=== PATIENT | female | born 1940 | race Caucasian/White ===

== ENCOUNTER → 2016-12-04 | Outpatient (CLI) | payer MEDICARE, BC ==
--- NOTE | 2016-12-05 14:01 | MM ---
Reason for exam: screening (asymptomatic). Last mammogram was performed 1 year ago. History: Patient is postmenopausal and history of other cancer. Family history of breast cancer in sister at age 66. 2 excisional biopsies of the right breast. Took hormonal contraceptives for 8 years beginning at age 21. Physical Findings: A clinical breast exam by your physician is recommended on an annual basis and results should be correlated with mammographic findings. MG 3D Screening Mammo W/Cad Bilateral CC and MLO view(s) were taken. Prior study comparison: December 02, 2015, bilateral MG 3d screening mammo w/cad. November 16, 2014, bilateral MG screening mammo w CAD. There is chronic nodularity bilaterally. No significant changes when compared with prior studies. ASSESSMENT: Benign, BI-RAD 2 RECOMMENDATION: Routine screening mammogram of both breasts in 1 year.
== END | disposition home or self-care (01) ==
LOC: RADMAMWWP 08:42
PROVIDERS: ATTEND Family Medicine
DX: Z12.31 Encounter for screening mammogram for malignant neoplasm of breast (principal)
CPT/HCPCS: 77063; G0202

== ENCOUNTER → 2017-02-13 | Outpatient (CLI) | payer MEDICARE, BC ==
--- NOTE | 2017-02-13 21:31 | CONS ---
DATE OF CONSULTATION: Sherly is 76, coming in for concern of obstructive sleep apnea. This was a concern that was raised by her primary care physician and her tour bus driver. She follows up with Dr. Wilfrid Pike regarding chronic atrial fibrillation. Clinically the patient reports to admit to snore and despite averaging around 7 to 8 hours of sleep, she wakes up tired, fatigued and somewhat sleepy. She goes around 11:00 p.m., wakes up at 7:00 a.m. in the morning and she feels non-refreshed. No nocturia. No grinding of the teeth. No sleepwalking. No anxiety or panic attacks. No nocturnal heartburn. No arousals or gasping for air. No restlessness in the lower extremities. No sleepwalking or sleeptalking. She is obese and she has no recent weight gain or weight loss. She drinks 3 caffeinated beverages a daily basis. PAST MEDICAL HISTORY: Obesity, diabetes mellitus, chronic atrial fibrillation, paroxysmal atrial fibrillation, Hypertension. Hyperlipidemia. Osteoarthritis. Past surgical history includes cholecystectomy, hysterectomy, knee replacement, surgery for a broken femur and cardiac catheterization with ablation. Outpatient medication list includes: 1. Januvia 100 milligrams p.o. daily. 2. Pravachol 20 mg p.o. daily. 3. Benazepril 5 mg p.o. daily. 4. ( ) 50,000 units every week. 5. [place] 7.5 as needed. 6. Cardizem CD 180 mg p.o. daily. 7. Xarelto 20 mg p.o. daily. 8. Rythmol 150 mg t.i.d. SOCIAL HISTORY: The patient is a smoker. She smokes 2 cigarettes a day. No history of alcohol. No history of IV drugs. FAMILY HISTORY: Brother with obstructive sleep apnea. REVIEW OF SYSTEMS: Twelve-point review of systems was done. Positive findings all mentioned above in the history of present illness. The patient is a nose breather. No history of any motor vehicle accident because of feeling drowsy or sleepy. She has no sleep paralysis. No hallucinations or cataplexy. Her current vitals: BP is 148/81, pulse 82, respirations 16, temperature 98.0, temperature is 97% on room air. Weight is 200. Height is 5 feet 2 inches. Neck size 15 inches. BMI is 35.9. GENERAL APPEARANCE: Calm, comfortable, obese. HEENT: Short neck. Crowding of posterior pharynx. There is no goiter, neck masses. LUNGS: Clear to auscultation. HEART: Heart sounds are regular rate and rhythm. Normal S1, S2. No S3, no S4 no murmurs. ABDOMEN: Soft and nontender. EXTREMITIES: No edema. There is no cyanosis or clubbing at this point. IMPRESSION: 1. Obstructive sleep apnea suspected on clinical grounds. We will proceed with further investigation. 2. Paroxysmal atrial fibrillation. 3. Obesity with a body mass index of 35.9. 4. Diabetes. 5. Hypertension. 6. Hyperlipidemia. 7. Osteoarthritis. PLAN: 1. Weight loss. 2. Implement good sleep hygiene measures. 3. Proceed with a screening polysomnogram, looking for any significant sleep breathing disorder and make further recommendations based on her results and findings.
== END ==
LOC: SLEEP 13:41
PROVIDERS: ATTEND Internal Medicine Critical Care Medicine
DX: G47.33 Obstructive sleep apnea (adult) (pediatric) (principal); E66.9 Obesity, unspecified; E11.9 Type 2 diabetes mellitus without complications; I10 Essential (primary) hypertension; E78.5 Hyperlipidemia, unspecified; M19.90 Unspecified osteoarthritis, unspecified site; F17.210 Nicotine dependence, cigarettes, uncomplicated; I48.0 Paroxysmal atrial fibrillation; Z79.01 Long term (current) use of anticoagulants; Z79.899 Other long term (current) drug therapy
CPT/HCPCS: 99204; 99211

== ENCOUNTER 2018-04-30 09:13 | Emergency (ER) | payer MEDICARE, BC ==
[2018-04-30 09:25] VITALS: RESP 18
[2018-04-30] MEDS ORDERED: KETOROLAC 30 MG/ML 1 ML VIAL IM STA (09:48)
[2018-04-30] MEDS ORDERED: MORPHINE SULFATE 4 MG/ML SYRINGE IM STA (09:48)
[2018-04-30] MEDS ORDERED: ORPHENADRINE 30 MG/ML 2 ML VIAL IM STA (09:48)
--- NOTE | 2018-04-30 09:52 | ED ---
Recheck HPI - General Chief Complaint: Recheck/Abnormal Lab/Rx Stated Complaint: Fell on tailbone Time Seen by Provider: 04/30/18 09:37 Source: patient, RN notes reviewed, old records reviewed Mode of arrival: wheelchair Limitations: no limitations - History of Present Illness Initial Comments: 77-year-old female present emergency department today with chief complaint of fall on her tailbone on Sunday afternoon. Patient reports that she was seen at that time and [facility]. They started her on steroids, pain medication and muscle relaxer. She reports that she cannot take the muscle relaxer from the pharmacy until today. Patient states she's had increased pain today. She does deny any saddle anesthesia. Patient states the pain occasionally will radiate to her right leg. Pain is worse with changing position from sitting to standing. Patient reports that she had no fall since the initial injury on Sunday. - Related Data Home Medications Medication Instructions Recorded Confirmed Benazepril [Lotensin] 5 mg PO DAILY 06/16/14 04/30/18 sitaGLIPtin [Januvia] 100 mg PO DAILY 06/16/14 04/30/18 Empagliflozin [Jardiance] 10 mg PO DAILY 02/06/17 04/30/18 HYDROcodone/APAP 7.5-325MG [Max 1 tab PO Q6HR PRN 02/06/17 04/30/18 7.5-325] Rivaroxaban [Xarelto] 20 mg PO HS 02/06/17 04/30/18 Aspirin [Adult Low Dose Aspirin EC] 81 mg PO DAILY 07/05/17 04/30/18 Ergocalciferol [Vitamin D2] 50,000 unit PO SERVIN 07/05/17 04/30/18 Flecainide [Tambocor] 50 mg PO QAM 07/05/17 04/30/18 Ranolazine [Ranexa] 500 mg PO BID 07/05/17 04/30/18 Metoprolol Tartrate 12.5 mg PO BID 04/30/18 04/30/18 Pravastatin Sodium [Pravachol] 40 mg PO HS 04/30/18 04/30/18 Previous Rx's Medication Instructions Recorded Cyclobenzaprine [Flexeril] 10 mg PO TID #12 tab 04/30/18 Allergies Allergy/AdvReac Type Severity Reaction Status Date / Time No Known Allergies Allergy Verified 04/30/18 10:14 Review of Systems ROS Statement: Those systems with pertinent positive or pertinent negative responses have been documented in the HPI. ROS Other: All systems not noted in ROS Statement are negative. Past Medical History Past Medical History: Atrial Flutter, Diabetes Mellitus, Hyperlipidemia, Hypertension, Osteoarthritis (OA) History of Any Multi-Drug Resistant Organisms: None Reported Past Surgical History: Breast Surgery, Cardiac Ablation, Cholecystectomy, Hysterectomy, Joint Replacement, Orthopedic Surgery, Pacemaker Past Anesthesia/Blood Transfusion Reactions: No Reported Reaction Past Psychological History: No Psychological Hx Reported Smoking Status: Current some day smoker Past Alcohol Use History: None Reported Past Drug Use History: None Reported - Past Family History Brother(s) Family Medical History: Cancer Sister(s) Family Medical History: Cancer General Exam - General Exam Comments Initial Comments: This is a 77-year-old female. Alert and oriented. No significant distress. Limitations: no limitations General appearance: alert, in no apparent distress Head exam: Present: atraumatic, normocephalic, normal inspection Eye exam: Present: normal appearance, PERRL, EOMI. Absent: scleral icterus, conjunctival injection, periorbital swelling ENT exam: Present: normal exam, mucous membranes moist Neck exam: Present: normal inspection. Absent: tenderness, meningismus, lymphadenopathy Respiratory exam: Present: normal lung sounds bilaterally. Absent: respiratory distress, wheezes, rales, rhonchi, stridor Cardiovascular Exam: Present: regular rate, normal rhythm, normal heart sounds. Absent: systolic murmur, diastolic murmur, rubs, gallop, clicks GI/Abdominal exam: Present: soft, normal bowel sounds. Absent: distended, tenderness, guarding, rebound, rigid Extremities exam: Present: normal inspection, full ROM, normal capillary refill. Absent: tenderness, pedal edema, joint swelling, calf tenderness Right Upper Leg exam: Present: normal inspection, full ROM Knee exam: Present: normal inspection, full ROM Foot/Toe exam: Present: normal inspection, full ROM Neurovascular tendon exam: Present: no vascular compromise Back exam: Present: normal inspection Expanded Back exam: Sciatic Notch Tenderness: Right (Patient has sciatic notch tenderness. Contusion over the right sciatic rash measuring 3 cm x 2 cm.), Positive Straight Leg Raise: Right Neurological exam: Present: alert, oriented X3, CN II-XII intact Psychiatric exam: Present: normal affect, normal mood Skin exam: Present: warm, dry, intact, normal color. Absent: rash Course Vital Signs 04/30/18 09:21 Temperature 97.8 F Pulse Rate 57 L Respiratory 18 Rate Blood Pressure 162/86 O2 Sat by Pulse 97 Oximetry Medical Decision Making - Medical Decision Making Tentative chilled female with tailbone pain and right sciatic pain after a fall on Sunday. She had a CT at [facility]. This was up and her system review the images. Unable to identify fracture at that time. We have the radiologist review the images again today and they do not see any right hip fracture. Lumbar spine shows evidence of L4-L5 degenerative disc disease. No evidence of any compression fractures. Patient's pain was relieved after Toradol and Norflex IV and morphine. Patient at this time is a 30 and treatment including pain medication Flexeril and steroids. Discussed continues and having close follow-up with PCP. Given referral for orthopedic symptoms continue to persist for Patient agrees treatment plan will comply. Return parameters were discussed. - Radiology Data Radiology results: report reviewed Advanced hypertrophy facet arthropathy. Trace 1 anterolisthesis L4-L5. No vertebral compression collapse. Bone mineralization joint spaces and alignment are stable and left. Was seen at the acetabulum on the right. Vascular calcifications noted. Degenerative disc and visualized spine. Cannot totally exclude a fracture considering CT. Disposition Clinical Impression: Right sciatic nerve pain, Fall, Contusion of lower back Disposition: HOME SELF-CARE Condition: Good Instructions: Sciatica (ED), Lumbar Radiculopathy (ED) Additional Instructions: Take as as prescribed pain medication. You could do it every 4 hours if necessary. Take the anti-inflammatory medication and muscle relaxer as prescribed. Return to the emergency department if any alarming signs or symptoms as per occur. Prescriptions: Cyclobenzaprine [Flexeril] 10 mg PO TID #12 tab Is patient prescribed a controlled substance at d/c from ED?: No Referrals: Darrel Rizo DO [Primary Care Provider] - 1-2 days Time of Disposition: 12:20
--- NOTE | 2018-04-30 11:42 | XR ---
EXAMINATION TYPE: XR lumbar spine 2 or 3V DATE OF EXAM: 04/30/2018 COMPARISON: NONE HISTORY: 77-year-old female pain since fall 4 days ago TECHNIQUE: 3 views FINDINGS: Osteopenia. Advanced hypertrophic facet arthropathy throughout. Baastrup's disease. Vertebral body he ights are preserved. Trace grade 1 anterolisthesis at L4-L5 degenerative basis. Dense atelectatic aury cifications throughout the abdominal aorta. Mild endplate spondylosis throughout. IMPRESSION: Advanced hypertrophic facet arthropathy. Trace grade 1 anterolisthesis at L4-L5. No vertebral refugio scout collapse.
--- NOTE | 2018-04-30 11:45 | XR ---
AP pelvis HISTORY: Trauma 4 days prior, pain Single frontal view of the pelvis correlated to left hip dated 12/02/2015 Bone mineralization, joint spaces and alignment are stable on the left. Lucency seen at acetabulum on the right. There are vascular calcifications noted. Degenerative disc change in the visualized spine . IMPRESSION: cannot exclude fracture, consider CT.
[2018-04-30] MEDS ORDERED: CYCLOBENZAPRINE 10MG STARTER 3 TAB BTL PO STA (12:22)
[2018-04-30 13:00] VITALS: BP 166/86; PULSE 61; TEMP 98.2
== END 2018-04-30 12:57 | disposition home or self-care (01) ==
LOC: EC 09:13
DX: S30.0XXA Contusion of lower back and pelvis, initial encounter (principal); M54.31 Sciatica, right side; I48.92 Unspecified atrial flutter; E11.9 Type 2 diabetes mellitus without complications; E78.5 Hyperlipidemia, unspecified; M19.90 Unspecified osteoarthritis, unspecified site; I10 Essential (primary) hypertension; F17.200 Nicotine dependence, unspecified, uncomplicated; Z79.01 Long term (current) use of anticoagulants; Z79.84 Long term (current) use of oral hypoglycemic drugs; Z79.82 Long term (current) use of aspirin; Z79.899 Other long term (current) drug therapy; Z95.0 Presence of cardiac pacemaker; W19.XXXA Unspecified fall, initial encounter
CPT/HCPCS: 72100; 72170; 99284; 96372 ×3; J2270; J2360; J1885

== ENCOUNTER 2018-05-01 16:33 | Inpatient (IN) | payer MEDICARE, BC ==
--- NOTE | 2018-05-01 17:32 | ED ---
General Adult HPI - General Chief complaint: Back Pain/Injury Stated complaint: BACK PAIN Time Seen by Provider: 05/01/18 16:52 Source: patient, family, RN notes reviewed Mode of arrival: EMS Limitations: physical limitation - History of Present Illness Initial comments: Patient is a pleasant 77-year-old female presenting to the emergency Department with low back pain. Patient does have a history of chronic sciatic problems. Patient has received injections previously with improvement of symptoms. Patient did have a fall 5 days ago while exercising. Patient landed on her tailbone. Patient has had computed tomography scan done at [facility] as well as x-rays done here. Patient states despite pain medication including Flexeril and [place] and steroids her symptoms are not improving. Patient is having difficulty getting to the bathroom and therefore has had some episodes of bladder incontinence. Patient is highly able to walk at all. Patient attributes her inability to walk to pain. Patient has difficulty moving her legs also to be related to pain. No fecal incontinence. - Related Data Home Medications Medication Instructions Recorded Confirmed Benazepril [Lotensin] 5 mg PO DAILY 06/16/14 05/01/18 sitaGLIPtin [Januvia] 100 mg PO DAILY 06/16/14 05/01/18 Empagliflozin [Jardiance] 10 mg PO DAILY 02/06/17 05/01/18 HYDROcodone/APAP 7.5-325MG [[place] 1 tab PO Q6HR PRN 02/06/17 05/01/18 7.5-325] Rivaroxaban [Xarelto] 20 mg PO HS 02/06/17 05/01/18 Aspirin [Adult Low Dose Aspirin EC] 81 mg PO DAILY 07/05/17 05/01/18 Ergocalciferol [Vitamin D2] 50,000 unit PO SERVIN 07/05/17 05/01/18 Flecainide [Tambocor] 50 mg PO QAM 07/05/17 05/01/18 Ranolazine [Ranexa] 500 mg PO BID 07/05/17 05/01/18 Metoprolol Tartrate 12.5 mg PO BID 04/30/18 05/01/18 Pravastatin Sodium [Pravachol] 40 mg PO HS 04/30/18 05/01/18 predniSONE 20 mg PO TID 05/01/18 05/01/18 Previous Rx's Medication Instructions Recorded Cyclobenzaprine [Flexeril] 10 mg PO TID #12 tab 04/30/18 Allergies Allergy/AdvReac Type Severity Reaction Status Date / Time No Known Allergies Allergy Verified 05/01/18 16:55 Review of Systems ROS Statement: Those systems with pertinent positive or pertinent negative responses have been documented in the HPI. ROS Other: All systems not noted in ROS Statement are negative. Constitutional: Denies: fever Eyes: Denies: eye pain ENT: Denies: ear pain Respiratory: Denies: cough Cardiovascular: Denies: chest pain Endocrine: Denies: fatigue Gastrointestinal: Denies: abdominal pain Genitourinary: Denies: dysuria Musculoskeletal: Reports: back pain Skin: Denies: rash Neurological: Denies: weakness Past Medical History Past Medical History: Atrial Flutter, Diabetes Mellitus, Hyperlipidemia, Hypertension, Osteoarthritis (OA) History of Any Multi-Drug Resistant Organisms: None Reported Past Surgical History: Breast Surgery, Cardiac Ablation, Cholecystectomy, Hysterectomy, Joint Replacement, Orthopedic Surgery, Pacemaker Past Anesthesia/Blood Transfusion Reactions: No Reported Reaction Past Psychological History: No Psychological Hx Reported Smoking Status: Current some day smoker Past Alcohol Use History: None Reported Past Drug Use History: None Reported - Past Family History Brother(s) Family Medical History: Cancer Sister(s) Family Medical History: Cancer General Exam Limitations: physical limitation General appearance: alert, in no apparent distress Head exam: Present: atraumatic Eye exam: Present: normal appearance, PERRL ENT exam: Present: normal oropharynx Neck exam: Present: normal inspection Respiratory exam: Present: normal lung sounds bilaterally Cardiovascular Exam: Present: regular rate, normal rhythm Expanded Peripheral pulses: 2+: Dorsalis Pedis (R), Dorsalis Pedis (L) GI/Abdominal exam: Present: soft. Absent: distended, tenderness Rectal exam: Present: normal inspection, normal rectal tone, other (No saddle anesthesia) Extremities exam: Present: normal inspection Back exam: Present: normal inspection. Absent: tenderness Neurological exam: Present: alert, other (Patient has difficulty lifting both legs off the bed that she attributes to pain. Good strength with dorsi and plantar flexion of the feet. Sensation intact.) Psychiatric exam: Present: normal affect, normal mood Skin exam: Present: normal color. Absent: rash Course Vital Signs 05/01/18 16:44 Temperature 97.9 F Pulse Rate 56 L Respiratory 18 Rate Blood Pressure 179/77 O2 Sat by Pulse 96 Oximetry Medical Decision Making - Medical Decision Making Case was discussed in detail with Dr. asif, who will admit for Dr. Rizo. He does request consult with Dr. Del Cid. Disposition Clinical Impression: Fall, Right sciatic nerve pain Disposition: ADMITTED IP TO THIS HOSP Is patient prescribed a controlled substance at d/c from ED?: No Referrals: Darrel Rizo DO [Primary Care Provider] - 1-2 days Decision Time: 19:34
[2018-05-01] MEDS ORDERED: NALOXONE 0.4 MG/ML 1 ML VIAL IV PRN (19:34)
[2018-05-01 20:15] LABS: Appearance,Urine Clear (Clear); Basophils % (A) 0 %; Bilirubin,Urine Negative (Negative); Blood,Urine Negative (Negative); Color,Urine Light Yellow; Eosinophils # (A) 0.2 k/uL (0-0.7); Eosinophils % (A) 1 %; Glucose,Urine (UA) 4+ (Negative); HCT 42.5 % (34.0-46.0); HGB 14.1 gm/dL (11.4-16.0); Ketones,Urine Negative (Negative); Leukocyte Esterase,Urine Negative (Negative); Lymphocytes # (A) 1.1 k/uL (1.0-4.8); Lymphocytes % (A) 5 %; MCH 30.1 pg (25.0-35.0); MCHC 33.2 g/dL (31.0-37.0); MCV 90.6 fL (80.0-100.0); Mean Platelet Volume 6.9; Monocytes # (A) 0.5 k/uL (0-1.0); Monocytes % (A) 3 %; Neutrophils # (A) 18.5 k/uL (1.3-7.7); Neutrophils % (A) 91 %; Nitrite,Urine Negative (Negative); Platelet Count 205 k/uL (150-450); Protein,Urine Negative (Negative); RBC 4.69 m/uL (3.80-5.40); RDW 14.1 % (11.5-15.5); Specific Gravity,Urine 1.014 (1.001-1.035); Urobilinogen,Urine <2.0 mg/dL (<2.0); WBC 20.4 k/uL (3.8-10.6)
[2018-05-01] MEDS: methylPREDNISolone SOD SUCCI 125 MG/2 ML VIAL IV SCH ×2 (20:27→23:18)
[2018-05-01] MEDS: HYDROmorphone 1 MG/ML 1 ML SYRINGE IVP PRN (20:28)
[2018-05-01 20:39] LABS: ALT 32 U/L (9-52); AST 22 U/L (14-36); Albumin 3.6 g/dL (3.5-5.0); Alkaline Phosphatase 64 U/L (38-126); Anion Gap 6 mmol/L; Blood Urea Nitrogen 31 mg/dL (7-17); Carbon Dioxide 27 mmol/L (22-30); Chloride 105 mmol/L (98-107); Glucose 144 mg/dL (74-99); Potassium 4.7 mmol/L (3.5-5.1); Sodium 138 mmol/L (137-145); Total Bilirubin 0.4 mg/dL (0.2-1.3); Total Protein 6.2 g/dL (6.3-8.2)
[2018-05-01] MEDS: SODIUM CHLORIDE 0.9% 1,000 ML IV SCH (21:12)
[2018-05-01 21:28] VITALS: BMI 32.9
[2018-05-02] MEDS: HYDROmorphone 1 MG/ML 1 ML SYRINGE IVP PRN ×5 (02:49→17:30)
[2018-05-02] MEDS: methylPREDNISolone SOD SUCCI 125 MG/2 ML VIAL IV SCH ×4 (05:46→23:01)
--- NOTE | 2018-05-02 09:21 | P.CNOR ---
History of Present Illness - [facility] Consult date: 05/02/18 Consult reason: low back pain History of present illness: Patient is a pleasant 77 rolled female who was admitted to the emergency room last night with incapacitating low back pain. She says that she has a history of chronic low back pain with some sciatica issues. She said she had a fall about 5 days ago when she was exercising and fell onto her backside. She says she was still able get up and around but did present to place [facility]. She had some medications and imaging but was sent home. She continued to have pain and difficulty getting around and presented to the emergency room on Sunday. She was again tried conservative treatment and was able to be sent home. She had continued pain and presented again yesterday and was admitted. She says she is unable to walk due to her pain under low back and has difficulty moving her legs due to the pain at her lower back into her posterior thighs bilaterally. She denies any bowel bladder changes denies any fevers or chills. She denies any chest pain or shortness breath. Review of Systems Denies any chest pain shortness breath or fevers chills. Denies any weakness in her lower extremity. Has difficulty moving her legs due to the pain in her back. Past Medical History Past Medical History: Atrial Flutter, Diabetes Mellitus, Hyperlipidemia, Hypertension, Osteoarthritis (OA) History of Any Multi-Drug Resistant Organisms: None Reported Past Surgical History: Breast Surgery, Cardiac Ablation, Cholecystectomy, Hysterectomy, Joint Replacement, Orthopedic Surgery, Pacemaker Additional Past Surgical History / Comment(s): plate in right leg Past Anesthesia/Blood Transfusion Reactions: No Reported Reaction Type of Cardiac Device: Unknown Device Placement Date:: 04/09 Past Psychological History: No Psychological Hx Reported Smoking Status: Current some day smoker Past Alcohol Use History: None Reported Past Drug Use History: None Reported - Past Family History Brother(s) Family Medical History: Cancer Sister(s) Family Medical History: Cancer Medications and Allergies Home Medications Medication Instructions Recorded Confirmed Type Benazepril [Lotensin] 5 mg PO DAILY 06/16/14 05/01/18 History sitaGLIPtin [Januvia] 100 mg PO DAILY 06/16/14 05/01/18 History Empagliflozin [Jardiance] 10 mg PO DAILY 02/06/17 05/01/18 History HYDROcodone/APAP 7.5-325MG [[place] 1 tab PO Q6HR PRN 02/06/17 05/01/18 History 7.5-325] Rivaroxaban [Xarelto] 20 mg PO HS 02/06/17 05/01/18 History Aspirin [Adult Low Dose Aspirin EC] 81 mg PO DAILY 07/05/17 05/01/18 History Ergocalciferol [Vitamin D2] 50,000 unit PO SERVIN 07/05/17 05/01/18 History Flecainide [Tambocor] 50 mg PO QAM 07/05/17 05/01/18 History Ranolazine [Ranexa] 500 mg PO BID 07/05/17 05/01/18 History Cyclobenzaprine [Flexeril] 10 mg PO TID #12 tab 04/30/18 05/01/18 Rx Metoprolol Tartrate 12.5 mg PO BID 04/30/18 05/01/18 History Pravastatin Sodium [Pravachol] 40 mg PO HS 04/30/18 05/01/18 History predniSONE 20 mg PO TID 05/01/18 05/01/18 History Allergies Allergy/AdvReac Type Severity Reaction Status Date / Time No Known Allergies Allergy Verified 05/01/18 16:55 Physical Examination Osteopathic Statement: *. No significant issues noted on an osteopathic structural exam other than those noted in the History and Physical/Consult. - L Spine: dermatomal strength & reflexes bilateral Strength: hip flexion: 5/5 (At her back her skin is clear. There is no open wounds lacerations or abrasions. There is no skin changes. She is nontender to palpation over the midline of her back she has some paravertebral spasm. She has no pain with internal and external rotation of her hips. She has sustained dorsal flexion plantarflexion and EHL. She is able to lift her legs up off the bed but has pain with doing so on the right side. Her pelvis is stable. Abdomen soft nontender chest has good excursion deep inspiration and expiration her neck is nontender to palpation range of motion her arms have good strength and range of motion throughout) Results - Labs Labs: Abnormal Lab Results - Last 24 Hours (Table) 05/01/18 05/01/18 05/01/18 Range/Units 20:00 20:00 20:00 WBC 20.4 H (3.8-10.6) k/uL Neutrophils # 18.5 H (1.3-7.7) k/uL BUN 31 H (7-17) mg/dL Glucose 144 H (74-99) mg/dL Total Protein 6.2 L (6.3-8.2) g/dL Urine Glucose (UA) 4+ H (Negative) H & H 05/01/18 Range/Units 20:00 Hgb 14.1 (11.4-16.0) gm/dL Hct 42.5 (34.0-46.0) % Result Diagrams: 05/01/18 20:00 05/01/18 20:00 - Diagnostic results Lumbar AP/lateral x-ray: image reviewed (Lumbar x-rays are reviewed. She has significant disc changes at L5-S1 and may have some calcification and possible autofusion at that level. There is a very slight 2 mm listhesis at L4 5. There is no acute fracture that is apparent. There is no other instability. I do not see any bony masses or distraction.) Assessment and Plan Assessment: Acute on chronic low back pain Bilateral lower extremity radiculopathy Status post fall approximately 1 week ago Subtle listhesis L4 5 Degenerative disc disease L5-S1 Plan: Acute on chronic low back pain Bilateral lower extremity radiculopathy Status post fall approximately 1 week ago Subtle listhesis L4 5 Degenerative disc disease L5-S1 The patient has acute on chronic low back pain and is having great difficulty with any sort of ambulation. There are some degenerative changes at her lower lumbar spine L4 5 and L5-S1. She is not having acute neurologic change or weakness at this point. She has been started on IV steroids I think is appropriate. We will see if physical therapy is able to help her with her mobilization. She has a history of pacemaker and we will not be able to obtain an MRI we'll we will go ahead with an new computed tomography scan of her lumbar spine if this is not available from [facility]. I would like to see if interventional pain management can see her for the possibility of interventional treatment and possible epidural steroid injections. We will plan to treat her conservatively at this point. She will continue her other medical management. She may need to hold her Xarelto if they plan for interventional pain management treatments.
--- NOTE | 2018-05-02 10:21 | CT ---
EXAMINATION TYPE: CT lumbar spine wo con DATE OF EXAM: 05/02/2018 9:57 AM COMPARISON: 04/30/2018 HISTORY: Low back pain CT DLP: 985 mGycm Automated exposure control for dose reduction was used. TECHNIQUE: Unenhanced CT of the lumbar spine was performed. Bone and soft tissue window settings are submitted as well as coronal and sagittal reconstructions. FINDINGS: Again there is very mild grade 1 anterolisthesis of L4 on L5. Remainder of the lumbar verte bral bodies maintain normal vertebral body heights and alignment. There is multilevel moderate degene rative change of the lumbar spine most exaggerated at L5-S1 with intervertebral disc space narrowing, endplate sclerosis and advanced hypertrophic facet arthropathy throughout the lumbar spine. As noted on the prior radiographs there is approximation of the spinous processes due to degenerative change. Spinal canal is limited on CT. There is severe atherosclerosis of the inferior abdominal aorta and it s branches. L1-L2: Normal disc space height. No disc herniation protrusion or central stenosis. No facet joint arthropathy. No evidence for foraminal encroachment. L2-L3: There is a broad-based disc bulge with facet arthropathy resulting in mild bilateral neural fo raminal narrowing. No significant spinal canal stenosis. L3-L4: There is a broad-based disc bulge and advanced facet arthropathy with ligamentum flavum buckli ng resulting in moderate to severe spinal canal stenosis and moderate bilateral neural foraminal narr owing. L4-L5: There is a broad-based disc bulge and advanced facet arthropathy with ligamentum flavum buckli ng also resulting in moderate to severe spinal canal stenosis and moderate bilateral neural foraminal narrowing. L5-S1: There is a right eccentric broad-based disc bulge resulting in mild right-sided neural foramin al narrowing. No significant spinal canal stenosis or left-sided neural foraminal narrowing. IMPRESSION: 1. No evidence of acute fracture of the lumbar spine. Very minimal malalignment of L4 on L5 is likely on a degenerative basis due to advanced facet arthropathy. 2. Advanced multilevel facet arthropathy and moderate degenerative disc disease resulting in moderate to severe spinal canal stenosis at L3-L4 and L4-L5 with multilevel neural foraminal narrowing as satya cribed above.
[2018-05-02] MEDS ORDERED: predniSONE 20 MG TAB PO SCH (11:15)
[2018-05-02] MEDS: RANOLAZINE 500 MG TAB.ER.12H PO SCH ×2 (12:45→20:55)
[2018-05-02] MEDS: METOPROLOL TARTRATE 12.5 MG TAB PO SCH ×2 (12:45→20:56)
[2018-05-02] MEDS: FLECAINIDE 50 MG TAB PO SCH (12:45)
[2018-05-02] MEDS: LISINOPRIL 5 MG TAB PO SCH (12:45)
[2018-05-02] MEDS: CYCLOBENZAPRINE 10 MG TAB PO SCH ×3 (12:45→20:55)
[2018-05-02] MEDS: ASPIRIN 81 MG PO SCH (12:46)
[2018-05-02] MEDS: NON-FORMULARY DRUG (Empagliflozin [Jardiance] 10 MG) PO SCH (12:46)
[2018-05-02] MEDS: LINAGLIPTIN 5 MG TABLET PO SCH (12:46)
[2018-05-02] MEDS: HYDROcodone/APAP 7.5-325MG 1 EACH TAB PO PRN (14:33)
--- NOTE | 2018-05-02 15:13 | P.PAINCN ---
History of Present Illness - Reason for Consult Consult date: 05/02/18 Low back pain - Chief Complaint Low back pain - History of Present Illness 78-year-old female with a history of degenerative disc disease of the lumbar spine. Patient reports that she fell on her back 1 week ago and has had excruciating pain since then. She reports that the emergency department because of her back pain. Pain is a 10 out of 10 in severity and describes it as throbbing aching she reports bilateral radicular pain into the posterior thigh. Patient is currently on Xarelto and was last taken last night. In order to perform any type of interventional procedure patient needs have been off the Xarelto for 3 days. I spoke to admitting team and discuss the patient should follow up as an outpatient. I also discussed discharge medication continue steroids and NSAIDs along with bedrest as the ideal therapy into the patient can be seen in our clinic and appropriately boarded for a intralaminar epidural steroid injection. Patient denies any bowel or bladder incontinence Patient has not had lumbar spine surgery in the past. ROS: A 14 point review of systems was completed and negative except as mentioned in HPI Physical Examinations : 1-Constitutiona : Cooperative , not in acute distress . 2-HEENT : nech ; supple , no Lymphadenopathy , normal thyroid size . eyes : no ptosis , no icterus, no photophobia . ENT : normal of hearing , normal oropharynx , no Thrush . 3- Respiratory : Chest clear to auscultations Bilaterally , no wheezing , no Rhonchi . 4- Cardiovascular : regular rate and rhythem , S1 , S2 , no S3 , no S4. 5- Gastrointestinal : abdomen soft no tenderness , bowel sounds positive all four quadrents , no organomegally . 6- Genitourinary : Defferred . 7- neurologic : Cranial nerve II to XII intact , no focal neurological deffecit . 8-psychatric : alert , oriented X 3 , appropriate affect , intact judgment and insight . 9-Lymphatic : no Lymphadenopathy . 10- musculoskeltal : , Lumber spine = normal moter stegnth lower extremities ,thigh and legs .5/5 deep tendon reflexes : normal Knee Jerk, normal ankle Jerk . Negative lumber facet Loading Test straight leg raising test positive at 30 degree bilateral Fabere test positive RT and positive LT . Sever tenderness over the lumbar spine bilateral mostly on the left Assessment/plan: assessment: 1. Lumbar radiculitis 2. Lumbar spinal stenosis 3. Lumbar degenerative disc disease Plan 1. Patient could benefit from a lumbar epidural steroid injection however patient is on Xarelto and would not be able to be boarded until Sunday morning. Seeing as how this is not ideal. The patient as an inpatient I recommend that she follow up as an outpatient. With regards to medication planning patient could still benefit from prednisone as well as NSAIDs. Patient could also benefit from bedrest. 2. Patient can be scheduled to be seen in our clinic next available date phone number is dory [phone] Thank you for the consultation and for allowing us to participate in this patient's care. Past Medical History Past Medical History: Atrial Flutter, Diabetes Mellitus, Hyperlipidemia, Hypertension, Osteoarthritis (OA) History of Any Multi-Drug Resistant Organisms: None Reported Past Surgical History: Breast Surgery, Cardiac Ablation, Cholecystectomy, Hysterectomy, Joint Replacement, Orthopedic Surgery, Pacemaker Additional Past Surgical History / Comment(s): plate in right leg Past Anesthesia/Blood Transfusion Reactions: No Reported Reaction Type of Cardiac Device: Unknown Device Placement Date:: 04/09 Past Psychological History: No Psychological Hx Reported Smoking Status: Current some day smoker Past Alcohol Use History: None Reported Past Drug Use History: None Reported - Past Family History Brother(s) Family Medical History: Cancer Sister(s) Family Medical History: Cancer Medications and Allergies Home Medications Medication Instructions Recorded Confirmed Type Benazepril [Lotensin] 5 mg PO DAILY 06/16/14 05/01/18 History sitaGLIPtin [Januvia] 100 mg PO DAILY 06/16/14 05/01/18 History Empagliflozin [Jardiance] 10 mg PO DAILY 02/06/17 05/01/18 History HYDROcodone/APAP 7.5-325MG [[place] 1 tab PO Q6HR PRN 02/06/17 05/01/18 History 7.5-325] Rivaroxaban [Xarelto] 20 mg PO HS 02/06/17 05/01/18 History Aspirin [Adult Low Dose Aspirin EC] 81 mg PO DAILY 07/05/17 05/01/18 History Ergocalciferol [Vitamin D2] 50,000 unit PO SERVIN 07/05/17 05/01/18 History Flecainide [Tambocor] 50 mg PO QAM 07/05/17 05/01/18 History Ranolazine [Ranexa] 500 mg PO BID 07/05/17 05/01/18 History Cyclobenzaprine [Flexeril] 10 mg PO TID #12 tab 04/30/18 05/01/18 Rx Metoprolol Tartrate 12.5 mg PO BID 04/30/18 05/01/18 History Pravastatin Sodium [Pravachol] 40 mg PO HS 04/30/18 05/01/18 History predniSONE 20 mg PO TID 05/01/18 05/01/18 History Allergies Allergy/AdvReac Type Severity Reaction Status Date / Time No Known Allergies Allergy Verified 05/01/18 16:55 Physical Exam Vitals: Vital Signs Temp Pulse Pulse Resp BP BP Pulse Ox 05/02/18 07:05 98.8 F 67 22 143/81 99 05/02/18 00:54 97.9 F 56 L 16 133/85 96 05/01/18 20:09 97.6 F 56 L 18 159/72 95 05/01/18 20:04 97.5 F L 57 L 16 160/80 97 05/01/18 16:44 97.9 F 56 L 18 179/77 96 Intake and Output 05/01/18 05/02/18 05/02/18 22:59 06:59 14:59 Other: # Voids 1 1 Weight 81.647 kg Results CBC & Chem 7: 05/01/18 20:00 05/01/18 20:00 Labs: Abnormal Lab Results - Last 24 Hours (Table) 05/01/18 05/01/18 05/01/18 Range/Units 20:00 20:00 20:00 WBC 20.4 H (3.8-10.6) k/uL Neutrophils # 18.5 H (1.3-7.7) k/uL BUN 31 H (7-17) mg/dL Glucose 144 H (74-99) mg/dL Total Protein 6.2 L (6.3-8.2) g/dL Urine Glucose (UA) 4+ H (Negative) PQRS Measure Charge Sheet PQRS Narrative: Smoking Status Current some day smoker Do You Want the Pneumonia Vaccine Up to Date Vaccine AT THIS TIME? Blood Pressure [Right Arm] 143/81 Blood Pressure 159/72 Pain Intensity [Back] 5 Pain Intensity 5 Pain Scale Used Numeric (1 - 10) Scale Used Numeric (1 - 10) Home Medications: Ambulatory Orders Benazepril [Lotensin] 5 mg PO DAILY 06/16/14 sitaGLIPtin [Januvia] 100 mg PO DAILY 06/16/14 Empagliflozin [Jardiance] 10 mg PO DAILY 02/06/17 HYDROcodone/APAP 7.5-325MG [[place] 7.5-325] 1 tab PO Q6HR PRN 02/06/17 Rivaroxaban [Xarelto] 20 mg PO HS 02/06/17 Aspirin [Adult Low Dose Aspirin EC] 81 mg PO DAILY 07/05/17 Ergocalciferol [Vitamin D2] 50,000 unit PO SERVIN 07/05/17 Flecainide [Tambocor] 50 mg PO QAM 07/05/17 Ranolazine [Ranexa] 500 mg PO BID 07/05/17 Cyclobenzaprine [Flexeril] 10 mg PO TID #12 tab 04/30/18 Metoprolol Tartrate 12.5 mg PO BID 04/30/18 Pravastatin Sodium [Pravachol] 40 mg PO HS 04/30/18 predniSONE 20 mg PO TID 05/01/18
[2018-05-02 17:09] LABS: Glucose,Whole Blood 182 mg/dL (75-99)
[2018-05-02 20:42] LABS: Glucose,Whole Blood 222 mg/dL (75-99)
[2018-05-02] MEDS: INSULIN ASPART 100 UNIT/ML 1 ML 10 ML VIAL SQ SCH (20:55)
[2018-05-02] MEDS: SODIUM CHLORIDE 0.9% 1,000 ML IV SCH (20:59)
[2018-05-02] MEDS ORDERED: PRAVASTATIN SODIUM 40 MG TAB PO SCH (21:00)
[2018-05-02] MEDS ORDERED: RIVAROXABAN 20 MG TAB PO SCH (21:00)
--- NOTE | 2018-05-02 21:11 | HP ---
HISTORY AND PHYSICAL DATE OF ADMISSION: 05/01/2018 DATE OF SERVICE: 05/02/2018 PRESENTING COMPLAINT: Lower back pain. HISTORY OF PRESENTING COMPLAINT: This is a pleasant 78-year-old patient of Dr. Rizo. Patient's chronic stable medical conditions include atrial fibrillation, on Xarelto, diabetes, hyperlipidemia, hypertension, permanent pacemaker. Patient has chronic low back pain, for which she has received injections. Patient fell about 5 days ago and managed to get up and then went down to [facility], where she was given some pain medication and discharged home. Subsequently the patient came on Sunday to the ER here, and again she was discharged with more pain medications. She was having more and more trouble with walking and then decided to come in for the same. Because of pacemaker, patient cannot have an MRI. Repeat lumbar CT scan was done that did show some migrated disc at the lower lumbar levels. Dr. Del Cid of [facility]opedic [facility] was consulted. Pain was in the lower back with some radiation down the buttock area. Patient states she has had a bowel movement. No trouble making urine. No fever. No chills. REVIEW OF SYSTEMS: CONSTITUTIONAL: None. HEENT: None. RESPIRATORY: None. CARDIOVASCULAR: None. GASTROINTESTINAL: None. GENITOURINARY: None. MUSCULOSKELETAL: As above. DERMATOLOGICAL: None. HEMATOLOGICAL: None. LYMPHATICS: None. PSYCHIATRY: None. NEUROLOGICAL: As above. PAST MEDICAL HISTORY: 1. Atrial flutter/fibrillation. 2. Diabetes. 3. Hypertension. 4. Hyperlipidemia. 5. Osteoarthritis. PAST SURGICAL HISTORY: 1. Breast surgery. 2. Cardiac ablation. 3. Cholecystectomy. 4. Hysterectomy. 5. Pacemaker. SOCIAL HISTORY: Patient is a smoker. No alcohol. Lives by herself. FAMILY HISTORY: Cancer, type unknown. HOME MEDICATIONS: 1. Xarelto 20 mg at bedtime. 2. Pravachol 40 mg at bedtime. 3. [place] 7.5 one tablet q.6 p.r.n. 4. Vitamin D2 50,000 units on Sundays. 5. Prednisone 20 mg t.i.d. 6. Januvia 100 mg a day. 7. Ranexa 500 mg b.i.d. 8. Metoprolol 12.5 p.o. b.i.d. 9. Flecainide 50 mg p.o. daily. 10.Jardiance 10 mg p.o. daily. 11.Flexeril 10 mg p.o. t.i.d. 12.Lotensin 5 mg p.o. daily. 13.Aspirin 81 mg p.o. daily. ALLERGIES: NONE. PHYSICAL EXAMINATION: Temperature 97.9, pulse 56, respiration 18, blood pressure 160/80, pulse ox 97% on room air. GENERAL APPEARANCE: Well built; BMI 32.9. Lying in bed, awake. EYES: Pupils equal. Conjunctivae normal. HEENT: External appearance of nose and ears normal. Oral cavity normal. NECK: JVD not raised. Mass not palpable. RESPIRATORY: Effort normal. Lungs are clear. CARDIOVASCULAR: First and second sounds normal. No edema. ABDOMEN: Soft, non-tender. Liver and spleen not palpable. LYMPHATIC: No lymph node palpable in neck or axillae. PSYCHIATRY: Alert and oriented x3. Mood and affect normal. NEUROLOGICAL: Pupils equal. Cranial nerves grossly intact. Patient is just about able to lift her legs off the bed. Reflexes are equivocal. Sensation grossly preserved. INVESTIGATIONS: White count 20.4, hemoglobin 14.1, potassium 4.7, BUN 31, creatinine 0.7. Lumbar spine CT: There is disc bulge between L2/ L3, L3/L4, L4/L5 with L4/L5 also showing moderate to severe spinal canal stenosis and moderate bilateral neural foraminal narrowing. ASSESSMENT: 1. Acute on chronic low back pain in a patient who has had chronic low back pain with steroid injections in the past, now presenting with increasing pain in the lower back secondary to a fall. No fracture was picked up, but patient has significant disc herniation with neural foraminal encroachment and spinal stenosis, finding it difficult to walk. 2. Obesity; body mass index 32.9. 3. Persistent atrial flutter, chronically on Xarelto. 4. Diabetes mellitus, type 2, on oral hypoglycemic. 5. Hyperlipidemia. 6. Essential hypertension. 7. Primary osteoarthritis. PLAN: Dr. Del Cid was consulted. He did consult the pain management team, and because of Xarelto, patient cannot get an injection right now. PT/OT has also been consulted. We will see how things go from here. Patient will be given a nicotine patch. MMODL / IJN: [id number] /
[2018-05-02] MEDS: NICOTINE 21MG/24HR PATCH TRANSDERM SCH (21:50)
[2018-05-03] MEDS: HYDROcodone/APAP 7.5-325MG 1 EACH TAB PO PRN ×2 (01:02→10:32)
[2018-05-03 01:21] VITALS: RESP 16
[2018-05-03] MEDS: methylPREDNISolone SOD SUCCI 125 MG/2 ML VIAL IV SCH ×3 (05:09→18:19)
[2018-05-03 07:12] LABS: Glucose,Whole Blood 181 mg/dL (75-99)
[2018-05-03] MEDS: HYDROmorphone 1 MG/ML 1 ML SYRINGE IVP PRN ×2 (07:32→14:16)
[2018-05-03] MEDS: INSULIN ASPART 100 UNIT/ML 1 ML 10 ML VIAL SQ SCH ×3 (09:00→18:24)
[2018-05-03] MEDS: NICOTINE 21MG/24HR PATCH TRANSDERM SCH (09:08)
[2018-05-03] MEDS: RANOLAZINE 500 MG TAB.ER.12H PO SCH (09:19)
[2018-05-03] MEDS: FLECAINIDE 50 MG TAB PO SCH (09:19)
[2018-05-03] MEDS: ASPIRIN 81 MG PO SCH (09:20)
[2018-05-03] MEDS: LISINOPRIL 5 MG TAB PO SCH (09:20)
[2018-05-03] MEDS: METOPROLOL TARTRATE 12.5 MG TAB PO SCH (09:20)
[2018-05-03] MEDS: CYCLOBENZAPRINE 10 MG TAB PO SCH ×2 (09:20→18:12)
[2018-05-03] MEDS: LINAGLIPTIN 5 MG TABLET PO SCH (09:20)
[2018-05-03] MEDS: NON-FORMULARY DRUG (Empagliflozin [Jardiance] 10 MG) PO SCH (09:23)
[2018-05-03 11:06] LABS: Glucose,Whole Blood 196 mg/dL (75-99)
--- NOTE | 2018-05-03 13:39 | PN ---
PROGRESS NOTE DATE OF SERVICE: 05/03/2018 PRESENTING COMPLAINT: Lower back pain. INTERVAL HISTORY: This is a patient with chronic low back pain for which she has received steroid injection, now presents with worsening of the pain. The patient needs to assistance to be moved to the commode, not able to walk. Still getting IV pain medications. The patient did inform me through her family doctor that she is able to have an MRI with this current pacemaker she has. Tolerating a diet. REVIEW OF SYSTEMS: Done for constitutional, cardiovascular, GI, pulmonary, musculoskeletal; relevant findings as above. MEDICATIONS: Current medications are reviewed that include [place] 7.5, Dilaudid, IV Solu-Medrol. PHYSICAL EXAMINATION: On examination, temperature 97.6 pulse 56, respirations 6, blood pressure 152/70, pulse ox 96% room air. GENERAL APPEARANCE: Sitting up on a chair, awake. EYES: Pupils equal. Conjunctivae normal. HENT: External appearance of nose and ears normal. Oral cavity normal. NECK: JVD not raised. Mass not palpable. RESPIRATORY: Effort normal. Lungs are clear. CARDIOVASCULAR: First and second sounds normal. No edema. ABDOMEN: Soft, nontender. Liver and spleen not palpable. PSYCHIATRY: Alert and oriented x3. Mood and affect normal. NEUROLOGICAL: The patient just about able to lift up her legs a bit. INVESTIGATIONS: Accu-Cheks are noted. ASSESSMENT: 1. Acute on chronic low back pain in a patient with increasing lower back pain. The patient has found to have significant disc herniation in multiple levels with neural foraminal encroachment and spinal stenosis and finding it difficult to walk, needing assistance. 2. Obesity; body mass index 32.9. 3. Persistent atrial flutter, chronically on Xarelto. 4. Diabetes mellitus type 2 on oral hypoglycemic. 5. Hyperlipidemia. 6. Essential hypertension. 7. Primary osteoarthritis. PLAN: Spoke to her nurse. She will get hold of Dr. Del Cid to see if MRI needs to be done. The patient may need inpatient rehab if this continues, but at the same time it is with multilevel disc herniation I am not sure if any surgical intervention will be of any benefit. Will let Dr. Del Cid make that final determination. I did discuss this with the patient. MMODL / IJN: [id number] /
[2018-05-03 14:17] VITALS: BP 134/79; PULSE 70; TEMP 98.9
--- NOTE | 2018-05-03 15:57 | DS ---
DISCHARGE SUMMARY DATE OF ADMISSION: 05/01/2018 DATE OF DISCHARGE: 05/03/2018 FINAL DIAGNOSES: 1. Acute on chronic low back pain with multi-level significant disc herniation,neural foraminal encroachment and spinal stenosis causing significant gait dysfunction. Patient needing full assistance, with pain uncontrolled, and this is also the reason for transfer for higher level of care. 2. Obesity; body mass index 32.9. 3. Persistent atrial flutter, chronically on Xarelto. 4. Diabetes mellitus, type 2, on oral hypoglycemic. 5. Hyperlipidemia. 6. Essential hypertension. 7. Primary osteoarthritis. CONSULTATIONS: 1. Dr. Castro from Pain Management. 2. Dr. Del Cid from [facility]. HOSPITAL COURSE: This is a 78-year-old patient of Dr. Rizo who has had chronic low back pain, for which she has received injections. The patient fell about 5 days ago, managed to get up, and then had increasing lower back pain, finding it more and more difficult to walk. The patient has a pacemaker. She can have an MRI, but the hospital MRI informed us that they cannot do an MRI here because of the pacemaker. The patient was seen by [facility], Dr. Del Cid's team. At this point they did not want to do any further intervention. The patient is still having a significant amount of pain, and for a higher level of care and intervention the patient is being transferred to [facility]. CT scan of the lumbosacral spine showed a herniated disc at L2/L3, L3/L4, L4/L5, and there is also severe spinal stenosis and bilateral neural foraminal narrowing at different levels. Today I spoke to the patient at length. I also then spoke to the accepting physician at [facility], [facility], Dr. Silva, who accepted the patient. On examination, temperature 98.9, pulse 70, respiration 16, blood pressure 134/79, pulse ox 97% on room air. Lungs are clear. Limited range of motion of the lower extremity; able to just about lift up. Reflexes are equivocal. DISCHARGE MEDICATIONS: 1. Lotensin 5 mg a day. 2. Januvia 100 mg a day. 3. Jardiance 10 mg p.o. daily. 4. [place] 7.5 one tablet q.6 p.r.n. 5. Xarelto 20 mg at bedtime. 6. Aspirin 81 mg a day. 7. Vitamin D2 50,000 units p.o. on Sunday. 8. Tambocor 50 mg p.o. daily. 9. Ranexa 500 mg b.i.d. 10.Flexeril 10 mg p.o. t.i.d. 11.Metoprolol 12.5 p.o. b.i.d. 12.Pravachol 40 mg at bedtime. 13.IV Solu-Medrol. 14.Nicotine patch. DISPOSITION: [facility]. [address] [facility] Accepting physician Dr. Silva, Internal Medicine Service. Discussion and discharge planning more than 35 minutes. MMODL / IJN: [id number] /
[2018-05-03 16:49] LABS: Glucose,Whole Blood 218 mg/dL (75-99)
--- NOTE | 2018-05-08 08:23 | CDI ---
Last Revision, August 2017 Documentation Clarification Form Date: 05/08/18 From: Marily Brenton Yun Penaloza, Field Service Manager Hours-8:30 am & 5 pm M-F Admit Date: 05/03/2018 2:24:00 PM Patient Name: Sherly Zayas Visit Number: [id number] Discharge Date: 05/03/18 ATTENTION: The Clinical Documentation Specialists (CDI) and [facility] Coding Staff appreciate your assistance in clarifying documentation. Please respond to the clarification below the line at the bottom and electronically sign. The CDI & [facility] Coding staff will review the response and follow-up if needed. Please note: Queries are made part of the Legal Health Record. If you have any questions, please contact the author of this message via ITS. Jefferson Rios MD Atrial fibrillation is documented in the H&P. History/Risk Factors: HTN, pacemaker, DM, hyperlipidemia EKG/telemetry: none Treatment: Xarelto In your professional opinion, can you please clarify the type of atrial fibrillation, if known? Chronic/Permanent Paroxysmal Persistent Other, please specify Unable to determine Please continue to document in your progress notes and discharge summary in order to capture severity of illness and risk of mortality. Include clinical findings that support your diagnosis. persistent atrial flutter/fibrillation -POA MTDD
--- NOTE | 2018-05-08 08:26 | CDI ---
Last Revision, August 2017 Documentation Clarification Form Date: 05/08/18 From: Marily Brenton Yun Penaloza, Early [employer] Director Hours-8:30 am & 5 pm M-F Admit Date: 05/03/2018 2:24:00 PM Patient Name: Sherly Zayas Visit Number: [id number] Discharge Date: 05/03/18 ATTENTION: The Clinical Documentation Specialists (CDI) and [facility] Coding Staff appreciate your assistance in clarifying documentation. Please respond to the clarification below the line at the bottom and electronically sign. The CDI & [facility] Coding staff will review the response and follow-up if needed. Please note: Queries are made part of the Legal Health Record. If you have any questions, please contact the author of this message via ITS. Jefferson Rios MD Atrial Flutter is documented in the ED note, consult, H&P, PN & DS. History/Risk factors: HTN, pacemaker, DM, hyperlipidemia EKG/telemetry: none Treatment: Xarelto In your professional opinion, in order to capture the severity of condition; can you please clarify the type of atrial flutter if known? Typical/Type I Atypical/Type II Other, please specify Unable to determine Please continue to document in your progress notes and discharge summary in order to capture severity of illness and risk of mortality. Include clinical findings that support your diagnosis. unable to determine MTDD
== END 2018-05-03 18:32 | disposition short-term general hospital (02) | DRG 552 ==
LOC: EC 16:33 → 3SUR 19:34 → OBSVTOIN 05-03 14:24
PROVIDERS: ADMIT Hospitalist; ATTEND Hospitalist
DX: M51.17 Intervertebral disc disorders with radiculopathy, lumbosacral region (principal); I48.1 Persistent atrial fibrillation; I48.92 Unspecified atrial flutter; M51.16 Intervertebral disc disorders with radiculopathy, lumbar region; E11.9 Type 2 diabetes mellitus without complications; M48.061 Spinal stenosis, lumbar region without neurogenic claudication; G89.29 Other chronic pain; E78.5 Hyperlipidemia, unspecified; M19.91 Primary osteoarthritis, unspecified site; I10 Essential (primary) hypertension; R26.2 Difficulty in walking, not elsewhere classified; R32 Unspecified urinary incontinence; F17.200 Nicotine dependence, unspecified, uncomplicated; E66.9 Obesity, unspecified; Z68.32 Body mass index [BMI] 32.0-32.9, adult; Z79.82 Long term (current) use of aspirin; Z79.84 Long term (current) use of oral hypoglycemic drugs; Z79.01 Long term (current) use of anticoagulants; Z79.899 Other long term (current) drug therapy; Z90.710 Acquired absence of both cervix and uterus; Z90.49 Acquired absence of other specified parts of digestive tract; Z95.0 Presence of cardiac pacemaker; W19.XXXA Unspecified fall, initial encounter
CPT/HCPCS: 72131; 80053; 81003; 85025; 96374; 96375; 99285

== ENCOUNTER → 2019-07-31 | Outpatient (CLI) | payer MEDICARE, BC ==
--- NOTE | 2019-07-31 11:06 | FL ---
EXAMINATION TYPE: FL small bowel follow through DATE OF EXAM: 07/31/2019 CLINICAL HISTORY: Anemia. Negative upper endoscopy and colonoscopy. TECHNIQUE: A single contrast small bowel follow through is performed utilizing barium. COMPARISON: CT lumbar spine May 12, 2018 FINDINGS: Cam Milling Machine Operator image of the abdomen shows new surgical change right L3-L5 level including artificia l disc material. Cholecystectomy clips are redemonstrated. Left-sided pelvic phleboliths noted. Overa ll nonobstructive bowel gas pattern. Partial visualization of cardiac pacemaker wires. The small bowel study shows normal transit to the colon in less than 90 minutes. There is a normal m ucosal fold pattern throughout the small bowel. There is no evidence of any stricture or filling def ect noted. No suspicious intraluminal mass. The terminal ileum is spotted and appears within normal l imits. IMPRESSION: No suspicious mass to account for patient's symptoms of anemia.
== END | disposition home or self-care (01) ==
LOC: RADFLMAIN 07:51
PROVIDERS: ATTEND Internal Medicine Gastroenterology
DX: D64.9 Anemia, unspecified (principal)
CPT/HCPCS: 74250

== ENCOUNTER → 2019-07-31 | Outpatient (CLI) | payer MEDICARE, BC ==
[2019-07-31 11:47] LABS: Anisocytosis Slight; Basophils # (A) 0.1 k/uL (0-0.2); Basophils % (A) 1 %; Eosinophils # (A) 0.2 k/uL (0-0.7); Eosinophils % (A) 2 %; HCT 29.7 % (34.0-46.0); HGB 8.7 gm/dL (11.4-16.0); Hypochromasia Marked; Lymphocytes % (A) 12 %; MCH 22.3 pg (25.0-35.0); MCHC 29.2 g/dL (31.0-37.0); MCV 76.4 fL (80.0-100.0); Mean Platelet Volume 6.2; Microcytosis Slight; Monocytes # (A) 0.4 k/uL (0-1.0); Monocytes % (A) 5 %; Neutrophils # (A) 6.6 k/uL (1.3-7.7); Neutrophils % (A) 79 %; Platelet Count 269 k/uL (150-450); Poikilocytosis Slight; RBC 3.89 m/uL (3.80-5.40); RDW 16.8 % (11.5-15.5); WBC 8.4 k/uL (3.8-10.6)
== END | disposition home or self-care (01) ==
LOC: LABWHC1 10:46
PROVIDERS: ATTEND Family Medicine
DX: D64.9 Anemia, unspecified (principal)
CPT/HCPCS: 36415; 82607; 85025

== ENCOUNTER → 2019-08-13 | Day surgery (SDC) | payer MEDICARE, BC ==
[2019-08-12 09:22] VITALS: BMI 32.9
[~2019-08-13] MED LIST: SIMETHICONE 40 MG/0.6 ML DROPS 2,000 MG/30 ML BOTTLE PO ONE
== END ==
LOC: ORWHC2ENDO 07:54
PROVIDERS: ATTEND Internal Medicine Gastroenterology
DX: D50.9 Iron deficiency anemia, unspecified (principal)
CPT/HCPCS: 91110

== ENCOUNTER 2019-09-09 08:46 | Emergency (ER) | payer MEDICARE, BC ==
[2019-09-09 08:54] VITALS: TEMP 97.7
[2019-09-09] MEDS ORDERED: MORPHINE SULFATE 4 MG/ML SYRINGE IM STA (08:58)
--- NOTE | 2019-09-09 09:01 | ED ---
Chest Pain HPI - General Chief Complaint: Chest Pain Stated Complaint: fall Time Seen by Provider: 09/09/19 08:47 Source: patient, EMS, RN notes reviewed Mode of arrival: EMS Limitations: physical limitation - History of Present Illness Initial Comments: this is a 79-year-old female presents emergency Department chief complaint of left-sided rib pain. Patient states that she fell on Sunday. Patient states that she's had worsening rib pain she states it hurts to twist and bend and states that her stated deep breath. Patient states that she lost her balance fell directly onto her left side of her ribs. She states she insulin had pain. She is not taking the pains morning. Denies any abdominal pain including nausea vomiting diarrhea constipation no anterior chest pain no shortness breath she states it hurts to take a deep breath. She does admit that she had surgery in her lumbar spine has no pain she states that she wears a brace. Patient has no lower extremity pain or weakness to upper extremity symptoms. - Related Data Home Medications Medication Instructions Recorded Confirmed sitaGLIPtin [Januvia] 100 mg PO DAILY 06/16/14 09/09/19 Empagliflozin [Jardiance] 10 mg PO DAILY 02/06/17 09/09/19 Rivaroxaban [Xarelto] 20 mg PO BID 02/06/17 09/09/19 Ergocalciferol [Vitamin D2 50,000 unit PO MO 07/05/17 09/09/19 (DRISDOL)] Metoprolol Tartrate 12.5 mg PO BID 04/30/18 09/09/19 Pravastatin Sodium [Pravachol] 40 mg PO HS 04/30/18 09/09/19 Flecainide Acetate 100 mg PO BID 08/12/19 09/09/19 Fluticasone Nasal [place] [Flonase 1 spray EA NOSTRIL DAILY 08/12/19 09/09/19 Nasal [place]] Furosemide [Lasix] 40 mg PO DAILY 08/12/19 09/09/19 Gabapentin [Neurontin] 400 mg PO TID 08/12/19 09/09/19 Methocarbamol [Robaxin] 500 mg PO TID 08/12/19 09/09/19 Potassium Chloride [Klor-Con 8] 8 meq PO DAILY 08/12/19 09/09/19 Ranolazine [Ranexa] 1,000 mg PO BID 08/12/19 09/09/19 Tamsulosin [Flomax] 0.4 mg PO DAILY 08/12/19 09/09/19 Tiotropium [place] [Spiriva 1 spray INHALATION BID 08/12/19 09/09/19 Respimat] oxyCODONE-APAP 10-325MG [Percocet 1 tab PO Q8HR PRN 08/12/19 08/12/19 10-325 mg] Allergies Allergy/AdvReac Type Severity Reaction Status Date / Time nickel Allergy Rash/Hives Verified 09/09/19 08:56 Review of Systems ROS Statement: Those systems with pertinent positive or pertinent negative responses have been documented in the HPI. ROS Other: All systems not noted in ROS Statement are negative. Past Medical History Past Medical History: Atrial Fibrillation, Atrial Flutter, Diabetes Mellitus, Hyperlipidemia, Hypertension, Osteoarthritis (OA) Additional Past Medical History / Comment(s): recent SOB and legs feeling weak, anemia, urinary incontinence History of Any Multi-Drug Resistant Organisms: None Reported Past Surgical History: Back Surgery, Breast Surgery, Cardiac Ablation, Cholecystectomy, Hysterectomy, Joint Replacement, Orthopedic Surgery, Pacemaker Additional Past Surgical History / Comment(s): plate in right leg for fx femur, rt knee replacement, meghan cataracts Past Anesthesia/Blood Transfusion Reactions: No Reported Reaction Type of Cardiac Device: Permanent Pacemaker Device Placement Date:: 04/09 Smoking Status: Former smoker - Past Family History Brother(s) Family Medical History: Cancer, Deep Vein Thrombosis (DVT), Myocardial Inf arction ([place]) Sister(s) Family Medical History: Cancer General Exam General appearance: alert, in no apparent distress Head exam: Present: atraumatic, normocephalic, normal inspection Eye exam: Present: normal appearance, PERRL, EOMI. Absent: scleral icterus, conjunctival injection, periorbital swelling ENT exam: Present: normal exam, normal oropharynx, mucous membranes moist Neck exam: Present: normal inspection, full ROM. Absent: tenderness, meningismus, lymphadenopathy Respiratory exam: Present: normal lung sounds bilaterally, chest wall tenderness (left lateral to posterior lower rib tenderness). Absent: respiratory distress, wheezes, rales, rhonchi, stridor Cardiovascular Exam: Present: regular rate, normal rhythm, normal heart sounds. Absent: systolic murmur, diastolic murmur, rubs, gallop, clicks GI/Abdominal exam: Present: soft, normal bowel sounds. Absent: distended, tenderness, guarding, rebound, rigid Extremities exam: Present: normal inspection, full ROM, normal capillary refill. Absent: tenderness, pedal edema, joint swelling Back exam: Present: normal inspection, full ROM. Absent: tenderness, paraspinal tenderness, vertebral tenderness Skin exam: Present: warm, dry, intact, normal color. Absent: rash Course Vital Signs 09/09/19 09/09/19 08:48 09:00 Temperature 97.7 F Pulse Rate 60 Respiratory 17 17 Rate Blood Pressure 154/59 O2 Sat by Pulse 98 Oximetry Chest Pain MDM - MDM x-ray shows minimally displaced rib fracture on the left 10th rib patient has no pneumothorax. Patient pain is improved, will be discharged with incentive spirometry, pain medication and close follow-up. Disposition Clinical Impression: Fall, Left rib fracture Disposition: HOME SELF-CARE Condition: Stable Instructions (If sedation given, give patient instructions): Rib Fracture (ED) Additional Instructions: Please return to the Emergency Department if symptoms worsen or any other concerns. Is patient prescribed a controlled substance at d/c from ED?: No Referrals: Darrel Rizo DO [Primary Care Provider] - 1-2 days Time of Disposition: 09:49
--- NOTE | 2019-09-09 09:40 | XR ---
EXAMINATION TYPE: XR ribs LT w pa chest xray DATE OF EXAM: 09/09/2019 CLINICAL HISTORY: Chest and left-sided rib pain after fall injury. TECHNIQUE: Single frontal view of the chest is obtained. A frontal and oblique images of the left-rajinder ed ribs. COMPARISON: Chest x-ray June 23, 2014. FINDINGS: There is chronic parenchymal change without suspicious new focal air space opacity, pleura l effusion, or pneumothorax seen. The cardiac silhouette size is enlarged with no dual lead pacemake r and redemonstration of atherosclerotic aorta. The osseous structures remain demineralized. There is vertebroplasty redemonstrated roughly T7 level. Cholecystectomy clips are redemonstrated. Dedicated images of left-sided ribs show subtle step-off suspicious for acute minimally displaced fra cture anterolateral left 10th rib. Correlate clinically with point tenderness at this level. No addit ional acute displaced rib fractures are seen. There is partial visualization of surgical change in th e right lower lumbar spine. IMPRESSION: 1. Chronic changes and cardiomegaly without suspicious acute pulmonary process. 2. Possible acute minimally displaced fracture anterolateral left 10th rib. Correlate clinically with point tenderness at this level.
[2019-09-09] MEDS ORDERED: ACET/COD 300 MG/30 MG STARTER PACK 6 TAB BTL PO STA (09:48)
[2019-09-09 10:02] VITALS: BP 140/60; PULSE 55; RESP 16
== END 2019-09-09 10:22 | disposition home or self-care (01) ==
LOC: EC 08:46
DX: S22.32XA Fracture of one rib, left side, initial encounter for closed fracture (principal); I48.91 Unspecified atrial fibrillation; E11.9 Type 2 diabetes mellitus without complications; E78.5 Hyperlipidemia, unspecified; I10 Essential (primary) hypertension; M19.90 Unspecified osteoarthritis, unspecified site; Z87.891 Personal history of nicotine dependence; Z91.048 Other nonmedicinal substance allergy status; Z79.01 Long term (current) use of anticoagulants; Z79.51 Long term (current) use of inhaled steroids; Z79.84 Long term (current) use of oral hypoglycemic drugs; Z79.899 Other long term (current) drug therapy; Z87.448 Personal history of other diseases of urinary system; Z96.651 Presence of right artificial knee joint; Z95.0 Presence of cardiac pacemaker; Z98.890 Other specified postprocedural states; W01.0XXA Fall on same level from slipping, tripping and stumbling without subsequent striking against object, initial encounter
CPT/HCPCS: 71101; 99284; 96372; J2270

== ENCOUNTER → 2019-12-01 | Outpatient (CLI) | payer MEDICARE, BC ==
--- NOTE | 2019-12-01 09:24 | BD ---
EXAMINATION TYPE: Axial Bone Density DATE OF EXAM: 12/01/2019 COMPARISON: 12/02/2015 CLINICAL HISTORY: M 82.0 Height: 61.5 IN Weight: 178 LBS FRAX RISK QUESTIONS: Secondary Osteoporosis: 3. Menopause before 45: PARTIAL HYST AGE 41 RISK FACTORS HISTORY OF: Surgery to Spine: YES L-SPINE 02/2019 Family History of Osteoporosis: YES MOTHER Active: LIMITED Diet low in dairy products/other sources of calcium: YES Postmenopausal woman: PARTIAL HYST AGE 41 MEDICATIONS: Osteoporosis Medications: NOT NOW Which medication: Fosamax PROLIA How Lon YEARS Additional Medications: VIT D, BLOOD PRESSURE MEDS, DIABETES MEDS, HEART MEDS, CHOLESTEROL MEDS, EXAM MEASUREMENTS: Bone mineral densitometry was performed using the [employer] System. L-SPINE SURGERY 02/2019 Bone mineral density about the R hip (g/cm2): 0.627 Bone mineral density about the L hip (g/cm2): 0.664 T Score values are as follows: -----R Neck: -3.0 -----L Neck: -2.7 -----R Total: -3.5 -----L Total: -2.9 Bone mineral density has: Decreased -7.2% since study of: 12/02/2015 Bone mineral density about the L Wrist (g/cm2): 0.495 T Score values are as follows: -----Dist. R+U: -3.3 -----Prox. R+U: -2.3 -----Radius total: -3.0 Bone mineral density BASELINE IMPRESSION: Osteoporosis (T Score less than -2.5). There is increased fracture risk and therapy is usually indicated based on age. Re-Screen 1-2 years. NOTE: T-SCORE=SD OF THE YOUNG ADULT MEAN.
--- NOTE | 2019-12-01 09:58 | MM ---
Reason for exam: screening (asymptomatic). Last mammogram was performed 3 years ago. History: Patient is postmenopausal and history of other cancer. Family history of breast cancer in sister at age 66. 2 excisional biopsies of the right breast. Took hormonal contraceptives for 8 years beginning at age 21. Physical Findings: A clinical breast exam by your physician is recommended on an annual basis and results should be correlated with mammographic findings. MG 3D Screening Mammo W/Cad Bilateral CC and MLO view(s) were taken. Prior study comparison: December 04, 2016, bilateral MG 3d screening mammo w/cad. December 02, 2015, bilateral MG 3d screening mammo w/cad. There are scattered fibroglandular densities. Benign appearing bilateral calcifications. Additionally there is a 7mm group of right upper outer quadrant calcifications at middle depth for which magnification views are recommended. ASSESSMENT: Incomplete: need additional imaging evaluation, BI-RAD 0 RECOMMENDATION: Special view mammogram of the right breast. [facility] will attempt to contact patient to return for supplemental views.
== END | disposition home or self-care (01) ==
LOC: RADBDWWP 07:48
PROVIDERS: ATTEND Family Medicine
DX: Z12.31 Encounter for screening mammogram for malignant neoplasm of breast (principal); M81.0 Age-related osteoporosis without current pathological fracture
CPT/HCPCS: 77063; 77067; 77080

== ENCOUNTER → 2019-12-08 | Outpatient (CLI) | payer BC, MEDICARE | END | disposition home or self-care (01) | DX: R92.8 Other abnormal and inconclusive findings on diagnostic imaging of breast (principal) | CPT/HCPCS: 77065; G0279; 77061 ==

== ENCOUNTER → 2020-01-12 | Outpatient (CLI) | payer MEDICARE ==
--- NOTE | 2020-01-12 10:35 | XR ---
EXAMINATION TYPE: XR ankle complete LT DATE OF EXAM: 01/12/2020 COMPARISON: NONE HISTORY: Pain TECHNIQUE: 3 views of the left ankle are submitted for evaluation. FINDINGS: Osseous fragmentation involving the medial and lateral malleolar may reflect avulsion fract ure of uncertain age. Ankle mortise is intact. Mild soft tissue swelling noted. IMPRESSION: 1. Osseous fragmentation involving the medial and lateral malleolar may reflect avulsion fracture of uncertain age
--- NOTE | 2020-01-12 10:36 | XR ---
EXAMINATION TYPE: XR knee complete LT DATE OF EXAM: 01/12/2020 CLINICAL HISTORY: pain TECHNIQUE: Three views of the left knee are obtained. COMPARISON: None. FINDINGS: There is no acute fracture/dislocation. The tri-compartment joint spaces appear moderatel y narrowed. Suprapatellar joint effusion noted. The overlying soft tissue appears unremarkable. IMPRESSION: There is no acute fracture or dislocation ICD 10 NO FRACTURE, INITIAL EVALUATION
== END | disposition home or self-care (01) ==
LOC: RADXRMAIN 10:02
PROVIDERS: ATTEND Nurse Practitioner Family
DX: S99.912A Unspecified injury of left ankle, initial encounter (principal); S89.92XA Unspecified injury of left lower leg, initial encounter

== ENCOUNTER → 2020-01-23 | Outpatient (CLI) | payer MEDICARE ==
--- NOTE | 2020-01-23 11:24 | XR ---
EXAMINATION TYPE: XR lumbar spine 2 or 3V DATE OF EXAM: 01/23/2020 CLINICAL HISTORY: Recent fall and back pain TECHNIQUE: Frontal and lateral images of the lumbar spine are obtained. COMPARISON: 04/30/2018 FINDINGS: There are 5 lumbar type vertebral bodies identified. Surgical partial fusion of the right hemivertebrae of L3-L5 is seen with intervertebral disc spacers. Advanced degenerative disc disease o f the lumbar spine is noted with diffuse osseous demineralization. Pedicular screws of L3 and L4 appe ar to be inserted in the intervertebral disc spaces. L4 compression deformity is surgically fixated. Extensive atherosclerosis of the abdominal aorta. The lumbar spine shows satisfactory alignment witho ut evidence of acute fracture or dislocation. Vertebral body heights and disk space heights are withi n normal limits. The overlying soft tissue appears unremarkable. IMPRESSION: Compression deformity of L4 is age indeterminant although new from the prior of 05/10/2018 . There is surgical fixation at this level (L3-L5 with pedicular screws noted to be an intervertebral disc spaces of L2-L3 and L3-L4.
== END | disposition home or self-care (01) ==
LOC: RADXRMAIN 10:39
PROVIDERS: ATTEND Family Medicine
DX: M43.8X6 Other specified deforming dorsopathies, lumbar region (principal); M51.36 Other intervertebral disc degeneration, lumbar region; Z98.890 Other specified postprocedural states
CPT/HCPCS: 72100

== ENCOUNTER → 2020-01-27 | Day surgery (SDC) | payer MEDICARE ==
[2020-01-27 11:08] VITALS: BP 132/82; PULSE 80; RESP 16; TEMP 97.4
== END ==
LOC: RADMAMWWP 10:05
PROVIDERS: ATTEND Student in an Organized Health Care Education/Training Program
DX: R92.8 Other abnormal and inconclusive findings on diagnostic imaging of breast (principal); Z53.8 Procedure and treatment not carried out for other reasons; Z11.59 Encounter for screening for other viral diseases
CPT/HCPCS: 87635

== ENCOUNTER → 2020-01-27 | Outpatient (CLI) | payer MEDICARE ==
[~2020-01-27] MED LIST changes: +DENOSUMAB 60 MG/ML 1 ML SYRINGE SQ ONE; -SIMETHICONE 40 MG/0.6 ML DROPS 2,000 MG/30 ML BOTTLE PO ONE
[2020-01-27 13:04] VITALS: BP 145/84; PULSE 67; RESP 16; TEMP 97.7
== END | disposition home or self-care (01) ==
LOC: PROCWHC3 13:01
PROVIDERS: ATTEND Family Medicine
DX: M81.0 Age-related osteoporosis without current pathological fracture (principal)
CPT/HCPCS: 96372; J0897

== ENCOUNTER 2020-03-29 11:26 | Observation (INO) | payer MEDICARE ==
--- NOTE | 2020-03-29 11:55 | ED ---
General Adult HPI - General Stated complaint: Diff Breathing Time Seen by Provider: 03/29/20 11:28 Source: RN notes reviewed - History of Present Illness Initial comments: 79-year-old female with a past medical history of A. fib on Xarelto, DM, HLD, HTN, OA, COPD, pacemaker presents to the emergency department for a chief compla int of weakness. Patient states about 3 days ago she started to feel very weak. States last week she was able to ambulate without difficulty however starting 3 days ago she has had difficulty walking. States she almost fell twice today because she felt so weak. Patient states she also has shortness of breath. States she has had similar symptoms before but is not sure what is causing them. Patient denies history of heart failure but takes diuretics which she did not take today. Patient denies any swelling in the legs or pain in the legs. Patient does admit she had some chest pressure last night. States she took a nitro it helped significantly and so she went to sleep. When she woke up today the pain had resolved. Patient has no other complaints at this time including shortness of breath, chest pain, abdominal pain, nausea or vomiting, headache, or visual changes. - Related Data Home Medications Medication Instructions Recorded Confirmed sitaGLIPtin [Januvia] 100 mg PO DAILY 06/16/14 01/27/20 Empagliflozin [Jardiance] 10 mg PO DAILY 02/06/17 01/27/20 Rivaroxaban [Xarelto] 20 mg PO DAILY 02/06/17 01/27/20 Ergocalciferol [Vitamin D2 50,000 unit PO MO 07/05/17 01/27/20 (DRISDOL)] Metoprolol Tartrate 12.5 mg PO BID 04/30/18 01/27/20 Pravastatin Sodium [Pravachol] 40 mg PO HS 04/30/18 01/27/20 Flecainide Acetate 100 mg PO BID 08/12/19 01/27/20 Fluticasone Nasal [place] [Flonase 1 spray EA NOSTRIL DAILY 08/12/19 01/27/20 Nasal [place]] Furosemide [Lasix] 40 mg PO DAILY 08/12/19 01/27/20 Potassium Chloride [Klor-Con 8] 8 meq PO DAILY 08/12/19 01/27/20 Ranolazine [Ranexa] 1,000 mg PO BID 08/12/19 01/27/20 Tamsulosin [Flomax] 0.4 mg PO DAILY 08/12/19 01/27/20 Tiotropium [place] [Spiriva 1 spray INHALATION BID 08/12/19 01/27/20 Respimat] Hydrocodone/Acetaminophen [[place] 1 tab PO Q4-6H PRN 01/20/20 01/27/20 7.5-325] Magnesium 200 mg PO BID 01/20/20 01/27/20 Allergies Allergy/AdvReac Type Severity Reaction Status Date / Time nickel Allergy Rash/Hives Verified 01/27/20 10:56 Review of Systems ROS Statement: Those systems with pertinent positive or pertinent negative responses have been documented in the HPI. ROS Other: All systems not noted in ROS Statement are negative. Past Medical History Past Medical History: Atrial Fibrillation, Atrial Flutter, Diabetes Mellitus, Hyperlipidemia, Hypertension, Osteoarthritis (OA) Additional Past Medical History / Comment(s): recent SOB and legs feeling weak, anemia, urinary incontinence History of Any Multi-Drug Resistant Organisms: None Reported Past Surgical History: Back Surgery, Breast Surgery, Cardiac Ablation, Cholecys tectomy, Hysterectomy, Joint Replacement, Orthopedic Surgery, Pacemaker Additional Past Surgical History / Comment(s): plate in right leg for fx femur, rt knee replacement, meghan cataracts Past Anesthesia/Blood Transfusion Reactions: No Reported Reaction Type of Cardiac Device: Permanent Pacemaker Device Placement Date:: 04/09 Smoking Status: Former smoker - Past Family History Brother(s) Family Medical History: Cancer, Deep Vein Thrombosis (DVT), Myocardial Infarction ([place]) Sister(s) Family Medical History: Cancer General Exam General appearance: alert, in no apparent distress Head exam: Present: atraumatic, normocephalic, normal inspection Eye exam: Present: normal appearance, PERRL, EOMI. Absent: scleral icterus, conjunctival injection, periorbital swelling ENT exam: Present: normal exam, mucous membranes moist Neck exam: Present: normal inspection, full ROM. Absent: tenderness, meningismus, lymphadenopathy Respiratory exam: Present: normal lung sounds bilaterally. Absent: respiratory distress, wheezes, rales, rhonchi, stridor Cardiovascular Exam: Present: regular rate, normal rhythm, normal heart sounds. Absent: systolic murmur, diastolic murmur, rubs, gallop, clicks GI/Abdominal exam: Present: soft, normal bowel sounds. 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 Nurse stating the patient to the bathroom and states patient was very weak and needed a two-person assist. CBC is did show leukocytosis with a left shift. CMP unremarkable. Troponin negative. D-dimer negative. Urinalysis does show evidence of infection. This is likely the cause of her weakness and she was started on Rocephin. However given chest pain improving with nitro as well as baseline shortness of breath her weakness may be multifactorial. Therefore patient will be admitted and cardiology will be consulted. Pt currently anticoagulated on Xarelto. - Lab Data Result diagrams: 03/29/20 11:54 03/29/20 11:54 Lab Results 03/29/20 03/29/20 03/29/20 Range/Units 11:54 11:54 11:54 WBC 16.0 H (3.8-10.6) k/uL RBC 4.52 (3.80-5.40) m/uL Hgb 11.0 L (11.4-16.0) gm/dL Hct 36.2 (34.0-46.0) % MCV 80.2 (80.0-100.0) fL MCH 24.4 L (25.0-35.0) pg MCHC 30.4 L (31.0-37.0) g/dL RDW 17.8 H (11.5-15.5) % Plt Count 260 (150-450) k/uL Neutrophils % 85 % Lymphocytes % 9 % Monocytes % 4 % Eosinophils % 1 % Basophils % 0 % Neutrophils # 13.6 H (1.3-7.7) k/uL Lymphocytes # 1.4 (1.0-4.8) k/uL Monocytes # 0.7 (0-1.0) k/uL Eosinophils # 0.1 (0-0.7) k/uL Basophils # 0.0 (0-0.2) k/uL Hypochromasia Marked Anisocytosis Slight Microcytosis Slight PT 11.3 (9.0-12.0) sec INR 1.1 (<1.2) APTT 27.6 (22.0-30.0) sec D-Dimer (<0.60) mg/L FEU Sodium (137-145) mmol/L Potassium (3.5-5.1) mmol/L Chloride (98-107) mmol/L Carbon Dioxide (22-30) mmol/L Anion Gap mmol/L BUN (7-17) mg/dL Creatinine (0.52-1.04) mg/dL Est GFR (CKD-EPI)AfAm (>60 ml/min/1.73 sqM) Est GFR (CKD-EPI)NonAf (>60 ml/min/1.73 sqM) Glucose (74-99) mg/dL Calcium (8.4-10.2) mg/dL Magnesium (1.6-2.3) mg/dL Total Bilirubin (0.2-1.3) mg/dL AST (14-36) U/L ALT (4-34) U/L Alkaline Phosphatase (38-126) U/L Troponin I (0.000-0.034) ng/mL NT-Pro-B Natriuret Pep pg/mL Total Protein (6.3-8.2) g/dL Albumin (3.5-5.0) g/dL Urine Color Yellow Urine Appearance Turbid H (Clear) Urine pH 7.5 (5.0-8.0) Ur Specific [place] 1.022 (1.001-1.035) Urine Protein Trace H (Negative) Urine Glucose (UA) 4+ H (Negative) Urine Ketones Negative (Negative) Urine Blood Trace H (Negative) Urine Nitrite Positive H (Negative) Urine Bilirubin Negative (Negative) Urine Urobilinogen <2.0 (<2.0) mg/dL Ur Leukocyte Esterase Large H (Negative) Urine RBC 1 (0-5) /hpf Urine WBC 14 H (0-5) /hpf 03/29/20 03/29/20 03/29/20 Range/Units 11:54 11:54 11:54 WBC (3.8-10.6) k/uL RBC (3.80-5.40) m/uL Hgb (11.4-16.0) gm/dL Hct (34.0-46.0) % MCV (80.0-100.0) fL MCH (25.0-35.0) pg MCHC (31.0-37.0) g/dL RDW (11.5-15.5) % Plt Count (150-450) k/uL Neutrophils % % Lymphocytes % % Monocytes % % Eosinophils % % Basophils % % Neutrophils # (1.3-7.7) k/uL Lymphocytes # (1.0-4.8) k/uL Monocytes # (0-1.0) k/uL Eosinophils # (0-0.7) k/uL Basophils # (0-0.2) k/uL Hypochromasia Anisocytosis Microcytosis PT (9.0-12.0) sec INR (<1.2) APTT (22.0-30.0) sec D-Dimer (<0.60) mg/L FEU Sodium 134 L (137-145) mmol/L Potassium 4.8 (3.5-5.1) mmol/L Chloride 103 (98-107) mmol/L Carbon Dioxide 22 (22-30) mmol/L Anion Gap 9 mmol/L BUN 17 (7-17) mg/dL Creatinine 0.76 (0.52-1.04) mg/dL Est GFR (CKD-EPI)AfAm 87 (>60 ml/min/1.73 sqM) Est GFR (CKD-EPI)NonAf 76 (>60 ml/min/1.73 sqM) Glucose 123 H (74-99) mg/dL Calcium 8.6 (8.4-10.2) mg/dL Magnesium 2.3 (1.6-2.3) mg/dL Total Bilirubin 0.4 (0.2-1.3) mg/dL AST 19 (14-36) U/L ALT 13 (4-34) U/L Alkaline Phosphatase 105 (38-126) U/L Troponin I <0.012 (0.000-0.034) ng/mL NT-Pro-B Natriuret Pep 771 pg/mL Total Protein 7.1 (6.3-8.2) g/dL Albumin 4.2 (3.5-5.0) g/dL Urine Color Urine Appearance (Clear) Urine pH (5.0-8.0) Ur Specific [place] (1.001-1.035) Urine Protein (Negative) Urine Glucose (UA) (Negative) Urine Ketones (Negative) Urine Blood (Negative) Urine Nitrite (Negative) Urine Bilirubin (Negative) Urine Urobilinogen (<2.0) mg/dL Ur Leukocyte Esterase (Negative) Urine RBC (0-5) /hpf Urine WBC (0-5) /hpf 03/29/20 Range/Units 11:54 WBC (3.8-10.6) k/uL RBC (3.80-5.40) m/uL Hgb (11.4-16.0) gm/dL Hct (34.0-46.0) % MCV (80.0-100.0) fL MCH (25.0-35.0) pg MCHC (31.0-37.0) g/dL RDW (11.5-15.5) % Plt Count (150-450) k/uL Neutrophils % % Lymphocytes % % Monocytes % % Eosinophils % % Basophils % % Neutrophils # (1.3-7.7) k/uL Lymphocytes # (1.0-4.8) k/uL Monocytes # (0-1.0) k/uL Eosinophils # (0-0.7) k/uL Basophils # (0-0.2) k/uL Hypochromasia Anisocytosis Microcytosis PT (9.0-12.0) sec INR (<1.2) APTT (22.0-30.0) sec D-Dimer 0.56 (<0.60) mg/L FEU Sodium (137-145) mmol/L Potassium (3.5-5.1) mmol/L Chloride (98-107) mmol/L Carbon Dioxide (22-30) mmol/L Anion Gap mmol/L BUN (7-17) mg/dL Creatinine (0.52-1.04) mg/dL Est GFR (CKD-EPI)AfAm (>60 ml/min/1.73 sqM) Est GFR (CKD-EPI)NonAf (>60 ml/min/1.73 sqM) Glucose (74-99) mg/dL Calcium (8.4-10.2) mg/dL Magnesium (1.6-2.3) mg/dL Total Bilirubin (0.2-1.3) mg/dL AST (14-36) U/L ALT (4-34) U/L Alkaline Phosphatase (38-126) U/L Troponin I (0.000-0.034) ng/mL NT-Pro-B Natriuret Pep pg/mL Total Protein (6.3-8.2) g/dL Albumin (3.5-5.0) g/dL Urine Color Urine Appearance (Clear) Urine pH (5.0-8.0) Ur Specific [place] (1.001-1.035) Urine Protein (Negative) Urine Glucose (UA) (Negative) Urine Ketones (Negative) Urine Blood (Negative) Urine Nitrite (Negative) Urine Bilirubin (Negative) Urine Urobilinogen (<2.0) mg/dL Ur Leukocyte Esterase (Negative) Urine RBC (0-5) /hpf Urine WBC (0-5) /hpf Disposition Clinical Impression: Urinary tract infection, Weakness, Chest pain Disposition: ADMITTED IP TO THIS [facility] Referrals: Darrel Rizo DO [Primary Care Provider] - 1-2 days Time of Disposition: 13:18
--- NOTE | 2020-03-29 12:11 | XR ---
EXAMINATION TYPE: XR chest 2V DATE OF EXAM: 03/29/2020 COMPARISON: 09/09/2019 TECHNIQUE: PA and lateral views submitted. HISTORY: Weakness difficulty breathing FINDINGS: The lungs are clear and there is no pneumothorax, pleural effusion, or focal pneumonia. Cardiac dev ice seen with atherosclerotic change aorta. Sclerosis of the compression deformity may relate to prev ious vertebroplasty stable from 2019 within the thoracic spine. Arthropathy of the shoulders and diff use osteopenia. Bilateral pleural-based thickening. IMPRESSION: 1. No acute process.
[2020-03-29 12:13] LABS: Anisocytosis Slight; Basophils % (A) 0 %; Eosinophils # (A) 0.1 k/uL (0-0.7); Eosinophils % (A) 1 %; HCT 36.2 % (34.0-46.0); Hypochromasia Marked; Lymphocytes # (A) 1.4 k/uL (1.0-4.8); Lymphocytes % (A) 9 %; MCH 24.4 pg (25.0-35.0); MCHC 30.4 g/dL (31.0-37.0); MCV 80.2 fL (80.0-100.0); Mean Platelet Volume 6.9; Microcytosis Slight; Monocytes # (A) 0.7 k/uL (0-1.0); Monocytes % (A) 4 %; Neutrophils # (A) 13.6 k/uL (1.3-7.7); Neutrophils % (A) 85 %; Platelet Count 260 k/uL (150-450); RBC 4.52 m/uL (3.80-5.40); RDW 17.8 % (11.5-15.5)
[2020-03-29 12:16] LABS: Appearance,Urine Turbid (Clear); Bilirubin,Urine Negative (Negative); Blood,Urine Trace (Negative); Color,Urine Yellow; Glucose,Urine (UA) 4+ (Negative); Ketones,Urine Negative (Negative); Leukocyte Esterase,Urine Large (Negative); Nitrite,Urine Positive (Negative); PH, Urine 7.5 (5.0-8.0); Protein,Urine Trace (Negative); RBC,Urine 1 /hpf (0-5); Specific Gravity,Urine 1.022 (1.001-1.035); Urobilinogen,Urine <2.0 mg/dL (<2.0); WBC,Urine 14 /hpf (0-5)
[2020-03-29 12:19] LABS: INR 1.1 (<1.2); Partial Thromboplastin Time 27.6 sec (22.0-30.0); Prothrombin Time 11.3 sec (9.0-12.0)
[2020-03-29 12:28] LABS: Albumin 4.2 g/dL (3.5-5.0); Calcium 8.6 mg/dL (8.4-10.2); Magnesium 2.3 mg/dL (1.6-2.3); Potassium 4.8 mmol/L (3.5-5.1); Total Bilirubin 0.4 mg/dL (0.2-1.3); Total Protein 7.1 g/dL (6.3-8.2)
[2020-03-29] MEDS ORDERED: ASPIRIN 81 MG PO STA (13:18)
[2020-03-29] MEDS ORDERED: NITROGLYCERIN SL TABS 0.4 MG TAB SUBLINGUAL PRN ×2 (13:18→14:16)
[2020-03-29] MEDS ORDERED: cefTRIAXone IN SWFI 1,000 MG/10 ML SYRINGE IVP STA (13:20)
[2020-03-29] MEDS ORDERED: oxyCODONE-APAP 7.5-325MG 1 EACH TAB PO PRN (14:16)
[2020-03-29] MEDS ORDERED: ALBUTEROL NEBULIZED 2.5 MG/3 ML INHALATION PRN (14:16)
[2020-03-29] MEDS ORDERED: METOPROLOL TARTRATE 50 MG TAB PO SCH (21:00)
[2020-03-29] MEDS ORDERED: PRAVASTATIN SODIUM 40 MG TAB PO SCH (21:00)
[2020-03-29] MEDS: RANOLAZINE 500 MG TAB.ER.12H PO SCH (22:21)
[2020-03-29] MEDS: FLECAINIDE 50 MG TAB PO SCH (22:22)
[2020-03-29] MEDS ORDERED: METOPROLOL TARTRATE 25 MG TAB PO SCH (22:30)
[2020-03-29] MEDS: METOPROLOL TARTRATE 25 MG TAB PO SCH (22:42)
[2020-03-30 07:16] LABS: Cholesterol 195 mg/dL (<200); HDL Cholesterol 76 mg/dL (40-60); LDL Cholesterol,Calculated 100 mg/dL (0-99); Triglycerides 95 mg/dL (<150)
[2020-03-30] MEDS: IPRATROPIUM 0.5 MG/2.5 ML NEBU INHALATION SCH ×2 (07:37→11:00)
[2020-03-30] MEDS ORDERED: FORMOTEROL FUMARATE 20 MCG/2 ML NEBU INHALATION SCH (08:00)
[2020-03-30] MEDS ORDERED: TAMSULOSIN 0.4 MG CAP.ER.24H PO SCH (09:00)
[2020-03-30] MEDS ORDERED: NON FORMULARY DRUG (Empagliflozin [Jardiance] 10 MG) PO SCH (09:00)
[2020-03-30] MEDS ORDERED: ASPIRIN 325 MG TAB PO SCH (09:00)
[2020-03-30] MEDS ORDERED: FUROSEMIDE 40 MG TAB PO SCH (09:00)
[2020-03-30] MEDS ORDERED: cefTRIAXone IN SWFI 1,000 MG/10 ML SYRINGE IVP SCH (09:00)
[2020-03-30] MEDS ORDERED: RIVAROXABAN 20 MG TAB PO SCH (09:00)
[2020-03-30] MEDS ORDERED: POTASSIUM CHLORIDE 8 MEQ PO SCH (09:00)
--- NOTE | 2020-03-30 09:53 | P.CRDCN ---
History of Present Illness History of present illness: HISTORY OF PRESENTING ILLNESS This is a pleasant 79-year-old female past medical history significant for chronic persistent atrial fibrillation on long-term anticoagulation, perman ent pacemaker implantation, COPD, diabetes mellitus, hypertension and dyslipidemia. She quit smoking tobacco in 2017. She follows in the office with a solid waste truck driver out of [facility]. We have been asked to see in consultation for chest pain, shortness of breath and pacemaker. She states for the previous one week she has been experiencing increased weakness. She also feels short of breath most when she bends over. She was taking care of her cats one week ago bending over cleaning a letter box when she suddenly became very weak in the legs and fell. She was so weak she was unable to stand. She had to call her son for assistance. She has been diagnosed with urinary tract infection. She states she has had an ablation and cardioversions in the past that were initially successful. She underwent cardiac catheterization last year that she states was normal. DIAGNOSTICS EKG is paced. Telemetry tracings reviewed. Chest xray negative for an acute cardiopulmonary process. Laboratory reviewed, WBC 16, hemoglobin 11, platelets 260, d-dimer 0.56, sodium 134, potassium 4.8, creatinine 0.76, magnesium 2.3, cardiac enzymes negative 3, NT proBNP 771, LDL 100, HDL 76. Current cardiac medications include flecainide 100 mg twice a day, Lasix 40 mg daily, Lopressor 50 mg twice a day, pravastatin 40 mg at bedtime, Ranexa 1000 mg twice a day and Xarelto 20 mg daily. REVIEW OF SYSTEMS At the time of my exam: CONSTITUTIONAL: Denies fever or chills. CARDIOVASCULAR: Denies chest pain, shortness of breath, orthopnea, PND or palpitations. RESPIRATORY: Denies cough. GASTROINTESTINAL: Denies abdominal pain, diarrhea, constipation, nausea or vomiting. MUSCULOSKELETAL: Denies myalgias. NEUROLOGIC: Denies numbness, tingling or weakness. ENDOCRINE: Denies fatigue, weight change, polydipsia or polyurina. GENITOURINARY: Denies burning, hematuria or urgency with micturation. HEMATOLOGIC: Denies history of anemia or bleeding. PHYSICAL EXAMINATION Blood pressure 125/79 heart rate 64 afebrile and maintaining oxygen saturation on room air. CONSTITUTIONAL: No apparent distress. HEENT: Head is normocephalic. Pupils are equal, round. Sclerae anicteric. Mucous membranes of the mouth are moist. No JVD. No carotid bruit. CHEST EXAMINATION: Lungs are clear to auscultation. No chest wall tenderness is noted on palpation or with deep breathing. HEART EXAMINATION: Irregular rate and rhythm. S1, S2 heard. No murmurs, gallops or rub. ABDOMEN: Soft, nontender. Positive bowel sounds. EXTREMITIES: 2+ peripheral pulses, no lower extremity edema and no calf tenderness. NEUROLOGIC EXAMINATION: Patient is awake, alert and oriented x3. ASSESSMENT Shortness of breath and weakness, an acute coronary event has been ruled out. 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 Clinically she is euvolemic and not in acute heart failure. Weakness could be related to UTI. No evidence to suggest cardiac etiology thus far. Obtain 2D echocardiogram and doppler study to assess cardiac structure and function. Obtain report of catheterization from last year at [facility]. Hold aspirin and continue xarelto as previously ordered. Thank you kindly for this consultation. Nurse Practitioner note has been reviewed, I agree with a documented findings and plan of care. Patient was seen and examined. Past Medical History Past Medical History: Atrial Fibrillation, Atrial Flutter, Blood Disorder, Chest Pain / Angina, COPD, Diabetes Mellitus, Hyperlipidemia, Hypertension, Musculoskeletal Disorder, Osteoarthritis (OA), Pneumonia Additional Past Medical History / Comment(s): recent SOB and legs feeling weak, anemia, urinary incontinence, chronic back pain, broncitis History of Any Multi-Drug Resistant Organisms: None Reported Past Surgical History: Back Surgery, Breast Surgery, Cardiac Ablation, Cholecystectomy, Hysterectomy, Joint Replacement, Orthopedic Surgery, Pacemaker Additional Past Surgical History / Comment(s): plate in right leg for fx femur, rt knee replacement, meghan cataracts, fusion c3,4,5 Past Anesthesia/Blood Transfusion Reactions: No Reported Reaction Type of Cardiac Device: Permanent Pacemaker Device Placement Date:: 04/09 Past Psychological History: No Psychological Hx Reported Smoking Status: Former smoker Past Alcohol Use History: None Reported Additional Past Alcohol Use History / Comment(s): quit smoking 2016 Past Drug Use History: None Reported - Past Family History Brother(s) Family Medical History: Cancer, Deep Vein Thrombosis (DVT), Myocardial Infarction ([place]) Additional Family Medical History / Comment(s): colon and prostate ca Sister(s) Family Medical History: Cancer Additional Family Medical History / Comment(s): breast and ovarian Medications and Allergies Home Medications Medication Instructions Recorded Confirmed Type Empagliflozin [Jardiance] 10 mg PO DAILY 02/06/17 03/29/20 History Rivaroxaban [Xarelto] 20 mg PO DAILY 02/06/17 03/29/20 History Ergocalciferol [Vitamin D2 50,000 unit PO Q14D 07/05/17 03/29/20 History (DRISDOL)] Pravastatin Sodium [Pravachol] 40 mg PO HS 04/30/18 03/29/20 History Flecainide Acetate 100 mg PO BID 08/12/19 03/29/20 History Furosemide [Lasix] 40 mg PO DAILY 08/12/19 03/29/20 History Potassium Chloride [Klor-Con 8] 8 meq PO DAILY 08/12/19 03/29/20 History Ranolazine [Ranexa] 1,000 mg PO BID 08/12/19 03/29/20 History Tamsulosin [Flomax] 0.4 mg PO DAILY 08/12/19 03/29/20 History Albuterol Nebulized [Ventolin 2.5 mg INHALATION RT-Q6H PRN 03/29/20 03/29/20 History Nebulized] Cyanocobalamin [Vitamin B-12 1,000 mcg SQ QMONTH 03/29/20 03/29/20 History Injection] Metoprolol Tartrate [Lopressor] 50 mg PO BID 03/29/20 03/29/20 History Nitroglycerin Sl Tabs [Nitrostat] 0.4 mg SUBLINGUAL Q5M PRN 03/29/20 03/29/20 History Tiotropium Br/Olodaterol HCl 2 puff INHALATION RT-DAILY 03/29/20 03/29/20 History [Stiolto Respimat Inhal [place]] oxyCODONE-APAP 7.5-325MG [Percocet 1 tab PO Q8H PRN 03/29/20 03/29/20 History 7.5-325 mg] Allergies Allergy/AdvReac Type Severity Reaction Status Date / Time nickel Allergy Rash/Hives Verified 03/29/20 13:18 Physical Exam Vitals: Vital Signs Temp Pulse Pulse Pulse Resp BP BP 03/30/20 07:40 60 18 03/30/20 07:29 97.4 F L 70 16 03/30/20 04:05 97.5 F L 88 12 118/66 03/30/20 00:04 97.7 F 56 L 16 152/80 03/29/20 20:11 16 03/29/20 14:57 97.6 F 67 18 03/29/20 13:48 55 L 22 140/68 03/29/20 11:56 90 03/29/20 11:54 98.2 F 91 26 H 139/79 BP Pulse Ox 03/30/20 07:40 96 03/30/20 07:29 125/79 97 03/30/20 04:05 97 03/30/20 00:04 149/81 98 03/29/20 20:11 03/29/20 14:57 164/70 99 03/29/20 13:48 100 03/29/20 11:56 03/29/20 11:54 97 Intake and Output 03/29/20 03/30/20 03/30/20 22:59 06:59 14:59 Intake Total 590 Balance 590 Intake: Oral 590 Other: Voiding Method Toilet # Voids 2 3 Weight 79.379 kg Results 03/29/20 11:54 03/29/20 11:54 Cardiac Enzymes 03/29/20 03/29/20 03/29/20 Range/Units 11:54 11:54 14:44 AST 19 (14-36) U/L Troponin I <0.012 <0.012 (0.000-0.034) ng/mL 03/29/20 Range/Units 18:24 AST (14-36) U/L Troponin I <0.012 (0.000-0.034) ng/mL Coagulation 03/29/20 Range/Units 11:54 PT 11.3 (9.0-12.0) sec APTT 27.6 (22.0-30.0) sec Lipids 03/30/20 Range/Units 06:46 Triglycerides 95 (<150) mg/dL Cholesterol 195 (<200) mg/dL HDL Cholesterol 76 H (40-60) mg/dL CBC 03/29/20 Range/Units 11:54 WBC 16.0 H (3.8-10.6) k/uL RBC 4.52 (3.80-5.40) m/uL Hgb 11.0 L (11.4-16.0) gm/dL Hct 36.2 (34.0-46.0) % Plt Count 260 (150-450) k/uL Comprehensive Metabolic Panel 03/29/20 Range/Units 11:54 Sodium 134 L (137-145) mmol/L Potassium 4.8 (3.5-5.1) mmol/L Chloride 103 (98-107) mmol/L Carbon Dioxide 22 (22-30) mmol/L BUN 17 (7-17) mg/dL Creatinine 0.76 (0.52-1.04) mg/dL Glucose 123 H (74-99) mg/dL Calcium 8.6 (8.4-10.2) mg/dL AST 19 (14-36) U/L ALT 13 (4-34) U/L Alkaline Phosphatase 105 (38-126) U/L Total Protein 7.1 (6.3-8.2) g/dL Albumin 4.2 (3.5-5.0) g/dL Current Medications Generic Name Dose Route Start Last Admin Trade Name Freq PRN Reason Stop Dose Admin Albuterol Sulfate 2.5 mg 03/29/20 14:16 Ventolin Nebulized INHALATION RT-Q6H PRN Shortness Of Breath Cyanocobalamin 1,000 mcg 04/12/20 09:00 Vitamin B-12 SQ QMONTH [facility] Ergocalciferol 50,000 unit 04/12/20 09:00 Vitamin D2 PO Q14D [facility] Flecainide Acetate 100 mg 03/29/20 21:00 03/29/20 22:22 Tambocor PO 100 mg BID [facility] Administration Formoterol Fumarate 20 mcg 03/30/20 08:00 03/30/20 07:37 Perforomist INHALATION 20 mcg RT-BID [facility] Administration Furosemide 40 mg 03/30/20 09:00 Lasix PO DAILY [facility] Ceftriaxone Sodium 1 gm/ 50 mls @ 100 mls/hr 03/30/20 16:00 Sodium Chloride IVPB Q24H [facility] Ipratropium [place] 0.5 mg 03/30/20 08:00 03/30/20 07:37 Atrovent Nebulized INHALATION 0.5 mg RT-QID [facility] Administration Metoprolol Tartrate 50 mg 03/29/20 22:45 03/29/20 22:42 Lopressor PO 50 mg BID YIN Administration Nitroglycerin 0.4 mg 03/29/20 14:16 Nitrostat SUBLINGUAL Q5M PRN Chest Pain Non-Formulary Medication 10 mg 03/30/20 09:00 Empagliflozin [Jardiance] PO DAILY [facility] Non-Formulary Medication 8 meq 03/30/20 09:00 Potassium Chloride [Klor-Con 8] PO DAILY [facility] Oxycodone/Acetaminophen 1 each 03/29/20 14:16 03/29/20 16:09 Percocet 7.5-325 PO 1 each Q8H PRN Administration Pain Pravastatin Sodium 40 mg 03/29/20 21:00 03/29/20 22:21 Pravachol PO 40 mg HS YIN Administration Ranolazine 1,000 mg 03/29/20 21:00 03/29/20 22:21 Ranexa PO 1,000 mg BID YIN Administration Rivaroxaban 20 mg 03/30/20 09:00 Xarelto PO DAILY [facility] Tamsulosin HCl 0.4 mg 03/30/20 09:00 Flomax PO DAILY [facility] Intake and Output 03/29/20 03/30/20 03/30/20 22:59 06:59 14:59 Intake Total 590 Balance 590 Intake: Oral 590 Other: Voiding Method Toilet # Voids 2 3 Weight 79.379 kg 03/29/20 11:54 03/29/20 11:54
--- NOTE | 2020-03-30 11:28 | ECHOF ---
Referral Reason:sob, weakness MEASUREMENTS -------- HEIGHT: 157.5 cm WEIGHT: 79.4 kg BP: RVIDd: 3.0 cm (< 3.3) IVSd: 1.3 cm (0.6 - 1.1) LVIDd: 4.2 cm (3.9 - 5.3) LVPWd: 1.4 cm (0.6 - 1.1) IVSs: 1.6 cm LVIDs: 3.0 cm LVPWs: 1.7 cm LA Diam: 5.1 cm (2.7 - 3.8) LAESV Index (A-L): 39.34 ml/m Ao Diam: 2.0 cm (2.0 - 3.7) AV Cusp: 1.1 cm (1.5 - 2.6) LA Diam: 4.7 cm (2.7 - 3.8) MV EXCURSION: 16.399 mm (> 18.000) MV EF SLOPE: 35 mm/s (70 - 150) EPSS: 0.6 cm MV E Kenneth: 1.12 m/s MV DecT: 201 ms MV A Kenneth: 0.93 m/s MV E/A Ratio: 1.21 RAP: 5.00 mmHg RVSP: 40.42 mmHg FINDINGS -------- Sinus rhythm. Pacerwire seen in RV and RA. This was a technically adequate study. The left ventricular size is normal. There is moderate concentric left ventricular hypertrophy. O verall left ventricular systolic function is normal with, an EF between 55 - 60 %. The right ventricle is normal in size. LA is severely dilated >40 ml/m2 The right atrial size is normal. There is mild aortic valve sclerosis. There is no evidence of aortic regurgitation. The mitral valve leaflets are mildly thickened. Moderate mitral regurgitation is present. Mild tricuspid regurgitation present. There is mild pulmonary hypertension. The right ventricular systolic pressure, as measured by Doppler, is 40.42mmHg. Trace/mild (physiologic) pulmonic regurgitation. The aortic root size is normal. There is no pericardial effusion. CONCLUSIONS -------- 1. Pacerwire seen in RV and RA. 2. There is moderate concentric left ventricular hypertrophy. 3. Overall left ventricular systolic function is normal with, an EF between 55 - 60 %. 4. LA is severely dilated >40 ml/m2 5. There is mild aortic valve sclerosis. 6. The mitral valve leaflets are mildly thickened. 7. Moderate mitral regurgitation is present. 8. Mild tricuspid regurgitation present. 9. There is mild pulmonary hypertension. 10. Trace/mild (physiologic) pulmonic regurgitation. CUSTOMER SERVICE SPECIALIST: Anna Cali RDCS
[2020-03-30 11:42] VITALS: BP 144/67; PULSE 55; RESP 16; TEMP 97.5
[2020-03-30] MEDS: RANOLAZINE 500 MG TAB.ER.12H PO SCH (11:50)
[2020-03-30] MEDS: FLECAINIDE 50 MG TAB PO SCH (11:51)
[2020-03-30] MEDS: METOPROLOL TARTRATE 25 MG TAB PO SCH (11:54)
--- NOTE | 2020-03-30 13:51 | P.HPIM ---
History of Present Illness H&P Date: 03/30/20 Chief Complaint: Short of breath, weak History of presenting complaint: This is a very pleasant [address] Yanely Rizo. Chronic stable medical conditions include atrial flutter fibrillation, COPD, diabetes, hypertension, hyperlipidemia, osteoarthritis, urinary incontinence, chronic low back pain. Patient had been using a walker. Slowly to get off the same. For last to 3 days patient is noticing that she's becoming easily tired more weak in the legs or shortness of breath. Having urinary frequency. Denies any fever and chills. Some change in appetite. No orthopnea. No cough. No fever. Admitted for the same. Patient did have a cardiac catheterization at [facility] last year. Results unknown. Review of systems: GEN.: Tired] EYES: None HEENT: None NECK: None RESPIRATORY: None CARDIOVASCULAR: None GASTROINTESTINAL: None GENITOURINARY: None MUSCULOSKELETAL: [Joint pains LYMPHATICS: None HEMATOLOGICAL: None PSYCHIATRY: None NEUROLOGICAL: None Past medical history to include: Atrial flutter fibrillation, COPD, diabetes, hypertension, hyperlipidemia, osteoarthritis, urinary incontinence, chronic low back pain Social history: Patient lives alone. Does have a walker. Pissed off smoking 2017. No alcohol. Physical examination: VITAL SIGNS: 98.2, 91, 26, 139/79, 97% on 2 L GENERAL: BMI 32, sitting on bed, comfortable. EYES: Pupils equal. Conjunctiva normal. HEENT: External appearance of nose and ears normal, oral cavity grossly normal. NECK: JVD not raised; masses not palpable. HEART: First and second heart sounds are normal; no edema. LUNGS: Respiratory rate normal; clear to auscultation. ABDOMEN: Soft, nontender, liver spleen not palpable, no masses palpable. PSYCH: Alert and oriented x3; mood and affect normal. MUSCULAR skeletal: Evidence of OA especially in the hands and knees NEUROLOGICAL: Cranial nerves grossly intact; no facial asymmetry, power and sensation grossly intact. Patient is able to raise both legs off the bed. LYMPHATICS: No lymph nodes palpable in the axilla and neck INVESTIGATIONS, reviewed in the clinical context: White count 16 hemoglobin 11. Evista 60 potassium 4.8 creatinine 0.76 LDL 100 d-dimer-0.56 UA positive for nitrite leukoesterase WBC COVID 19 PCR-not detected EKG tracing personally reviewed by [id number] pacemaker Chest x-ray film personally reviewed by me-pacemaker, some osteopenia possibly some chronic changes Assessment: -Acute UTI from cystitis causing asthenia and weakness -COPD in an ex-smoker -Persistent atrial flutter fibrillation -Diabetes mellitus type 2 -Hyperlipidemia -Essential hypertension -Primary osteoarthritis -Chronic urinary stress incontinence -Chronic gait dysfunction uses a walker -Permanent pacemaker Plan: Patient started and IV ceftriaxone. Home medications resumed. Patient d-dimer was only 0.56. Patient does not have any lower extremity swelling. Suspicion for PE is very low. Cardiology was consulted for opinion. The order 2-D echocardiogram. Patient should have a cardiac catheterization at [facility] last year. Past Medical History Past Medical History: Atrial Fibrillation, Atrial Flutter, Blood Disorder, Chest Pain / Angina, COPD, Diabetes Mellitus, Hyperlipidemia, Hypertension, Musculoskeletal Disorder, Osteoarthritis (OA), Pneumonia Additional Past Medical History / Comment(s): recent SOB and legs feeling weak, anemia, urinary incontinence, chronic back pain, broncitis History of Any Multi-Drug Resistant Organisms: None Reported Past Surgical History: Back Surgery, Breast Surgery, Cardiac Ablation, Cholecystectomy, Hysterectomy, Joint Replacement, Orthopedic Surgery, Pacemaker Additional Past Surgical History / Comment(s): plate in right leg for fx femur, rt knee replacement, meghan cataracts, fusion c3,4,5 Past Anesthesia/Blood Transfusion Reactions: No Reported Reaction Type of Cardiac Device: Permanent Pacemaker Device Placement Date:: 04/09 Past Psychological History: No Psychological Hx Reported Smoking Status: Former smoker Past Alcohol Use History: None Reported Additional Past Alcohol Use History / Comment(s): quit smoking 2016 Past Drug Use History: None Reported - Past Family History Brother(s) Family Medical History: Cancer, Deep Vein Thrombosis (DVT), Myocardial Infarction ([place]) Additional Family Medical History / Comment(s): colon and prostate ca Sister(s) Family Medical History: Cancer Additional Family Medical History / Comment(s): breast and ovarian Medications and Allergies Home Medications Medication Instructions Recorded Confirmed Type Empagliflozin [Jardiance] 10 mg PO DAILY 02/06/17 03/29/20 History Rivaroxaban [Xarelto] 20 mg PO DAILY 02/06/17 03/29/20 History Ergocalciferol [Vitamin D2 50,000 unit PO Q14D 07/05/17 03/29/20 History (DRISDOL)] Pravastatin Sodium [Pravachol] 40 mg PO HS 04/30/18 03/29/20 History Flecainide Acetate 100 mg PO BID 08/12/19 03/29/20 History Furosemide [Lasix] 40 mg PO DAILY 08/12/19 03/29/20 History Potassium Chloride [Klor-Con 8] 8 meq PO DAILY 08/12/19 03/29/20 History Ranolazine [Ranexa] 1,000 mg PO BID 08/12/19 03/29/20 History Tamsulosin [Flomax] 0.4 mg PO DAILY 08/12/19 03/29/20 History Albuterol Nebulized [Ventolin 2.5 mg INHALATION RT-Q6H PRN 03/29/20 03/29/20 H istory Nebulized] Cyanocobalamin [Vitamin B-12 1,000 mcg SQ QMONTH 03/29/20 03/29/20 History Injection] Metoprolol Tartrate [Lopressor] 50 mg PO BID 03/29/20 03/29/20 History Nitroglycerin Sl Tabs [Nitrostat] 0.4 mg SUBLINGUAL Q5M PRN 03/29/20 03/29/20 History Tiotropium Br/Olodaterol HCl 2 puff INHALATION RT-DAILY 03/29/20 03/29/20 History [Stiolto Respimat Inhal [place]] oxyCODONE-APAP 7.5-325MG [Percocet 1 tab PO Q8H PRN 03/29/20 03/29/20 History 7.5-325 mg] Cephalexin [Keflex] 250 mg PO Q8HR #9 capsule 03/30/20 Rx Allergies Allergy/AdvReac Type Severity Reaction Status Date / Time nickel Allergy Rash/Hives Verified 03/29/20 13:18 Physical Exam Vitals: Vital Signs Temp Pulse Pulse Pulse Resp BP BP 03/30/20 07:55 64 03/30/20 07:40 60 18 03/30/20 07:29 97.4 F L 70 16 03/30/20 04:05 97.5 F L 88 12 118/66 03/30/20 00:04 97.7 F 56 L 16 152/80 03/29/20 20:11 16 03/29/20 14:57 97.6 F 67 18 03/29/20 13:48 55 L 22 140/68 03/29/20 11:56 90 03/29/20 11:54 98.2 F 91 26 H 139/79 BP Pulse Ox 03/30/20 07:55 03/30/20 07:40 96 03/30/20 07:29 125/79 97 03/30/20 04:05 97 03/30/20 00:04 149/81 98 03/29/20 20:11 03/29/20 14:57 164/70 99 03/29/20 13:48 100 03/29/20 11:56 03/29/20 11:54 97 Intake and Output 03/29/20 03/30/20 03/30/20 22:59 06:59 14:59 Intake Total 590 Balance 590 Intake: Oral 590 Other: Voiding Method Toilet Toilet # Voids 2 3 Weight 79.379 kg Results CBC & Chem 7: 03/29/20 11:54 03/29/20 11:54 Labs: Abnormal Lab Results - Last 24 Hours (Table) 03/29/20 03/29/20 03/29/20 Range/Units 11:54 11:54 11:54 WBC 16.0 H (3.8-10.6) k/uL Hgb 11.0 L (11.4-16.0) gm/dL MCH 24.4 L (25.0-35.0) pg MCHC 30.4 L (31.0-37.0) g/dL RDW 17.8 H (11.5-15.5) % Neutrophils # 13.6 H (1.3-7.7) k/uL Sodium 134 L (137-145) mmol/L Glucose 123 H (74-99) mg/dL LDL Cholesterol, Calc (0-99) mg/dL HDL Cholesterol (40-60) mg/dL Urine Appearance Turbid H (Clear) Urine Protein Trace H (Negative) Urine Glucose (UA) 4+ H (Negative) Urine Blood Trace H (Negative) Urine Nitrite Positive H (Negative) Ur Leukocyte Esterase Large H (Negative) Urine WBC 14 H (0-5) /hpf 03/30/20 Range/Units 06:46 WBC (3.8-10.6) k/uL Hgb (11.4-16.0) gm/dL MCH (25.0-35.0) pg MCHC (31.0-37.0) g/dL RDW (11.5-15.5) % Neutrophils # (1.3-7.7) k/uL Sodium (137-145) mmol/L Glucose (74-99) mg/dL LDL Cholesterol, Calc 100 H (0-99) mg/dL HDL Cholesterol 76 H (40-60) mg/dL Urine Appearance (Clear) Urine Protein (Negative) Urine Glucose (UA) (Negative) Urine Blood (Negative) Urine Nitrite (Negative) Ur Leukocyte Esterase (Negative) Urine WBC (0-5) /hpf Microbiology - Last 24 Hours (Table) 03/29/20 11:54 Urine Culture - Preliminary Urine,Voided Thrombosis Risk Factor Assmnt - Choose All That Apply Any of the Below Risk Factors Present?: Yes Each Factor Represents 1 point: Abnormal pulmonary function (COPD), Obesity (BMI >25) Other Risk Factors: Yes Each Risk Factor Represents 3 Points: Age 75 years or older Other congenital or acquired thrombophilia - If yes, enter type in comment: No Thrombosis Risk Factor Assessment Total Risk Factor Score: 5 Thrombosis Risk Factor Assessment Level: High Risk
--- NOTE | 2020-03-30 22:50 | P.DS ---
Providers Date of admission: 03/29/20 13:40 Expected date of discharge: 03/30/20 Attending physician: Jeffreson Lees Consults: 03/29/20 13:18 Consult Physician Routine Consulting Provider: [facility] Consult Reason/Comments: CP, SOB pacemaker Do you want consulting provider notified?: Yes Primary care physician: Darrel Rizo [facility] Course: Chief Complaint: Short of breath, weak History of presenting complaint: This is a very pleasant [address] Yanely Rizo. Chronic stable medical conditions include atrial flutter fibrillation, COPD, diabetes, hypertension, hyperlipidemia, osteoarthritis, urinary incontinence, chronic low back pain. Patient had been using a walker. Slowly to get off the same. For last to 3 days patient is noticing that she's becoming easily tired more weak in the legs or shortness of breath. Having urinary frequency. Denies any fever and chills. Some change in appetite. No orthopnea. No cough. No fever. Admitted for the same. Patient did have a cardiac catheterization at [facility] last year. Results unknown. Admitted with acute UTI and cystitis. Given a dose of IV ceftriaxone. Feeling much better. D-dimer was 0.56. Suspicion for PE very low. Seen by cardiology. Patient feeling much better. Consultation: Dr. Weber from cardiology Physical examination: VITAL SIGNS: 97.5,, 55, 16, 144/67, 99% room air GENERAL: BMI 32, sitting on bed, comfortable. EYES: Pupils equal. Conjunctiva normal. HEENT: External appearance of nose and ears normal, oral cavity grossly normal. NECK: JVD not raised; masses not palpable. HEART: First and second heart sounds are normal; no edema. LUNGS: Respiratory rate normal; clear to auscultation. ABDOMEN: Soft, nontender, liver spleen not palpable, no masses palpable. PSYCH: Alert and oriented x3; mood and affect normal. MUSCULAR skeletal: Evidence of OA especially in the hands and knees NEUROLOGICAL: Cranial nerves grossly intact; no facial asymmetry, power and sensation grossly intact. Patient is able to raise both legs off the bed. INVESTIGATIONS, reviewed in the clinical context: White count 16 hemoglobin 11. [place] 60 potassium 4.8 creatinine 0.76 LDL 100 d-dimer-0.56 UA positive for nitrite leukoesterase WBC COVID 19 PCR-not detected EKG tracing personally reviewed by [id number] pacemaker Chest x-ray film personally reviewed by me-pacemaker, some osteopenia possibly some chronic changes 2-D echocardiogram-EF 55-60%., Moderate mitral regurgitation Assessment: -Acute UTI from cystitis causing asthenia and weakness -COPD in an ex-smoker -Persistent atrial flutter fibrillation -Diabetes mellitus type 2 -Hyperlipidemia -Essential hypertension -Primary osteoarthritis -Chronic urinary stress incontinence -Chronic gait dysfunction uses a walker -Permanent pacemaker -Moderate mitral regurgitation Disposition: Home Patient Condition at Discharge: Stable Plan - Discharge Summary Discharge Rx Participant: Yes New Discharge Prescriptions: New Cephalexin [Keflex] 250 mg PO Q8HR #9 capsule Continue Rivaroxaban [Xarelto] 20 mg PO DAILY Empagliflozin [Jardiance] 10 mg PO DAILY Ergocalciferol [Vitamin D2 (DRISDOL)] 50,000 unit PO Q14D Pravastatin Sodium [Pravachol] 40 mg PO HS Flecainide Acetate 100 mg PO BID Furosemide [Lasix] 40 mg PO DAILY Potassium Chloride [Klor-Con 8] 8 meq PO DAILY Ranolazine [Ranexa] 1,000 mg PO BID Tamsulosin [Flomax] 0.4 mg PO DAILY oxyCODONE-APAP 7.5-325MG [Percocet 7.5-325 mg] 1 tab PO Q8H PRN PRN Reason: Pain Nitroglycerin Sl Tabs [Nitrostat] 0.4 mg SUBLINGUAL Q5M PRN PRN Reason: Chest Pain Metoprolol Tartrate [Lopressor] 50 mg PO BID Cyanocobalamin [Vitamin B-12 Injection] 1,000 mcg SQ QMONTH Tiotropium Br/Olodaterol HCl [Stiolto Respimat Inhal [place]] 2 puff INHALATION RT-DAILY Albuterol Nebulized [Ventolin Nebulized] 2.5 mg INHALATION RT-Q6H PRN PRN Reason: Shortness Of Breath Discharge Medication List Empagliflozin [Jardiance] 10 mg PO DAILY 02/06/17 [History] Rivaroxaban [Xarelto] 20 mg PO DAILY 02/06/17 [History] Ergocalciferol [Vitamin D2 (DRISDOL)] 50,000 unit PO Q14D 07/05/17 [History] Pravastatin Sodium [Pravachol] 40 mg PO HS 04/30/18 [History] Flecainide Acetate 100 mg PO BID 08/12/19 [History] Furosemide [Lasix] 40 mg PO DAILY 08/12/19 [History] Potassium Chloride [Klor-Con 8] 8 meq PO DAILY 08/12/19 [History] Ranolazine [Ranexa] 1,000 mg PO BID 08/12/19 [History] Tamsulosin [Flomax] 0.4 mg PO DAILY 08/12/19 [History] Albuterol Nebulized [Ventolin Nebulized] 2.5 mg INHALATION RT-Q6H PRN 03/29/20 [History] Cyanocobalamin [Vitamin B-12 Injection] 1,000 mcg SQ QMONTH 03/29/20 [History] Metoprolol Tartrate [Lopressor] 50 mg PO BID 03/29/20 [History] Nitroglycerin Sl Tabs [Nitrostat] 0.4 mg SUBLINGUAL Q5M PRN 03/29/20 [History] Tiotropium Br/Olodaterol HCl [Stiolto Respimat Inhal [place]] 2 puff INHALATION RT-DAILY 03/29/20 [History] oxyCODONE-APAP 7.5-325MG [Percocet 7.5-325 mg] 1 tab PO Q8H PRN 03/29/20 [History] Cephalexin [Keflex] 250 mg PO Q8HR #9 capsule 03/30/20 [Rx] Follow up Appointment(s)/Referral(s): Jerzy Weber MD [STAFF PHYSICIAN] - 2 Weeks (Dr Weber office will call to make an appointment. Please follow up in two weeks.) Darrel Rizo DO [Primary Care Provider] - 1-2 days Patient Instructions/Handouts: Urinary Tract Infection in Women (DC) Discharge Disposition: HOME SELF-CARE
[2020-04-12] MEDS ORDERED: CYANOCOBALAMIN 1,000 MCG/ML 1 ML VIAL SQ SCH (09:00)
[2020-04-12] MEDS ORDERED: ERGOCALCIFEROL 50,000 UNIT CAP PO SCH (09:00)
== END 2020-03-30 14:25 | disposition home or self-care (01) ==
LOC: EC 11:26 → 1SOBS 13:40
PROVIDERS: ADMIT Hospitalist; ATTEND Hospitalist
DX: N30.00 Acute cystitis without hematuria (principal); J44.9 Chronic obstructive pulmonary disease, unspecified; I48.92 Unspecified atrial flutter; I48.19 Other persistent atrial fibrillation; E11.9 Type 2 diabetes mellitus without complications; E78.5 Hyperlipidemia, unspecified; I10 Essential (primary) hypertension; M19.90 Unspecified osteoarthritis, unspecified site; N39.3 Stress incontinence (female) (male); R26.89 Other abnormalities of gait and mobility; I34.0 Nonrheumatic mitral (valve) insufficiency; G89.29 Other chronic pain; M54.5 Low back pain; I25.10 Atherosclerotic heart disease of native coronary artery without angina pectoris; Z95.0 Presence of cardiac pacemaker; E66.9 Obesity, unspecified; Z68.32 Body mass index [BMI] 32.0-32.9, adult; Z03.818 Encounter for observation for suspected exposure to other biological agents ruled out; Z79.01 Long term (current) use of anticoagulants; Z79.84 Long term (current) use of oral hypoglycemic drugs; Z79.899 Other long term (current) drug therapy; Z79.891 Long term (current) use of opiate analgesic; Z91.09 Other allergy status, other than to drugs and biological substances; Z86.2 Personal history of diseases of the blood and blood-forming organs and certain disorders involving the immune mechanism; Z98.890 Other specified postprocedural states; Z90.49 Acquired absence of other specified parts of digestive tract; Z90.710 Acquired absence of both cervix and uterus; Z96.651 Presence of right artificial knee joint; Z87.81 Personal history of (healed) traumatic fracture; Z98.41 Cataract extraction status, right eye; Z98.42 Cataract extraction status, left eye; Z87.891 Personal history of nicotine dependence; Z87.09 Personal history of other diseases of the respiratory system; Z98.1 Arthrodesis status; Z91.81 History of falling; Z82.49 Family history of ischemic heart disease and other diseases of the circulatory system; Z80.0 Family history of malignant neoplasm of digestive organs; Z80.42 Family history of malignant neoplasm of prostate; Z80.3 Family history of malignant neoplasm of breast; Z80.41 Family history of malignant neoplasm of ovary
CPT/HCPCS: 93005 ×2; 96374; 99285; 36415; 94640; 94760; 93306; 85379; 83880; 80061; 80053; 83735; 84484; 85025; 85610; 85730; 81001; 87086; 87077; 87186; 71046; G0378 ×2; U0003; J0696

== ENCOUNTER 2020-04-05 09:41 | Observation (INO) | payer MEDICARE ==
[2020-04-05] MEDS ORDERED: HYDROmorphone 1 MG/ML 1 ML SYRINGE IM STA (09:52)
--- NOTE | 2020-04-05 09:54 | ED ---
General Adult HPI - General Chief complaint: Fall Stated complaint: Fall Time Seen by Provider: 04/05/20 09:44 Source: patient, EMS, RN notes reviewed Mode of arrival: EMS Limitations: no limitations - History of Present Illness Initial comments: Patient is a pleasant 79-year-old female presenting to the emergency department following a fall. Incident occurred this morning. Patient has chronic back pain that has been unchanged for well over a year now. Patient did have surgery a year ago. Patient was cleaning up [employer] sauce today when she slipped and fell on her bottom. Patient has some increase of her chronic discomfort. Patient did not land on her back. Patient does not strike her head or lose consciousness. No weakness. No incontinence or retention of bowel or bladder. Patient states she had a difficult time getting up after the fall. Patient states she always has increased discomfort when she bends over like she was doing today. - Related Data Home Medications Medication Instructions Recorded Confirmed Empagliflozin [Jardiance] 10 mg PO DAILY 02/06/17 04/05/20 Rivaroxaban [Xarelto] 20 mg PO DAILY 02/06/17 04/05/20 Ergocalciferol [Vitamin D2 50,000 unit PO Q14D 07/05/17 04/05/20 (DRISDOL)] Pravastatin Sodium [Pravachol] 40 mg PO HS 04/30/18 04/05/20 Flecainide Acetate 100 mg PO BID 08/12/19 04/05/20 Furosemide [Lasix] 40 mg PO DAILY 08/12/19 04/05/20 Potassium Chloride [Klor-Con 8] 8 meq PO DAILY 08/12/19 04/05/20 Ranolazine [Ranexa] 1,000 mg PO BID 08/12/19 04/05/20 Tamsulosin [Flomax] 0.4 mg PO DAILY 08/12/19 04/05/20 Albuterol Nebulized [Ventolin 2.5 mg INHALATION RT-Q6H PRN 03/29/20 04/05/20 Nebulized] Cyanocobalamin [Vitamin B-12 1,000 mcg SQ QMONTH 03/29/20 04/05/20 Injection] Metoprolol Tartrate [Lopressor] 50 mg PO BID 03/29/20 04/05/20 Nitroglycerin Sl Tabs [Nitrostat] 0.4 mg SUBLINGUAL Q5M PRN 03/29/20 04/05/20 Tiotropium Br/Olodaterol HCl 2 puff INHALATION RT-DAILY 03/29/20 04/05/20 [Stiolto Respimat Inhal [place]] oxyCODONE-APAP 7.5-325MG [Percocet 1 tab PO Q8H PRN 03/29/20 04/05/20 7.5-325 mg] Allergies Allergy/AdvReac Type Severity Reaction Status Date / Time nickel Allergy Rash/Hives Verified 04/05/20 10:29 Review of Systems ROS Statement: Those systems with pertinent positive or pertinent negative responses have been documented in the HPI. ROS Other: All systems not noted in ROS Statement are negative. Constitutional: Denies: fever Eyes: Denies: eye pain ENT: Denies: ear pain Respiratory: Denies: cough Cardiovascular: Denies: chest pain Endocrine: Denies: fatigue Gastrointestinal: Denies: abdominal pain Genitourinary: Denies: dysuria Musculoskeletal: Reports: as per HPI, back pain Skin: Denies: rash Neurological: Denies: weakness Past Medical History Past Medical History: Atrial Fibrillation, Atrial Flutter, Blood Disorder, Chest Pain / Angina, COPD, Diabetes Mellitus, Hyperlipidemia, Hypertension, Musculoskeletal Disorder, Osteoarthritis (OA), Pneumonia Additional Past Medical History / Comment(s): recent SOB and legs feeling weak, anemia, urinary incontinence, chronic back pain, broncitis History of Any Multi-Drug Resistant Organisms: None Reported Past Surgical History: Back Surgery, Breast Surgery, Cardiac Ablation, Cholecystectomy, Hysterectomy, Joint Replacement, Orthopedic Surgery, Pacemaker Additional Past Surgical History / Comment(s): plate in right leg for fx femur, rt knee replacement, meghan cataracts, fusion c3,4,5 Past Anesthesia/Blood Transfusion Reactions: No Reported Reaction Type of Cardiac Device: Permanent Pacemaker Device Placement Date:: 04/09 Past Psychological History: No Psychological Hx Reported Smoking Status: Former smoker Past Alcohol Use History: None Reported Past Drug Use History: None Reported - Past Family History Brother(s) Family Medical History: Cancer, Deep Vein Thrombosis (DVT), Myocardial Infarction ([place]) Additional Family Medical History / Comment(s): colon and prostate ca Sister(s) Family Medical History: Cancer Additional Family Medical History / Comment(s): breast and ovarian General Exam Limitations: no limitations General appearance: alert, in no apparent distress Head exam: Present: normocephalic Eye exam: Present: normal appearance, PERRL, EOMI Neck exam: Present: normal inspection. Absent: tenderness Respiratory exam: Present: normal lung sounds bilaterally Cardiovascular Exam: Present: regular rate, normal rhythm Expanded Peripheral pulses: 2+: Dorsalis Pedis (R), Dorsalis Pedis (L) GI/Abdominal exam: Present: soft. Absent: tenderness Extremities exam: Present: normal inspection, full ROM. Absent: tenderness Back exam: Present: normal inspection. Absent: tenderness Neurological exam: Present: alert, oriented X3, CN II-XII intact. Absent: motor sensory deficit Expanded Neurological exam: Present: protecting the airway Speech: Present: fluid speech Cranial nerves: EOM's Intact: Normal Sensory exam: Lower Extremity Light Touch: Normal Motor strength exam: RUE: 5, LUE: 5, RLE: 5, LLE: 5 Eye Response: (4) open spontaneously Motor Response: (6) obeys commands Verbal Response: (5) oriented Psychiatric exam: Present: normal affect, normal mood Skin exam: Present: normal color Course Vital Signs 04/05/20 04/05/20 09:42 10:46 Temperature 97.8 F Pulse Rate 64 58 L Respiratory 16 16 Rate Blood Pressure 144/89 139/55 O2 Sat by Pulse 98 96 Oximetry - Reevaluation(s) Reevaluation #1: 04/05/20 09:53 Patient states she is here mostly for pain control and is receptive to receiving pain medication and possible discharge following that. Medical Decision Making - Medical Decision Making Patient reevaluated and still having discomfort especially with getting up. Patient does not feel comfortable going home and feels she may need placement. Case was discussed with Dr. Infante, who will admit for refractory Nabeel, who admits for Dr. Rizo. Disposition Clinical Impression: Intractable back pain Disposition: ADMITTED IP TO THIS [facility] Is patient prescribed a controlled substance at d/c from ED?: No Referrals: Darrel Rizo DO [Primary Care Provider] - 1-2 days Decision Time: 11:55
[2020-04-05] MEDS ORDERED: KETOROLAC 60 MG/2 ML VIAL IM STA (10:35)
[2020-04-05] MEDS ORDERED: NALOXONE 0.4 MG/ML 1 ML VIAL IV PRN (11:56)
[2020-04-05] MEDS: SODIUM CHLORIDE 0.9% 1,000 ML IV SCH (12:13)
--- NOTE | 2020-04-05 13:43 | XR ---
EXAMINATION TYPE: XR lumbar spine 2 or 3V DATE OF EXAM: 04/05/2020 CLINICAL HISTORY: pain TECHNIQUE: Three views of the lumbar spine are submitted. COMPARISON: None. FINDINGS: Postoperative changes of fusion with pedicular screw placement. Intervertebral spacer is noted L4-5 a nd L5-S1. Fusion L5-S1. Alignment is anatomic. No acute compression fracture seen. IMPRESSION: No acute fracture or dislocation is seen in the lumbar spine. ICD 10 NO FRACTURE, INITIAL EVALUATION
--- NOTE | 2020-04-05 13:43 | XR ---
EXAMINATION TYPE: XR pelvis AP view DATE OF EXAM: 04/05/2020 CLINICAL HISTORY: pain TECHNIQUE: Single view the pelvis is submitted. FINDINGS: No evidence for fracture, dislocation or bony lesion. Joint spaces are well-preserved. S I joints appear symmetric. IMPRESSION: 1. No acute fracture or dislocation seen. ICD 10 NO FRACTURE, INITIAL EVALUATION
[2020-04-05] MEDS ORDERED: ALBUTEROL NEBULIZED 2.5 MG/3 ML INHALATION PRN (15:25)
[2020-04-05] MEDS: HYDROmorphone 1 MG/ML 1 ML SYRINGE IVP PRN ×2 (15:40→23:20)
[2020-04-05] MEDS ORDERED: CYANOCOBALAMIN 1,000 MCG/ML 1 ML VIAL SQ SCH ×2 (16:00→19:00)
[2020-04-05 16:24] LABS: ALT 17 U/L (4-34); AST 24 U/L (14-36); African American GFR (CKD) >90 (>60 ml/min/1.73 sqM); Albumin 3.8 g/dL (3.5-5.0); Alkaline Phosphatase 83 U/L (38-126); Anion Gap 4 mmol/L; Blood Urea Nitrogen 19 mg/dL (7-17); Calcium 8.1 mg/dL (8.4-10.2); Carbon Dioxide 27 mmol/L (22-30); Chloride 104 mmol/L (98-107); Glucose 106 mg/dL (74-99); Non-African American GFR(CKD) 85 (>60 ml/min/1.73 sqM); Potassium 4.2 mmol/L (3.5-5.1); Sodium 135 mmol/L (137-145); Total Bilirubin 0.6 mg/dL (0.2-1.3); Total Protein 6.3 g/dL (6.3-8.2)
[2020-04-05] MEDS: IPRATROPIUM 0.5 MG/2.5 ML NEBU INHALATION SCH ×2 (18:28→20:01)
[2020-04-05] MEDS: oxyCODONE-APAP 7.5-325MG 1 EACH TAB PO PRN (18:58)
[2020-04-05] MEDS: FORMOTEROL FUMARATE 20 MCG/2 ML NEBU INHALATION SCH (20:01)
[2020-04-05] MEDS: RANOLAZINE 500 MG TAB.ER.12H PO SCH (22:10)
[2020-04-05] MEDS: METOPROLOL TARTRATE 50 MG TAB PO SCH (22:10)
[2020-04-05] MEDS: FLECAINIDE 50 MG TAB PO SCH (22:11)
[2020-04-05] MEDS: PRAVASTATIN SODIUM 40 MG TAB PO SCH (22:11)
--- NOTE | 2020-04-05 23:36 | P.HPIM ---
History of Present Illness H&P Date: 04/05/20 Chief Complaint: Fall Patient is a 73-year-old female with a known history of persistent atrial fibrillation on anticoagulation, COPD, hypertension, hyperlipidemia, o steoarthritis and chronic back pain history of lumbar fusion surgery came to ER after he sustained a fall this morning. Patient states that she was trying to clean spaghetti sauce spilled on the floor. Patient states that she bent over and suddenly her legs gave way and sustained a fall. Patient landed on her buttock. Denied any head injury. Since then patient is unable to get up and EMS was called. Denied any loss of consciousness. Denied any leg weakness or paresthesias. Denied any bowel or bladder incontinence. Patient has been having chronic back pain and is fusion surgery done about a year back. Patient had MRI about a month back which did not show any acute changes. Denied any recent illnesses. No fever no chills. Patient states that whenever she bends over her legs give away and is following with her orthopedic surgery as an outpatient. Patient denied any chest pain or shortness of. No dizziness or lightheadedness. X-ray of the lumbar spine showed no acute fracture or dislocation. Intervertebral spacer is noted L4-L5 and L5-S1 fusion L5-S1 alignment is anatomic. No acute compression is seen. X-ray of the pelvis showed no acute fracture or dislocation. Laboratory data showed sodium 135, potassium 4.2, BUN 19 and creatinine 0.66 calcium 8.1 liver enzymes are not elevated. Review of Systems Constitutional: Patient denies any fever or chills . No generalized weakness or weight loss. Abdomen: Patient denied nausea vomiting and diarrhea and abdominal pain. Cardiovascular: Patient does have chest pain and short of breath no palpitations. Respiratory: patient denied any cough or production. + shortness of breath Neurologic: Patient denied any numbness or tingling headache. Musculoskeletal: Patient denies any complaints of joint swelling or deformity. Patient does have back pain. Skin: Negative Psychiatric: Negative Endocrine: No heat or cold intolerance. No recent weight gain. Genitourinary: No dysuria or hematuria. All other 14 point ROS negative except the above Past Medical History Past Medical History: Atrial Fibrillation, Atrial Flutter, Blood Disorder, Chest Pain / Angina, COPD, Diabetes Mellitus, Hyperlipidemia, Hypertension, Musculoskeletal Disorder, Osteoarthritis (OA), Pneumonia Additional Past Medical History / Comment(s): Pt recently admitted to [facility] on 03/29/20 with UTI with asthesia/weakness. Other hx: Home oxygen prn, bronchitis, NIDDM type II, neurpathy L foot, chronic low back pain which pt states has been better since surgery but states she now has difficutly bending- loses balance, past thoracic vertebral fracture with surgery, past L sided sciatica/difficulty lifting L leg- improved by physical therapy, anemia with B12 injections, UTIs, cystitis, occasional R foot edema-uses lasix for this reason. History of Any Multi-Drug Resistant Organisms: None Reported Past Surgical History: Back Surgery, Breast Surgery, Cardiac Ablation, Cholecystectomy, Hysterectomy, Joint Replacement, Orthopedic Surgery, Pacemaker, Tubal Ligation Additional Past Surgical History / Comment(s): Cervical fusion, kyphoplasty/vertebral biopsy T6, R leg fracture with plate, total R knee, L3/L4/L5 surgery in 2019, cystocele, BMA, bilateral cataract removals, R breast biopsy, Past Anesthesia/Blood Transfusion Reactions: No Reported Reaction Additional Past Anesthesia/Blood Transfusion Reaction / Comment(s): Anesthesia "makes my hair fall out". Type of Cardiac Device: Permanent Pacemaker Device Placement Date:: 04/09 Smoking Status: Former smoker - Past Family History Brother(s) Family Medical History: Cancer, Deep Vein Thrombosis (DVT), Myocardial Infarction ([place]) Additional Family Medical History / Comment(s): colon and prostate ca Sister(s) Family Medical History: Cancer Additional Family Medical History / Comment(s): breast and ovarian Mother Family Medical History: COPD Father History Unknown: Yes Additional Family Medical History / Comment(s): Father in a MVA Medications and Allergies Home Medications Medication Instructions Recorded Confirmed Type Empagliflozin [Jardiance] 10 mg PO DAILY 02/06/17 04/05/20 History Rivaroxaban [Xarelto] 20 mg PO DAILY 02/06/17 04/05/20 History Ergocalciferol [Vitamin D2 50,000 unit PO Q14D 07/05/17 04/05/20 History (DRISDOL)] Pravastatin Sodium [Pravachol] 40 mg PO HS 04/30/18 04/05/20 History Flecainide Acetate 100 mg PO BID 08/12/19 04/05/20 History Furosemide [Lasix] 40 mg PO DAILY 08/12/19 04/05/20 History Potassium Chloride [Klor-Con 8] 8 meq PO DAILY 08/12/19 04/05/20 History Ranolazine [Ranexa] 1,000 mg PO BID 08/12/19 04/05/20 History Tamsulosin [Flomax] 0.4 mg PO DAILY 08/12/19 04/05/20 History Albuterol Nebulized [Ventolin 2.5 mg INHALATION RT-Q6H PRN 03/29/20 04/05/20 History Nebulized] Cyanocobalamin [Vitamin B-12 1,000 mcg SQ QMONTH 03/29/20 04/05/20 History Injection] Metoprolol Tartrate [Lopressor] 50 mg PO BID 03/29/20 04/05/20 History Nitroglycerin Sl Tabs [Nitrostat] 0.4 mg SUBLINGUAL Q5M PRN 03/29/20 04/05/20 History Tiotropium Br/Olodaterol HCl 2 puff INHALATION RT-DAILY 03/29/20 04/05/20 History [Stiolto Respimat Inhal [place]] oxyCODONE-APAP 7.5-325MG [Percocet 1 tab PO Q8H PRN 03/29/20 04/05/20 History 7.5-325 mg] Allergies Allergy/AdvReac Type Severity Reaction Status Date / Time nickel Allergy Rash/Hives Verified 04/05/20 10:29 Physical Exam Vitals: Vital Signs Temp Pulse Pulse Resp BP BP Pulse Ox 04/05/20 14:57 98.3 F 62 16 164/81 96 04/05/20 14:02 97.8 F 63 16 153/63 99 04/05/20 10:46 58 L 16 139/55 96 04/05/20 09:42 97.8 F 64 16 144/89 98 Intake and Output 04/05/20 04/05/20 04/05/20 06:59 14:59 22:59 Other: Weight 79.379 kg PHYSICAL EXAMINATION: Patient is lying in the bed comfortably, no acute distress, awake alert and oriented.. HEENT: Normocephalic. Neck is supple. Pupils reactive. Nostrils clear. Oral cavity is moist. Ears reveal no drainage. Neck reveals no JVD, carotid bruits, or thyromegaly. CHEST EXAMINATION: Trachea is central. Symmetrical expansion.Bilateral wheezing and scattered rhonchi and basilar crackles. . CARDIAC: Normal S1, S2 with no gallops. No murmurs ABDOMEN: Soft. Bowel sounds normal. No organomegaly. No abdominal bruits. Extremities: reveal no edema. No clubbing or cyanosis Neurologically awake, alert, oriented x3 with well-coordinated movements. Tenderness of the lumbar spine. No bruising. No focal deficits noted Skin: No rash or skin lesions. Psychiatric: Coperative. Nonsuicidal Musculoskeletal: No joint swelling or deformity. Normal range of motion. Results CBC & Chem 7: 04/05/20 15:41 Thrombosis Risk Factor Assmnt - DVT/VTE Prophylaxis DVT/VTE Prophylaxis: Pharmacologic Prophylaxis ordered - Choose All That Apply Any of the Below Risk Factors Present?: Yes Each Factor Represents 1 point: Abnormal pulmonary function (COPD), Obesity (BMI >25), Serious lung disease incl. pneumonia (< 1month) Other Risk Factors: Yes Each Risk Factor Represents 3 Points: Age 75 years or older Other congenital or acquired thrombophilia - If yes, enter type in comment: No Thrombosis Risk Factor Assessment Total Risk Factor Score: 6 Thrombosis Risk Factor Assessment Level: High Risk Assessment and Plan Assessment: Acute on chronic back pain status post fall. No fractures noted on the x-rays. History of chronic back pain status post L5-S1 fusion surgery 1 year back Recent admission with E. coli urinary tract infection. Completed antibiotic course Diabetes type 2 [id number] Bilateral lower extremity peripheral neuropathy diabetic Persistent atrial fibrillation on anticoagulation History of permanent pacemaker placement and moderate mitral regurgitation Hyperlipidemia Hypertension Osteoarthritis Chronic urinary stress incontinence Chronic gait dysfunction uses a walker Previous history of smoking DVT prophylaxis patient is already full anticoagulation. Plan: Patient will be continued on pain management with Dilaudid and [place] 5 as needed. Encourage ambulation and incentive spirometry. We will follow-up closely and further recommendations based on clinical course. Continue with home medications. Time with Patient: Greater than 30
[2020-04-06] MEDS: HYDROmorphone 1 MG/ML 1 ML SYRINGE IVP PRN ×4 (02:36→20:16)
[2020-04-06] MEDS: IPRATROPIUM 0.5 MG/2.5 ML NEBU INHALATION SCH ×4 (07:46→20:21)
[2020-04-06] MEDS: FORMOTEROL FUMARATE 20 MCG/2 ML NEBU INHALATION SCH ×2 (07:46→20:21)
[2020-04-06] MEDS: FLECAINIDE 50 MG TAB PO SCH ×2 (09:55→21:27)
[2020-04-06] MEDS: METOPROLOL TARTRATE 50 MG TAB PO SCH ×2 (09:55→21:27)
[2020-04-06] MEDS: FUROSEMIDE 40 MG TAB PO SCH (09:55)
[2020-04-06] MEDS: POTASSIUM CHLORIDE ER 10 MEQ TAB.ER.PRT PO SCH (09:55)
[2020-04-06] MEDS: TAMSULOSIN 0.4 MG CAP.ER.24H PO SCH (09:56)
[2020-04-06] MEDS: RANOLAZINE 500 MG TAB.ER.12H PO SCH ×2 (09:56→21:28)
[2020-04-06] MEDS: RIVAROXABAN 20 MG TAB PO SCH (09:56)
[2020-04-06] MEDS: oxyCODONE-APAP 7.5-325MG 1 EACH TAB PO PRN (09:57)
[2020-04-06] MEDS: CYCLOBENZAPRINE 10 MG TAB PO PRN ×2 (11:15→21:28)
[2020-04-06] MEDS: SODIUM CHLORIDE 0.9% 1,000 ML IV SCH (12:28)
[2020-04-06] MEDS: PRAVASTATIN SODIUM 40 MG TAB PO SCH (21:27)
[2020-04-07] MEDS: oxyCODONE-APAP 7.5-325MG 1 EACH TAB PO PRN ×2 (06:18→15:09)
[2020-04-07] MEDS: FORMOTEROL FUMARATE 20 MCG/2 ML NEBU INHALATION SCH ×2 (08:21→19:25)
[2020-04-07] MEDS: IPRATROPIUM 0.5 MG/2.5 ML NEBU INHALATION SCH ×4 (08:21→19:27)
[2020-04-07] MEDS: TAMSULOSIN 0.4 MG CAP.ER.24H PO SCH (08:50)
[2020-04-07] MEDS: POTASSIUM CHLORIDE ER 10 MEQ TAB.ER.PRT PO SCH (08:50)
[2020-04-07] MEDS: METOPROLOL TARTRATE 50 MG TAB PO SCH ×2 (08:50→20:14)
[2020-04-07] MEDS: FUROSEMIDE 40 MG TAB PO SCH (08:50)
[2020-04-07] MEDS: RIVAROXABAN 20 MG TAB PO SCH (08:51)
[2020-04-07] MEDS: FLECAINIDE 50 MG TAB PO SCH ×2 (08:51→20:15)
[2020-04-07] MEDS: RANOLAZINE 500 MG TAB.ER.12H PO SCH ×2 (08:52→20:15)
[2020-04-07] MEDS: SODIUM CHLORIDE 0.9% 1,000 ML IV SCH (11:52)
[2020-04-07 19:16] LABS: Appearance,Urine Cloudy (Clear); Bilirubin,Urine Negative (Negative); Blood,Urine Negative (Negative); Budding Yeast,Urine Moderate /hpf; Color,Urine Yellow; Glucose,Urine (UA) 3+ (Negative); Ketones,Urine Negative (Negative); Leukocyte Esterase,Urine Large (Negative); Mucus,Urine Rare /hpf; Nitrite,Urine Negative (Negative); Protein,Urine Trace (Negative); RBC,Urine 5 /hpf (0-5); Specific Gravity,Urine 1.014 (1.001-1.035); Squamous Epithelial Cell,Urine <1 /hpf (0-4); Urobilinogen,Urine <2.0 mg/dL (<2.0); WBC,Urine >182 /hpf (0-5)
[2020-04-07] MEDS: CYCLOBENZAPRINE 10 MG TAB PO PRN (20:14)
[2020-04-07] MEDS: PRAVASTATIN SODIUM 40 MG TAB PO SCH (20:14)
[2020-04-08] MEDS: oxyCODONE-APAP 7.5-325MG 1 EACH TAB PO PRN ×3 (00:06→16:13)
[2020-04-08] MEDS: FORMOTEROL FUMARATE 20 MCG/2 ML NEBU INHALATION SCH ×2 (07:45→18:40)
[2020-04-08] MEDS: IPRATROPIUM 0.5 MG/2.5 ML NEBU INHALATION SCH ×4 (07:45→18:40)
[2020-04-08] MEDS: POTASSIUM CHLORIDE ER 10 MEQ TAB.ER.PRT PO SCH (07:49)
[2020-04-08] MEDS: FUROSEMIDE 40 MG TAB PO SCH (07:50)
[2020-04-08] MEDS: TAMSULOSIN 0.4 MG CAP.ER.24H PO SCH (07:50)
[2020-04-08] MEDS: METOPROLOL TARTRATE 50 MG TAB PO SCH ×2 (07:50→20:00)
[2020-04-08] MEDS: RANOLAZINE 500 MG TAB.ER.12H PO SCH ×2 (07:50→19:59)
[2020-04-08] MEDS: CYCLOBENZAPRINE 10 MG TAB PO PRN ×2 (07:51→20:00)
[2020-04-08] MEDS: RIVAROXABAN 20 MG TAB PO SCH (07:51)
[2020-04-08] MEDS: FLECAINIDE 50 MG TAB PO SCH ×2 (07:51→19:59)
--- NOTE | 2020-04-08 11:25 | P.PN ---
Subjective Progress Note Date: 04/06/20 Principal diagnosis: Acute on chronic back pain status post fall. Patient is a 73-year-old female with a known history of persistent atrial fibril lation on anticoagulation, COPD, hypertension, hyperlipidemia, osteoarthritis and chronic back pain history of lumbar fusion surgery came to ER after he sustained a fall this morning. Patient states that she was trying to clean spaghetti sauce spilled on the floor. Patient states that she bent over and suddenly her legs gave way and sustained a fall. Patient landed on her buttock. Denied any head injury. Since then patient is unable to get up and EMS was called. Denied any loss of consciousness. Denied any leg weakness or paresthesias. Denied any bowel or bladder incontinence. Patient has been having chronic back pain and is fusion surgery done about a year back. Patient had MRI about a month back which did not show any acute changes. Denied any recent illnesses. No fever no chills. Patient states that whenever she bends over her legs give away and is following with her orthopedic surgery as an outpatient. Patient denied any chest pain or shortness of. No dizziness or lightheadedness. X-ray of the lumbar spine showed no acute fracture or dislocation. Intervertebral spacer is noted L4-L5 and L5-S1 fusion L5-S1 alignment is anatomic. No acute compression is seen. X-ray of the pelvis showed no acute fracture or dislocation. Laboratory data showed sodium 135, potassium 4.2, BUN 19 and creatinine 0.66 calcium 8.1 liver enzymes are not elevated. 04/06/20 patient is currently lying in the bed. Patient says that her lower back pain is better with medications. able to family to the bathroom.patient is still having pain otherwise and PTOT will be consulted for possible rehab. Able to tolerate oral diet. Patient has been afebrile. Denied any complaints of nausea vomiting abdominal pain or diarrhea. No chest pain or shortness of breath. anticipate discharged to rehab in next 24 hours. Current medications reviewed. Objective - Vital Signs Vital signs: Vital Signs Temp 98.4 F 04/06/20 16:28 Pulse 57 L 04/06/20 16:28 Resp 16 04/06/20 16:28 BP 180/79 04/06/20 16:28 Pulse Ox 95 04/06/20 07:00 Intake & Output 04/06/20 04/06/20 04/07/20 06:59 18:59 06:59 Other: # Voids 2 3 - Exam PHYSICAL EXAMINATION: Patient is lying in the bed comfortably, no acute distress, awake alert and oriented.. HEENT: Normocephalic. Neck is supple. Pupils reactive. Nostrils clear. Oral cavity is moist. Ears reveal no drainage. Neck reveals no JVD, carotid bruits, or thyromegaly. CHEST EXAMINATION: Trachea is central. Symmetrical expansion.Bilateral wheezing and scattered rhonchi and basilar crackles. . CARDIAC: Normal S1, S2 with no gallops. No murmurs ABDOMEN: Soft. Bowel sounds normal. No organomegaly. No abdominal bruits. Extremities: reveal no edema. No clubbing or cyanosis Neurologically awake, alert, oriented x3 with well-coordinated movements. Tenderness of the lumbar spine. No bruising. No focal deficits noted Skin: No rash or skin lesions. Psychiatric: Coperative. Nonsuicidal Musculoskeletal: No joint swelling or deformity. Normal range of motion. - Labs CBC & Chem 7: 04/05/20 15:41 Assessment and Plan Assessment: Acute on chronic back pain status post fall. No fractures noted on the x-rays. History of chronic back pain status post L5-S1 fusion surgery 1 year back Recent admission with E. coli urinary tract infection. Completed antibiotic course Diabetes type 2 [id number] Bilateral lower extremity peripheral neuropathy diabetic Persistent atrial fibrillation on anticoagulation History of permanent pacemaker placement and moderate mitral regurgitation Hyperlipidemia Hypertension Osteoarthritis Chronic urinary stress incontinence Chronic gait dysfunction uses a walker Previous history of smoking DVT prophylaxis patient is already full anticoagulation. Plan: Patient will be continued on pain management with Dilaudid and [place] 5 as needed. Encourage ambulation and incentive spirometry. We will follow-up closely and further recommendations based on clinical course. Continue with home medications. Time with Patient: Greater than 30
--- NOTE | 2020-04-08 11:27 | P.PN ---
Subjective Progress Note Date: 04/07/20 Principal diagnosis: Acute on chronic back pain status post fall. Patient is a 73-year-old female with a known history of persistent atrial fibril lation on anticoagulation, COPD, hypertension, hyperlipidemia, osteoarthritis and chronic back pain history of lumbar fusion surgery came to ER after he sustained a fall this morning. Patient states that she was trying to clean spaghetti sauce spilled on the floor. Patient states that she bent over and suddenly her legs gave way and sustained a fall. Patient landed on her buttock. Denied any head injury. Since then patient is unable to get up and EMS was called. Denied any loss of consciousness. Denied any leg weakness or paresthesias. Denied any bowel or bladder incontinence. Patient has been having chronic back pain and is fusion surgery done about a year back. Patient had MRI about a month back which did not show any acute changes. Denied any recent illnesses. No fever no chills. Patient states that whenever she bends over her legs give away and is following with her orthopedic surgery as an outpatient. Patient denied any chest pain or shortness of. No dizziness or lightheadedness. X-ray of the lumbar spine showed no acute fracture or dislocation. Intervertebral spacer is noted L4-L5 and L5-S1 fusion L5-S1 alignment is anatomic. No acute compression is seen. X-ray of the pelvis showed no acute fracture or dislocation. Laboratory data showed sodium 135, potassium 4.2, BUN 19 and creatinine 0.66 calcium 8.1 liver enzymes are not elevated. 04/06/20 patient is currently lying in the bed. Patient says that her lower back pain is better with medications. able to family to the bathroom.patient is still having pain otherwise and PTOT will be consulted for possible rehab. Able to tolerate oral diet. Patient has been afebrile. Denied any complaints of nausea vomiting abdominal pain or diarrhea. No chest pain or shortness of breath. anticipate discharged to rehab in next 24 hours. 04/07/20 patient says that her pain is worse today with back spasms.continued on Flexeril and [place] 5. Patient did not require IV Dilaudid since yesterday. Patient has been afebrile. Denied any abdominal pain. No nausea vomiting or diarrhea. PT OT is following. Current medications reviewed. Objective - Vital Signs Vital signs: Vital Signs Temp 97.9 F 04/07/20 15:00 Pulse 54 L 04/07/20 15:34 Resp 16 04/07/20 15:00 BP 173/65 04/07/20 15:00 Pulse Ox 97 04/07/20 05:32 Intake & Output 04/06/20 04/07/20 04/07/20 18:59 06:59 18:59 Output Total 75 Balance -75 Weight 81 kg Output: Urine 75 Other: # Voids 3 1 1 - Exam PHYSICAL EXAMINATION: Patient is lying in the bed comfortably, no acute distress, awake alert and oriented.. HEENT: Normocephalic. Neck is supple. Pupils reactive. Nostrils clear. Oral cavity is moist. Ears reveal no drainage. Neck reveals no JVD, carotid bruits, or thyromegaly. CHEST EXAMINATION: Trachea is central. Symmetrical expansion.Bilateral wheezing and scattered rhonchi and basilar crackles. . CARDIAC: Normal S1, S2 with no gallops. No murmurs ABDOMEN: Soft. Bowel sounds normal. No organomegaly. No abdominal bruits. Extremities: reveal no edema. No clubbing or cyanosis Neurologically awake, alert, oriented x3 with well-coordinated movements. Tenderness of the lumbar spine. No bruising. No focal deficits noted Skin: No rash or skin lesions. Psychiatric: Coperative. Nonsuicidal Musculoskeletal: No joint swelling or deformity. Normal range of motion. - Labs CBC & Chem 7: 04/05/20 15:41 Assessment and Plan Assessment: Acute on chronic back pain status post fall. No fractures noted on the x-rays. History of chronic back pain status post L5-S1 fusion surgery 1 year back Recent admission with E. coli urinary tract infection. Completed antibiotic course Diabetes type 2 [id number] Bilateral lower extremity peripheral neuropathy diabetic Persistent atrial fibrillation on anticoagulation History of permanent pacemaker placement and moderate mitral regurgitation Hyperlipidemia Hypertension Osteoarthritis Chronic urinary stress incontinence Chronic gait dysfunction uses a walker Previous history of smoking DVT prophylaxis patient is already full anticoagulation. Plan: Patient will be continued on pain management with Dilaudid and [place] 5 as needed. Encourage ambulation and incentive spirometry. possible discharge to rehab in the next 24 hours. will follow-up closely and further recommendations based on clinical course. Continue with home medications. Time with Patient: Greater than 30
[2020-04-08 12:42] LABS: Anisocytosis Slight; Basophils % (A) 0 %; Eosinophils # (A) 0.2 k/uL (0-0.7); Eosinophils % (A) 2 %; HCT 30.5 % (34.0-46.0); Hypochromasia Marked; Lymphocytes # (A) 0.9 k/uL (1.0-4.8); Lymphocytes % (A) 9 %; MCH 25.1 pg (25.0-35.0); MCHC 30.8 g/dL (31.0-37.0); MCV 81.7 fL (80.0-100.0); Mean Platelet Volume 7.1; Microcytosis Slight; Monocytes # (A) 0.5 k/uL (0-1.0); Monocytes % (A) 6 %; Neutrophils # (A) 7.5 k/uL (1.3-7.7); Neutrophils % (A) 82 %; Platelet Count 152 k/uL (150-450); RBC 3.73 m/uL (3.80-5.40); RDW 18.4 % (11.5-15.5); WBC 9.2 k/uL (3.8-10.6)
[2020-04-08 12:47] LABS: African American GFR (CKD) >90 (>60 ml/min/1.73 sqM); Anion Gap 8 mmol/L; Blood Urea Nitrogen 20 mg/dL (7-17); Calcium 8.4 mg/dL (8.4-10.2); Carbon Dioxide 24 mmol/L (22-30); Chloride 102 mmol/L (98-107); Glucose 126 mg/dL (74-99); Non-African American GFR(CKD) 86 (>60 ml/min/1.73 sqM); Potassium 3.9 mmol/L (3.5-5.1); Sodium 134 mmol/L (137-145)
[2020-04-08 12:49] LABS: HGB 9.4 gm/dL (11.4-16.0)
[2020-04-08] MEDS: SODIUM CHLORIDE 0.9% 1,000 ML IV SCH (13:49)
[2020-04-08] MEDS: DOCUSATE 100 MG CAP PO SCH ×2 (13:52→20:00)
[2020-04-08] MEDS: PRAVASTATIN SODIUM 40 MG TAB PO SCH (20:00)
[2020-04-09] MEDS: IPRATROPIUM 0.5 MG/2.5 ML NEBU INHALATION SCH ×2 (07:30→11:56)
[2020-04-09] MEDS: FORMOTEROL FUMARATE 20 MCG/2 ML NEBU INHALATION SCH (07:30)
[2020-04-09] MEDS: TAMSULOSIN 0.4 MG CAP.ER.24H PO SCH (08:33)
[2020-04-09] MEDS: RANOLAZINE 500 MG TAB.ER.12H PO SCH (08:34)
[2020-04-09] MEDS: DOCUSATE 100 MG CAP PO SCH (08:34)
[2020-04-09] MEDS: FUROSEMIDE 40 MG TAB PO SCH (08:34)
[2020-04-09] MEDS: CYCLOBENZAPRINE 10 MG TAB PO PRN (08:34)
[2020-04-09] MEDS: METOPROLOL TARTRATE 50 MG TAB PO SCH (08:34)
[2020-04-09] MEDS: FLECAINIDE 50 MG TAB PO SCH (08:39)
[2020-04-09] MEDS: RIVAROXABAN 20 MG TAB PO SCH (08:39)
--- NOTE | 2020-04-09 10:09 | P.PN ---
Subjective Progress Note Date: 04/08/20 Principal diagnosis: Acute on chronic back pain status post fall. Patient is a 73-year-old female with a known history of persistent atrial fibril lation on anticoagulation, COPD, hypertension, hyperlipidemia, osteoarthritis and chronic back pain history of lumbar fusion surgery came to ER after he sustained a fall this morning. Patient states that she was trying to clean spaghetti sauce spilled on the floor. Patient states that she bent over and suddenly her legs gave way and sustained a fall. Patient landed on her buttock. Denied any head injury. Since then patient is unable to get up and EMS was called. Denied any loss of consciousness. Denied any leg weakness or paresthesias. Denied any bowel or bladder incontinence. Patient has been having chronic back pain and is fusion surgery done about a year back. Patient had MRI about a month back which did not show any acute changes. Denied any recent illnesses. No fever no chills. Patient states that whenever she bends over her legs give away and is following with her orthopedic surgery as an outpatient. Patient denied any chest pain or shortness of. No dizziness or lightheadedness. X-ray of the lumbar spine showed no acute fracture or dislocation. Intervertebral spacer is noted L4-L5 and L5-S1 fusion L5-S1 alignment is anatomic. No acute compression is seen. X-ray of the pelvis showed no acute fracture or dislocation. Laboratory data showed sodium 135, potassium 4.2, BUN 19 and creatinine 0.66 calcium 8.1 liver enzymes are not elevated. 04/06/20 patient is currently lying in the bed. Patient says that her lower back pain is better with medications. able to family to the bathroom.patient is still having pain otherwise and PTOT will be consulted for possible rehab. Able to tolerate oral diet. Patient has been afebrile. Denied any complaints of nausea vomiting abdominal pain or diarrhea. No chest pain or shortness of breath. anticipate discharged to rehab in next 24 hours. 04/07/20 patient says that her pain is worse today with back spasms.continued on Flexeril and [place] 5. Patient did not require IV Dilaudid since yesterday. Patient has been afebrile. Denied any abdominal pain. No nausea vomiting or diarrhea. PT OT is following. 04/08/2020 Patient does complain of cough today without much sputum production. Otherwise back spasm is still present but patient was able to walk to the bathroom without support. Currently sitting in a chair. Patient is being continued on [place] and Flexeril for pain management. Denied any complaints of nausea vomiting. Tolerating oral diet. Patient did not have any bowel movement for the last few days. Patient was started on incentive spirometry and stool softeners. Anticipate discharged to rehab in the next 24-40 hours. Current medications reviewed. Objective - Vital Signs Vital signs: Vital Signs Temp 97.6 F 04/08/20 07:40 Pulse 52 L 04/08/20 11:29 Resp 16 04/08/20 07:40 BP 149/66 04/08/20 07:40 Pulse Ox 96 04/08/20 07:40 Intake & Output 04/07/20 04/08/20 04/08/20 18:59 06:59 18:59 Intake Total 480 Output Total 75 Balance -75 480 Intake: Oral 480 Output: Urine 75 Other: Voiding Method Bedside Commode # Voids 1 1 - Exam PHYSICAL EXAMINATION: Patient is lying in the bed comfortably, no acute distress, awake alert and oriented.. HEENT: Normocephalic. Neck is supple. Pupils reactive. Nostrils clear. Oral cavity is moist. Ears reveal no drainage. Neck reveals no JVD, carotid bruits, or thyromegaly. CHEST EXAMINATION: Trachea is central. Symmetrical expansion.Bilateral wheezing and scattered rhonchi and basilar crackles. . CARDIAC: Normal S1, S2 with no gallops. No murmurs ABDOMEN: Soft. Bowel sounds normal. No organomegaly. No abdominal bruits. Extremities: reveal no edema. No clubbing or cyanosis Neurologically awake, alert, oriented x3 with well-coordinated movements. Tenderness of the lumbar spine. No bruising. No focal deficits noted Skin: No rash or skin lesions. Psychiatric: Coperative. Nonsuicidal Musculoskeletal: No joint swelling or deformity. Normal range of motion. - Labs CBC & Chem 7: 04/08/20 11:49 04/08/20 11:49 Labs: Abnormal Lab Results - Last 24 Hours (Table) 04/07/20 04/08/20 04/08/20 Range/Units 18:53 11:49 11:49 RBC 3.73 L (3.80-5.40) m/uL Hgb 9.4 L D (11.4-16.0) gm/dL Hct 30.5 L (34.0-46.0) % MCHC 30.8 L (31.0-37.0) g/dL RDW 18.4 H (11.5-15.5) % Lymphocytes # 0.9 L (1.0-4.8) k/uL Sodium 134 L (137-145) mmol/L BUN 20 H (7-17) mg/dL Glucose 126 H (74-99) mg/dL Urine Appearance Cloudy H (Clear) Urine Protein Trace H (Negative) Urine Glucose (UA) 3+ H (Negative) Ur Leukocyte Esterase Large H (Negative) Urine WBC >182 H (0-5) /hpf Urine WBC Clumps Many H (None) /hpf Urine Mucus Rare H (None) /hpf Urine Yeast (Budding) Moderate H (None) /hpf Microbiology - Last 24 Hours (Table) 04/07/20 18:53 Urine Culture - Preliminary Urine,Voided Assessment and Plan Assessment: Acute on chronic back pain status post fall. No fractures noted on the x-rays. History of chronic back pain status post L5-S1 fusion surgery 1 year back Recent admission with E. coli urinary tract infection. Completed antibiotic course Diabetes type 2 [id number] Bilateral lower extremity peripheral neuropathy diabetic Persistent atrial fibrillation on anticoagulation History of permanent pacemaker placement and moderate mitral regurgitation Hyperlipidemia Hypertension Osteoarthritis Chronic urinary stress incontinence Chronic gait dysfunction uses a walker Previous history of smoking DVT prophylaxis patient is already full anticoagulation. Plan: Patient will be continued on pain management with Dilaudid and [place] 5 as needed. Encourage ambulation and incentive spirometry. possible discharge to rehab in the next 24 hours. will follow-up closely and further recommendations based on clinical course. Continue with home medications. Time with Patient: Greater than 30
[2020-04-09] MEDS ORDERED: bisacodyL 10 MG SUPP RECTAL STA (11:51)
--- NOTE | 2020-04-09 11:59 | P.DS ---
Providers Date of admission: 04/05/20 11:56 Expected date of discharge: 04/09/20 Attending physician: Swati Infante Primary care physician: Darrel Rizo Hospital Course: Discharge diagnosis Acute on chronic back pain status post fall. No fractures noted on the x-rays. History of chronic back pain status post L5-S1 fusion surgery 1 year back Recent admission with E. coli urinary tract infection. Completed antibiotic course Diabetes type 2 [id number] Bilateral lower extremity peripheral neuropathy diabetic Persistent atrial fibrillation on anticoagulation History of permanent pacemaker placement and moderate mitral regurgitation Hyperlipidemia Hypertension Osteoarthritis Chronic urinary stress incontinence Chronic gait dysfunction uses a walker Previous history of smoking DVT prophylaxis patient is already full anticoagulation. Hospital course Patient is a 73-year-old female with a known history of persistent atrial fibrillation on anticoagulation, COPD, hypertension, hyperlipidemia, osteoarthr itis and chronic back pain history of lumbar fusion surgery came to ER after he sustained a fall this morning. Patient states that she was trying to clean spaghetti sauce spilled on the floor. Patient states that she bent over and suddenly her legs gave way and sustained a fall. Patient landed on her buttock. Denied any head injury. Since then patient is unable to get up and EMS was called. Denied any loss of consciousness. Denied any leg weakness or paresthesias. Denied any bowel or bladder incontinence. Patient has been having chronic back pain and is fusion surgery done about a year back. Patient had MRI about a month back which did not show any acute changes. Denied any recent illnesses. No fever no chills. Patient states that whenever she bends over her legs give away and is following with her orthopedic surgery as an outpatient. Patient denied any chest pain or shortness of. No dizziness or lightheadedness. X-ray of the lumbar spine showed no acute fracture or dislocation. Intervertebral spacer is noted L4-L5 and L5-S1 fusion L5-S1 alignment is anatomic. No acute compression is seen. X-ray of the pelvis showed no acute fracture or dislocation. Laboratory data showed sodium 135, potassium 4.2, BUN 19 and creatinine 0.66 calcium 8.1 liver enzymes are not elevated. 04/06/20 patient is currently lying in the bed. Patient says that her lower back pain is better with medications. able to family to the bathroom.patient is still having pain otherwise and PTOT will be consulted for possible rehab. Able to tolerate oral diet. Patient has been afebrile. Denied any complaints of nausea vomiting abdominal pain or diarrhea. No chest pain or shortness of breath. anticipate discharged to rehab in next 24 hours. 04/07/20 patient says that her pain is worse today with back spasms.continued on Flexeril and [place] 5. Patient did not require IV Dilaudid since yesterday. Patient has been afebrile. Denied any abdominal pain. No nausea vomiting or diarrhea. PT OT is following. 04/08/2020 Patient does complain of cough today without much sputum production. Otherwise back spasm is still present but patient was able to walk to the bathroom without support. Currently sitting in a chair. Patient is being continued on [place] and Flexeril for pain management. Denied any complaints of nausea vomiting. Tolerating oral diet. Patient did not have any bowel movement for the last few days. Patient was started on incentive spirometry and stool softeners. Anticipate discharged to rehab in the next 24-40 hours. 04/09/2020 Patient says that her back signs are better. Denied any complaints of weakness in the legs. No paresthesias. Will be continued on [place] and Flexeril and PTOT. Patient was encouraged with incentive spirometry. Denied any complaints of cough or sputum production. No nausea vomiting or abdominal pain. Patient was constipated and was given Dulcolax suppository and also MiraLAX and Colace. Patient is able to pass flatus and bowel sounds are heard. Patient is being continued on current home medications and will be discharged to rehab. follow with her orthopedic surgery in the clinic in next few days which she already has an appointment. No fever no chills. Urine culture showed gram-negative bacilli 10-49,000. Patient being continued on antibiotic course with Ceftin for 3 more days. PHYSICAL EXAMINATION: Patient is lying in the bed comfortably, no acute distress, awake alert and oriented.. HEENT: Normocephalic. Neck is supple. Pupils reactive. Nostrils clear. Oral cavity is moist. Ears reveal no drainage. Neck reveals no JVD, carotid bruits, or thyromegaly. CHEST EXAMINATION: Trachea is central. Symmetrical expansion.Bilateral wheezing and scattered rhonchi and basilar crackles. . CARDIAC: Normal S1, S2 with no gallops. No murmurs ABDOMEN: Soft. Bowel sounds normal. No organomegaly. No abdominal bruits. Extremities: reveal no edema. No clubbing or cyanosis Neurologically awake, alert, oriented x3 with well-coordinated movements. Tenderness of the lumbar spine. No bruising. No focal deficits noted Skin: No rash or skin lesions. Psychiatric: Coperative. Nonsuicidal Musculoskeletal: No joint swelling or deformity. Normal range of motion. Vital Signs 04/09/20 04/09/20 04/09/20 07:30 07:38 07:39 Temperature Pulse Rate 56 L 56 L 56 L Pulse Rate [ Pulse Oximetery ] Respiratory Rate Blood Pressure [Left Arm Supine] O2 Sat by Pulse 93 L Oximetry 04/09/20 04/09/20 07:47 09:00 Temperature 97.9 F Pulse Rate 54 L Pulse Rate [ 62 Pulse Oximetery ] Respiratory 14 Rate Blood Pressure 157/70 [Left Arm Supine] O2 Sat by Pulse 92 L Oximetry Total time taken greater than 35 minutes including 18 minutes for counseling and coordination of care. Plan - Discharge Summary Discharge Rx Participant: No New Discharge Prescriptions: New Docusate [Colace] 100 mg PO BID cap Cefuroxime Axetil [Ceftin] 500 mg PO BID 3 Days #6 tab Cyclobenzaprine [Flexeril] 10 mg PO BID PRN #21 tab PRN Reason: Muscle Spasm Continue Rivaroxaban [Xarelto] 20 mg PO DAILY Empagliflozin [Jardiance] 10 mg PO DAILY Ergocalciferol [Vitamin D2 (DRISDOL)] 50,000 unit PO Q14D Pravastatin Sodium [Pravachol] 40 mg PO HS Flecainide Acetate 100 mg PO BID Furosemide [Lasix] 40 mg PO DAILY Potassium Chloride [Klor-Con 8] 8 meq PO DAILY Ranolazine [Ranexa] 1,000 mg PO BID Tamsulosin [Flomax] 0.4 mg PO DAILY Nitroglycerin Sl Tabs [Nitrostat] 0.4 mg SUBLINGUAL Q5M PRN PRN Reason: Chest Pain Metoprolol Tartrate [Lopressor] 50 mg PO BID Cyanocobalamin [Vitamin B-12 Injection] 1,000 mcg SQ QMONTH Tiotropium Br/Olodaterol HCl [Stiolto Respimat Inhal [place]] 2 puff INHALATION RT-DAILY Albuterol Nebulized [Ventolin Nebulized] 2.5 mg INHALATION RT-Q6H PRN PRN Reason: Shortness Of Breath oxyCODONE-APAP 7.5-325MG [Percocet 7.5-325 mg] 1 tab PO Q8H PRN #12 tab PRN Reason: Pain Discharge Medication List Empagliflozin [Jardiance] 10 mg PO DAILY 02/06/17 [History] Rivaroxaban [Xarelto] 20 mg PO DAILY 02/06/17 [History] Ergocalciferol [Vitamin D2 (DRISDOL)] 50,000 unit PO Q14D 07/05/17 [History] Pravastatin Sodium [Pravachol] 40 mg PO HS 04/30/18 [History] Flecainide Acetate 100 mg PO BID 08/12/19 [History] Furosemide [Lasix] 40 mg PO DAILY 08/12/19 [History] Potassium Chloride [Klor-Con 8] 8 meq PO DAILY 08/12/19 [History] Ranolazine [Ranexa] 1,000 mg PO BID 08/12/19 [History] Tamsulosin [Flomax] 0.4 mg PO DAILY 08/12/19 [History] Albuterol Nebulized [Ventolin Nebulized] 2.5 mg INHALATION RT-Q6H PRN 03/29/20 [History] Cyanocobalamin [Vitamin B-12 Injection] 1,000 mcg SQ QMONTH 03/29/20 [History] Metoprolol Tartrate [Lopressor] 50 mg PO BID 03/29/20 [History] Nitroglycerin Sl Tabs [Nitrostat] 0.4 mg SUBLINGUAL Q5M PRN 03/29/20 [History] Tiotropium Br/Olodaterol HCl [Stiolto Respimat Inhal [place]] 2 puff INHALATION RT-DAILY 03/29/20 [History] Cefuroxime Axetil [Ceftin] 500 mg PO BID 3 Days #6 tab 04/09/20 [Rx] Cyclobenzaprine [Flexeril] 10 mg PO BID PRN #21 tab 04/09/20 [Rx] Docusate [Colace] 100 mg PO BID cap 04/09/20 [Rx] oxyCODONE-APAP 7.5-325MG [Percocet 7.5-325 mg] 1 tab PO Q8H PRN #12 tab 07/17/20 [Rx] Follow up Appointment(s)/Referral(s): Darrel Rizo DO [Primary Care Provider] - 1-2 days Discharge Disposition: TRANSFER TO SNF/ECF
[2020-04-09] MEDS: SODIUM CHLORIDE 0.9% 1,000 ML IV SCH (13:14)
[2020-04-09] MEDS: oxyCODONE-APAP 7.5-325MG 1 EACH TAB PO PRN (15:57)
[2020-04-09 16:24] VITALS: BP 158/69; PULSE 53; RESP 11; TEMP 96
[2020-04-13] MEDS ORDERED: ERGOCALCIFEROL 50,000 UNIT CAP PO SCH (06:00)
== END 2020-04-09 16:30 ==
LOC: EC 09:41 → 1SOBS 11:56
PROVIDERS: ADMIT Internal Medicine; ATTEND Internal Medicine
DX: M54.9 Dorsalgia, unspecified (principal); E11.42 Type 2 diabetes mellitus with diabetic polyneuropathy; E78.5 Hyperlipidemia, unspecified; G89.29 Other chronic pain; I10 Essential (primary) hypertension; I34.0 Nonrheumatic mitral (valve) insufficiency; I48.19 Other persistent atrial fibrillation; J44.9 Chronic obstructive pulmonary disease, unspecified; K59.00 Constipation, unspecified; Z03.818 Encounter for observation for suspected exposure to other biological agents ruled out; M19.90 Unspecified osteoarthritis, unspecified site; N39.0 Urinary tract infection, site not specified; N39.3 Stress incontinence (female) (male); W01.0XXA Fall on same level from slipping, tripping and stumbling without subsequent striking against object, initial encounter; Z79.84 Long term (current) use of oral hypoglycemic drugs; Z79.01 Long term (current) use of anticoagulants; Z79.899 Other long term (current) drug therapy; Z82.49 Family history of ischemic heart disease and other diseases of the circulatory system; Z82.5 Family history of asthma and other chronic lower respiratory diseases; Z87.891 Personal history of nicotine dependence; Z90.710 Acquired absence of both cervix and uterus; Z95.0 Presence of cardiac pacemaker; Z96.651 Presence of right artificial knee joint; Z98.1 Arthrodesis status; Z91.048 Other nonmedicinal substance allergy status; Z87.01 Personal history of pneumonia (recurrent)
CPT/HCPCS: 96365; 96366; 96372 ×2; 96375; 96376 ×2; 99285; 94640 ×10; 94760 ×2; 97530; 97162; 97535; 97167; 80053; 80048; 85025; 81001; 87086; 87077; 87186; 87635; 72100; 72170; G0378 ×5; U0003; J3420; J0696 ×2; J1885; J1170 ×2

== ENCOUNTER 2020-04-26 20:08 | Inpatient (IN) | payer MEDICARE ==
[2020-04-26] MEDS ORDERED: SODIUM CHLORIDE 0.9% 500 ML 500 ML IV STA (20:35)
--- NOTE | 2020-04-26 20:52 | ED ---
General Adult HPI - General Source: patient, EMS, RN notes reviewed Mode of arrival: EMS Limitations: no limitations <Agustin Lebron P - Last Filed: 04/26/20 22:18> <Michelle Calvin P - Last Filed: 04/27/20 06:47> - General Chief complaint: Fall Stated complaint: Fall Time Seen by Provider: 04/26/20 20:22 - History of Present Illness Initial comments: 79-year-old female with a complicated past medical history currently on Xarelto for A fib presents to the emergency department for a chief complaint of left hip pain. Patient sustained a fall prior to arrival. Patient states she was using her walker to walk to the bathroom when her legs gave out from under her and she fell on the left hip. She was unable to get up on her own and had to call 911. Patient reports that her legs often give out from under her. Patient reports that this is been ongoing for over a year after a back surgery. Patient was rec ently discharged from our hospital for UTI and weakness and sent tomorrow at for rehabilitation. She was recently discharged home. Patient denies hitting her head. Denies any other injuries. States it is very painful to move her left hip.Patient has no other complaints at this time including shortness of breath, chest pain, abdominal pain, nausea or vomiting, headache, or visual changes. (Agustin Lebron) - Related Data Home Medications Medication Instructions Recorded Confirmed Empagliflozin [Jardiance] 10 mg PO DAILY 02/06/17 04/26/20 Rivaroxaban [Xarelto] 20 mg PO DAILY 02/06/17 04/26/20 Ergocalciferol [Vitamin D2 50,000 unit PO Q14D 07/05/17 04/26/20 (DRISDOL)] Pravastatin Sodium [Pravachol] 40 mg PO HS 04/30/18 04/26/20 Flecainide Acetate 100 mg PO BID 08/12/19 04/26/20 Furosemide [Lasix] 40 mg PO DAILY 08/12/19 04/26/20 Potassium Chloride [Klor-Con 8] 8 meq PO DAILY 08/12/19 04/26/20 Ranolazine [Ranexa] 1,000 mg PO BID 08/12/19 04/26/20 Tamsulosin [Flomax] 0.4 mg PO DAILY 08/12/19 04/26/20 Albuterol Nebulized [Ventolin 2.5 mg INHALATION RT-QID PRN 03/29/20 04/26/20 Nebulized] Cyanocobalamin [Vitamin B-12 1,000 mcg SQ Q30D 03/29/20 04/26/20 Injection] Metoprolol Tartrate [Lopressor] 50 mg PO BID 03/29/20 04/26/20 Nitroglycerin Sl Tabs [Nitrostat] 0.4 mg SL Q5M PRN 03/29/20 04/26/20 Tiotropium Br/Olodaterol HCl 2 puff INHALATION RT-DAILY 03/29/20 04/26/20 [Stiolto Respimat Inhal [place]] Docusate [Colace] 100 mg PO BID PRN 04/26/20 04/26/20 Previous Rx's Medication Instructions Recorded Cyclobenzaprine [Flexeril] 10 mg PO BID PRN #21 tab 04/09/20 oxyCODONE-APAP 7.5-325MG [Percocet 1 tab PO Q8H PRN #12 tab 04/09/20 7.5-325 mg] Allergies Allergy/AdvReac Type Severity Reaction Status Date / Time nickel Allergy Rash/Hives Verified 04/26/20 22:56 Review of Systems ROS Other: All systems not noted in ROS Statement are negative. <Agustin Lebron P - Last Filed: 04/26/20 22:18> ROS Other: All systems not noted in ROS Statement are negative. <Michelle Calvin P - Last Filed: 04/27/20 06:47> ROS Statement: Those systems with pertinent positive or pertinent negative responses have been documented in the HPI. Past Medical History Past Medical History: Atrial Fibrillation, Atrial Flutter, Blood Disorder, Chest Pain / Angina, COPD, Diabetes Mellitus, Hyperlipidemia, Hypertension, Musculoskeletal Disorder, Osteoarthritis (OA), Pneumonia Additional Past Medical History / Comment(s): Pt recently admitted to [facility] on 03/29/20 with UTI with asthesia/weakness. Other hx: Home oxygen prn, bronchitis, NIDDM type II, neurpathy L foot, chronic low back pain which pt states has been better since surgery but states she now has difficutly bending- loses balance, past thoracic vertebral fracture with surgery, past L sided sciatica/difficulty lifting L leg- improved by physical therapy, anemia with B12 injections, UTIs, cystitis, occasional R foot edema-uses lasix for this reason. History of Any Multi-Drug Resistant Organisms: None Reported Past Surgical History: Back Surgery, Breast Surgery, Cardiac Ablation, Cholecystectomy, Hysterectomy, Joint Replacement, Orthopedic Surgery, Pacemaker, Tubal Ligation Additional Past Surgical History / Comment(s): Cervical fusion, kyphoplasty/vertebral biopsy T6, R leg fracture with plate, total R knee, L3/L4/L5 surgery in 2019, cystocele, BMA, bilateral cataract removals, R breast biopsy, Past Anesthesia/Blood Transfusion Reactions: No Reported Reaction Additional Past Anesthesia/Blood Transfusion Reaction / Comment(s): Anesthesia "makes my hair fall out". Type of Cardiac Device: Permanent Pacemaker Device Placement Date:: 04/09 Past Psychological History: No Psychological Hx Reported Past Alcohol Use History: None Reported Past Drug Use History: None Reported - Past Family History Brother(s) Family Medical History: Cancer, Deep Vein Thrombosis (DVT), Myocardial Infarction ([place]) Additional Family Medical History / Comment(s): colon and prostate ca Sister(s) Family Medical History: Cancer Additional Family Medical History / Comment(s): breast and ovarian Mother Family Medical History: COPD Father History Unknown: Yes Additional Family Medical History / Comment(s): Father in a MVA <Agustin Lebron P - Last Filed: 04/26/20 22:18> General Exam Limitations: no limitations General appearance: alert, in no apparent distress Head exam: Present: atraumatic Eye exam: Present: normal appearance, PERRL, EOMI. Absent: scleral icterus, c onjunctival injection, periorbital swelling ENT exam: Present: normal exam, mucous membranes moist Neck exam: Present: normal inspection, full ROM. Absent: tenderness, meningismus, lymphadenopathy Respiratory exam: Present: normal lung sounds bilaterally. Absent: respiratory distress, wheezes, rales, rhonchi, stridor Cardiovascular Exam: Present: regular rate, normal rhythm, normal heart sounds. Absent: systolic murmur, diastolic murmur, rubs, gallop, clicks GI/Abdominal exam: Present: soft, normal bowel sounds. Absent: distended, tenderness, guarding, rebound, rigid Extremities exam: Present: tenderness (tenderness noted to the proximal aspect of the left lateral hip.), normal capillary refill (capillary refill less than 2 seconds, DP pulses 2+ in the left lower extremity.), other (sensation intact left lower extremity.). Absent: full ROM (patient unable to move the left hip secondary to pain.), pedal edema, joint swelling, calf tenderness <Agustin Lebron - Last Filed: 04/26/20 22:18> Course Vital Signs 04/26/20 04/26/20 04/26/20 20:12 21:44 22:42 Temperature 98.0 F 98.0 F Pulse Rate 85 71 74 Respiratory 18 18 18 Rate Blood Pressure 142/68 150/73 156/76 O2 Sat by Pulse 94 L 98 98 Oximetry Medical Decision Making - Lab Data Result diagrams: 04/26/20 20:35 04/26/20 20:35 <Agustin Lebron P - Last Filed: 04/26/20 22:18> - Lab Data Result diagrams: 04/26/20 20:35 04/26/20 20:35 <Michelle Calvin - Last Filed: 04/27/20 06:47> - Medical Decision Making Vitals are stable. Patient does have an externally rotated and shortened left leg. DP pulses 2+, neurovascular status intact. CBC does show leukocytosis of 14.4 with a left shift. Hemoglobin of 9.4 is stable. CMP is unremarkable. Urinalysis does show evidence of infection, patient has a history of recent UTIs, was started on IV antibiotics. She has been asymptomatic. CT brain and C-spine are negative. X-ray of the left hip does show acute comminuted angulate d intertrochanteric fracture of the left femur. Chest x-ray does not show any acute changes. Patient does not have an orthopedic physician. Dr. Mills is on-call and will be consulted. Pain is controlled at this time. She will be kept nothing by mouth after midnight. (Agustin Lebron) Patient care was discussed with Dr. Lees accepts admission (Michelle Calvin) - Lab Data Lab Results 04/26/20 04/26/20 04/26/20 Range/Units 20:35 20:35 21:10 WBC 14.4 H (3.8-10.6) k/uL RBC 3.90 (3.80-5.40) m/uL Hgb 9.4 L (11.4-16.0) gm/dL Hct 31.2 L (34.0-46.0) % MCV 80.0 (80.0-100.0) fL MCH 24.0 L (25.0-35.0) pg MCHC 30.0 L (31.0-37.0) g/dL RDW 18.2 H (11.5-15.5) % Plt Count 313 (150-450) k/uL Neutrophils % 88 % Lymphocytes % 5 % Monocytes % 5 % Eosinophils % 1 % Basophils % 0 % Neutrophils # 12.8 H (1.3-7.7) k/uL Lymphocytes # 0.7 L (1.0-4.8) k/uL Monocytes # 0.7 (0-1.0) k/uL Eosinophils # 0.1 (0-0.7) k/uL Basophils # 0.0 (0-0.2) k/uL Hypochromasia Marked Anisocytosis Slight Microcytosis Slight Sodium 136 L (137-145) mmol/L Potassium 4.2 (3.5-5.1) mmol/L Chloride 102 (98-107) mmol/L Carbon Dioxide 25 (22-30) mmol/L Anion Gap 9 mmol/L BUN 14 (7-17) mg/dL Creatinine 0.63 (0.52-1.04) mg/dL Est GFR (CKD-EPI)AfAm >90 (>60 ml/min/1.73 sqM) Est GFR (CKD-EPI)NonAf 86 (>60 ml/min/1.73 sqM) Glucose 187 H (74-99) mg/dL Calcium 8.5 (8.4-10.2) mg/dL Total Bilirubin 0.4 (0.2-1.3) mg/dL AST 19 (14-36) U/L ALT 11 (4-34) U/L Alkaline Phosphatase 135 H (38-126) U/L Total Protein 6.0 L (6.3-8.2) g/dL Albumin 3.3 L (3.5-5.0) g/dL Urine Color Dark Yellow Urine Appearance Turbid H (Clear) Urine pH 5.5 (5.0-8.0) Ur Specific [place] 1.028 (1.001-1.035) Urine Protein 2+ H (Negative) Urine Glucose (UA) 3+ H (Negative) Urine Ketones Negative (Negative) Urine Blood Negative (Negative) Urine Nitrite Negative (Negative) Urine Bilirubin Negative (Negative) Urine Urobilinogen 2.0 (<2.0) mg/dL Ur Leukocyte Esterase Large H (Negative) Urine RBC 25 H (0-5) /hpf Urine WBC >182 H (0-5) /hpf Urine WBC Clumps Many H (None) /hpf Ur Squamous Epith Cells 1 (0-4) /hpf Urine Bacteria Occasional H (None) /hpf Hyaline Casts 11 H (0-2) /lpf Urine Mucus Many H (None) /hpf Urine Yeast (Budding) Occasional H (None) /hpf Disposition Is patient prescribed a controlled substance at d/c from ED?: No Time of Disposition: 22:19 <Agustin Lebron P - Last Filed: 04/26/20 22:18> <Michelle Calvin P - Last Filed: 04/27/20 06:47> Clinical Impression: Leukocytosis, Fall, Urinary tract infection, Hip fracture Disposition: ADMITTED IP TO THIS HOSP
[2020-04-26 20:58] LABS: Anisocytosis Slight; Basophils % (A) 0 %; Eosinophils # (A) 0.1 k/uL (0-0.7); Eosinophils % (A) 1 %; HCT 31.2 % (34.0-46.0); HGB 9.4 gm/dL (11.4-16.0); Hypochromasia Marked; Lymphocytes # (A) 0.7 k/uL (1.0-4.8); Lymphocytes % (A) 5 %; Mean Platelet Volume 7.2; Microcytosis Slight; Monocytes # (A) 0.7 k/uL (0-1.0); Monocytes % (A) 5 %; Neutrophils # (A) 12.8 k/uL (1.3-7.7); Neutrophils % (A) 88 %; Platelet Count 313 k/uL (150-450); RDW 18.2 % (11.5-15.5); WBC 14.4 k/uL (3.8-10.6)
[2020-04-26 21:08] LABS: ALT 11 U/L (4-34); AST 19 U/L (14-36); African American GFR (CKD) >90 (>60 ml/min/1.73 sqM); Albumin 3.3 g/dL (3.5-5.0); Alkaline Phosphatase 135 U/L (38-126); Anion Gap 9 mmol/L; Blood Urea Nitrogen 14 mg/dL (7-17); Calcium 8.5 mg/dL (8.4-10.2); Carbon Dioxide 25 mmol/L (22-30); Chloride 102 mmol/L (98-107); Glucose 187 mg/dL (74-99); Non-African American GFR(CKD) 86 (>60 ml/min/1.73 sqM); Potassium 4.2 mmol/L (3.5-5.1); Sodium 136 mmol/L (137-145); Total Bilirubin 0.4 mg/dL (0.2-1.3)
--- NOTE | 2020-04-26 21:25 | CT ---
EXAMINATION TYPE: CT brain gautam cassidy DATE OF EXAM: 04/26/2020 COMPARISON: None HISTORY: Fall. Headache. Neck pain CT DLP: 1514.1 mGycm Automated exposure control for dose reduction was used. There is diffuse cerebral cortical atrophy. There is some hypodensity in the periventricular white ma tter around the frontal horns of the lateral ventricles. There is no midline shift. There is no sign of intracranial hemorrhage. Calvarium is intact. There is normal aeration of the mastoid sinuses. Sku ll base is intact. Cervical vertebra have normal alignment. There is no significant disc space narrowing. There is mild spurring of the endplates. There is moderate hypertrophic anterior spurring at C5-6 on the left side. There is multilevel hypertrophic cervical facet arthropathy. There is no evidence of cervical spine fracture. IMPRESSION: Degenerative spurring in the cervical spine as above. No fracture seen. Cerebral atrophy and chronic small vessel ischemia. No acute intracranial abnormality. Sphenoid and l eft maxillary sinusitis noted.
[2020-04-26] MEDS ORDERED: HYDROmorphone 0.5 MG/0.5 ML SYRINGE IVP STA (21:30)
[2020-04-26 21:34] LABS: Appearance,Urine Turbid (Clear); Bacteria,Urine Occasional /hpf; Bilirubin,Urine Negative (Negative); Blood,Urine Negative (Negative); Budding Yeast,Urine Occasional /hpf; Color,Urine Dark Yellow; Glucose,Urine (UA) 3+ (Negative); Hyaline Casts,Urine 11 /lpf (0-2); Ketones,Urine Negative (Negative); Leukocyte Esterase,Urine Large (Negative); Mucus,Urine Many /hpf; Nitrite,Urine Negative (Negative); PH, Urine 5.5 (5.0-8.0); Protein,Urine 2+ (Negative); RBC,Urine 25 /hpf (0-5); Specific Gravity,Urine 1.028 (1.001-1.035); Squamous Epithelial Cell,Urine 1 /hpf (0-4); WBC,Urine >182 /hpf (0-5)
--- NOTE | 2020-04-26 21:42 | XR ---
EXAMINATION TYPE: XR Hip LT and AP Pelvis DATE OF EXAM: 04/26/2020 COMPARISON: 04/05/2020 HISTORY: Fall. Pain. TECHNIQUE: 3 views FINDINGS: There is an acute comminuted intertrochanteric fracture of the left femur with angulation. There is no dislocation. The pelvic ring appears intact. Sacroiliac joints appear intact. IMPRESSION: Acute comminuted angulated intertrochanteric fracture of the left femur.
--- NOTE | 2020-04-26 21:44 | XR ---
EXAMINATION TYPE: XR chest 1V portable DATE OF EXAM: 04/26/2020 COMPARISON: 03/29/2020 HISTORY: Fall. Pain. TECHNIQUE: Single view FINDINGS: There is no heart failure nor confluent pneumonic infiltrate. Thoracic aorta is atheromatou s. There is no evidence of pleural effusion. There is left axillary pacemaker. Bony thorax is intact. IMPRESSION: No active cardiopulmonary disease. Normal heart. Atheromatous aorta. No change.
[2020-04-26] MEDS ORDERED: cefTRIAXone IN SWFI 1,000 MG/10 ML SYRINGE IVP STA (21:52)
[2020-04-26] MEDS ORDERED: NALOXONE 0.4 MG/ML 1 ML VIAL IV PRN (22:11)
[2020-04-26] MEDS: SODIUM CHLORIDE 0.9% 1,000 ML IV SCH (23:35)
[2020-04-26] MEDS: ONDANSETRON 4 MG/2 ML VIAL IVP SCH (23:43)
[2020-04-27] MEDS: HYDROmorphone 0.5 MG/0.5 ML SYRINGE IVP PRN ×5 (00:40→19:53)
[2020-04-27] MEDS: ONDANSETRON 4 MG/2 ML VIAL IVP SCH ×3 (05:03→22:10)
[2020-04-27 07:11] LABS: Glucose,Whole Blood 143 mg/dL (75-99)
[2020-04-27] MEDS ORDERED: IPRATROPIUM 0.5 MG/2.5 ML NEBU INHALATION SCH (08:00)
[2020-04-27] MEDS ORDERED: CYCLOBENZAPRINE 10 MG TAB PO PRN (10:27)
[2020-04-27] MEDS ORDERED: NITROGLYCERIN SL TABS 0.4 MG TAB SUBLINGUAL PRN (10:27)
[2020-04-27] MEDS ORDERED: ALBUTEROL NEBULIZED 2.5 MG/3 ML INHALATION PRN (10:27)
[2020-04-27] MEDS: TAMSULOSIN 0.4 MG CAP.ER.24H PO SCH (10:47)
--- NOTE | 2020-04-27 10:47 | P.CNOR ---
History of Present Illness - [facility] Consult date: 04/27/20 History of present illness: This patient is a 79-year-old female past medical history of atrial fibrillation currently on Xarelto, COPD, hypertension, type II diabetes, hyperlipidemia that presented to [facility] emergency department via EMS yesterday with complaints of left hip pain following a fall in the home. Patient states she was recently discharged from the hospital, and was discharged to [facility]. She just recently returned home on Sunday. Patient states she was walking into her bathroom in her home with her walker, and she tripped over the lip of the shower. She states she lost her balance and fell directly onto the left hip. She states she states immediate pain in left hip and is able to get off the floor on her own. Therefore, she called EMS. X-rays of the left hip in the emergency department revealed a left intertrochanteric hip fracture. The patient was admitted under the care of Dr. Lees with a consult placed to Dr. Mills for new acute left hip fracture. Patient was also found to have a UTI in the emergency department, therefore she was placed on IV Rocephin. At the time of my exam, the patient is complaining of isolated left hip pain. She states she did not hit her head. She denies back pain. She does have a history of the lumbar fusion by a surgeon in [facility]. She states she also has a history of right TKA and ORIF of the right femur, she is not complaining of right lower extremity pain at this time. She states she uses a walker at baseline. Patient states her last dose of Xarelto was Sunday evening around 6 PM. Patient denies chest pain, shortness breath, nausea, vomiting, fevers, chills, numbness or tingling of the bilateral lower extremities. Vital signs stable. Past Medical History Past Medical History: Atrial Fibrillation, Atrial Flutter, Blood Disorder, Chest Pain / Angina, COPD, Diabetes Mellitus, Hyperlipidemia, Hypertension, Musculoskeletal Disorder, Osteoarthritis (OA), Pneumonia Additional Past Medical History / Comment(s): Home oxygen prn, bronchitis, NIDDM type II, neurpathy L foot, chronic low back pain which pt states has been better since surgery but states she now has difficutly bending-loses balance, past thoracic vertebral fracture with surgery, past L sided sciatica/difficulty lifting L leg- improved by physical therapy, anemia with B12 injections, UTIs, cystitis, occasional R foot edema-uses lasix for this reason. History of Any Multi-Drug Resistant Organisms: None Reported Past Surgical History: Back Surgery, Breast Surgery, Cardiac Ablation, Cholecystectomy, Hysterectomy, Joint Replacement, Orthopedic Surgery, Pacemaker, Tubal Ligation Additional Past Surgical History / Comment(s): Cervical fusion, kyphoplasty/vertebral biopsy T6, R leg fracture with plate, total R knee, L3/L 4/L5 surgery in 2019, cystocele, BMA, bilateral cataract removals, R breast biopsy, Past Anesthesia/Blood Transfusion Reactions: No Reported Reaction Additional Past Anesthesia/Blood Transfusion Reaction / Comm: Anesthesia "makes my hair fall out". Type of Cardiac Device: Permanent Pacemaker Device Placement Date:: 04/09 Past Psychological History: No Psychological Hx Reported Additional Psychological History / Comment(s): Pt resides alone. She uses a walker. She can drive. She has a glucometer. Smoking Status: Never smoker Additional Past Alcohol Use History / Comment(s): Pt started smoking in 1964 and quit smoking 2016 Past Drug Use History: None Reported - Past Family History Brother(s) Family Medical History: Cancer, Deep Vein Thrombosis (DVT), Myocardial Infarction ([place]) Additional Family Medical History / Comment(s): colon and prostate ca Sister(s) Family Medical History: Cancer Additional Family Medical History / Comment(s): breast and ovarian Mother Family Medical History: COPD Father History Unknown: Yes Additional Family Medical History / Comment(s): Father in a MVA Medications and Allergies Home Medications Medication Instructions Recorded Confirmed Type Empagliflozin [Jardiance] 10 mg PO DAILY 02/06/17 04/26/20 History Rivaroxaban [Xarelto] 20 mg PO DAILY 02/06/17 04/26/20 History Ergocalciferol [Vitamin D2 50,000 unit PO Q14D 07/05/17 04/26/20 History (DRISDOL)] Pravastatin Sodium [Pravachol] 40 mg PO HS 04/30/18 04/26/20 History Flecainide Acetate 100 mg PO BID 08/12/19 04/26/20 History Furosemide [Lasix] 40 mg PO DAILY 08/12/19 04/26/20 History Potassium Chloride [Klor-Con 8] 8 meq PO DAILY 08/12/19 04/26/20 History Ranolazine [Ranexa] 1,000 mg PO BID 08/12/19 04/26/20 History Tamsulosin [Flomax] 0.4 mg PO DAILY 08/12/19 04/26/20 History Albuterol Nebulized [Ventolin 2.5 mg INHALATION RT-QID PRN 03/29/20 04/26/20 History Nebulized] Cyanocobalamin [Vitamin B-12 1,000 mcg SQ Q30D 03/29/20 04/26/20 History Injection] Metoprolol Tartrate [Lopressor] 50 mg PO BID 03/29/20 04/26/20 History Nitroglycerin Sl Tabs [Nitrostat] 0.4 mg SL Q5M PRN 03/29/20 04/26/20 History Tiotropium Br/Olodaterol HCl 2 puff INHALATION RT-DAILY 03/29/20 04/26/20 History [Stiolto Respimat Inhal [place]] Cyclobenzaprine [Flexeril] 10 mg PO BID PRN #21 tab 04/09/20 04/26/20 Rx oxyCODONE-APAP 7.5-325MG [Percocet 1 tab PO Q8H PRN #12 tab 04/09/20 04/26/20 Rx 7.5-325 mg] Docusate [Colace] 100 mg PO BID PRN 04/26/20 04/26/20 History Allergies Allergy/AdvReac Type Severity Reaction Status Date / Time nickel Allergy Rash/Hives Verified 04/26/20 22:56 Physical Examination On examination, the patient is comfortably resting in bed in no apparent distress. She is alert and oriented 3. Her head appears normocephalic and atraumatic. Her breathing appears nonlabored. On inspection of her bilateral upper extremities there are no obvious deformities or signs of trauma. On inspection of her right lower extremity, there is a healed incision of the anterior knee consistent with a prior TKA. No pain on palpation of the right hip, thigh, knee, lower leg. On inspection of the left lower extremity, the extremity is shortened and externally rotated. On inspection of the left hip, there is no ecchymosis, erythema, skin discoloration. No open wounds or lacerations. There is diffuse pain on palpation of the left hip and thigh. ROM of the left hip is not tested at this time. No pain on palpation of the left knee, lower leg, ankle, foot. Patient has good strength and range of motion of the left ankle. Motor and sensory function intact of the left lower extremity. Dorsalis pedis pulse +2. Left lower extremity is warm and well-perfused with brisk capillary refill distally. Calves are soft and nontender to palpation bilaterally. Results Left hip x-ray 04/26/2020: Left intertrochanteric hip fracture CT scan brain/C-spine 04/26/20: Per radiology report- No acute fracture of the cervical spine. No acute intracranial abnormality. - Labs Labs: Abnormal Lab Results - Last 24 Hours (Table) 04/26/20 04/26/20 04/26/20 Range/Units 20:35 20:35 21:10 WBC 14.4 H (3.8-10.6) k/uL Hgb 9.4 L (11.4-16.0) gm/dL Hct 31.2 L (34.0-46.0) % MCH 24.0 L (25.0-35.0) pg MCHC 30.0 L (31.0-37.0) g/dL RDW 18.2 H (11.5-15.5) % Neutrophils # 12.8 H (1.3-7.7) k/uL Lymphocytes # 0.7 L (1.0-4.8) k/uL Sodium 136 L (137-145) mmol/L Glucose 187 H (74-99) mg/dL POC Glucose (mg/dL) (75-99) mg/dL Alkaline Phosphatase 135 H (38-126) U/L Total Protein 6.0 L (6.3-8.2) g/dL Albumin 3.3 L (3.5-5.0) g/dL Urine Appearance Turbid H (Clear) Urine Protein 2+ H (Negative) Urine Glucose (UA) 3+ H (Negative) Ur Leukocyte Esterase Large H (Negative) Urine RBC 25 H (0-5) /hpf Urine WBC >182 H (0-5) /hpf Urine WBC Clumps Many H (None) /hpf Urine Bacteria Occasional H (None) /hpf Hyaline Casts 11 H (0-2) /lpf Urine Mucus Many H (None) /hpf Urine Yeast (Budding) Occasional H (None) /hpf 04/27/20 Range/Units 07:06 WBC (3.8-10.6) k/uL Hgb (11.4-16.0) gm/dL Hct (34.0-46.0) % MCH (25.0-35.0) pg MCHC (31.0-37.0) g/dL RDW (11.5-15.5) % Neutrophils # (1.3-7.7) k/uL Lymphocytes # (1.0-4.8) k/uL Sodium (137-145) mmol/L Glucose (74-99) mg/dL POC Glucose (mg/dL) 143 H (75-99) mg/dL Alkaline Phosphatase (38-126) U/L Total Protein (6.3-8.2) g/dL Albumin (3.5-5.0) g/dL Urine Appearance (Clear) Urine Protein (Negative) Urine Glucose (UA) (Negative) Ur Leukocyte Esterase (Negative) Urine RBC (0-5) /hpf Urine WBC (0-5) /hpf Urine WBC Clumps (None) /hpf Urine Bacteria (None) /hpf Hyaline Casts (0-2) /lpf Urine Mucus (None) /hpf Urine Yeast (Budding) (None) /hpf Microbiology - Last 24 Hours (Table) 04/26/20 21:10 Urine Culture - Preliminary Urine,Voided H & H 04/26/20 Range/Units 20:35 Hgb 9.4 L (11.4-16.0) gm/dL Hct 31.2 L (34.0-46.0) % Result Diagrams: 04/26/20 20:35 04/26/20 20:35 Assessment and Plan Assessment: Left intertrochanteric hip fracture UTI Plan: - Clinical and imaging findings were discussed with the patient. The patient was discussed with Dr. Sharma. She will require surgical fixation of the left intertrochanteric hip fracture. We will plan for closed reduction and insertion of left IM nail this afternoon, pending medical clearance and consent. Patient gave her verbal consent for the procedure bedside this morning. - Bedrest. Strict non-weight bearing on the left lower extremity. - Pain control as needed. - NPO diet. Patient discussed with Dr. Sharma.
[2020-04-27] MEDS: FLECAINIDE 50 MG TAB PO SCH ×2 (10:52→20:39)
[2020-04-27] MEDS: RANOLAZINE 500 MG TAB.ER.12H PO SCH ×2 (10:52→20:39)
[2020-04-27] MEDS: METOPROLOL TARTRATE 50 MG TAB PO SCH ×2 (11:02→20:39)
[2020-04-27 11:21] LABS: Glucose,Whole Blood 134 mg/dL (75-99)
[2020-04-27] MEDS ORDERED: IPRATROPIUM 0.5 MG/2.5 ML NEBU INHALATION ONE (14:59)
[2020-04-27] MEDS: SODIUM CHLORIDE 0.9% 1,000 ML IV SCH (15:33)
[2020-04-27] MEDS ORDERED: IV FLUID CONTINUATION 400 ML IV ONE (16:25)
[2020-04-27 16:38] LABS: Glucose,Whole Blood 121 mg/dL (75-99)
[2020-04-27] MEDS ORDERED: fentaNYL (PF) 50 MCG/ML 2 ML AMP IV ONE (16:57)
[2020-04-27] MEDS ORDERED: LACTATED RINGERS 1,000 ML IV ONE (17:50)
[2020-04-27] MEDS ORDERED: SODIUM CHLORIDE 0.9% 50 ML with ceFAZolin 2,000 MG IV ONE ×2 (17:53)
--- NOTE | 2020-04-27 19:19 | P.OP ---
Date of Procedure: 04/27/20 Preoperative Diagnosis: Four-part intertrochanteric fracture left hip Postoperative Diagnosis: Four-part intertrochanteric fracture left hip Procedure(s) Performed: Close reduction and intramedullary rodding of the left hip Implants: [employer] Intertan nail 125, 11.5 mm x 18 cm. [employer] Intertan integrated-interlocking lag screw, 105 mm lag screw, 100 mm compression screw. [employer] L-P screw, 5.0 mm x 32.5 mm. Anesthesia: NELLIEA Surgeon: Sammy Sharma Home Attendant #1: Amandeep Palm Estimated Blood Loss (ml): 150 Pathology: none sent Condition: stable Disposition: PACU Indications for Procedure: This is a 79-year-old female that slipped and fell at home. She sustained a four-part intertrochanteric fracture of her left hip. After discussing the surgical nonsurgical treatment options with her and her son at length I've recommended a close reduction and intramedullary rodding of her left hip. They're agreeable to this informed consent was obtained. Operative Findings: The operative findings are consistent with a four-part intertrochanteric fracture of the left hip. Description of Procedure: The patient was seen in the preoperative area, consent was reviewed, and the operative site was marked with a skin marker. The surgical procedure was discussed at length with both the patient and the family at the bedside. All questions were answered to the best of my ability. The patient was brought to the operating room and placed on the fracture table. Anesthesia was administered by the anesthesia department. 2 g of Ancef were administered intravenously. The patient was placed supine on the fracture table with the fractured extremity in traction boot. The other extremity was placed in a well leg jaimes and the bony prominences were well padded. A universal timeout was then performed which confirmed the patient's name, surgical site, ALLERGIES, and consent. Fracture reduction was performed with a traction and abduction maneuver which was confirmed with fluoroscopy, both AP and lateral views.. After reduction was performed, the extremity was then prepped with ChloraPrep solution and draped in the usual sterile fashion. Utilizing fluoroscopy to identify the tip of the greater trochanter, a 3 cm longitudinal incision was made just proximal to the greater trochanter. Incisi on was carried through the fascia to the tip of the greater trochanter. Utilizing a curved awl, the entry point was created at the tip of the greater trochanter and centralized in the AP and lateral planes. These locations were confirmed by fluoroscopy. A guidewire was then inserted down the medullary canal. Sequentially reaming of the femur was performed to 13 mm distally and 17 mm proximally with the channel reamer. After reaming, appropriate size nail was inserted over the guidewire. The nail was inserted to the appropriate depth and the guidewire was removed. Placement of the panchito was confirmed with both AP and lateral fluoroscopic views. The lag screw drill sleeve was placed in the jig and a small skin incision was made on the lateral aspect of the leg and the lag screw drill sleeve was locked into the guide. The 3.2 mm guide pin sleeve was inserted through the lag screw drill sleeve down to bone. A 3.2 mm distally threaded guidewire was inserted through the guide pin sleeve. The guidewire was inserted in the desired position in the femoral head, both anterior and posterior. The lag screw length cage was inserted over the guidepin to the back of the lag screw drill sleeve. Lag screw length was then measured from the cage. Next, the 7.0 mm compression screw starter drill was inserted in the lag screw drill sleeve beneath the guidepin. The compression screw starter drill was advanced under power until it abutted the back and of the lag screw drill sleeve. The 7.0 mm compression screw drill was inserted through the lag screw drill sleeve into the hole created by the compression screw starter drill. This was advanced under fluoroscopy to a depth 5 mm less and the measurement taken for the guidepin. The compression screw drill was removed and the antirotation bar was inserted into the same hole. The 3.2 mm guide pin sleeve was then removed from the drill guide. The lag screw drill was then inserted to a depth that was measured by the lag screw gauge. This was done under fluoroscopy. The lag screw was inserted over the guidewire to the appropriate depth using fluoroscopy. Traction was then released. The antirotation bar was then removed and the compression screw was advanced through the lag screw drill sleeve beneath the lag screw. This was advanced to the appropriate compression was achieved. The proximal drill guide was then removed and the distal drill guide was then inserted in the jig. Skin incision was made down to bone and the distal drill guide was then placed. Distal hole was then drilled with a 4.0 mm drill and measured to the appropriate depth. Distal screw was then placed. The entire assembly was then removed and final fluoroscopic x-rays were obtained. The wounds were then irrigated copiously with saline solution. Fascia was closed with 0-Vicryl. Subcutaneous tissues were closed with 2-0 Vicryl and the skin was closed with lucia. Sterile dressings were applied. The patient was transported to the recovery room in stable condition. The farm assistant VIDA Macias was required due the complexity of surgery the need for skilled surgical clinical reviewer for positioning draping retraction and fracture reduction.
[2020-04-27] MEDS ORDERED: HYDROcodone/APAP 5-325MG 1 EACH TAB PO PRN (19:42)
[2020-04-27] MEDS ORDERED: LACTATED RINGERS 1,000 ML IV SCH (19:45)
[2020-04-27] MEDS ORDERED: HYDROmorphone 1 MG/ML 1 ML SYRINGE IVP ONE (19:59)
--- NOTE | 2020-04-27 20:04 | P.HPIM ---
History of Present Illness H&P Date: 04/27/20 Chief Complaint: Fall History of presenting complaint: This is a very pleasant [address] Yanely Rizo. Chronic stable medical conditions include atrial flutter fibrillation, COPD, diabetes, hypertension, hyperlipidemia, osteoarthritis, urinary incontinence, chronic low back pain. Uses a walker. Slowly to get off the same. cardiac catheterization at [facility] 2019 that showed nonobstructive disease.. Patient was in the bathroom in her legs gave way and she fell down. There is no dizziness or lightheadedness. No palpitation. At the baseline no chest pain or shortness of breath. Resulted in the left femur intertrochanteric fracture. Going on for surgery this afternoon. Review of systems: GEN.: Tired] EYES: None HEENT: None NECK: None RESPIRATORY: None CARDIOVASCULAR: None GASTROINTESTINAL: None GENITOURINARY: None MUSCULOSKELETAL: [Joint pains, plus complaining of left hip LYMPHATICS: None HEMATOLOGICAL: None PSYCHIATRY: None NEUROLOGICAL: None Past medical history to include: Atrial flutter fibrillation, COPD, diabetes, hypertension, hyperlipidemia, osteoarthritis, urinary incontinence, chronic low back pain, nonobstructive krishna nary artery disease Social history: Patient lives alone. Does have a walker. Smoked for 52 years. Stopped in 2017 Physical examination: VITAL SIGNS: 98, 85, 18, 142/68, 94% on room air GENERAL: BMI 32, laying in bed, awake EYES: Pupils equal. Conjunctiva normal. HEENT: External appearance of nose and ears normal, oral cavity grossly normal. NECK: JVD not raised; masses not palpable. HEART: First and second heart sounds are normal; no edema. LUNGS: Respiratory rate increased, decreased breath sounds. ABDOMEN: Soft, nontender, liver spleen not palpable, no masses palpable. PSYCH: Alert and oriented x3; mood and affect normal. MUSCULAR skeletal: Evidence of OA especially in the hands and knees , limited range of motion left hip NEUROLOGICAL: Cranial nerves grossly intact; no facial asymmetry, power and sensation grossly intact. Patient is able to raise both legs off the bed. LYMPHATICS: No lymph nodes palpable in the axilla and neck INVESTIGATIONS, reviewed in the clinical context: White count 14.4 hemoglobin 9.4 potassium 4.2 creatinine 0.63 UA positive for leukoesterase, obesity, squamous epithelial cells 1 EKG tracing showing paced rhythm Chest x-ray film personally reviewed by me-cardiomegaly, a bit underpenetrated Hip x-ray showing left femur ID fracture Assessment: -Left femur intertrochanteric fracture secondary to fall -Acute UTI from cystitis -COPD in an ex-smoker -Persistent atrial flutter fibrillation -Diabetes mellitus type 2 -Hyperlipidemia -Essential hypertension -Primary osteoarthritis -Chronic urinary stress incontinence -Chronic gait dysfunction uses a walker -Permanent pacemaker Plan: Patient is medically stable to proceed with surgery. Has a moderate cardiovascular risk. We'll stable. Home medications to be resumed. We'll start the patient IV ceftriaxone. Patient being followed by Dr. Sharma from orthopedics. Care was discussed with the patient patient questions answered Past Medical History Past Medical History: Atrial Fibrillation, Atrial Flutter, Blood Disorder, Chest Pain / Angina, COPD, Diabetes Mellitus, Hyperlipidemia, Hypertension, Musculoskeletal Disorder, Osteoarthritis (OA), Pneumonia Additional Past Medical History / Comment(s): Home oxygen prn, bronchitis, NIDDM type II, neurpathy L foot, chronic low back pain which pt states has been better since surgery but states she now has difficutly bending-loses balance, past thoracic vertebral fracture with surgery, past L sided sciatica/difficulty lifting L leg- improved by physical therapy, anemia with B12 injections, UTIs, cystitis, occasional R foot edema-uses lasix for this reason. History of Any Multi-Drug Resistant Organisms: None Reported Past Surgical History: Back Surgery, Breast Surgery, Cardiac Ablation, Cholecystectomy, Hysterectomy, Joint Replacement, Orthopedic Surgery, Pacemaker, Tubal Ligation Additional Past Surgical History / Comment(s): Cervical fusion, kyphoplasty/vertebral biopsy T6, R leg fracture with plate, total R knee, L3/L4/L5 surgery in 2019, cystocele, BMA, bilateral cataract removals, R breast biopsy, Past Anesthesia/Blood Transfusion Reactions: No Reported Reaction Additional Past Anesthesia/Blood Transfusion Reaction / Comment(s): Anesthesia "makes my hair fall out". Type of Cardiac Device: Permanent Pacemaker Device Placement Date:: 04/09 Past Psychological History: No Psychological Hx Reported Additional Psychological History / Comment(s): Pt resides alone. She uses a walker. She can drive. She has a glucometer. Smoking Status: Never smoker Additional Past Alcohol Use History / Comment(s): Pt started smoking in 1964 and quit smoking 2016 Past Drug Use History: None Reported - Past Family History Brother(s) Family Medical History: Cancer, Deep Vein Thrombosis (DVT), Myocardial Infarction ([place]) Additional Family Medical History / Comment(s): colon and prostate ca Sister(s) Family Medical History: Cancer Additional Family Medical History / Comment(s): breast and ovarian Mother Family Medical History: COPD Father History Unknown: Yes Additional Family Medical History / Comment(s): Father in a MVA Medications and Allergies Home Medications Medication Instructions Recorded Confirmed Type Empagliflozin [Jardiance] 10 mg PO DAILY 02/06/17 04/26/20 History Rivaroxaban [Xarelto] 20 mg PO DAILY 02/06/17 04/26/20 History Ergocalciferol [Vitamin D2 50,000 unit PO Q14D 07/05/17 04/26/20 History (DRISDOL)] Pravastatin Sodium [Pravachol] 40 mg PO HS 04/30/18 04/26/20 History Flecainide Acetate 100 mg PO BID 08/12/19 04/26/20 History Furosemide [Lasix] 40 mg PO DAILY 08/12/19 04/26/20 History Potassium Chloride [Klor-Con 8] 8 meq PO DAILY 08/12/19 04/26/20 History Ranolazine [Ranexa] 1,000 mg PO BID 08/12/19 04/26/20 History Tamsulosin [Flomax] 0.4 mg PO DAILY 08/12/19 04/26/20 History Albuterol Nebulized [Ventolin 2.5 mg INHALATION RT-QID PRN 03/29/20 04/26/20 History Nebulized] Cyanocobalamin [Vitamin B-12 1,000 mcg SQ Q30D 03/29/20 04/26/20 History Injection] Metoprolol Tartrate [Lopressor] 50 mg PO BID 03/29/20 04/26/20 History Nitroglycerin Sl Tabs [Nitrostat] 0.4 mg SL Q5M PRN 03/29/20 04/26/20 History Tiotropium Br/Olodaterol HCl 2 puff INHALATION RT-DAILY 03/29/20 04/26/20 History [Stiolto Respimat Inhal [place]] Cyclobenzaprine [Flexeril] 10 mg PO BID PRN #21 tab 04/09/20 04/26/20 Rx oxyCODONE-APAP 7.5-325MG [Percocet 1 tab PO Q8H PRN #12 tab 04/09/20 04/26/20 Rx 7.5-325 mg] Docusate [Colace] 100 mg PO BID PRN 04/26/20 04/26/20 History Allergies Allergy/AdvReac Type Severity Reaction Status Date / Time nickel Allergy Rash/Hives Verified 04/26/20 22:56 Physical Exam Vitals: Vital Signs Temp Pulse Pulse Pulse Resp BP BP 04/27/20 05:00 98.2 F 71 18 142/63 04/27/20 00:00 74 18 04/26/20 23:45 98.4 F 74 18 159/84 04/26/20 22:42 98.0 F 74 18 156/76 04/26/20 21:44 71 18 150/73 04/26/20 20:12 98.0 F 85 18 142/68 Pulse Ox 04/27/20 05:00 92 L 04/27/20 00:00 04/26/20 23:45 97 04/26/20 22:42 98 04/26/20 21:44 98 04/26/20 20:12 94 L Intake and Output 04/26/20 04/27/20 04/27/20 22:59 06:59 14:59 Intake Total 580 Output Total 100 Balance 480 Intake: Intake, IV Titration 460 Amount Sodium Chloride 0.9% 1, 460 000 ml @ 75 mls/hr IV . [id number] [facility] Rx#:[id number] Oral 120 Output: Urine 100 Other: Voiding Method Indwelling Catheter Weight 79.379 kg 79.379 kg Results CBC & Chem 7: 04/26/20 20:35 04/26/20 20:35 Labs: Abnormal Lab Results - Last 24 Hours (Table) 04/26/20 04/26/20 04/26/20 Range/Units 20:35 20:35 21:10 WBC 14.4 H (3.8-10.6) k/uL Hgb 9.4 L (11.4-16.0) gm/dL Hct 31.2 L (34.0-46.0) % MCH 24.0 L (25.0-35.0) pg MCHC 30.0 L (31.0-37.0) g/dL RDW 18.2 H (11.5-15.5) % Neutrophils # 12.8 H (1.3-7.7) k/uL Lymphocytes # 0.7 L (1.0-4.8) k/uL Sodium 136 L (137-145) mmol/L Glucose 187 H (74-99) mg/dL POC Glucose (mg/dL) (75-99) mg/dL Alkaline Phosphatase 135 H (38-126) U/L Total Protein 6.0 L (6.3-8.2) g/dL Albumin 3.3 L (3.5-5.0) g/dL Urine Appearance Turbid H (Clear) Urine Protein 2+ H (Negative) Urine Glucose (UA) 3+ H (Negative) Ur Leukocyte Esterase Large H (Negative) Urine RBC 25 H (0-5) /hpf Urine WBC >182 H (0-5) /hpf Urine WBC Clumps Many H (None) /hpf Urine Bacteria Occasional H (None) /hpf Hyaline Casts 11 H (0-2) /lpf Urine Mucus Many H (None) /hpf Urine Yeast (Budding) Occasional H (None) /hpf // Range/Units 07:06 WBC (3.8-10.6) k/uL Hgb (11.4-16.0) gm/dL Hct (34.0-46.0) % MCH (25.0-35.0) pg MCHC (31.0-37.0) g/dL RDW (11.5-15.5) % Neutrophils # (1.3-7.7) k/uL Lymphocytes # (1.0-4.8) k/uL Sodium (137-145) mmol/L Glucose (74-99) mg/dL POC Glucose (mg/dL) 143 H (75-99) mg/dL Alkaline Phosphatase (38-126) U/L Total Protein (6.3-8.2) g/dL Albumin (3.5-5.0) g/dL Urine Appearance (Clear) Urine Protein (Negative) Urine Glucose (UA) (Negative) Ur Leukocyte Esterase (Negative) Urine RBC (0-5) /hpf Urine WBC (0-5) /hpf Urine WBC Clumps (None) /hpf Urine Bacteria (None) /hpf Hyaline Casts (0-2) /lpf Urine Mucus (None) /hpf Urine Yeast (Budding) (None) /hpf Microbiology - Last 24 Hours (Table) 04/26/20 21:10 Urine Culture - Preliminary Urine,Voided Thrombosis Risk Factor Assmnt - Choose All That Apply Any of the Below Risk Factors Present?: Yes Each Factor Represents 1 point: Medical pt on bed rest, Obesity (BMI >25) Each Risk Factor Represents 2 Points: Major surgery, Patient confined to bed Each Risk Factor Represents 3 Points: Age 75 years or older Each Risk Factor Represents 5 Points: Hip, pelvis, or leg fracture (< 1 month) Thrombosis Risk Factor Assessment Total Risk Factor Score: 14 Thrombosis Risk Factor Assessment Level: High Risk
[2020-04-27] MEDS: SENNOSIDES-DOCUSATE SODIUM 1 EACH TAB PO SCH (20:38)
[2020-04-27] MEDS: PRAVASTATIN SODIUM 40 MG TAB PO SCH (20:39)
[2020-04-27 20:59] LABS: Anisocytosis Slight; Basophils % (A) 0 %; Eosinophils # (A) 0.1 k/uL (0-0.7); Eosinophils % (A) 1 %; HCT 27.2 % (34.0-46.0); Hypochromasia Marked; Lymphocytes # (A) 0.7 k/uL (1.0-4.8); Lymphocytes % (A) 4 %; MCH 24.1 pg (25.0-35.0); MCHC 29.3 g/dL (31.0-37.0); MCV 82.2 fL (80.0-100.0); Mean Platelet Volume 7.2; Microcytosis Slight; Monocytes # (A) 0.7 k/uL (0-1.0); Monocytes % (A) 4 %; Neutrophils # (A) 14.6 k/uL (1.3-7.7); Neutrophils % (A) 90 %; Platelet Count 313 k/uL (150-450); RBC 3.32 m/uL (3.80-5.40); RDW 17.8 % (11.5-15.5); WBC 16.2 k/uL (3.8-10.6)
[2020-04-28] MEDS: SODIUM CHLORIDE 0.9% 1,000 ML IV SCH ×2 (02:23→13:51)
[2020-04-28] MEDS: LACTATED RINGERS 1,000 ML IV SCH ×2 (02:23→13:51)
[2020-04-28] MEDS: ONDANSETRON 4 MG/2 ML VIAL IVP SCH ×3 (05:22→14:02)
[2020-04-28] MEDS: IPRATROPIUM 0.5 MG/2.5 ML NEBU INHALATION SCH ×4 (06:59→19:23)
[2020-04-28] MEDS: FORMOTEROL FUMARATE 20 MCG/2 ML NEBU INHALATION SCH ×2 (06:59→19:23)
--- NOTE | 2020-04-28 08:53 | FL ---
EXAMINATION TYPE: FL fluoroscopy <1hr, XR Hip Complete LT DATE OF EXAM: 04/27/2020 CLINICAL HISTORY: Left hip fracture. TECHNIQUE: Fluoroscopy. Complete intraoperative views left hip. COMPARISON: Pelvic and left hip x-ray yesterday. FINDINGS: Fluoroscopic guidance was provided during open reduction internal fixation procedure perfo rmed by Dr. Sharma. A total of 1.06 minutes of fluoroscopic time was utilized during the procedure and two spot fluoroscopic intraoperative images are acquired. Images acquired show placement of intramedullary panchito with distal transverse fixating screw and larger femoral neck fixating through comminuted intertrochanteric fracture left proximal femur. Satisfactor y alignment is seen on intraoperative images obtained. IMPRESSION: As Above.
[2020-04-28] MEDS ORDERED: ENOXAPARIN 30 MG/0.3 ML SYRINGE SQ SCH (09:00)
[2020-04-28] MEDS: RANOLAZINE 500 MG TAB.ER.12H PO SCH ×2 (10:23→20:16)
[2020-04-28] MEDS: POTASSIUM CHLORIDE ER 10 MEQ TAB.ER.PRT PO SCH (10:23)
[2020-04-28] MEDS: FLECAINIDE 50 MG TAB PO SCH ×2 (10:23→20:16)
[2020-04-28] MEDS: TAMSULOSIN 0.4 MG CAP.ER.24H PO SCH (10:24)
[2020-04-28] MEDS: METOPROLOL TARTRATE 50 MG TAB PO SCH ×2 (10:30→20:16)
[2020-04-28] MEDS: NON FORMULARY DRUG (Empagliflozin [Jardiance] 10 MG) PO SCH (10:39)
[2020-04-28] MEDS: HYDROcodone/APAP 5-325MG 1 EACH TAB PO PRN ×2 (10:53→19:10)
--- NOTE | 2020-04-28 12:56 | P.CRDCN ---
History of Present Illness History of present illness: History of Present Illness History of present illness: This is a pleasant 79-year-old female past medical history significant for chronic persistent atrial fibrillation on long-term anticoagulation, permanent pacemaker implantation, COPD, diabetes mellitus, hypertension and dyslipidemia. She quit smoking tobacco in 2016. She follows in the office with Dr. Weber. Most recent cardiac catheterization from April 2017 reveals left main no significant disease, LAD large caliber vessel with a single or major diagonal branch of the proximal third with a 50% stenosis at its origin and the remainder of the LAD with no significant obstructive disease, circumflex with 2 small OM branches proximally at the origin of the terminal OM there is a 40-50% stenosis with no significant obstructive disease thereafter, RCA 30% stenosis in the proximal one third. Most recent echocardiogram obtained 03/30/2020 reveals preserved LV systolic function with ejection fraction 55-60%, severely dilated left atrium, moderate mitral regurgitation, mild tricuspid regurgitation and mild pulmonary hypertension with RVSP of 40 mmHg. She presents to the hospital after having a mechanical fall and the bathroom. She states her legs became weak and she fell striking the left side of her body and the shower. She suffered a left intertrochanteric hip fracture and underwent surgical repair yesterday afternoon. She is seen and examined sitting up in a chair in no acute distress. She states her hip in her lower back uncomfortable. This is the first time she has gotten up on a bed with physical therapy. She denies symptoms of chest pain, shortness of breath, dizziness or palpitations. DIAGNOSTICS EKG is paced. Chest xray negative for an acute cardiopulmonary process. Laboratory reviewed, WBC 16.2, hemoglobin 8, platelets 313, sodium 136, po tassium 4.2, creatinine 0.63. Current cardiac medications include flecainide 100 mg twice a day, Lasix 40 mg daily, Lopressor 50 mg twice a day, pravastatin 40 mg at bedtime, Ranexa 1000 mg twice a day and Xarelto 20 mg daily. REVIEW OF SYSTEMS At the time of my exam: CONSTITUTIONAL: Denies fever or chills. CARDIOVASCULAR: Denies chest pain, shortness of breath, orthopnea, PND or palpitations. RESPIRATORY: Denies cough. GASTROINTESTINAL: Denies abdominal pain, diarrhea, constipation, nausea or vomiting. MUSCULOSKELETAL: Complains of left hip and lower back discomfort. NEUROLOGIC: Denies numbness, tingling or weakness. ENDOCRINE: Denies fatigue, weight change, polydipsia or polyurina. GENITOURINARY: Denies burning, hematuria or urgency with micturation. HEMATOLOGIC: Denies history of anemia or bleeding. PHYSICAL EXAMINATION Blood pressure 120/67 heart rate 63 afebrile maintaining oxygen saturation on nasal cannula CONSTITUTIONAL: No apparent distress. HEENT: Head is normocephalic. Pupils are equal, round. Sclerae anicteric. Mucous membranes of the mouth are moist. No JVD. No carotid bruit. CHEST EXAMINATION: Lungs are clear to auscultation. No chest wall tenderness is noted on palpation or with deep breathing. HEART EXAMINATION: Regular rate and rhythm. S1, S2 heard. Systolic ejection murmur at the left sternal border. No gallops or rub. ABDOMEN: Soft, nontender. Positive bowel sounds. EXTREMITIES: 2+ peripheral pulses, no lower extremity edema and no calf tenderness. NEUROLOGIC EXAMINATION: Patient is awake, alert and oriented x3. ASSESSMENT Fall, mechanical. No syncope. 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 Continue current medical regimen. Follow-up with Dr. Weber as previously established. Thank you For this consultation. Nurse Practitioner note has been reviewed, I agree with a documented findings and plan of care. Patient was seen and examined. Past Medical History Past Medical History: Atrial Fibrillation, Atrial Flutter, Blood Disorder, Chest Pain / Angina, COPD, Diabetes Mellitus, Hyperlipidemia, Hypertension, Musculoskeletal Disorder, Osteoarthritis (OA), Pneumonia Additional Past Medical History / Comment(s): Home oxygen prn, bronchitis, NIDDM type II, neurpathy L foot, chronic low back pain which pt states has been better since surgery but states she now has difficutly bending-loses balance, past thoracic vertebral fracture with surgery, past L sided sciatica/difficulty lifting L leg- improved by physical therapy, anemia with B12 injections, UTIs, cystitis, occasional R foot edema-uses lasix for this reason. History of Any Multi-Drug Resistant Organisms: None Reported Past Surgical History: Back Surgery, Breast Surgery, Cardiac Ablation, Cholecy stectomy, Hysterectomy, Joint Replacement, Orthopedic Surgery, Pacemaker, Tubal Ligation Additional Past Surgical History / Comment(s): Cervical fusion, kyphoplasty/vertebral biopsy T6, R leg fracture with plate, total R knee, L3/L4/L5 surgery in 2019, cystocele, BMA, bilateral cataract removals, R breast biopsy, Past Anesthesia/Blood Transfusion Reactions: No Reported Reaction Additional Past Anesthesia/Blood Transfusion Reaction / Comment(s): Anesthesia "makes my hair fall out". Type of Cardiac Device: Permanent Pacemaker Device Placement Date:: 04/09 Past Psychological History: No Psychological Hx Reported Additional Psychological History / Comment(s): Pt resides alone. She uses a walker. She can drive. She has a glucometer. Smoking Status: Never smoker Additional Past Alcohol Use History / Comment(s): Pt started smoking in 1964 and quit smoking 2016 Past Drug Use History: None Reported - Past Family History Brother(s) Family Medical History: Cancer, Deep Vein Thrombosis (DVT), Myocardial Infarction (DE) Additional Family Medical History / Comment(s): colon and prostate ca Sister(s) Family Medical History: Cancer Additional Family Medical History / Comment(s): breast and ovarian Mother Family Medical History: COPD Father History Unknown: Yes Additional Family Medical History / Comment(s): Father in a MVA Medications and Allergies Home Medications Medication Instructions Recorded Confirmed Type Empagliflozin [Jardiance] 10 mg PO DAILY 02/06/17 04/26/20 History Rivaroxaban [Xarelto] 20 mg PO DAILY 02/06/17 04/26/20 History Ergocalciferol [Vitamin D2 50,000 unit PO Q14D 07/05/17 04/26/20 History (DRISDOL)] Pravastatin Sodium [Pravachol] 40 mg PO HS 04/30/18 04/26/20 History Flecainide Acetate 100 mg PO BID 08/12/19 04/26/20 History Furosemide [Lasix] 40 mg PO DAILY 08/12/19 04/26/20 History Potassium Chloride [Klor-Con 8] 8 meq PO DAILY 08/12/19 04/26/20 History Ranolazine [Ranexa] 1,000 mg PO BID 08/12/19 04/26/20 History Tamsulosin [Flomax] 0.4 mg PO DAILY 08/12/19 04/26/20 History Albuterol Nebulized [Ventolin 2.5 mg INHALATION RT-QID PRN 03/29/20 04/26/20 History Nebulized] Cyanocobalamin [Vitamin B-12 1,000 mcg SQ Q30D 03/29/20 04/26/20 History Injection] Metoprolol Tartrate [Lopressor] 50 mg PO BID 03/29/20 04/26/20 History Nitroglycerin Sl Tabs [Nitrostat] 0.4 mg SL Q5M PRN 03/29/20 04/26/20 History Tiotropium Br/Olodaterol HCl 2 puff INHALATION RT-DAILY 03/29/20 04/26/20 Histor y [Stiolto Respimat Inhal [place]] Cyclobenzaprine [Flexeril] 10 mg PO BID PRN #21 tab 04/09/20 04/26/20 Rx oxyCODONE-APAP 7.5-325MG [Percocet 1 tab PO Q8H PRN #12 tab 04/09/20 04/26/20 Rx 7.5-325 mg] Docusate [Colace] 100 mg PO BID PRN 04/26/20 04/26/20 History Allergies Allergy/AdvReac Type Severity Reaction Status Date / Time nickel Allergy Rash/Hives Verified 04/26/20 22:56 Physical Exam Vitals: Vital Signs Temp Pulse Pulse Pulse Resp BP Pulse Ox 04/28/20 11:18 98.1 F 63 18 128/67 93 L 04/28/20 11:07 64 04/28/20 10:55 62 04/28/20 08:00 60 18 04/28/20 07:18 65 04/28/20 07:09 64 04/28/20 06:59 64 04/28/20 04:13 98.3 F 62 18 116/73 98 04/27/20 23:30 64 145/85 99 04/27/20 22:30 64 145/85 99 04/27/20 22:00 61 121/78 99 04/27/20 21:30 66 123/61 97 04/27/20 21:15 65 132/82 99 04/27/20 21:00 68 139/80 97 04/27/20 20:45 71 147/96 96 04/27/20 20:30 97.4 F L 70 18 141/79 96 04/27/20 20:00 71 16 159/71 96 08/04/20 19:45 72 18 152/67 95 04/27/20 19:39 97.2 F L 73 14 193/74 95 04/27/20 16:26 97 F L 58 L 147/69 96 04/27/20 16:00 98.0 F 62 16 180/79 95 04/27/20 15:32 70 16 04/27/20 15:23 71 16 97 04/27/20 12:14 72 Intake and Output 04/27/20 04/28/20 04/28/20 22:59 06:59 14:59 Intake Total 1550 Output Total 550 200 Balance 1000 -200 Intake: IV 1550 Output: Urine 400 200 Estimated Blood Loss 150 Other: Voiding Method Indwelling Catheter Indwelling Catheter Results 04/27/20 20:44 04/26/20 20:35 CBC 04/27/20 Range/Units 20:44 WBC 16.2 H (3.8-10.6) k/uL RBC 3.32 L (3.80-5.40) m/uL Hgb 8.0 L (11.4-16.0) gm/dL Hct 27.2 L (34.0-46.0) % Plt Count 313 (150-450) k/uL Current Medications Generic Name Dose Route Start Last Admin Trade Name Freq PRN Reason Stop Dose Admin Hydrocodone Bitart/Acetaminophen 2 each 04/27/20 19:42 [place] 5-325 PO Q6HR PRN Pain Scale 6 to 10 Hydrocodone Bitart/Acetaminophen 1 each 04/27/20 19:42 04/28/20 10:53 [place] 5-325 PO 1 each Q6HR PRN Administration Pain Scale 1 to 5 Albuterol Sulfate 2.5 mg 04/27/20 10:27 04/27/20 12:01 Ventolin Nebulized INHALATION 2.5 mg RT-QID PRN Administration Shortness Of Breath Cyclobenzaprine HCl 10 mg 04/27/20 10:27 Flexeril PO BID PRN Muscle Spasm Enoxaparin Sodium 30 mg 04/28/20 09:00 04/28/20 10:24 Lovenox SQ 30 mg DAILY YIN Administration Flecainide Acetate 100 mg 04/27/20 10:45 04/28/20 10:23 Tambocor PO 100 mg BID YIN Administration Formoterol Fumarate 20 mcg 04/28/20 08:00 04/28/20 06:59 Perforomist INHALATION 20 mcg RT-BID YIN Administration Hydromorphone HCl 0.5 mg 04/26/20 22:13 04/27/20 19:53 Dilaudid IVP 0.25 mg Q3H PRN Administration Pain Sodium Chloride 1,000 mls @ 75 mls/hr 04/26/20 22:15 04/28/20 02:23 Saline 0.9% IV Not Given .[id number] YIN Lactated Ringer's 1,000 mls @ 50 mls/hr 04/27/20 20:15 04/28/20 02:23 Lactated Ringers IV Not Given .Q20H YIN Ipratropium [place] 0.5 mg 04/28/20 08:00 04/28/20 10:54 Atrovent Nebulized INHALATION 0.5 mg RT-QID YIN Administration Metoprolol Tartrate 50 mg 04/27/20 10:45 04/28/20 10:30 Lopressor PO 50 mg BID YIN Administration Naloxone HCl 0.2 mg 04/26/20 22:11 Narcan IV Q2M PRN Opioid Reversal Nitroglycerin 0.4 mg 04/27/20 10:27 Nitrostat SUBLINGUAL Q5M PRN Chest Pain Non-Formulary Medication 10 mg 04/28/20 09:00 04/28/20 10:39 Empagliflozin [Jardiance] PO Not Given DAILY YIN Ondansetron HCl 4 mg 04/26/20 22:15 04/28/20 05:22 Zofran IVP Not Given Q8H [facility] Potassium Chloride 10 meq 04/28/20 09:00 04/28/20 10:23 K-Dur 10 PO 10 meq DAILY YIN Administration Pravastatin Sodium 40 mg 04/27/20 21:00 04/27/20 20:39 Pravachol PO 40 mg HS YIN Administration Ranolazine 1,000 mg 04/27/20 10:45 04/28/20 10:23 Ranexa PO 1,000 mg BID YIN Administration Senna/Docusate Sodium 2 each 04/27/20 21:00 04/27/20 20:38 Senokot-S PO 2 each HS YIN Administration Tamsulosin HCl 0.4 mg 04/27/20 10:45 04/28/20 10:24 Flomax PO 0.4 mg DAILY YIN Administration Intake and Output 04/27/20 04/28/20 04/28/20 22:59 06:59 14:59 Intake Total 1550 Output Total 550 200 Balance 1000 -200 Intake: IV 1550 Output: Urine 400 200 Estimated Blood Loss 150 Other: Voiding Method Indwelling Catheter Indwelling Catheter 04/27/20 20:44 04/26/20 20:35
[2020-04-28] MEDS ORDERED: ONDANSETRON 4 MG/2 ML VIAL IVP PRN (14:04)
--- NOTE | 2020-04-28 14:23 | CDI ---
Documentation Clarification Form Date: 04/28/2020 02:12:02 PM From: Isela GreenKIRILL pozo, CCDS Admit Date: 04/26/2020 10:27:00 PM Patient Name: Sherly Zayas Visit Number: [id number] Discharge Date: ATTENTION: The Clinical Documentation Specialists (CDI) and [facility] Coding Staff appreciate your assistance in clarifying documentation. Please respond to the clarification below the line at the bottom and electronically sign. The CDI & [facility] Coding staff will review the response and follow-up if needed. Please note: Queries are made part of the Legal Health Record. If you have any questions, please contact the author of this message via ITS. Dr. Anderson Coronado: Conflicting documentation has been found in the medical record: Per the 04/28 Cardiology Consult, the patient has Chronic Persistent Atrial Fibrillation on fdc anticoagulation with permanent pacemaker. The Cardiology Consult impression states: Atrial Fibrillation, Paroxysmal. Atrial Flutter is also documented in the patient's history per the ED note, the History & Physical & the Cardiology Consult without further specificity. History/Risk Factors: Atrial Fibrillation, Atrial Flutter, DM II, Hyperlipidemia, Hypertension, Osteoarthritis & previous Pneumonia. Clinical Indicators: Patient presented to the ED on 04/26 after a fall at home, diagnosed with a Left IT Femur Fracture, status post surgical reduction. Treatment: Home dose Xarelto ordered for 04/29. In your opinion, what is the most clinically appropriate diagnosis for this patient? Paroxysmal Atrial Fibrillation Chronic Persistent Atrial Fibrillation Other Type of Atrial Fibrillation Unable to determine o Atrial Flutter ruled out. o Atrial Flutter, Please specify the type if known. Atypical Typical Type I Type II Other, please specify o Unable to determine (Last Revision: December 2017) unable to determine MTDD
--- NOTE | 2020-04-28 14:35 | P.PN ---
Subjective Progress Note Date: 04/28/20 This is a 79-year-old female who is status post closed reduction and intramedullary rodding of the left hip. This is postoperative day #1 and patient is seen and evaluated at bedside with Dr. Sammy Sharma. Patient does admit to some soreness in the left hip today. Otherwise patient denies any new complaints. Objective - Vital Signs Vital signs: Vital Signs Temp 97.9 F 04/28/20 13:00 Pulse 62 04/28/20 13:00 Resp 18 04/28/20 13:00 BP 112/70 04/28/20 13:00 Pulse Ox 94 L 04/28/20 13:00 Intake & Output 04/27/20 04/28/20 04/28/20 18:59 06:59 18:59 Intake Total 2100 100 1320 Output Total 200 750 800 Balance 1900 -650 520 Intake: IV 1450 100 Intake, IV Titration 650 600 Amount Lactated Ringers 1,000 ml 300 @ 50 mls/hr IV .Q20H YIN Rx#:[id number] Sodium Chloride 0.9% 1, 650 300 000 ml @ 75 mls/hr IV . [id number] YIN Rx#:[id number] Oral 720 Output: Urine 200 600 800 Estimated Blood Loss 150 Other: Voiding Method Indwelling Catheter Indwelling Catheter - Exam On exam patient is resting comfortably in bed in no acute distress. Dressings are clean, dry and intact. There is mild swelling of the left lower extremity. Calf is soft and nontender to palpation. Sensation intact. Neurovascular status and circulatory status are intact. - Labs CBC & Chem 7: 04/27/20 20:44 04/26/20 20:35 Labs: Abnormal Lab Results - Last 24 Hours (Table) 04/27/20 04/27/20 Range/Units 16:37 20:44 WBC 16.2 H (3.8-10.6) k/uL RBC 3.32 L (3.80-5.40) m/uL Hgb 8.0 L (11.4-16.0) gm/dL Hct 27.2 L (34.0-46.0) % MCH 24.1 L (25.0-35.0) pg MCHC 29.3 L (31.0-37.0) g/dL RDW 17.8 H (11.5-15.5) % Neutrophils # 14.6 H (1.3-7.7) k/uL Lymphocytes # 0.7 L (1.0-4.8) k/uL POC Glucose (mg/dL) 121 H (75-99) mg/dL Microbiology - Last 24 Hours (Table) 04/26/20 21:10 Urine Culture - Final Urine,Voided 04/26/20 22:13 Blood Culture - Preliminary Blood No Growth after 24 hours Assessment and Plan Assessment: Status post closed reduction and intramedullary rodding left hip. (1) Fall Current Visit: Yes Status: Acute Code(s): W19.XXXA - UNSPECIFIED FALL, INITIAL ENCOUNTER SNOMED Code(s): 3272830 (2) Hip fracture Current Visit: Yes Status: Acute Code(s): S72.009A - FRACTURE OF UNSP PART OF NECK OF UNSP FEMUR, INIT SNOMED Code(s): 837233997 Plan: #1. Continue routine postoperative care and pain control. #2. Nonweightbearing to the left lower extremity. #3. Dressings to stay intact for 10 days. #4. Resume Xarelto for DVT prophylaxis. #5. Appreciate input from medicine. #6. Will continue to follow the patient closely.
[2020-04-28] MEDS: SENNOSIDES-DOCUSATE SODIUM 1 EACH TAB PO SCH (20:16)
[2020-04-28] MEDS: PRAVASTATIN SODIUM 40 MG TAB PO SCH (20:16)
--- NOTE | 2020-04-28 22:06 | P.PN ---
Progress Note - Text Progress Note Date: 04/28/20 Chief Complaint: Fall History of presenting complaint: This is a very pleasant [address] Yanely Rizo. Chronic stable medical conditions include atrial flutter fibrillation, COPD, diabetes, hypertension, hyperlipidemia, osteoarthritis, urinary incontinence, chronic low back pain. Uses a walker. Slowly to get off the same. cardiac catheterization at [place] [id number] that showed nonobstructive disease.. Patient was in the bathroom in her legs gave way and she fell down. There is no dizziness or lightheadedness. No palpitation. At the baseline no chest pain or shortness of breath. Resulted in the left femur intertrochanteric fracture. On April 27 patient underwent closed reduction and IM rodding of the left hip by Dr. Sharma. Today-sitting up in bed. Some pain at the operative site.. No nausea vomiting. Did tolerate some diet. Review of systems: Was done for constitutional, cardiovascular, GI, pulmonary. Musculoskeletal relevant finding as above Active Medications Hydrocodone Bitart/Acetaminophen ([place] 5-325) 2 each PO Q6HR PRN PRN Reason: Pain Scale 6 to 10 Hydrocodone Bitart/Acetaminophen ([place] 5-325) 1 each PO Q6HR PRN PRN Reason: Pain Scale 1 to 5 Last Admin: 04/28/20 19:10 Dose: 1 each Documented by: Albuterol Sulfate (Ventolin Nebulized) 2.5 mg INHALATION RT-QID PRN PRN Reason: Shortness Of Breath Last Admin: 04/27/20 12:01 Dose: 2.5 mg Documented by: Cyclobenzaprine HCl (Flexeril) 10 mg PO BID PRN PRN Reason: Muscle Spasm Flecainide Acetate (Tambocor) 100 mg PO BID [facility] Last Admin: 04/28/20 20:16 Dose: 100 mg Documented by: Formoterol Fumarate (Perforomist) 20 mcg INHALATION RT-BID [facility] Last Admin: 04/28/20 19:23 Dose: 20 mcg Documented by: Hydromorphone HCl (Dilaudid) 0.5 mg IVP Q3H PRN PRN Reason: Pain Last Admin: 04/27/20 19:53 Dose: 0.25 mg Documented by: Sodium Chloride (Saline 0.9%) 1,000 mls @ 75 mls/hr IV .[id number] [facility] Last Admin: 04/28/20 13:51 Dose: Not Given Documented by: Lactated Ringer's (Lactated Ringers) 1,000 mls @ 50 mls/hr IV .Q20H [facility] Last Admin: 04/28/20 13:51 Dose: Not Given Documented by: Ipratropium [place] (Atrovent Nebulized) 0.5 mg INHALATION RT-QID [facility] Last Admin: 04/28/20 19:23 Dose: 0.5 mg Documented by: Metoprolol Tartrate (Lopressor) 50 mg PO BID [facility] Last Admin: 04/28/20 20:16 Dose: 50 mg Documented by: Naloxone HCl (Narcan) 0.2 mg IV Q2M PRN PRN Reason: Opioid Reversal Nitroglycerin (Nitrostat) 0.4 mg SUBLINGUAL Q5M PRN PRN Reason: Chest Pain Non-Formulary Medication (Empagliflozin [Jardiance]) 10 mg PO DAILY [facility] Last Admin: 04/28/20 10:39 Dose: Not Given Documented by: Ondansetron HCl (Zofran) 4 mg IVP Q8H PRN PRN Reason: Nausea Potassium Chloride (K-Dur 10) 10 meq PO DAILY [facility] Last Admin: 04/28/20 10:23 Dose: 10 meq Documented by: Pravastatin Sodium (Pravachol) 40 mg PO [facility] Last Admin: 04/28/20 20:16 Dose: 40 mg Documented by: Ranolazine (Ranexa) 1,000 mg PO BID [facility] Last Admin: 04/28/20 20:16 Dose: 1,000 mg Documented by: Rivaroxaban (Xarelto) 20 mg PO DAILY [facility] Senna/Docusate Sodium (Senokot-S) 2 each PO [facility] Last Admin: 04/28/20 20:16 Dose: 2 each Documented by: Tamsulosin HCl (Flomax) 0.4 mg PO DAILY [facility] Last Admin: 04/28/20 10:24 Dose: 0.4 mg Documented by: Physical examination: VITAL SIGNS: 98, 70, 18, 133/64, 94% on room air GENERAL: Sitting up, comfortable EYES: Pupils equal. Conjunctiva normal. HEENT: External appearance of nose and ears normal, oral cavity grossly normal. NECK: JVD not raised; masses not palpable. HEART: First and second heart sounds are normal; no edema. LUNGS: Respiratory rate increased, decreased breath sounds. ABDOMEN: Soft, nontender, liver spleen not palpable, no masses palpable. PSYCH: Alert and oriented x3; mood and affect normal. MUSCULAR skeletal: Evidence of OA especially in the hands and knees , dressing over left hip INVESTIGATIONS, reviewed in the clinical context: White count 16.2 hemoglobin 8 Previous testing White count 14.4 hemoglobin 9.4 potassium 4.2 creatinine 0.63 UA positive for leukoesterase, obesity, squamous epithelial cells 1 EKG tracing showing paced rhythm Chest x-ray film personally reviewed by me-cardiomegaly, a bit underpenetrated Hip x-ray showing left femur ID fracture Assessment: -Left femur intertrochanteric fracture secondary to fall-closed reduction with IM rodding-not weightbearing -Acute UTI from cystitis-no growth -COPD in an ex-smoker -Persistent atrial flutter fibrillation -Diabetes mellitus type 2 -Hyperlipidemia -Essential hypertension -Primary osteoarthritis -Chronic urinary stress incontinence -Chronic gait dysfunction uses a walker -Permanent pacemaker Plan: Continue current medication to the plan. Patient Xarelto has been resumed. DC to rehab when okay with orthopedics. Keflex for 5 days. For the UTI
[2020-04-28] MEDS: CEPHALEXIN 250 MG CAP PO SCH (23:05)
[2020-04-29] MEDS: TAMSULOSIN 0.4 MG CAP.ER.24H PO SCH (08:42)
[2020-04-29] MEDS: RANOLAZINE 500 MG TAB.ER.12H PO SCH ×2 (08:42→20:09)
[2020-04-29] MEDS: RIVAROXABAN 20 MG TAB PO SCH (08:42)
[2020-04-29] MEDS: CEPHALEXIN 250 MG CAP PO SCH ×3 (08:42→20:09)
[2020-04-29] MEDS: METOPROLOL TARTRATE 50 MG TAB PO SCH ×2 (08:42→20:08)
[2020-04-29] MEDS: FLECAINIDE 50 MG TAB PO SCH ×2 (08:42→20:09)
[2020-04-29] MEDS: NON FORMULARY DRUG (Empagliflozin [Jardiance] 10 MG) PO SCH (08:43)
[2020-04-29] MEDS: IPRATROPIUM 0.5 MG/2.5 ML NEBU INHALATION SCH ×4 (09:14→19:08)
[2020-04-29] MEDS: FORMOTEROL FUMARATE 20 MCG/2 ML NEBU INHALATION SCH ×2 (09:14→19:08)
[2020-04-29 09:49] LABS: Anisocytosis Slight; Basophils % (A) 0 %; Eosinophils # (A) 0.1 k/uL (0-0.7); Eosinophils % (A) 1 %; HCT 20.5 % (34.0-46.0); Hypochromasia Marked; Lymphocytes # (A) 0.7 k/uL (1.0-4.8); Lymphocytes % (A) 8 %; MCH 24.1 pg (25.0-35.0); MCHC 29.9 g/dL (31.0-37.0); MCV 80.6 fL (80.0-100.0); Mean Platelet Volume 7.7; Microcytosis Slight; Monocytes # (A) 0.5 k/uL (0-1.0); Monocytes % (A) 5 %; Neutrophils # (A) 8.2 k/uL (1.3-7.7); Neutrophils % (A) 85 %; Platelet Count 244 k/uL (150-450); RBC 2.54 m/uL (3.80-5.40); RDW 18.2 % (11.5-15.5); WBC 9.7 k/uL (3.8-10.6)
[2020-04-29 10:01] LABS: HGB 6.1 gm/dL (11.4-16.0)
--- NOTE | 2020-04-29 10:39 | P.PN ---
Subjective Progress Note Date: 04/29/20 This patient is a 79- year old female that is status-post closed reduction and intramedullary rodding of the left hip on 04/27/[address] Sharma. She is examine bedside today. She states she is experiencing pain in the left hip, although it is currently well-controlled. She was up with physical therapy yesterday and is remaining non-weight bearing on the left lower extremity. She is tolerating her diet well. Her deleon catheter was removed bedside yesterday. She has not yet had a bowel movement post-operatively. She denies chest pain, shortness of breath, nausea, vomiting, fevers, chills, numbness or tingling of the left lower extremity. Vital signs stable. Objective - Vital Signs Vital signs: Vital Signs Temp 98.0 F 04/29/20 05:00 Pulse 64 04/29/20 09:33 Resp 18 04/29/20 05:00 BP 149/64 04/29/20 05:00 Pulse Ox 94 L 04/29/20 05:00 Intake & Output 04/28/20 04/29/20 04/29/20 18:59 06:59 18:59 Intake Total 1560 400 Output Total 1600 Balance -40 400 Intake: Intake, IV Titration 600 300 Amount Lactated Ringers 1,000 ml 300 @ 50 mls/hr IV .Q20H YIN Rx#:[id number] Sodium Chloride 0.9% 1, 300 300 000 ml @ 75 mls/hr IV . [id number] YIN Rx#:[id number] Oral 960 100 Output: Urine 1600 Other: Voiding Method Indwelling Catheter # Voids 0 - Exam On examination, the patient is sitting in bed in no apparent distress. She is alert and oriented 3. On inspection of the left hip, there are 2 clean, dry, intact Optifoam dressings in place, no active drainage. There is moderate pain on palpation of the hip. The thigh soft and compressible. Patient has good strength and range of motion of the left ankle. Motor and sensory function are intact of the left lower extremity. Dorsalis pedis pulse +2. The left lower extremity is warm and well-perfused with brisk capillary refill distally. The calf is soft and nontender to palpation. - Labs CBC & Chem 7: 04/29/20 09:33 04/26/20 20:35 Labs: Abnormal Lab Results - Last 24 Hours (Table) 04/27/20 04/29/20 Range/Units 16:35 09:33 RBC 2.54 L (3.80-5.40) m/uL Hgb 6.1 L* D (11.4-16.0) gm/dL Hct 20.5 L (34.0-46.0) % MCH 24.1 L (25.0-35.0) pg MCHC 29.9 L (31.0-37.0) g/dL RDW 18.2 H (11.5-15.5) % Neutrophils # 8.2 H (1.3-7.7) k/uL Lymphocytes # 0.7 L (1.0-4.8) k/uL Crossmatch See Detail Microbiology - Last 24 Hours (Table) 04/26/20 22:13 Blood Culture - Preliminary Blood No Growth after 48 hours Assessment and Plan Assessment: Left intertrochanteric hip fracture status-post closed reduction and intramedullary rodding of the left hip on 04/27/20. Post-operative day #2. Post-operative anemia Plan: - Strict nonweightbearing on the operative extremity. Up with assistance, up with walker. - Keep Optifoam dressings in place for 710 days. - Physical therapy for gait and balance training. - Pain management as needed. Resume Xarelto for DVT prophylaxis. - Hemoglobin 6.1 this morning. 1 unit of PRBCs ordered per internal medicine. - 2 doses of postoperative antibiotics complete. - Anticipate discharge tomorrow when within next 2448 hours pending medical clearance.
[2020-04-29] MEDS: HYDROcodone/APAP 5-325MG 1 EACH TAB PO PRN ×2 (11:24→20:18)
[2020-04-29] MEDS: FUROSEMIDE 40 MG TAB PO SCH (11:25)
[2020-04-29] MEDS: LACTATED RINGERS 1,000 ML IV SCH (11:25)
[2020-04-29] MEDS: POTASSIUM CHLORIDE ER 10 MEQ TAB.ER.PRT PO SCH (11:25)
--- NOTE | 2020-04-29 20:07 | P.PN ---
Progress Note - Text Progress Note Date: 04/29/20 Chief Complaint: Fall History of presenting complaint: This is a very pleasant [address] Yanely Rizo. Chronic stable medical conditions include atrial flutter fibrillation, COPD, diabetes, hypertension, hyperlipidemia, osteoarthritis, urinary incontinence, chronic low back pain. Uses a walker. Slowly to get off the same. cardiac catheterization at [place] [address] that showed nonobstructive disease.. Patient was in the bathroom in her legs gave way and she fell down. There is no dizziness or lightheadedness. No palpitation. At the baseline no chest pain or shortness of breath. Resulted in the left femur intertrochanteric fracture. On April 27 patient underwent closed reduction and IM rodding of the left hip by Dr. Sharma. Patient become hypotensive. Given fluid bolus. Today-this morning hemoglobin did drop to 6.1. Blood ordered. Diet. Starting a diet. Review of systems: Was done for constitutional, cardiovascular, GI, pulmonary. Musculoskeletal relevant finding as above Active Medications Hydrocodone Bitart/Acetaminophen ([place] 5-325) 2 each PO Q6HR PRN PRN Reason: Pain Scale 6 to 10 Hydrocodone Bitart/Acetaminophen ([place] 5-325) 1 each PO Q6HR PRN PRN Reason: Pain Scale 1 to 5 Last Admin: 04/29/20 11:24 Dose: 1 each Documented by: Albuterol Sulfate (Ventolin Nebulized) 2.5 mg INHALATION RT-QID PRN PRN Reason: Shortness Of Breath Last Admin: 04/27/20 12:01 Dose: 2.5 mg Documented by: Cephalexin (Keflex) 250 mg PO TID [facility] Last Admin: 04/29/20 15:15 Dose: 250 mg Documented by: Cyclobenzaprine HCl (Flexeril) 10 mg PO BID PRN PRN Reason: Muscle Spasm Flecainide Acetate (Tambocor) 100 mg PO BID [facility] Last Admin: 04/29/20 08:42 Dose: 100 mg Documented by: Formoterol Fumarate (Perforomist) 20 mcg INHALATION RT-BID [facility] Last Admin: 04/29/20 19:08 Dose: 20 mcg Documented by: Furosemide (Lasix) 40 mg PO DAILY [facility] Last Admin: 04/29/20 11:25 Dose: 40 mg Documented by: Hydromorphone HCl (Dilaudid) 0.5 mg IVP Q3H PRN PRN Reason: Pain Last Admin: 04/27/20 19:53 Dose: 0.25 mg Documented by: Lactated Ringer's (Lactated Ringers) 1,000 mls @ 50 mls/hr IV .Q20H [facility] Last Admin: 04/29/20 11:25 Dose: Not Given Documented by: Ipratropium [place] (Atrovent Nebulized) 0.5 mg INHALATION RT-QID [facility] Last Admin: 04/29/20 19:08 Dose: 0.5 mg Documented by: Metoprolol Tartrate (Lopressor) 50 mg PO BID [facility] Last Admin: 04/29/20 08:42 Dose: 50 mg Documented by: Naloxone HCl (Narcan) 0.2 mg IV Q2M PRN PRN Reason: Opioid Reversal Nitroglycerin (Nitrostat) 0.4 mg SUBLINGUAL Q5M PRN PRN Reason: Chest Pain Non-Formulary Medication (Empagliflozin [Jardiance]) 10 mg PO DAILY [facility] Last Admin: 04/29/20 08:43 Dose: Not Given Documented by: Ondansetron HCl (Zofran) 4 mg IVP Q8H PRN PRN Reason: Nausea Potassium Chloride (K-Dur 10) 10 meq PO DAILY [facility] Last Admin: 04/29/20 11:25 Dose: 10 meq Documented by: Pravastatin Sodium (Pravachol) 40 mg PO [facility] Last Admin: 04/28/20 20:16 Dose: 40 mg Documented by: Ranolazine (Ranexa) 1,000 mg PO BID [facility] Last Admin: 04/29/20 08:42 Dose: 1,000 mg Documented by: Rivaroxaban (Xarelto) 20 mg PO DAILY [facility] Last Admin: 04/29/20 08:42 Dose: 20 mg Documented by: Senna/Docusate Sodium (Senokot-S) 2 each PO [facility] Last Admin: 04/28/20 20:16 Dose: 2 each Documented by: Tamsulosin HCl (Flomax) 0.4 mg PO DAILY [facility] Last Admin: 04/29/20 08:42 Dose: 0.4 mg Documented by: Physical examination: VITAL SIGNS: 97.5, 58, 16, 128/68, 96% GENERAL: Sitting up, comfortable EYES: Pupils equal. Conjunctiva pale HEENT: External appearance of nose and ears normal, oral cavity grossly normal. NECK: JVD not raised; masses not palpable. HEART: First and second heart sounds are normal; no edema. LUNGS: Respiratory rate increased, decreased breath sounds. ABDOMEN: Soft, nontender, liver spleen not palpable, no masses palpable. PSYCH: Alert and oriented x3; mood and affect normal. MUSCULAR skeletal: Evidence of OA especially in the hands and knees , dressing over left hip INVESTIGATIONS, reviewed in the clinical context: White count 9.7 hemoglobin 6.1 Previous testing White count 14.4 hemoglobin 9.4 potassium 4.2 creatinine 0.63 UA positive for leukoesterase, obesity, squamous epithelial cells 1 EKG tracing showing paced rhythm Chest x-ray film personally reviewed by me-cardiomegaly, a bit underpenetrated Hip x-ray showing left femur ID fracture Assessment: -Left femur intertrochanteric fracture secondary to fall-closed reduction with IM rodding-not weightbearing -Acute UTI from cystitis-no growth -COPD in an ex-smoker -Persistent atrial flutter fibrillation -Diabetes mellitus type 2 -Hyperlipidemia -Essential hypertension -Primary osteoarthritis -Chronic urinary stress incontinence -Chronic gait dysfunction uses a walker -Permanent pacemaker -Acute postprocedure seizures blood loss anemia expected from surgery, symptomatic Plan: -1 unit of blood ordered this morning. Repeat CBC this evening. Other medications to continue. Discussed with the patient.
[2020-04-29] MEDS: SENNOSIDES-DOCUSATE SODIUM 1 EACH TAB PO SCH (20:08)
[2020-04-29] MEDS: PRAVASTATIN SODIUM 40 MG TAB PO SCH (20:09)
[2020-04-29 20:45] LABS: Anisocytosis Slight; Basophils % (A) 0 %; Eosinophils # (A) 0.2 k/uL (0-0.7); Eosinophils % (A) 2 %; HCT 25.5 % (34.0-46.0); Hypochromasia Marked; Lymphocytes # (A) 0.9 k/uL (1.0-4.8); Lymphocytes % (A) 9 %; MCH 25.2 pg (25.0-35.0); MCHC 30.2 g/dL (31.0-37.0); MCV 83.5 fL (80.0-100.0); Mean Platelet Volume 7.4; Monocytes # (A) 0.6 k/uL (0-1.0); Monocytes % (A) 5 %; Neutrophils # (A) 8.9 k/uL (1.3-7.7); Neutrophils % (A) 83 %; Platelet Count 241 k/uL (150-450); Poikilocytosis Slight; RBC 3.05 m/uL (3.80-5.40); RDW 17.9 % (11.5-15.5); WBC 10.8 k/uL (3.8-10.6)
[2020-04-29 20:47] LABS: HGB 7.7 gm/dL (11.4-16.0)
[2020-04-30] MEDS: FORMOTEROL FUMARATE 20 MCG/2 ML NEBU INHALATION SCH (07:48)
[2020-04-30] MEDS: IPRATROPIUM 0.5 MG/2.5 ML NEBU INHALATION SCH ×2 (07:48→11:06)
[2020-04-30 08:49] VITALS: RESP 18
[2020-04-30] MEDS: HYDROcodone/APAP 5-325MG 1 EACH TAB PO PRN (09:02)
--- NOTE | 2020-04-30 09:08 | P.PN ---
Subjective Progress Note Date: 04/30/20 This is a 79-year-old female who is status post closed reduction and intramedullary rodding of the left hip. This is postoperative day #3 and patient is seen and evaluated at bedside. Patient states that she is doing well and has been working with physical therapy. Patient denies any new complaints today. Objective - Vital Signs Vital signs: Vital Signs Temp 97.5 F L 04/30/20 08:48 Pulse 63 04/30/20 08:48 Resp 18 04/30/20 08:48 BP 125/52 04/30/20 08:48 Pulse Ox 96 04/30/20 08:48 Intake & Output 04/29/20 04/30/20 04/30/20 18:59 06:59 18:59 Intake Total 1654 250 Output Total 1600 Balance 54 250 Intake: Intake, IV Titration 24 Amount Sodium Chloride 0.9% 1, 24 000 ml @ 75 mls/hr IV . [id number] YIN Rx#:[id number] Oral 1320 250 Blood Product 310 Rc As-1 Unit 310 [id number] Output: Urine 1600 Other: Voiding Method Bedpan Bedpan Bedpan # Voids 0 2 # Bowel Movements 0 - Exam On exam patient is sitting up comfortably in bed in no acute distress. Dressings are clean, dry and intact. There is mild swelling of the left lower extremity. Calf is soft and nontender to palpation. Sensation intact. Neurovascular status and circulatory status are intact. - Labs CBC & Chem 7: 04/29/20 20:18 04/26/20 20:35 Labs: Abnormal Lab Results - Last 24 Hours (Table) 04/27/20 04/29/20 04/29/20 Range/Units 16:35 09:33 20:18 WBC 10.8 H (3.8-10.6) k/uL RBC 2.54 L 3.05 L (3.80-5.40) m/uL Hgb 6.1 L* D 7.7 L D (11.4-16.0) gm/dL Hct 20.5 L 25.5 L (34.0-46.0) % MCH 24.1 L (25.0-35.0) pg MCHC 29.9 L 30.2 L (31.0-37.0) g/dL RDW 18.2 H 17.9 H (11.5-15.5) % Neutrophils # 8.2 H 8.9 H (1.3-7.7) k/uL Lymphocytes # 0.7 L 0.9 L (1.0-4.8) k/uL Crossmatch See Detail Microbiology - Last 24 Hours (Table) 04/26/20 22:13 Blood Culture - Preliminary Blood No Growth after 72 hours Assessment and Plan Assessment: Status post closed reduction and intramedullary rodding left hip. (1) Fall Current Visit: Yes Status: Acute Code(s): W19.XXXA - UNSPECIFIED FALL, INITIAL ENCOUNTER SNOMED Code(s): 1935200 (2) Hip fracture Current Visit: Yes Status: Acute Code(s): S72.009A - FRACTURE OF UNSP PART OF NECK OF UNSP FEMUR, INIT SNOMED Code(s): 413686428 Plan: #1. Continue routine postoperative care and pain control. #2. Nonweightbearing to the left lower extremity. #3. Dressings to stay intact for 10 days. #4. Continue Xarelto for DVT prophylaxis per medicine. #5. Appreciate input from medicine. Hgb has improved to 7.7. #6. Will continue to follow the patient closely.
[2020-04-30] MEDS: POTASSIUM CHLORIDE ER 10 MEQ TAB.ER.PRT PO SCH (09:14)
[2020-04-30] MEDS: CEPHALEXIN 250 MG CAP PO SCH (09:14)
[2020-04-30] MEDS: RANOLAZINE 500 MG TAB.ER.12H PO SCH (09:14)
[2020-04-30] MEDS: RIVAROXABAN 20 MG TAB PO SCH (09:14)
[2020-04-30] MEDS: TAMSULOSIN 0.4 MG CAP.ER.24H PO SCH (09:15)
[2020-04-30] MEDS: FUROSEMIDE 40 MG TAB PO SCH (09:15)
[2020-04-30] MEDS: FLECAINIDE 50 MG TAB PO SCH (09:15)
[2020-04-30] MEDS: METOPROLOL TARTRATE 50 MG TAB PO SCH (09:15)
[2020-04-30] MEDS: NON FORMULARY DRUG (Empagliflozin [Jardiance] 10 MG) PO SCH (09:23)
[2020-04-30] MEDS: LACTATED RINGERS 1,000 ML IV SCH (11:55)
[2020-04-30 13:41] VITALS: BP 127/79; PULSE 56; TEMP 97.7
--- NOTE | 2020-04-30 13:48 | P.DS ---
Providers Date of admission: 04/26/20 22:27 Expected date of discharge: 04/30/20 Attending physician: Jefferson Lees Consults: 04/26/20 22:11 Consult Physician Routine Consulting Provider: Kimo Mills Consult Reason/Comments: acute comminuted intertrochanteric fracture of the left femur Do you want consulting provider notified?: Yes 04/27/20 10:57 Consult Physician Routine Consulting Provider: Jerzy Weber Consult Reason/Comments: cad Do you want consulting provider notified?: Yes Primary care physician: Darrel Rizo [facility] Course: Chief Complaint: Fall History of presenting complaint: This is a very pleasant [address] Yanely Rizo. Chronic stable medical conditions include atrial flutter fibrillation-on Xarelto, COPD, diabetes, hypertension, hyperlipidemia, osteoarthritis, urinary incontinence, chronic low back pain. Uses a walker.. cardiac catheterization at [facility] 2018 that showed nonobstructive disease.. Patient was in the bathroom in her legs gave way and she fell down. There is no dizziness or lightheadedness. No palpitation. At the baseline no chest pain or shortness of breath. Resulted in the left femur intertrochanteric fracture. On April 27 patient underwent closed reduction and IM rodding of the left hip by Dr. Sharma. Patient become hypotensive. Given fluid bolus. Hemoglobin did drop to 6.1. Given a unit of blood. Today-doing well. Sitting up in a chair. Did work with therapy. Some pain of the operative site. Targeting a diet. Hemoglobin 7.7. Care discussed with the patient. Questions answered. Discussion and discharge planning more than 35 minutes Consultation: Dr. Sharma from orthopedics Dr. Anderson Coronado from cardiology Physical examination: VITAL SIGNS: 97.7, 56, 18, 120 70 79, 96% room air GENERAL: Sitting up in a chair, comfortable EYES: Pupils equal. Conjunctiva pale HEENT: External appearance of nose and ears normal, oral cavity grossly normal. NECK: JVD not raised; masses not palpable. HEART: First and second heart sounds are normal; no edema. LUNGS: Respiratory rate increased, decreased breath sounds. ABDOMEN: Soft, nontender, liver spleen not palpable, no masses palpable. PSYCH: Alert and oriented x3; mood and affect normal. MUSCULAR skeletal: Evidence of OA especially in the hands and knees , dressing over left hip INVESTIGATIONS, reviewed in the clinical context: White count 10.8 hemoglobin 7.7 platelets 241 Previous testing White count 14.4 hemoglobin 9.4 potassium 4.2 creatinine 0.63 UA positive for leukoesterase, obesity, squamous epithelial cells 1 EKG tracing showing paced rhythm Chest x-ray film personally reviewed by me-cardiomegaly, a bit underpenetrated Hip x-ray showing left femur ID fracture COVID 19 PCR-not detected Assessment: -Left femur intertrochanteric fracture secondary to fall-closed reduction with IM rodding-not weightbearing -Acute UTI from cystitis-no growth-complete antibiotic -COPD in an ex-smoker -Persistent atrial flutter fibrillation -Diabetes mellitus type 2 -Hyperlipidemia -Essential hypertension -Primary osteoarthritis -Chronic urinary stress incontinence -Chronic gait dysfunction uses a walker -Permanent pacemaker -Acute postprocedure blood loss anemia expected from surgery, symptomatic Disposition: [facility]/[place] Patient Condition at Discharge: Stable Plan - Discharge Summary New Discharge Prescriptions: New Sennosides-Docusate Sodium [Senokot-S] 2 each PO HS tab Cephalexin [Keflex] 250 mg PO TID #9 cap Continue Rivaroxaban [Xarelto] 20 mg PO DAILY Empagliflozin [Jardiance] 10 mg PO DAILY Ergocalciferol [Vitamin D2 (DRISDOL)] 50,000 unit PO Q14D Pravastatin Sodium [Pravachol] 40 mg PO HS Flecainide Acetate 100 mg PO BID Furosemide [Lasix] 40 mg PO DAILY Potassium Chloride [Klor-Con 8] 8 meq PO DAILY Ranolazine [Ranexa] 1,000 mg PO BID Tamsulosin [Flomax] 0.4 mg PO DAILY Nitroglycerin Sl Tabs [Nitrostat] 0.4 mg SL Q5M PRN PRN Reason: Chest Pain Metoprolol Tartrate [Lopressor] 50 mg PO BID Cyanocobalamin [Vitamin B-12 Injection] 1,000 mcg SQ Q30D Tiotropium Br/Olodaterol HCl [Stiolto Respimat Inhal [place]] 2 puff INHALATION RT-DAILY Albuterol Nebulized [Ventolin Nebulized] 2.5 mg INHALATION RT-QID PRN PRN Reason: Shortness Of Breath Cyclobenzaprine [Flexeril] 10 mg PO BID PRN #21 tab PRN Reason: Muscle Spasm oxyCODONE-APAP 7.5-325MG [Percocet 7.5-325 mg] 1 tab PO Q8H PRN #12 tab PRN Reason: Pain Discontinued Docusate [Colace] 100 mg PO BID PRN PRN Reason: Constipation Discharge Medication List Empagliflozin [Jardiance] 10 mg PO DAILY 02/06/17 [History] Rivaroxaban [Xarelto] 20 mg PO DAILY 02/06/17 [History] Ergocalciferol [Vitamin D2 (DRISDOL)] 50,000 unit PO Q14D 07/05/17 [History] Pravastatin Sodium [Pravachol] 40 mg PO HS 04/30/18 [History] Flecainide Acetate 100 mg PO BID 08/12/19 [History] Furosemide [Lasix] 40 mg PO DAILY 08/12/19 [History] Potassium Chloride [Klor-Con 8] 8 meq PO DAILY 08/12/19 [History] Ranolazine [Ranexa] 1,000 mg PO BID 08/12/19 [History] Tamsulosin [Flomax] 0.4 mg PO DAILY 08/12/19 [History] Albuterol Nebulized [Ventolin Nebulized] 2.5 mg INHALATION RT-QID PRN 03/29/20 [History] Cyanocobalamin [Vitamin B-12 Injection] 1,000 mcg SQ Q30D 03/29/20 [History] Metoprolol Tartrate [Lopressor] 50 mg PO BID 03/29/20 [History] Nitroglycerin Sl Tabs [Nitrostat] 0.4 mg SL Q5M PRN 03/29/20 [History] Tiotropium Br/Olodaterol HCl [Stiolto Respimat Inhal [place]] 2 puff INHALATION RT-DAILY 03/29/20 [History] Cyclobenzaprine [Flexeril] 10 mg PO BID PRN #21 tab 04/09/20 [Rx] Cephalexin [Keflex] 250 mg PO TID #9 cap 04/30/20 [Rx] Sennosides-Docusate Sodium [Senokot-S] 2 each PO HS tab 04/30/20 [Rx] oxyCODONE-APAP 7.5-325MG [Percocet 7.5-325 mg] 1 tab PO Q8H PRN #12 tab 04/30/20 [Rx] Follow up Appointment(s)/Referral(s): Jerzy Weber MD [STAFF PHYSICIAN] - As Needed Inder Roldan DO [STAFF PHYSICIAN] - 1-2 Days Darrel Rizo DO [Primary Care Provider] - As Needed (please call office to set up appt. ) Sammy Sharma DO [Doctor of Osteopathic Medicine] - 05/10/20 3:45 pm Activity/Diet/Wound Care/Special Instructions: Nonweightbearing to the left lower extremity with walker. Leave dressing intact. Dressing may be removed by nurse in 10 days. May shower with dressing on. Xarelto for DVT prophylaxis. Follow-up with [facility] in 2 weeks, please call with any questions or concerns [phone]
[2020-04-30] MEDS ORDERED: SUCCINYLCHOLINE CHLORIDE 100 MG/5 ML SYR IV ONE (17:50)
[2020-04-30] MEDS ORDERED: METOPROLOL TARTRATE 5 MG/5 ML VIAL IVP ONE (17:50)
[2020-04-30] MEDS ORDERED: ONDANSETRON 4 MG/2 ML VIAL ONE (17:50)
[2020-04-30] MEDS ORDERED: PROPOFOL 10 MG/ML 20 ML VIAL IV ONE (17:50)
[2020-04-30] MEDS ORDERED: fentaNYL (PF) 50 MCG/ML 2 ML AMP ONE (17:50)
[2020-04-30] MEDS ORDERED: LIDOCAINE 1% INJ 10MG/ML (20 ML MDV) ONE (17:50)
[2020-04-30] MEDS ORDERED: HYDROmorphone (PF) 1 MG/ML ONE (17:50)
== END 2020-04-30 14:58 | DRG 481 ==
LOC: EC 20:08 → 5NMEDONC 22:27
PROVIDERS: ADMIT Hospitalist; ATTEND Hospitalist
PROC: 30233N1 Transfusion of Nonautologous Red Blood Cells into Peripheral Vein, Percutaneous Approach (ICD-10-PCS; 2020-04-27)
PROC: 0QS736Z Reposition Left Upper Femur with Intramedullary Internal Fixation Device, Percutaneous Approach (ICD-10-PCS; principal; 2020-04-27 17:55)
DX: S72.142A Displaced intertrochanteric fracture of left femur, initial encounter for closed fracture (principal); D62 Acute posthemorrhagic anemia; I48.92 Unspecified atrial flutter; W01.0XXA Fall on same level from slipping, tripping and stumbling without subsequent striking against object, initial encounter; Y93.01 Activity, walking, marching and hiking; E78.5 Hyperlipidemia, unspecified; I25.10 Atherosclerotic heart disease of native coronary artery without angina pectoris; J44.9 Chronic obstructive pulmonary disease, unspecified; R26.9 Unspecified abnormalities of gait and mobility; N39.3 Stress incontinence (female) (male); R56.9 Unspecified convulsions; N30.90 Cystitis, unspecified without hematuria; I10 Essential (primary) hypertension; I27.20 Pulmonary hypertension, unspecified; Z96.651 Presence of right artificial knee joint; G89.29 Other chronic pain; Z11.59 Encounter for screening for other viral diseases; I48.91 Unspecified atrial fibrillation; E11.9 Type 2 diabetes mellitus without complications; M19.91 Primary osteoarthritis, unspecified site; Z87.891 Personal history of nicotine dependence; Z90.710 Acquired absence of both cervix and uterus; Z82.5 Family history of asthma and other chronic lower respiratory diseases; Z87.01 Personal history of pneumonia (recurrent); Z87.440 Personal history of urinary (tract) infections; Y92.002 Bathroom of unspecified non-institutional (private) residence as the place of occurrence of the external cause; Y92.009 Unspecified place in unspecified non-institutional (private) residence as the place of occurrence of the external cause; Z82.49 Family history of ischemic heart disease and other diseases of the circulatory system; Z79.84 Long term (current) use of oral hypoglycemic drugs; Z79.01 Long term (current) use of anticoagulants; Z79.899 Other long term (current) drug therapy; Z91.09 Other allergy status, other than to drugs and biological substances; Z90.49 Acquired absence of other specified parts of digestive tract; Z98.890 Other specified postprocedural states; Z98.51 Tubal ligation status; Z98.42 Cataract extraction status, left eye; Z98.41 Cataract extraction status, right eye; Z80.3 Family history of malignant neoplasm of breast; Z80.41 Family history of malignant neoplasm of ovary; Z83.6 Family history of other diseases of the respiratory system; Z98.1 Arthrodesis status
CPT/HCPCS: 36415; 70450; 71045; 72125; 73502; 76000; 80053; 81001; 85025; 86850; 86900; 86901; 86920; 87040; 87086; 87635; 93005; 94640; 94760; 96361; 96374; 96375; 99285

== ENCOUNTER 2020-07-08 23:44 | Observation (INO) | payer MEDICARE ==
[2020-07-08] MEDS ORDERED: IPRATROPIUM-ALBUTEROL 3 ML NEB INHALATION STA (23:51)
--- NOTE | 2020-07-08 23:58 | ED ---
SOB HPI - General Chief Complaint: Shortness of Breath Stated Complaint: SOB, weakness Time Seen by Provider: 07/08/20 23:50 Source: patient, family, RN notes reviewed, old records reviewed Mode of arrival: wheelchair Limitations: no limitations - History of Present Illness Initial Comments: This is a 80-year-old female to the ER for evaluation patient Dese for evaluation regards to shortness of breath weakness, patient afraid to walk at home. Patient has multiple recent hospital recently for multiple issues, surgeries admission for pneumonia. Patient hasn't feeling increasingly weak at home for the last couple days but worse today, patient was afraid to get out of bed secondary to the possibility of falling. MD Complaint: shortness of breath, cough -: days(s) Severity: moderate Severity scale (1-10): 4 Quality: throbbing Consistency: constant Improves With: nothing Worsens With: nothing Known History Of: COPD, asthma, congestive heart failure Context: recent URI Associated Symptoms: denies other symptoms Treatments Prior to Arrival: none - Related Data Home Medications Medication Instructions Recorded Confirmed Empagliflozin [Jardiance] 10 mg PO DAILY 02/06/17 04/26/20 Rivaroxaban [Xarelto] 20 mg PO DAILY 02/06/17 04/26/20 Ergocalciferol [Vitamin D2 50,000 unit PO Q14D 07/05/17 04/26/20 (DRISDOL)] Pravastatin Sodium [Pravachol] 40 mg PO HS 04/30/18 04/26/20 Flecainide Acetate 100 mg PO BID 08/12/19 04/26/20 Furosemide [Lasix] 40 mg PO DAILY 08/12/19 04/26/20 Potassium Chloride [Klor-Con 8] 8 meq PO DAILY 08/12/19 04/26/20 Ranolazine [Ranexa] 1,000 mg PO BID 08/12/19 04/26/20 Tamsulosin [Flomax] 0.4 mg PO DAILY 08/12/19 04/26/20 Albuterol Nebulized [Ventolin 2.5 mg INHALATION RT-QID PRN 03/29/20 04/26/20 Nebulized] Cyanocobalamin [Vitamin B-12 1,000 mcg SQ Q30D 03/29/20 04/26/20 Injection] Metoprolol Tartrate [Lopressor] 50 mg PO BID 03/29/20 04/26/20 Nitroglycerin Sl Tabs [Nitrostat] 0.4 mg SL Q5M PRN 03/29/20 04/26/20 Tiotropium Br/Olodaterol HCl 2 puff INHALATION RT-DAILY 03/29/20 04/26/20 [Stiolto Respimat Inhal [place]] Previous Rx's Medication Instructions Recorded Cyclobenzaprine [Flexeril] 10 mg PO BID PRN #21 tab 04/09/20 Cephalexin [Keflex] 250 mg PO TID #9 cap 04/30/20 Sennosides-Docusate Sodium 2 each PO HS tab 04/30/20 [Senokot-S] oxyCODONE-APAP 7.5-325MG [Percocet 1 tab PO Q8H PRN #12 tab 04/30/20 7.5-325 mg] Allergies Allergy/AdvReac Type Severity Reaction Status Date / Time nickel Allergy Rash/Hives Verified 07/08/20 23:49 Review of Systems ROS Statement: Those systems with pertinent positive or pertinent negative responses have been documented in the HPI. ROS Other: All systems not noted in ROS Statement are negative. Past Medical History Past Medical History: Atrial Fibrillation, Atrial Flutter, Blood Disorder, Chest Pain / Angina, COPD, Diabetes Mellitus, Hyperlipidemia, Hypertension, Musculoskeletal Disorder, Osteoarthritis (OA), Pneumonia Additional Past Medical History / Comment(s): Home oxygen prn, bronchitis, NIDDM type II, neurpathy L foot, chronic low back pain which pt states has been better since surgery but states she now has difficutly bending-loses balance, past thoracic vertebral fracture with surgery, past L sided sciatica/difficulty lifting L leg- improved by physical therapy, anemia with B12 injections, UTIs, cystitis, occasional R foot edema-uses lasix for this reason. History of Any Multi-Drug Resistant Organisms: None Reported Past Surgical History: Back Surgery, Breast Surgery, Cardiac Ablation, Cholecystectomy, Hysterectomy, Joint Replacement, Orthopedic Surgery, Pacemaker, Tubal Ligation Additional Past Surgical History / Comment(s): Cervical fusion, kyphoplasty/vertebral biopsy T6, R leg fracture with plate, total R knee, L3/L4/L5 surgery in 2019, cystocele, BMA, bilateral cataract removals, R breast biopsy, Past Anesthesia/Blood Transfusion Reactions: No Reported Reaction Additional Past Anesthesia/Blood Transfusion Reaction / Comment(s): Anesthesia "makes my hair fall out". Type of Cardiac Device: Permanent Pacemaker Device Placement Date:: 04/09 Past Psychological History: No Psychological Hx Reported Smoking Status: Never smoker Past Drug Use History: None Reported - Past Family History Brother(s) Family Medical History: Cancer, Deep Vein Thrombosis (DVT), Myocardial Infarction ([place]) Additional Family Medical History / Comment(s): colon and prostate ca Sister(s) Family Medical History: Cancer Additional Family Medical History / Comment(s): breast and ovarian Mother Family Medical History: COPD Father History Unknown: Yes Additional Family Medical History / Comment(s): Father in a MVA General Exam Limitations: no limitations General appearance: alert, in no apparent distress Head exam: Present: atraumatic, normocephalic, normal inspection Eye exam: Present: normal appearance, PERRL, EOMI. Absent: scleral icterus, conjunctival injection, periorbital swelling ENT exam: Present: normal exam, mucous membranes moist Neck exam: Present: normal inspection. Absent: tenderness, meningismus, lymphadenopathy Respiratory exam: Present: normal lung sounds bilaterally, wheezes, decreased breath sounds, prolonged expiratory. Absent: respiratory distress, rales, rhonchi, stridor Cardiovascular Exam: Present: regular rate, normal rhythm, normal heart sounds. Absent: systolic murmur, diastolic murmur, rubs, gallop, clicks GI/Abdominal exam: Present: soft, normal bowel sounds. Absent: distended, tenderness, guarding, rebound, rigid Extremities exam: Present: normal inspection, full ROM, normal capillary refill. Absent: tenderness, pedal edema, joint swelling, calf tenderness Back exam: Present: normal inspection Neurological exam: Present: alert, oriented X3, CN II-XII intact Psychiatric exam: Present: normal affect, normal mood Skin exam: Present: warm, dry, intact, normal color. Absent: rash Course Vital Signs 07/08/20 07/09/20 07/09/20 23:47 00:12 00:25 Temperature 98.9 F Pulse Rate 90 58 L 60 Respiratory 22 Rate Blood Pressure 151/90 O2 Sat by Pulse 97 Oximetry 07/09/20 01:56 Temperature Pulse Rate 70 Respiratory 18 Rate Blood Pressure 151/70 O2 Sat by Pulse 98 Oximetry - Reevaluation(s) Reevaluation #1: 07/09/20 01:48 Medical record is reviewed Reevaluation #2: 07/09/20 01:48 Patient has improved respiratory status here in the emergency room after prolonged breathing treatment Medical Decision Making - Lab Data Result diagrams: 07/09/20 00:29 07/09/20 00:29 Lab Results 07/09/20 07/09/20 07/09/20 Range/Units 00:29 00:29 00:29 WBC 8.6 (3.8-10.6) k/uL RBC 3.72 L (3.80-5.40) m/uL Hgb 9.7 L (11.4-16.0) gm/dL Hct 30.8 L (34.0-46.0) % MCV 82.6 (80.0-100.0) fL MCH 26.1 (25.0-35.0) pg MCHC 31.5 (31.0-37.0) g/dL RDW 16.1 H (11.5-15.5) % Plt Count 224 (150-450) k/uL Neutrophils % 76 % Lymphocytes % 15 % Monocytes % 6 % Eosinophils % 1 % Basophils % 0 % Neutrophils # 6.6 (1.3-7.7) k/uL Lymphocytes # 1.3 (1.0-4.8) k/uL Monocytes # 0.6 (0-1.0) k/uL Eosinophils # 0.1 (0-0.7) k/uL Basophils # 0.0 (0-0.2) k/uL Hypochromasia Moderate Anisocytosis Slight PT 12.8 H (9.0-12.0) sec INR 1.3 H (<1.2) APTT 32.3 H (22.0-30.0) sec Sodium (137-145) mmol/L Potassium (3.5-5.1) mmol/L Chloride (98-107) mmol/L Carbon Dioxide (22-30) mmol/L Anion Gap mmol/L BUN (7-17) mg/dL Creatinine (0.52-1.04) mg/dL Est GFR (CKD-EPI)AfAm (>60 ml/min/1.73 sqM) Est GFR (CKD-EPI)NonAf (>60 ml/min/1.73 sqM) Glucose (74-99) mg/dL Plasma Lactic Acid Gurpreet (0.7-2.0) mmol/L Calcium (8.4-10.2) mg/dL Phosphorus (2.5-4.5) mg/dL Magnesium (1.6-2.3) mg/dL Total Bilirubin (0.2-1.3) mg/dL AST (14-36) U/L ALT (4-34) U/L Alkaline Phosphatase (38-126) U/L Creatine Kinase (30-135) U/L Troponin I (0.000-0.034) ng/mL NT-Pro-B Natriuret Pep pg/mL Total Protein (6.3-8.2) g/dL Albumin (3.5-5.0) g/dL Urine Color Yellow Urine Appearance Cloudy H (Clear) Urine pH 6.0 (5.0-8.0) Ur Specific [place] 1.022 (1.001-1.035) Urine Protein Trace H (Negative) Urine Glucose (UA) Negative (Negative) Urine Ketones Negative (Negative) Urine Blood Negative (Negative) Urine Nitrite Positive H (Negative) Urine Bilirubin Negative (Negative) Urine Urobilinogen <2.0 (<2.0) mg/dL Ur Leukocyte Esterase Large H (Negative) Urine RBC 2 (0-5) /hpf Urine WBC 97 H (0-5) /hpf Urine WBC Clumps Moderate H (None) /hpf Ur Squamous Epith Cells 2 (0-4) /hpf Urine Bacteria Many H (None) /hpf Hyaline Casts 10 H (0-2) /lpf Urine Mucus Occasional H (None) /hpf 07/09/20 07/09/20 07/09/20 Range/Units 00:29 00:29 00:29 WBC (3.8-10.6) k/uL RBC (3.80-5.40) m/uL Hgb (11.4-16.0) gm/dL Hct (34.0-46.0) % MCV (80.0-100.0) fL MCH (25.0-35.0) pg MCHC (31.0-37.0) g/dL RDW (11.5-15.5) % Plt Count (150-450) k/uL Neutrophils % % Lymphocytes % % Monocytes % % Eosinophils % % Basophils % % Neutrophils # (1.3-7.7) k/uL Lymphocytes # (1.0-4.8) k/uL Monocytes # (0-1.0) k/uL Eosinophils # (0-0.7) k/uL Basophils # (0-0.2) k/uL Hypochromasia Anisocytosis PT (9.0-12.0) sec INR (<1.2) APTT (22.0-30.0) sec Sodium 137 (137-145) mmol/L Potassium 4.3 (3.5-5.1) mmol/L Chloride 101 (98-107) mmol/L Carbon Dioxide 30 (22-30) mmol/L Anion Gap 6 mmol/L BUN 19 H (7-17) mg/dL Creatinine 0.74 (0.52-1.04) mg/dL Est GFR (CKD-EPI)AfAm 90 (>60 ml/min/1.73 sqM) Est GFR (CKD-EPI)NonAf 78 (>60 ml/min/1.73 sqM) Glucose 141 H (74-99) mg/dL Plasma Lactic Acid Gurpreet 1.3 (0.7-2.0) mmol/L Calcium 9.1 (8.4-10.2) mg/dL Phosphorus 3.8 (2.5-4.5) mg/dL Magnesium 1.8 (1.6-2.3) mg/dL Total Bilirubin 0.4 (0.2-1.3) mg/dL AST 20 (14-36) U/L ALT 11 (4-34) U/L Alkaline Phosphatase 101 (38-126) U/L Creatine Kinase 25 L (30-135) U/L Troponin I <0.012 (0.000-0.034) ng/mL NT-Pro-B Natriuret Pep pg/mL Total Protein 6.8 (6.3-8.2) g/dL Albumin 4.0 (3.5-5.0) g/dL Urine Color Urine Appearance (Clear) Urine pH (5.0-8.0) Ur Specific [place] (1.001-1.035) Urine Protein (Negative) Urine Glucose (UA) (Negative) Urine Ketones (Negative) Urine Blood (Negative) Urine Nitrite (Negative) Urine Bilirubin (Negative) Urine Urobilinogen (<2.0) mg/dL Ur Leukocyte Esterase (Negative) Urine RBC (0-5) /hpf Urine WBC (0-5) /hpf Urine WBC Clumps (None) /hpf Ur Squamous Epith Cells (0-4) /hpf Urine Bacteria (None) /hpf Hyaline Casts (0-2) /lpf Urine Mucus (None) /hpf 07/09/20 Range/Units 00:29 WBC (3.8-10.6) k/uL RBC (3.80-5.40) m/uL Hgb (11.4-16.0) gm/dL Hct (34.0-46.0) % MCV (80.0-100.0) fL MCH (25.0-35.0) pg MCHC (31.0-37.0) g/dL RDW (11.5-15.5) % Plt Count (150-450) k/uL Neutrophils % % Lymphocytes % % Monocytes % % Eosinophils % % Basophils % % Neutrophils # (1.3-7.7) k/uL Lymphocytes # (1.0-4.8) k/uL Monocytes # (0-1.0) k/uL Eosinophils # (0-0.7) k/uL Basophils # (0-0.2) k/uL Hypochromasia Anisocytosis PT (9.0-12.0) sec INR (<1.2) APTT (22.0-30.0) sec Sodium (137-145) mmol/L Potassium (3.5-5.1) mmol/L Chloride (98-107) mmol/L Carbon Dioxide (22-30) mmol/L Anion Gap mmol/L BUN (7-17) mg/dL Creatinine (0.52-1.04) mg/dL Est GFR (CKD-EPI)AfAm (>60 ml/min/1.73 sqM) Est GFR (CKD-EPI)NonAf (>60 ml/min/1.73 sqM) Glucose (74-99) mg/dL Plasma Lactic Acid Gurpreet (0.7-2.0) mmol/L Calcium (8.4-10.2) mg/dL Phosphorus (2.5-4.5) mg/dL Magnesium (1.6-2.3) mg/dL Total Bilirubin (0.2-1.3) mg/dL AST (14-36) U/L ALT (4-34) U/L Alkaline Phosphatase (38-126) U/L Creatine Kinase (30-135) U/L Troponin I (0.000-0.034) ng/mL NT-Pro-B Natriuret Pep 339 pg/mL Total Protein (6.3-8.2) g/dL Albumin (3.5-5.0) g/dL Urine Color Urine Appearance (Clear) Urine pH (5.0-8.0) Ur Specific [place] (1.001-1.035) Urine Protein (Negative) Urine Glucose (UA) (Negative) Urine Ketones (Negative) Urine Blood (Negative) Urine Nitrite (Negative) Urine Bilirubin (Negative) Urine Urobilinogen (<2.0) mg/dL Ur Leukocyte Esterase (Negative) Urine RBC (0-5) /hpf Urine WBC (0-5) /hpf Urine WBC Clumps (None) /hpf Ur Squamous Epith Cells (0-4) /hpf Urine Bacteria (None) /hpf Hyaline Casts (0-2) /lpf Urine Mucus (None) /hpf - EKG Data -: EKG Interpreted by Me (EKG is paced of 60, pO2 82 QRS 124 QTC 489) Disposition Clinical Impression: Intractable back pain, Weakness, Acute exacerbation of chronic obstructive pulmonary disease, UTI (urinary tract infection) Disposition: ADMITTED IP TO THIS HOSP Condition: Fair Is patient prescribed a controlled substance at d/c from ED?: No
[2020-07-09 00:47] LABS: Anisocytosis Slight; Basophils % (A) 0 %; Eosinophils # (A) 0.1 k/uL (0-0.7); Eosinophils % (A) 1 %; HCT 30.8 % (34.0-46.0); HGB 9.7 gm/dL (11.4-16.0); Hypochromasia Moderate; Lymphocytes # (A) 1.3 k/uL (1.0-4.8); Lymphocytes % (A) 15 %; MCH 26.1 pg (25.0-35.0); MCHC 31.5 g/dL (31.0-37.0); MCV 82.6 fL (80.0-100.0); Monocytes # (A) 0.6 k/uL (0-1.0); Monocytes % (A) 6 %; Neutrophils # (A) 6.6 k/uL (1.3-7.7); Neutrophils % (A) 76 %; Platelet Count 224 k/uL (150-450); RBC 3.72 m/uL (3.80-5.40); RDW 16.1 % (11.5-15.5); WBC 8.6 k/uL (3.8-10.6)
--- NOTE | 2020-07-09 00:53 | XR ---
EXAM: XR Chest, 2 Views CLINICAL HISTORY: ITS.REASON XR Reason: Weakness TECHNIQUE: Frontal and lateral views of the chest. COMPARISON: 04/26/2020. FINDINGS: Lungs: Minimal subsegmental atelectasis at the left lung base. Pleural space: Unremarkable. No pneumothorax. Heart: Cardiomegaly. Mediastinum: Unremarkable. Bones/joints: Osteopenia. Post vertebroplasty changes midthoracic spine, similar to that noted on the previous study. Tubes, lines and devices: Pacemaker overlies left midlung. Upper abdomen: Elevation of the right hemidiaphragm. Other findings: Mild hypoaeration. IMPRESSION: 1. Mild cardiomegaly. 2. Hypoaeration. 3. Elevation of the right hemidiaphragm.
[2020-07-09 01:02] LABS: Calcium 9.1 mg/dL (8.4-10.2); INR 1.3 (<1.2); Magnesium 1.8 mg/dL (1.6-2.3); Partial Thromboplastin Time 32.3 sec (22.0-30.0); Phosphorus 3.8 mg/dL (2.5-4.5); Potassium 4.3 mmol/L (3.5-5.1); Prothrombin Time 12.8 sec (9.0-12.0); Total Bilirubin 0.4 mg/dL (0.2-1.3); Total Protein 6.8 g/dL (6.3-8.2)
[2020-07-09] MEDS ORDERED: methylPREDNISolone SOD SUCCI 125 MG/2 ML VIAL IV STA (01:25)
[2020-07-09] MEDS: SODIUM CHLORIDE 0.9% 1,000 ML IV SCH (01:56)
[2020-07-09 02:14] LABS: Appearance,Urine Cloudy (Clear); Bacteria,Urine Many /hpf; Bilirubin,Urine Negative (Negative); Blood,Urine Negative (Negative); Color,Urine Yellow; Glucose,Urine (UA) Negative (Negative); Hyaline Casts,Urine 10 /lpf (0-2); Ketones,Urine Negative (Negative); Leukocyte Esterase,Urine Large (Negative); Mucus,Urine Occasional /hpf; Nitrite,Urine Positive (Negative); Protein,Urine Trace (Negative); RBC,Urine 2 /hpf (0-5); Specific Gravity,Urine 1.022 (1.001-1.035); Squamous Epithelial Cell,Urine 2 /hpf (0-4); Urobilinogen,Urine <2.0 mg/dL (<2.0); WBC,Urine 97 /hpf (0-5)
[2020-07-09] MEDS ORDERED: AMPICILLIN-SULBACTAM 3 GM in SODIUM CHLORIDE 0.9% 100 ML IVPB ONE (02:31)
[2020-07-09] MEDS: methylPREDNISolone SOD SUCCI 125 MG/2 ML VIAL IV SCH ×3 (05:27→18:20)
[2020-07-09 06:32] LABS: Glucose,Whole Blood 176 mg/dL (75-99)
[2020-07-09] MEDS: IPRATROPIUM-ALBUTEROL 3 ML NEB INHALATION SCH ×4 (08:07→19:23)
[2020-07-09] MEDS ORDERED: NITROGLYCERIN SL TABS 0.4 MG TAB SUBLINGUAL PRN (12:28)
[2020-07-09] MEDS: RIVAROXABAN 20 MG TAB PO SCH (13:08)
[2020-07-09] MEDS: FLECAINIDE 50 MG TAB PO SCH ×2 (13:08→20:49)
[2020-07-09] MEDS: METOPROLOL TARTRATE 50 MG TAB PO SCH ×2 (13:08→20:51)
[2020-07-09] MEDS: LINAGLIPTIN 5 MG TABLET PO SCH (13:08)
[2020-07-09] MEDS: FUROSEMIDE 40 MG TAB PO SCH (13:08)
[2020-07-09] MEDS: AMPICILLIN-SULBACTAM 3 GM in SODIUM CHLORIDE 0.9% 100 ML IVPB SCH ×2 (13:09→19:59)
--- NOTE | 2020-07-09 13:26 | P.CONS ---
History of Present Illness - Chief Complaint Walking difficulty - History of Present Illness I had the opportunity to see patient for inpatient rehab consultation with regard to walking difficulty. Patient admitted to [facility] July 08 with worsening shortness of breath. History of recent fall with left hip fracture, status post repair and subacute rehab at [facility]. Patient underwent full program and discharge to home. Patient reports difficulty entering home. Was doing home therapy. PT and OT prescribed at this time. Previous functional history as elicited patient: 80-year-old right-handed white female who is single lives in one floor home alone. Has a basement. Patient receives physical assistance for laundry as well as a sitdown shower. Doing TV dinners. Was using a wheelchair for mobility but recently has progressed a roller walker. To be clear, patient was independent prior to 1 month ago, gait without device, own cooking, laundry, driving, standing shower. PMD Dr. Rizo . Denies tobacco or alcohol. Family history father with hypertension. Review of Systems Review of systems: ENT: Denies sneezes or discharge. Eyes: Denies discharge or photophobia. Cardiac: Denies chest pain or palpitation. Pulmonary: Denies cough or shortness of breath. Breast: Denies discharge or lumps. Gastrointestinal: Denies nausea, emesis, constipation, diarrhea. Genitourinary: Denies discharge or frequency. Musculoskeletal: Left hip discomfort and stiffness. Neurologic: Denies motor or sensory change. Endocrine: Denies shakes or sweats. Oncology: Denies cancers. Dermatologic: Denies rash, itching, pruritus. ALLERGY/immunology: Denies sneezes, rashes. Past Medical History Past Medical History: Atrial Fibrillation, Atrial Flutter, Blood Disorder, Chest Pain / Angina, COPD, Diabetes Mellitus, Hyperlipidemia, Hypertension, Musculoskeletal Disorder, Osteoarthritis (OA), Pneumonia Additional Past Medical History / Comment(s): Home oxygen prn, bronchitis, NIDDM type II, neurpathy L foot, chronic low back pain which pt states has been better since surgery but states she now has difficutly bending-loses balance, past thoracic vertebral fracture with surgery, past L sided sciatica/difficulty lifting L leg- improved by physical therapy, anemia with B12 injections, UTIs, cystitis, occasional R foot edema-uses lasix for this reason. History of Any Multi-Drug Resistant Organisms: None Reported Past Surgical History: Back Surgery, Breast Surgery, Cardiac Ablation, Cholecystectomy, Hysterectomy, Joint Replacement, Orthopedic Surgery, Pacemaker, Tubal Ligation Additional Past Surgical History / Comment(s): Cervical fusion, kyphoplasty/vertebral biopsy T6, R leg fracture with plate, total R knee, L3/L4/L5 surgery in 2019, cystocele, BMA, bilateral cataract removals, R breast biopsy, Past Anesthesia/Blood Transfusion Reactions: No Reported Reaction Additional Past Anesthesia/Blood Transfusion Reaction / Comm: Anesthesia "makes my hair fall out". Type of Cardiac Device: Permanent Pacemaker Device Placement Date:: 04/09 Past Psychological History: No Psychological Hx Reported Additional Psychological History / Comment(s): Pt resides alone. She uses a walker. She can drive. She has a glucometer. Smoking Status: Former smoker Past Alcohol Use History: None Reported Additional Past Alcohol Use History / Comment(s): Pt started smoking in 1964 and quit smoking 2016 Past Drug Use History: None Reported - Past Family History Brother(s) Family Medical History: Cancer, Deep Vein Thrombosis (DVT), Myocardial Infarction ([place]) Additional Family Medical History / Comment(s): colon and prostate ca Sister(s) Family Medical History: Cancer Additional Family Medical History / Comment(s): breast and ovarian Mother Family Medical History: COPD Father History Unknown: Yes Additional Family Medical History / Comment(s): Father in a MVA Medications and Allergies Home Medications Medication Instructions Recorded Confirmed Type Rivaroxaban [Xarelto] 20 mg PO DAILY 02/06/17 07/09/20 History Ergocalciferol [Vitamin D2 50,000 unit PO MO 07/05/17 07/09/20 History (DRISDOL)] Pravastatin Sodium [Pravachol] 40 mg PO HS 04/30/18 07/09/20 History Flecainide Acetate 100 mg PO BID 08/12/19 07/09/20 History Furosemide [Lasix] 40 mg PO DAILY 08/12/19 07/09/20 History Potassium Chloride [Klor-Con 8] 8 meq PO DAILY 08/12/19 07/09/20 History Ranolazine [Ranexa] 1,000 mg PO BID 08/12/19 07/09/20 History Tamsulosin [Flomax] 0.4 mg PO DAILY 08/12/19 07/09/20 History Cyanocobalamin [Vitamin B-12 1,000 mcg SQ Q30D 03/29/20 07/09/20 History Injection] Metoprolol Tartrate [Lopressor] 50 mg PO BID 03/29/20 07/09/20 History Nitroglycerin Sl Tabs [Nitrostat] 0.4 mg SL Q5M PRN 03/29/20 07/09/20 History Tiotropium Br/Olodaterol HCl 2 puff INHALATION RT-DAILY 03/29/20 07/09/20 History [Stiolto Respimat Inhal [place]] oxyCODONE-APAP 7.5-325MG [Percocet 1 tab PO Q8H PRN #12 tab 04/30/20 07/09/20 Rx 7.5-325 mg] Biotin 10,000 mcg PO DAILY 07/09/20 07/09/20 History Famotidine 20 mg PO DAILY 07/09/20 07/09/20 History Folic Acid 0.8 mg PO DAILY 07/09/20 07/09/20 History sitaGLIPtin PHOSPHATE [Januvia] 100 mg PO DAILY 07/09/20 07/09/20 History Allergies Allergy/AdvReac Type Severity Reaction Status Date / Time nickel Allergy Rash/Hives Verified 07/09/20 08:09 Physical Exam Vitals: Vital Signs Temp Pulse Pulse Resp BP BP Pulse Ox 07/09/20 13:16 73 152/82 07/09/20 12:37 56 L 07/09/20 12:27 60 07/09/20 09:00 97.6 F 77 18 153/79 98 07/09/20 08:20 58 L 07/09/20 08:07 54 L 07/09/20 03:00 18 07/09/20 02:59 97.9 F 58 L 18 153/82 98 07/09/20 01:56 70 18 151/70 98 07/09/20 00:25 60 07/09/20 00:12 58 L 07/08/20 23:47 98.9 F 90 22 151/90 97 Intake and Output 07/08/20 07/09/20 07/09/20 22:59 06:59 14:59 Other: Voiding Method Bedpan # Voids 1 Weight 83.007 kg Skin: Good color, texture, turgor. General: Overweight build and comfortable appearance. Appears younger than stated age. Head: Normocephalic, atraumatic. Eyes: Symmetric. Pupils equal round. Ears: Symmetric. Hearing within normal limits. Mouth: Clear. Neck: Supple. Carotid without bruit. Cardiac: Regular rate and rhythm. Lungs: Clear anteriorly and posteriorly. Abdomen: Soft active nontender. Extremities: Normal tone. Neurological: Mental status: Alert, cooperative, pleasant. Cranial nerves: Symmetric facial tone and trapezius. Motor: Normal strength and isolation all 4 limbs with giveaway weakness left leg and hip. Sensation: Intact throughout. DTRs: Symmetric and equal throughout. Mobility: Requires assistance for transfer to bedside chair.. Results CBC & Chem 7: 07/09/20 00:29 07/09/20 00:29 Labs: Abnormal Lab Results - Last 24 Hours (Table) 07/09/20 07/09/20 07/09/20 Range/Units 00:29 00:29 00:29 RBC 3.72 L (3.80-5.40) m/uL Hgb 9.7 L (11.4-16.0) gm/dL Hct 30.8 L (34.0-46.0) % RDW 16.1 H (11.5-15.5) % PT 12.8 H (9.0-12.0) sec INR 1.3 H (<1.2) APTT 32.3 H (22.0-30.0) sec BUN (7-17) mg/dL Glucose (74-99) mg/dL POC Glucose (mg/dL) (75-99) mg/dL Creatine Kinase (30-135) U/L Urine Appearance Cloudy H (Clear) Urine Protein Trace H (Negative) Urine Nitrite Positive H (Negative) Ur Leukocyte Esterase Large H (Negative) Urine WBC 97 H (0-5) /hpf Urine WBC Clumps Moderate H (None) /hpf Urine Bacteria Many H (None) /hpf Hyaline Casts 10 H (0-2) /lpf Urine Mucus Occasional H (None) /hpf 07/09/20 07/09/20 Range/Units 00:29 06:30 RBC (3.80-5.40) m/uL Hgb (11.4-16.0) gm/dL Hct (34.0-46.0) % RDW (11.5-15.5) % PT (9.0-12.0) sec INR (<1.2) APTT (22.0-30.0) sec BUN 19 H (7-17) mg/dL Glucose 141 H (74-99) mg/dL POC Glucose (mg/dL) 176 H (75-99) mg/dL Creatine Kinase 25 L (30-135) U/L Urine Appearance (Clear) Urine Protein (Negative) Urine Nitrite (Negative) Ur Leukocyte Esterase (Negative) Urine WBC (0-5) /hpf Urine WBC Clumps (None) /hpf Urine Bacteria (None) /hpf Hyaline Casts (0-2) /lpf Urine Mucus (None) /hpf Microbiology - Last 24 Hours (Table) 07/09/20 00:29 Urine Culture - Preliminary Urine,Voided Assessment and Plan (1) Acute exacerbation of chronic obstructive pulmonary disease Current Visit: Yes Status: Acute Code(s): J44.1 - CHRONIC OBSTRUCTIVE PULMONARY DISEASE W (ACUTE) EXACERBATION SNOMED Code(s): 701297277 (2) Intractable back pain Current Visit: Yes Status: Acute Code(s): M54.9 - DORSALGIA, UNSPECIFIED SNOMED Code(s): 297695373 (3) Hip fracture Current Visit: No Status: Acute Code(s): S72.009A - FRACTURE OF UNSP PART OF NECK OF UNSP FEMUR, INIT SNOMED Code(s): 986505449 Plan: Impression: 1. Walking ability. 2. COPD exacerbation. 3. History of recent left hip fracture. 4. Chronic back pain. 5. Hypertension. 6. Heart disease with history of angina and atrial fib/flutter. 7. Osteoarthritis. 8. Dyslipidemia. Comments and plan: At this time PT and OT are prescribed. Patient apparently having difficulty thriving at home. This suggests subacute rehab at [facility] was unsuccessful. Would consider for inpatient rehab but was require therapy notes. Note that the recent [facility] placement may make rehab placement difficulty.
[2020-07-09] MEDS: oxyCODONE-APAP 7.5-325MG 1 EACH TAB PO PRN (14:47)
[2020-07-09 17:38] LABS: Glucose,Whole Blood 289 mg/dL (75-99)
[2020-07-09] MEDS ORDERED: INSULIN ASPART (NovoLOG) 100 UNIT/ML VIAL SQ ONE (18:02)
--- NOTE | 2020-07-09 18:19 | P.HPIM ---
History of Present Illness H&P Date: 07/09/20 Chief Complaint: Weak in the legs History of presenting complaint: This is a very pleasant [address] Yanely Rizo. Chronic stable medical conditions include atrial flutter fibrillation, COPD, diabetes, hypertension, hyperlipidemia, osteoarthritis, urinary incontinence, chronic low back pain. In April of this year patient had a left femur fracture with IM rodding done. Has had trouble walking since then.. Has been in inpatient rehab. Patient felt increasing weakness in the lower extremities at home. No back pain. No fever no chills. Had some dysuria. Appetite is okay. Just felt weak and rundown. Denies fever and chills. Questionable increased shortness of breath. No chest pain or palpitation Review of systems: GEN.: Tired EYES: None HEENT: None NECK: None RESPIRATORY: None CARDIOVASCULAR: None GASTROINTESTINAL: None GENITOURINARY: As above MUSCULOSKELETAL: Joint pains LYMPHATICS: None HEMATOLOGICAL: None PSYCHIATRY: None NEUROLOGICAL: Uses a walker Past medical history to include: Atrial flutter fibrillation, COPD, diabetes, hypertension, hyperlipidemia, osteoarthritis, urinary incontinence, chronic low back pain, nonobstructive coronary artery disease Social history: Patient lives alone. Does have a walker. Smoked for 52 years. Stopped in 2017 Physical examination: VITAL SIGNS: 98.9, 90, 22, 151/90, 97% room air GENERAL: BMI 33.5, laying in bed, not in distress EYES: Pupils equal. Conjunctiva normal. HEENT: External appearance of nose and ears normal, oral cavity grossly normal. NECK: JVD not raised; masses not palpable. HEART: First and second heart sounds are normal; no edema. LUNGS: Respiratory rate increased, decreased breath sounds. ABDOMEN: Soft, nontender, liver spleen not palpable, no masses palpable. PSYCH: Alert and oriented x3; mood and affect normal. MUSCULAR skeletal: Evidence of OA especially in the hands and knees , limited range of lower extremities NEUROLOGICAL: Cranial nerves grossly intact; no facial asymmetry, power and sensation grossly intact. Limited straight leg raising test. LYMPHATICS: No lymph nodes palpable in the axilla and neck INVESTIGATIONS, reviewed in the clinical context: White count 8.6 hemoglobin 9.7 platelets 224 potassium 4.3 creatinine 0.74 UA positive for leukoesterase, WBC,'s, . EKG tracing personally reviewed by me-atrial paced rhythm. Right bundle branch block pattern. Chest x-ray film personally reviewed by me-cardiomegaly, some venous prominence Assessment: -Increasing weakness in both lower extremity likely a manifestation of UTI. Patient also has arthritis. And a recent surgery in the left hip. -Acute UTI from cystitis -COPD in an ex-smoker -Persistent atrial flutter fibrillation -Diabetes mellitus type 2, on oral hypoglycemic -Hyperlipidemia -Essential hypertension -Primary osteoarthritis -Chronic urinary stress incontinence -Chronic gait dysfunction uses a walker -Permanent pacemaker -Normocytic anemia, chronic Plan: Patient started IV Unasyn. Urine cultures pending. Home medications be resumed. PTOT on the case. sawmill production worker consulted. Care was discussed with the patient question also. Past Medical History Past Medical History: Atrial Fibrillation, Atrial Flutter, Blood Disorder, Chest Pain / Angina, COPD, Diabetes Mellitus, Hyperlipidemia, Hypertension, Mus culoskeletal Disorder, Osteoarthritis (OA), Pneumonia Additional Past Medical History / Comment(s): Home oxygen prn, bronchitis, NIDDM type II, neurpathy L foot, chronic low back pain which pt states has been better since surgery but states she now has difficutly bending-loses balance, past thoracic vertebral fracture with surgery, past L sided sciatica/difficulty lifting L leg- improved by physical therapy, anemia with B12 injections, UTIs, cystitis, occasional R foot edema-uses lasix for this reason. History of Any Multi-Drug Resistant Organisms: None Reported Past Surgical History: Back Surgery, Breast Surgery, Cardiac Ablation, Cholecystectomy, Hysterectomy, Joint Replacement, Orthopedic Surgery, Pacemaker, Tubal Ligation Additional Past Surgical History / Comment(s): Cervical fusion, kyphoplasty/vertebral biopsy T6, R leg fracture with plate, total R knee, L3/L4/L5 surgery in 2019, cystocele, BMA, bilateral cataract removals, R breast biopsy, Past Anesthesia/Blood Transfusion Reactions: No Reported Reaction Additional Past Anesthesia/Blood Transfusion Reaction / Comment(s): Anesthesia "makes my hair fall out". Type of Cardiac Device: Permanent Pacemaker Device Placement Date:: 04/09 Past Psychological History: No Psychological Hx Reported Additional Psychological History / Comment(s): Pt resides alone. She uses a walker. She can drive. She has a glucometer. Smoking Status: Former smoker Past Alcohol Use History: None Reported Additional Past Alcohol Use History / Comment(s): Pt started smoking in 1964 and quit smoking 2016 Past Drug Use History: None Reported - Past Family History Brother(s) Family Medical History: Cancer, Deep Vein Thrombosis (DVT), Myocardial Infarction (MS) Additional Family Medical History / Comment(s): colon and prostate ca Sister(s) Family Medical History: Cancer Additional Family Medical History / Comment(s): breast and ovarian Mother Family Medical History: COPD Father History Unknown: Yes Additional Family Medical History / Comment(s): Father in a MVA Medications and Allergies Home Medications Medication Instructions Recorded Confirmed Type Rivaroxaban [Xarelto] 20 mg PO DAILY 02/06/17 07/09/20 History Ergocalciferol [Vitamin D2 50,000 unit PO MO 07/05/17 07/09/20 History (DRISDOL)] Pravastatin Sodium [Pravachol] 40 mg PO HS 04/30/18 07/09/20 History Flecainide Acetate 100 mg PO BID 08/12/19 07/09/20 History Furosemide [Lasix] 40 mg PO DAILY 08/12/19 07/09/20 History Potassium Chloride [Klor-Con 8] 8 meq PO DAILY 08/12/19 07/09/20 History Ranolazine [Ranexa] 1,000 mg PO BID 08/12/19 07/09/20 History Tamsulosin [Flomax] 0.4 mg PO DAILY 08/12/19 07/09/20 History Cyanocobalamin [Vitamin B-12 1,000 mcg SQ Q30D 03/29/20 07/09/20 History Injection] Metoprolol Tartrate [Lopressor] 50 mg PO BID 03/29/20 07/09/20 History Nitroglycerin Sl Tabs [Nitrostat] 0.4 mg SL Q5M PRN 03/29/20 07/09/20 History Tiotropium Br/Olodaterol HCl 2 puff INHALATION RT-DAILY 03/29/20 07/09/20 History [Stiolto Respimat Inhal [place]] oxyCODONE-APAP 7.5-325MG [Percocet 1 tab PO Q8H PRN #12 tab 04/30/20 07/09/20 Rx 7.5-325 mg] Biotin 10,000 mcg PO DAILY 07/09/20 07/09/20 History Famotidine 20 mg PO DAILY 07/09/20 07/09/20 History Folic Acid 0.8 mg PO DAILY 07/09/20 07/09/20 History sitaGLIPtin PHOSPHATE [Januvia] 100 mg PO DAILY 07/09/20 07/09/20 History Allergies Allergy/AdvReac Type Severity Reaction Status Date / Time nickel Allergy Rash/Hives Verified 07/09/20 08:09 Physical Exam Vitals: Vital Signs Temp Pulse Pulse Resp BP BP Pulse Ox 07/09/20 12:37 56 L 07/09/20 12:27 60 07/09/20 09:00 97.6 F 77 18 153/79 98 07/09/20 08:20 58 L 07/09/20 08:07 54 L 07/09/20 03:00 18 07/09/20 02:59 97.9 F 58 L 18 153/82 98 07/09/20 01:56 70 18 151/70 98 07/09/20 00:25 60 07/09/20 00:12 58 L 07/08/20 23:47 98.9 F 90 22 151/90 97 Intake and Output 07/08/20 07/09/20 07/09/20 22:59 06:59 14:59 Other: Voiding Method Bedpan # Voids 1 Weight 83.007 kg Results CBC & Chem 7: 07/09/20 00:29 07/09/20 00:29 Labs: Abnormal Lab Results - Last 24 Hours (Table) 07/09/20 07/09/20 07/09/20 Range/Units 00:29 00:29 00:29 RBC 3.72 L (3.80-5.40) m/uL Hgb 9.7 L (11.4-16.0) gm/dL Hct 30.8 L (34.0-46.0) % RDW 16.1 H (11.5-15.5) % PT 12.8 H (9.0-12.0) sec INR 1.3 H (<1.2) APTT 32.3 H (22.0-30.0) sec BUN (7-17) mg/dL Glucose (74-99) mg/dL POC Glucose (mg/dL) (75-99) mg/dL Creatine Kinase (30-135) U/L Urine Appearance Cloudy H (Clear) Urine Protein Trace H (Negative) Urine Nitrite Positive H (Negative) Ur Leukocyte Esterase Large H (Negative) Urine WBC 97 H (0-5) /hpf Urine WBC Clumps Moderate H (None) /hpf Urine Bacteria Many H (None) /hpf Hyaline Casts 10 H (0-2) /lpf Urine Mucus Occasional H (None) /hpf 07/09/20 07/09/20 Range/Units 00:29 06:30 RBC (3.80-5.40) m/uL Hgb (11.4-16.0) gm/dL Hct (34.0-46.0) % RDW (11.5-15.5) % PT (9.0-12.0) sec INR (<1.2) APTT (22.0-30.0) sec BUN 19 H (7-17) mg/dL Glucose 141 H (74-99) mg/dL POC Glucose (mg/dL) 176 H (75-99) mg/dL Creatine Kinase 25 L (30-135) U/L Urine Appearance (Clear) Urine Protein (Negative) Urine Nitrite (Negative) Ur Leukocyte Esterase (Negative) Urine WBC (0-5) /hpf Urine WBC Clumps (None) /hpf Urine Bacteria (None) /hpf Hyaline Casts (0-2) /lpf Urine Mucus (None) /hpf Microbiology - Last 24 Hours (Table) 07/09/20 00:29 Urine Culture - Preliminary Urine,Voided Thrombosis Risk Factor Assmnt - Choose All That Apply Each Risk Factor Represents 2 Points: Age 61-74 years Thrombosis Risk Factor Assessment Total Risk Factor Score: 2 Thrombosis Risk Factor Assessment Level: Low Risk
[2020-07-09] MEDS: INSULIN ASPART (NovoLOG) 100 UNIT/ML VIAL SQ SCH ×2 (19:09→20:49)
[2020-07-09] MEDS: FORMOTEROL FUMARATE 20 MCG/2 ML NEBU INHALATION SCH (19:23)
[2020-07-09 20:45] LABS: Glucose,Whole Blood 261 mg/dL (75-99)
[2020-07-09] MEDS: RANOLAZINE 500 MG TAB.ER.12H PO SCH (20:48)
[2020-07-09] MEDS: PRAVASTATIN SODIUM 40 MG TAB PO SCH (20:49)
[2020-07-10] MEDS: SODIUM CHLORIDE 0.9% 1,000 ML IV SCH (00:15)
[2020-07-10] MEDS: methylPREDNISolone SOD SUCCI 125 MG/2 ML VIAL IV SCH ×5 (00:20→23:44)
[2020-07-10] MEDS: oxyCODONE-APAP 7.5-325MG 1 EACH TAB PO PRN ×2 (00:27→15:50)
[2020-07-10] MEDS: AMPICILLIN-SULBACTAM 3 GM in SODIUM CHLORIDE 0.9% 100 ML IVPB SCH ×3 (03:42→19:36)
[2020-07-10 06:51] LABS: Glucose,Whole Blood 186 mg/dL (75-99)
[2020-07-10] MEDS: INSULIN ASPART (NovoLOG) 100 UNIT/ML VIAL SQ SCH ×4 (06:53→22:32)
[2020-07-10 08:55] LABS: Glucose,Whole Blood 228 mg/dL (75-99)
[2020-07-10] MEDS ORDERED: NON FORMULARY DRUG (Biotin [Biotin] 10,000 MCG Capsule) PO SCH (09:00)
[2020-07-10] MEDS: IPRATROPIUM-ALBUTEROL 3 ML NEB INHALATION SCH ×5 (09:11→20:53)
[2020-07-10] MEDS: METOPROLOL TARTRATE 50 MG TAB PO SCH ×2 (09:17→22:32)
[2020-07-10] MEDS: FAMOTIDINE 20 MG TAB PO SCH (09:17)
[2020-07-10] MEDS: FOLIC ACID 1 MG TAB PO SCH (09:17)
[2020-07-10] MEDS: RIVAROXABAN 20 MG TAB PO SCH (09:17)
[2020-07-10] MEDS: TAMSULOSIN 0.4 MG CAP.ER.24H PO SCH (09:17)
[2020-07-10] MEDS: RANOLAZINE 500 MG TAB.ER.12H PO SCH ×2 (09:17→22:29)
[2020-07-10] MEDS: LINAGLIPTIN 5 MG TABLET PO SCH (09:17)
[2020-07-10] MEDS: FLECAINIDE 50 MG TAB PO SCH ×2 (09:17→22:33)
[2020-07-10] MEDS: FUROSEMIDE 40 MG TAB PO SCH (09:17)
[2020-07-10] MEDS: POTASSIUM CHLORIDE ER 10 MEQ TAB.ER.PRT PO SCH (09:17)
[2020-07-10] MEDS: FORMOTEROL FUMARATE 20 MCG/2 ML NEBU INHALATION SCH ×2 (09:20→20:53)
[2020-07-10 13:14] LABS: Glucose,Whole Blood 163 mg/dL (75-99)
[2020-07-10 18:05] LABS: Glucose,Whole Blood 242 mg/dL (75-99)
--- NOTE | 2020-07-10 20:25 | P.PN ---
Progress Note - Text Progress Note Date: 07/10/20 Chief Complaint: Weak in the legs History of presenting complaint: This is a very pleasant [address] Yanely Rizo. Chronic stable medical conditions include atrial flutter fibrillation, COPD, diabetes, hypertension, hyperlipidemia, osteoarthritis, urinary incontinence, chronic low back pain. In April of this year patient had a left femur fracture with IM rodding done. Has had trouble walking since then.. Has been in inpatient rehab. Patient felt increasing weakness in the lower extremities at home. No back pain. No fever no chills. Had some dysuria. Appetite is okay. Just felt weak and rundown. Denies fever and chills. Questionable increased shortness of breath. No chest pain or palpitation Admitted with acute UTI causing weakness debility. Started on antibiotic. Today-seen by physical therapy. We walked 50 feet with a rolling walker. Appetite fair. Requesting a sleeping pill. Review of systems: Was done for constitutional, cardiovascular, GI, pulmonary. relevant finding as above Active Medications Albuterol/Ipratropium (Ipratropium-Albuterol 3 Ml Neb) 3 ml INHALATION RT-QID [facility] Last Admin: 07/10/20 16:25 Dose: 3 ml Documented by: Cyanocobalamin (Cyanocobalamin 1,000 Mcg/Ml 1 Ml Vial) 1,000 mcg SQ Q30D [facility] Ergocalciferol (Ergocalciferol 50,000 Unit Cap) 50,000 unit PO MO [facility] Famotidine (Famotidine 20 Mg Tab) 20 mg PO DAILY [facility] Last Admin: 07/10/20 09:17 Dose: 20 mg Documented by: Flecainide Acetate (Flecainide 50 Mg Tab) 100 mg PO BID [facility] Last Admin: 07/10/20 09:17 Dose: 100 mg Documented by: Folic Acid (Folic Acid 1 Mg Tab) 1 mg PO DAILY [facility] Last Admin: 07/10/20 09:17 Dose: 1 mg Documented by: Formoterol Fumarate (Formoterol Fumarate 20 Mcg/2 Ml Nebu) 20 mcg INHALATION RT-BID [facility] Last Admin: 07/10/20 09:20 Dose: 20 mcg Documented by: Furosemide (Furosemide 40 Mg Tab) 40 mg PO DAILY [facility] Last Admin: 07/10/20 09:17 Dose: 40 mg Documented by: Ampicillin Sodium/Sulbactam (Sodium 3 gm/ Sodium Chloride) 100 mls @ 200 mls/hr IVPB Q8H [facility] Last Admin: 07/10/20 19:36 Dose: 200 mls/hr Documented by: Insulin Aspart (Insulin Aspart (Novolog) 100 Unit/Ml Vial) 0 unit SQ ACHS [facility]; Protocol Last Admin: 07/10/20 18:09 Dose: 8 unit Documented by: Linagliptin (Linagliptin 5 Mg Tablet) 5 mg PO DAILY [facility] Last Admin: 07/10/20 09:17 Dose: 5 mg Documented by: Melatonin (Melatonin 1 Mg Tab) 2 mg PO [facility] Methylprednisolone Sodium Succinate (Methylprednisolone Sod Succi 125 Mg/2 Ml Vial) 60 mg IV Q6HR [facility] Last Admin: 07/10/20 18:09 Dose: 60 mg Documented by: Metoprolol Tartrate (Metoprolol Tartrate 50 Mg Tab) 50 mg PO BID [facility] Last Admin: 07/10/20 09:17 Dose: 50 mg Documented by: Nitroglycerin (Nitroglycerin Sl Tabs 0.4 Mg Tab) 0.4 mg SUBLINGUAL Q5M PRN PRN Reason: Chest Pain Oxycodone/Acetaminophen (Oxycodone-Apap 7.5-325mg 1 Each Tab) 1 each PO Q8H PRN PRN Reason: Pain Last Admin: 07/10/20 15:50 Dose: 1 each Documented by: Potassium Chloride (Potassium Chloride Er 10 Meq Tab.Er.Prt) 10 meq PO DAILY [facility] Last Admin: 07/10/20 09:17 Dose: 10 meq Documented by: Pravastatin Sodium (Pravastatin Sodium 40 Mg Tab) 40 mg PO HS [facility] Last Admin: 07/09/20 20:49 Dose: 40 mg Documented by: Ranolazine (Ranolazine 500 Mg Tab.Er.12h) 1,000 mg PO BID [facility] Last Admin: 07/10/20 09:17 Dose: 1,000 mg Documented by: Rivaroxaban (Rivaroxaban 20 Mg Tab) 20 mg PO DAILY [facility] Last Admin: 07/10/20 09:17 Dose: 20 mg Documented by: Tamsulosin HCl (Tamsulosin 0.4 Mg Cap.Er.24h) 0.4 mg PO DAILY [facility] Last Admin: 07/10/20 09:17 Dose: 0.4 mg Documented by: Physical examination: VITAL SIGNS: 97.8, 98, 16, 141/63, 98% room air GENERAL: Propped up in bed, comfortable EYES: Pupils equal. Conjunctiva normal. NECK: JVD not raised; masses not palpable. HEART: First and second heart sounds are normal; no edema. LUNGS: Respiratory rate increased, decreased breath sounds. ABDOMEN: Soft, nontender, liver spleen not palpable, no masses palpable. PSYCH: Alert and oriented x3; mood and affect normal. MUSCULAR skeletal: Evidence of OA especially in the hands and knees , limited range of lower extremities INVESTIGATIONS, reviewed in the clinical context: Accu-Cheks noted Urine uiwokru-jlqo-kxfmonei bacilli White count 8.6 hemoglobin 9.7 platelets 224 potassium 4.3 creatinine 0.74 UA positive for leukoesterase, WBC,'s, . EKG tracing personally reviewed by me-atrial paced rhythm. Right bundle branch block pattern. Chest x-ray film personally reviewed by me-cardiomegaly, some venous prominence Assessment: -Acute asthenia due to UTI. Patient also has arthritis. And a recent surgery in the left hip.-Improving -Acute UTI from mncogndt-zrce-psfqzysb bacilli -COPD in an ex-smoker -Persistent atrial flutter fibrillation -Diabetes mellitus type 2, on oral hypoglycemic -Hyperlipidemia -Essential hypertension -Primary osteoarthritis -Chronic urinary stress incontinence -Chronic gait dysfunction uses a walker -Permanent pacemaker -Normocytic anemia, chronic -Insomnia from medical conditions Plan: Patient doing better. Continue with IV Unasyn. Increase activity with physical therapy. Await urine culture. Discussed with the patient. Prescribed melatonin
[2020-07-10] MEDS ORDERED: MELATONIN 1 MG TAB PO SCH (21:00)
[2020-07-10 22:25] LABS: Glucose,Whole Blood 252 mg/dL (75-99)
[2020-07-10] MEDS: PRAVASTATIN SODIUM 40 MG TAB PO SCH (22:33)
[2020-07-11] MEDS: AMPICILLIN-SULBACTAM 3 GM in SODIUM CHLORIDE 0.9% 100 ML IVPB SCH ×2 (03:11→14:20)
[2020-07-11 06:41] LABS: Glucose,Whole Blood 160 mg/dL (75-99)
[2020-07-11] MEDS: INSULIN ASPART (NovoLOG) 100 UNIT/ML VIAL SQ SCH ×2 (06:43→12:55)
[2020-07-11] MEDS: methylPREDNISolone SOD SUCCI 125 MG/2 ML VIAL IV SCH (06:44)
[2020-07-11] MEDS: FORMOTEROL FUMARATE 20 MCG/2 ML NEBU INHALATION SCH (07:39)
[2020-07-11] MEDS: IPRATROPIUM-ALBUTEROL 3 ML NEB INHALATION SCH ×2 (07:39→10:46)
[2020-07-11 08:52] VITALS: BP 148/64; RESP 18; TEMP 97.1
[2020-07-11] MEDS: FUROSEMIDE 40 MG TAB PO SCH (10:02)
[2020-07-11] MEDS: FAMOTIDINE 20 MG TAB PO SCH (10:02)
[2020-07-11] MEDS: RANOLAZINE 500 MG TAB.ER.12H PO SCH (10:02)
[2020-07-11] MEDS: METOPROLOL TARTRATE 50 MG TAB PO SCH (10:03)
[2020-07-11] MEDS: FLECAINIDE 50 MG TAB PO SCH (10:03)
[2020-07-11] MEDS: FOLIC ACID 1 MG TAB PO SCH (10:03)
[2020-07-11] MEDS: RIVAROXABAN 20 MG TAB PO SCH (10:03)
[2020-07-11] MEDS: POTASSIUM CHLORIDE ER 10 MEQ TAB.ER.PRT PO SCH (10:03)
[2020-07-11] MEDS: TAMSULOSIN 0.4 MG CAP.ER.24H PO SCH (10:03)
[2020-07-11] MEDS: LINAGLIPTIN 5 MG TABLET PO SCH (10:15)
[2020-07-11 10:49] VITALS: PULSE 74
[2020-07-11 12:52] LABS: Glucose,Whole Blood 154 mg/dL (75-99)
--- NOTE | 2020-07-11 15:12 | P.DS ---
Providers Date of admission: 07/09/20 01:26 Expected date of discharge: 07/11/20 Attending physician: Jefferson Lees Consults: 07/09/20 12:24 Consult Physician Routine Consulting Provider: Sam Bernal Consult Reason/Comments: possible IPR Do you want consulting provider notified?: Yes Primary care physician: Darrel Darrius [place] [facility] Course: Chief Complaint: Weak in the legs History of presenting complaint: This is a very pleasant [address] Yanely Rizo. Chronic stable medical conditions include atrial flutter fibrillation, COPD, diabetes, hypertension, hyperlipidemia, osteoarthritis, urinary incontinence, chronic low back pain. In April of this year patient had a left femur fracture with IM rodding done. Has had trouble walking since then.. Has been in inpatient rehab. Patient felt increasing weakness in the lower extremities at home. No back pain. No fever no chills. Had some dysuria. Appetite is okay. Just felt weak and rundown. Denies fever and chills. Questionable increased shortness of breath. No chest pain or palpitation Admitted with acute UTI causing weakness debility. Started on antibiotic.urine culture positive for Klebsiella pneumoniae. Patient did well with physical therapy. Walk 50 feet with rolling walker. Today-doing well. Eating well. No fever no chills. Had a lengthy discussion with the patient. Questions were answered.spoke to caser in [place] about patient going home and making any arrangements if needed. Discussion and discharge planning more than 35 minutes Physical examination: VITAL SIGNS: 97.1, 68, 18, 114/64, 100% room air GENERAL: sitting up in a chair, comfortable EYES: Pupils equal. Conjunctiva normal. NECK: JVD not raised; masses not palpable. HEART: First and second heart sounds are normal; no edema. LUNGS: Respiratory rate increased, decreased breath sounds. ABDOMEN: Soft, nontender, liver spleen not palpable, no masses palpable. PSYCH: Alert and oriented x3; mood and affect normal. MUSCULAR skeletal: Evidence of OA especially in the hands and knees INVESTIGATIONS, reviewed in the clinical context: Accu-Cheks noted Urine culture-Klebsiella pneumoniae White count 8.6 hemoglobin 9.7 platelets 224 potassium 4.3 creatinine 0.74 UA positive for leukoesterase, WBC,'s, . EKG tracing personally reviewed by me-atrial paced rhythm. Right bundle branch block pattern. Chest x-ray film personally reviewed by me-cardiomegaly, some venous prominence Assessment: -Acute asthenia due to UTI. Patient also has arthritis. And a recent surgery in the left hip.-Improving -Acute UTI from cystitis-KlebsiellaPneumoniae -COPD in an ex-smoker -Persistent atrial flutter fibrillation -Diabetes mellitus type 2, on oral hypoglycemic -Hyperlipidemia -Essential hypertension -Primary osteoarthritis -Chronic urinary stress incontinence -Chronic gait dysfunction uses a walker -Permanent pacemaker -Normocytic anemia, chronic -Insomnia from medical conditions disposition: Home Patient Condition at Discharge: Stable Plan - Discharge Summary New Discharge Prescriptions: New Melatonin 2 mg PO HS #30 tab Cephalexin [Keflex] 250 mg PO Q8HR #14 capsule Continue Rivaroxaban [Xarelto] 20 mg PO DAILY Ergocalciferol [Vitamin D2 (DRISDOL)] 50,000 unit PO MO Pravastatin Sodium [Pravachol] 40 mg PO HS Flecainide Acetate 100 mg PO BID Furosemide [Lasix] 40 mg PO DAILY Potassium Chloride [Klor-Con 8] 8 meq PO DAILY Ranolazine [Ranexa] 1,000 mg PO BID Tamsulosin [Flomax] 0.4 mg PO DAILY Nitroglycerin Sl Tabs [Nitrostat] 0.4 mg SL Q5M PRN PRN Reason: Chest Pain Metoprolol Tartrate [Lopressor] 50 mg PO BID Cyanocobalamin [Vitamin B-12 Injection] 1,000 mcg SQ Q30D Tiotropium Br/Olodaterol HCl [Stiolto Respimat Inhal [place]] 2 puff INHALATION RT-DAILY oxyCODONE-APAP 7.5-325MG [Percocet 7.5-325 mg] 1 tab PO Q8H PRN #12 tab PRN Reason: Pain sitaGLIPtin PHOSPHATE [Januvia] 100 mg PO DAILY Famotidine 20 mg PO DAILY Biotin 10,000 mcg PO DAILY Folic Acid 0.8 mg PO DAILY Discharge Medication List Rivaroxaban [Xarelto] 20 mg PO DAILY 02/06/17 [History] Ergocalciferol [Vitamin D2 (DRISDOL)] 50,000 unit PO MO 07/05/17 [History] Pravastatin Sodium [Pravachol] 40 mg PO HS 04/30/18 [History] Flecainide Acetate 100 mg PO BID 08/12/19 [History] Furosemide [Lasix] 40 mg PO DAILY 08/12/19 [History] Potassium Chloride [Klor-Con 8] 8 meq PO DAILY 08/12/19 [History] Ranolazine [Ranexa] 1,000 mg PO BID 08/12/19 [History] Tamsulosin [Flomax] 0.4 mg PO DAILY 08/12/19 [History] Cyanocobalamin [Vitamin B-12 Injection] 1,000 mcg SQ Q30D 03/29/20 [History] Metoprolol Tartrate [Lopressor] 50 mg PO BID 03/29/20 [History] Nitroglycerin Sl Tabs [Nitrostat] 0.4 mg SL Q5M PRN 03/29/20 [History] Tiotropium Br/Olodaterol HCl [Stiolto Respimat Inhal [place]] 2 puff INHALATION RT-DAILY 03/29/20 [History] oxyCODONE-APAP 7.5-325MG [Percocet 7.5-325 mg] 1 tab PO Q8H PRN #12 tab 04/30/20 [Rx] Biotin 10,000 mcg PO DAILY 07/09/20 [History] Famotidine 20 mg PO DAILY 07/09/20 [History] Folic Acid 0.8 mg PO DAILY 07/09/20 [History] sitaGLIPtin PHOSPHATE [Januvia] 100 mg PO DAILY 07/09/20 [History] Cephalexin [Keflex] 250 mg PO Q8HR #14 capsule 07/11/20 [Rx] Melatonin 2 mg PO HS #30 tab 07/11/20 [Rx] Follow up Appointment(s)/Referral(s): [facility], [NON-STAFF] - As Needed Darrel Rizo DO [Primary Care Provider] - 1-2 days (office closed - call Sunday to make appointment) Patient Instructions/Handouts: Urinary Tract Infection in Women (DC), COPD (Chronic Obstructive Pulmonary Disease) (DC), Weakness (DC)
[2020-07-12] MEDS ORDERED: ERGOCALCIFEROL 50,000 UNIT CAP PO SCH (09:00)
[2020-08-07] MEDS ORDERED: CYANOCOBALAMIN 1,000 MCG/ML 1 ML VIAL SQ SCH (09:00)
== END 2020-07-11 14:30 | disposition home health service (06) ==
LOC: EC 23:44 → 3NCARDOBS 07-09 01:26
PROVIDERS: ADMIT Hospitalist; ATTEND Hospitalist
DX: N30.90 Cystitis, unspecified without hematuria (principal); B96.1 Klebsiella pneumoniae [K. pneumoniae] as the cause of diseases classified elsewhere; J44.1 Chronic obstructive pulmonary disease with (acute) exacerbation; D64.9 Anemia, unspecified; R53.1 Weakness; E11.9 Type 2 diabetes mellitus without complications; E78.5 Hyperlipidemia, unspecified; G47.00 Insomnia, unspecified; G89.29 Other chronic pain; I11.0 Hypertensive heart disease with heart failure; I48.92 Unspecified atrial flutter; I50.9 Heart failure, unspecified; M19.91 Primary osteoarthritis, unspecified site; Z87.81 Personal history of (healed) traumatic fracture; I48.19 Other persistent atrial fibrillation; N39.3 Stress incontinence (female) (male); Z79.01 Long term (current) use of anticoagulants; Z79.84 Long term (current) use of oral hypoglycemic drugs; Z79.899 Other long term (current) drug therapy; Z82.49 Family history of ischemic heart disease and other diseases of the circulatory system; Z82.5 Family history of asthma and other chronic lower respiratory diseases; Z87.891 Personal history of nicotine dependence; Z90.710 Acquired absence of both cervix and uterus; Z95.0 Presence of cardiac pacemaker
CPT/HCPCS: 96361 ×3; 96366 ×3; 96376 ×3; 96365; 96375; 99285; 36415; 94640 ×6; 94760 ×2; 93005; 97116; 97161; 97166; 83880; 80053; 82550; 83605; 83735; 84100; 84484; 85025; 85610; 85730; 81001; 87086; 87077; 87186; 71046; G0378 ×3; J2930 ×3; J0295 ×3

== ENCOUNTER → 2020-11-10 | Outpatient (CLI) | payer MEDICARE ==
[2020-11-10 20:12] LABS: HCT 29.4 % (37.2-46.3); HGB 7.9 g/dL (12.0-15.0); MCH 22.4 pg (27.0-32.0); MCHC 26.9 g/dL (32.0-37.0); MCV 83.5 fL (80.0-97.0); Mean Platelet Volume 9.7 fL (9.5-12.2); Platelet Count 299 X 10*3/uL (140-440); RBC 3.52 X 10*6/uL (4.10-5.20); RDW 22.6 % (11.5-14.5); WBC 10.44 X 10*3/uL (4.50-10.00)
[2020-11-10 20:46] LABS: % Iron Saturation 29.85 (12.00-45.00); African American GFR (CKD) 70.5 (60.0-200.0); Albumin 4.6 g/dL (3.80-4.90); Albumin/Globulin Ratio 2.42 (1.60-3.17); Anion Gap 12.3 mmol/L (4.00-12.00); BUN/Creat Ratio 17.78 Ratio (12.00-20.00); Calcium 9.3 mg/dL (8.7-10.3); Carbon Dioxide 27.7 mmol/L (21.6-31.8); Globulin 1.9 g/dL (1.6-3.3); Non-African American GFR(CKD) 60.8 (60.0-200.0); Potassium 4.2 mmol/L (3.5-5.5); Total Bilirubin 0.4 mg/dL (0.2-1.2); Total Protein 6.5 g/dL (6.2-8.2)
[2020-11-10 21:28] LABS: Ferritin 10.1 ng/mL (10.0-291.0)
== END | disposition home or self-care (01) ==
LOC: LABWHC1 12:01
PROVIDERS: ATTEND Internal Medicine Interventional Cardiology
DX: D64.9 Anemia, unspecified (principal); R06.02 Shortness of breath
CPT/HCPCS: 36415; 80053; 82728; 83540; 83550; 83880; 85027

== ENCOUNTER 2020-11-28 22:03 | Observation (INO) | payer MEDICARE ==
[2020-11-28] MEDS ORDERED: IPRATROPIUM-ALBUTEROL 3 ML NEB INHALATION STA (22:40)
[2020-11-28] MEDS ORDERED: SODIUM CHLORIDE 0.9% 1,000 ML IV STA (22:40)
[2020-11-28 23:05] LABS: Anisocytosis Slight; Basophils % (A) 0 %; Eosinophils # (A) 0.2 k/uL (0-0.7); Eosinophils % (A) 2 %; HCT 39.3 % (34.0-46.0); HGB 11.9 gm/dL (11.4-16.0); Hypochromasia Marked; Lymphocytes # (A) 1.2 k/uL (1.0-4.8); Lymphocytes % (A) 14 %; MCH 25.7 pg (25.0-35.0); MCHC 30.4 g/dL (31.0-37.0); MCV 84.4 fL (80.0-100.0); Mean Platelet Volume 6.8; Microcytosis Slight; Monocytes # (A) 0.4 k/uL (0-1.0); Monocytes % (A) 5 %; Neutrophils # (A) 6.5 k/uL (1.3-7.7); Neutrophils % (A) 77 %; Platelet Count 228 k/uL (150-450); RBC 4.65 m/uL (3.80-5.40); RDW 19.4 % (11.5-15.5); WBC 8.5 k/uL (3.8-10.6)
[2020-11-28 23:19] LABS: INR 1.3 (<1.2); Partial Thromboplastin Time 31.2 sec (22.0-30.0); Prothrombin Time 12.9 sec (9.0-12.0)
--- NOTE | 2020-11-28 23:27 | XR ---
EXAMINATION TYPE: XR chest 2V DATE OF EXAM: 11/28/2020 COMPARISON: 11/04/2020 HISTORY: Difficulty breathing TECHNIQUE: FINDINGS: There is no heart failure nor confluent pneumonic infiltrate. There is left axillary pacema ker. There are chest leads. Costophrenic angles are clear. There is mid thoracic vertebroplasty. IMPRESSION: No active cardiopulmonary disease. No change.
[2020-11-28 23:35] LABS: ALT 13 U/L (4-34); AST 21 U/L (14-36); African American GFR (CKD) 90 (>60 ml/min/1.73 sqM); Albumin 4.1 g/dL (3.5-5.0); Alkaline Phosphatase 102 U/L (38-126); Anion Gap 6 mmol/L; Blood Urea Nitrogen 17 mg/dL (7-17); Calcium 9.1 mg/dL (8.4-10.2); Carbon Dioxide 27 mmol/L (22-30); Chloride 103 mmol/L (98-107); Creatine Kinase <20 U/L (30-135); Glucose 153 mg/dL (74-99); Magnesium 1.8 mg/dL (1.6-2.3); Non-African American GFR(CKD) 78 (>60 ml/min/1.73 sqM); Potassium 4.6 mmol/L (3.5-5.1); Sodium 136 mmol/L (137-145); Total Bilirubin 0.4 mg/dL (0.2-1.3); Total Protein 6.7 g/dL (6.3-8.2)
--- NOTE | 2020-11-28 23:40 | ED ---
SOB HPI - General Chief Complaint: Shortness of Breath Stated Complaint: HORACE Time Seen by Provider: 11/28/20 22:29 Source: patient, RN notes reviewed, old records reviewed Mode of arrival: wheelchair Limitations: no limitations - History of Present Illness Initial Comments: This is a 80-year-old female she presents today for evaluation. Patient's prese nting for evaluation in regards to shortness of breath leg weakness difficulty with ambulation. Patient states she's having symptoms before believes it may be related to recent blood transfusion. Her hemoglobin is low she has trouble breathing was recently taken off breathing treatments by her subacute nurse. Patient denies any fever cough or chest MD Complaint: shortness of breath -: days(s) Severity: moderate Severity scale (1-10): 6 Quality: aching Consistency: constant Improves With: oxygen, rest Worsens With: exertion Known History Of: COPD Context: recent URI, other (Recent low hemoglobin) Associated Symptoms: denies other symptoms - Related Data Home Medications Medication Instructions Recorded Confirmed Rivaroxaban [Xarelto] 20 mg PO DAILY 02/06/17 11/19/20 Ergocalciferol [Vitamin D2 50,000 unit PO MO 07/05/17 11/19/20 (DRISDOL)] Pravastatin Sodium [Pravachol] 40 mg PO HS 04/30/18 11/19/20 Flecainide Acetate 100 mg PO BID 08/12/19 11/19/20 Furosemide [Lasix] 40 mg PO DAILY 08/12/19 11/19/20 Potassium Chloride [Klor-Con 8] 8 meq PO DAILY 08/12/19 11/19/20 Ranolazine [Ranexa] 1,000 mg PO BID 08/12/19 11/19/20 Tamsulosin [Flomax] 0.4 mg PO DAILY 08/12/19 11/19/20 Cyanocobalamin [Vitamin B-12 1,000 mcg SQ Q30D 03/29/20 11/19/20 Injection] Metoprolol Tartrate [Lopressor] 50 mg PO BID 03/29/20 11/19/20 Nitroglycerin Sl Tabs [Nitrostat] 0.4 mg SL Q5M PRN 03/29/20 11/19/20 Tiotropium Br/Olodaterol HCl 2 puff INHALATION RT-DAILY 03/29/20 11/19/20 [Stiolto Respimat Inhal Mars[place]] Biotin 10,000 mcg PO DAILY 07/09/20 11/19/20 Famotidine 20 mg PO DAILY 07/09/20 11/19/20 Folic Acid 0.8 mg PO DAILY 07/09/20 11/19/20 sitaGLIPtin PHOSPHATE [Januvia] 100 mg PO DAILY 07/09/20 11/19/20 Previous Rx's Medication Instructions Recorded oxyCODONE-APAP 7.5-325MG [Percocet 1 tab PO Q8H PRN #12 tab 04/30/20 7.5-325 mg] Cephalexin [Keflex] 250 mg PO Q8HR #14 capsule 07/11/20 Melatonin 2 mg PO HS #30 tab 07/11/20 Allergies Allergy/AdvReac Type Severity Reaction Status Date / Time nickel Allergy Rash/Hives Verified 11/19/20 08:16 Review of Systems ROS Statement: Those systems with pertinent positive or pertinent negative responses have been documented in the HPI. ROS Other: All systems not noted in ROS Statement are negative. Past Medical History Past Medical History: Atrial Fibrillation, Atrial Flutter, Blood Disorder, Chest Pain / Angina, COPD, Diabetes Mellitus, Hyperlipidemia, Hypertension, Musculoskeletal Disorder, Osteoarthritis (OA), Pneumonia Additional Past Medical History / Comment(s): Home oxygen prn, bronchitis, NIDDM type II, neurpathy L foot, chronic low back pain which pt states has been better since surgery but states she now has difficutly bending-loses balance, past thoracic vertebral fracture with surgery, past L sided sciatica/difficulty lifting L leg- improved by physical therapy, anemia with B12 injections, UTIs, cystitis, occasional R foot edema-uses lasix for this reason. History of Any Multi-Drug Resistant Organisms: None Reported Past Surgical History: Back Surgery, Breast Surgery, Cardiac Ablation, Cholecystectomy, Hysterectomy, Joint Replacement, Orthopedic Surgery, Pacemaker, Tubal Ligation Additional Past Surgical History / Comment(s): Cervical fusion, kyphoplasty/vertebral biopsy T6, R leg fracture with plate, total R knee, L3/L4/L5 surgery in 2019, cystocele, BMA, bilateral cataract removals, R breast biopsy, Past Anesthesia/Blood Transfusion Reactions: No Reported Reaction Additional Past Anesthesia/Blood Transfusion Reaction / Comment(s): Anesthesia "makes my hair fall out". Type of Cardiac Device: Permanent Pacemaker Device Placement Date:: 04/09 Past Psychological History: No Psychological Hx Reported Smoking Status: Former smoker - Past Family History Brother(s) Family Medical History: Cancer, Deep Vein Thrombosis (DVT), Myocardial Infarction ([place]) Additional Family Medical History / Comment(s): colon and prostate ca Sister(s) Family Medical History: Cancer Additional Family Medical History / Comment(s): breast and ovarian Mother Family Medical History: COPD Father History Unknown: Yes Additional Family Medical History / Comment(s): Father in a MVA General Exam Limitations: no limitations General appearance: alert, in no apparent distress Head exam: Present: atraumatic, normocephalic, normal inspection Eye exam: Present: normal appearance, PERRL, EOMI. Absent: scleral icterus, conjunctival injection, periorbital swelling ENT exam: Present: normal exam, mucous membranes moist Neck exam: Present: normal inspection. Absent: tenderness, meningismus, lymphadenopathy Respiratory exam: Present: normal lung sounds bilaterally, wheezes. Absent: respiratory distress, rales, rhonchi, stridor Cardiovascular Exam: Present: regular rate, normal rhythm, normal heart sounds. Absent: systolic murmur, diastolic murmur, rubs, gallop, clicks GI/Abdominal exam: Present: soft, normal bowel sounds. Absent: distended, tenderness, guarding, rebound, rigid Extremities exam: Present: normal inspection, full ROM, normal capillary refill. Absent: tenderness, pedal edema, joint swelling, calf tenderness Back exam: Present: normal inspection Neurological exam: Present: alert, oriented X3, CN II-XII intact Psychiatric exam: Present: normal affect, normal mood Skin exam: Present: warm, dry, intact, normal color. Absent: rash Course Vital Signs 11/28/20 11/28/20 11/28/20 22:06 22:48 23:08 Temperature 97.8 F Pulse Rate 79 72 70 Respiratory 22 22 Rate Blood Pressure 171/69 152/72 O2 Sat by Pulse 97 98 Oximetry 11/28/20 11/28/20 11/29/20 23:20 23:24 00:50 Temperature 98.0 F Pulse Rate 76 77 Respiratory 18 16 Rate Blood Pressure 165/85 O2 Sat by Pulse 98 Oximetry - Reevaluation(s) Reevaluation #1: 11/29/20 00:53 Medical record is reviewed Reevaluation #2: 11/29/20 00:53 Patient still feels short of breath Reevaluation #3: 11/29/20 00:53 Informed results questions answered Medical Decision Making - Medical Decision Making 80 female DF for evaluation patient presents today for evaluation of shortness of breath and weakness. Patient will be admitted for breathing treatments, pulmonology to evaluate and treat. Hemoglobin is normal. - Lab Data Result diagrams: 11/28/20 22:48 11/28/20 22:48 Lab Results 11/28/20 11/28/20 11/28/20 Range/Units 22:48 22:48 22:48 WBC 8.5 (3.8-10.6) k/uL RBC 4.65 (3.80-5.40) m/uL Hgb 11.9 (11.4-16.0) gm/dL Hct 39.3 (34.0-46.0) % MCV 84.4 (80.0-100.0) fL MCH 25.7 (25.0-35.0) pg MCHC 30.4 L (31.0-37.0) g/dL RDW 19.4 H (11.5-15.5) % Plt Count 228 (150-450) k/uL MPV 6.8 Neutrophils % 77 % Lymphocytes % 14 % Monocytes % 5 % Eosinophils % 2 % Basophils % 0 % Neutrophils # 6.5 (1.3-7.7) k/uL Lymphocytes # 1.2 (1.0-4.8) k/uL Monocytes # 0.4 (0-1.0) k/uL Eosinophils # 0.2 (0-0.7) k/uL Basophils # 0.0 (0-0.2) k/uL Hypochromasia Marked Anisocytosis Slight Microcytosis Slight PT 12.9 H (9.0-12.0) sec INR 1.3 H (<1.2) APTT 31.2 H (22.0-30.0) sec Sodium 136 L (137-145) mmol/L Potassium 4.6 (3.5-5.1) mmol/L Chloride 103 (98-107) mmol/L Carbon Dioxide 27 (22-30) mmol/L Anion Gap 6 mmol/L BUN 17 (7-17) mg/dL Creatinine 0.74 (0.52-1.04) mg/dL Est GFR (CKD-EPI)AfAm 90 (>60 ml/min/1.73 sqM) Est GFR (CKD-EPI)NonAf 78 (>60 ml/min/1.73 sqM) Glucose 153 H (74-99) mg/dL Plasma Lactic Acid Gurpreet (0.7-2.0) mmol/L Calcium 9.1 (8.4-10.2) mg/dL Magnesium 1.8 (1.6-2.3) mg/dL Total Bilirubin 0.4 (0.2-1.3) mg/dL AST 21 (14-36) U/L ALT 13 (4-34) U/L Alkaline Phosphatase 102 (38-126) U/L Creatine Kinase <20 L (30-135) U/L Troponin I (0.000-0.034) ng/mL C-Reactive Protein <5.0 (<10.0) mg/L NT-Pro-B Natriuret Pep pg/mL Total Protein 6.7 (6.3-8.2) g/dL Albumin 4.1 (3.5-5.0) g/dL 11/28/20 11/28/20 11/28/20 Range/Units 22:48 22:48 22:48 WBC (3.8-10.6) k/uL RBC (3.80-5.40) m/uL Hgb (11.4-16.0) gm/dL Hct (34.0-46.0) % MCV (80.0-100.0) fL MCH (25.0-35.0) pg MCHC (31.0-37.0) g/dL RDW (11.5-15.5) % Plt Count (150-450) k/uL MPV Neutrophils % % Lymphocytes % % Monocytes % % Eosinophils % % Basophils % % Neutrophils # (1.3-7.7) k/uL Lymphocytes # (1.0-4.8) k/uL Monocytes # (0-1.0) k/uL Eosinophils # (0-0.7) k/uL Basophils # (0-0.2) k/uL Hypochromasia Anisocytosis Microcytosis PT (9.0-12.0) sec INR (<1.2) APTT (22.0-30.0) sec Sodium (137-145) mmol/L Potassium (3.5-5.1) mmol/L Chloride (98-107) mmol/L Carbon Dioxide (22-30) mmol/L Anion Gap mmol/L BUN (7-17) mg/dL Creatinine (0.52-1.04) mg/dL Est GFR (CKD-EPI)AfAm (>60 ml/min/1.73 sqM) Est GFR (CKD-EPI)NonAf (>60 ml/min/1.73 sqM) Glucose (74-99) mg/dL Plasma Lactic Acid Gurpreet 1.1 (0.7-2.0) mmol/L Calcium (8.4-10.2) mg/dL Magnesium (1.6-2.3) mg/dL Total Bilirubin (0.2-1.3) mg/dL AST (14-36) U/L ALT (4-34) U/L Alkaline Phosphatase (38-126) U/L Creatine Kinase (30-135) U/L Troponin I <0.012 (0.000-0.034) ng/mL C-Reactive Protein (<10.0) mg/L NT-Pro-B Natriuret Pep 240 pg/mL Total Protein (6.3-8.2) g/dL Albumin (3.5-5.0) g/dL - EKG Data -: EKG Interpreted by Me (EKG shows paced 79, MT 326 QRS 126 QTC 490) - Radiology Data Radiology results: report reviewed (Chest x-rays negative for acute disease), image reviewed Disposition Clinical Impression: Weakness, Acute exacerbation of chronic obstructive pulmonary disease Disposition: ADMITTED IP TO THIS [facility] Condition: Good Is patient prescribed a controlled substance at d/c from ED?: No Referrals: Darrel Rizo DO [Primary Care Provider] - 1-2 days
[2020-11-28 23:44] LABS: C Reactive Protein <5.0 mg/L (<10.0)
[2020-11-29] MEDS ORDERED: methylPREDNISolone SOD SUCCI 125 MG/2 ML VIAL IV STA (00:51)
[2020-11-29 01:21] LABS: Appearance,Urine Clear (Clear); Bilirubin,Urine Negative (Negative); Blood,Urine Negative (Negative); Color,Urine Yellow; Glucose,Urine (UA) 4+ (Negative); Ketones,Urine Negative (Negative); Leukocyte Esterase,Urine Negative (Negative); Nitrite,Urine Negative (Negative); PH, Urine 6.5 (5.0-8.0); Protein,Urine Negative (Negative); Specific Gravity,Urine 1.021 (1.001-1.035); Urobilinogen,Urine <2.0 mg/dL (<2.0)
[2020-11-29 03:08] LABS: Glucose,Whole Blood 176 mg/dL (75-99)
[2020-11-29] MEDS: methylPREDNISolone SOD SUCCI 125 MG/2 ML VIAL IV SCH ×2 (05:25→11:44)
[2020-11-29 07:12] LABS: Glucose,Whole Blood 174 mg/dL (75-99)
[2020-11-29 08:07] VITALS: BP 155/73; TEMP 97.4
[2020-11-29] MEDS: IPRATROPIUM-ALBUTEROL 3 ML NEB INHALATION SCH ×2 (09:04→15:13)
[2020-11-29 09:08] VITALS: RESP 16
[2020-11-29] MEDS ORDERED: NITROGLYCERIN SL TABS 0.4 MG TAB SUBLINGUAL PRN (11:15)
[2020-11-29] MEDS ORDERED: Empagliflozin [Jardiance] PO SCH (11:15)
[2020-11-29] MEDS ORDERED: oxyCODONE-APAP 7.5-325MG 1 EACH TAB PO PRN (11:15)
[2020-11-29] MEDS ORDERED: ERGOCALCIFEROL 1,250 MCG (50,000 IU) CAPSULE PO SCH (11:15)
[2020-11-29] MEDS ORDERED: FLECAINIDE 50 MG TAB PO SCH (11:15)
[2020-11-29] MEDS ORDERED: FUROSEMIDE 20 MG TAB PO PRN (11:15)
[2020-11-29] MEDS ORDERED: RANOLAZINE 500 MG TAB.ER.12H PO SCH (11:30)
[2020-11-29] MEDS ORDERED: RIVAROXABAN 20 MG TAB PO SCH (11:30)
[2020-11-29] MEDS ORDERED: POTASSIUM CHLORIDE ER 10 MEQ TAB.ER.PRT PO SCH (11:30)
[2020-11-29] MEDS ORDERED: CYANOCOBALAMIN 1,000 MCG/ML 1 ML VIAL IM ONE (11:46)
[2020-11-29 12:06] LABS: Glucose,Whole Blood 241 mg/dL (75-99)
[2020-11-29 12:45] VITALS: PULSE 92
--- NOTE | 2020-11-29 13:06 | P.CNPUL ---
History of Present Illness Consult date: 11/29/20 Requesting physician: Jefferson Lees Reason for consult: dyspnea Chief complaint: Dyspnea with exertion History of present illness: 80-year-old female patient of Dr. Rizo with multiple medical problems including hypertension, iron deficiency anemia, with history of recent transfusion with 2 units of packed red blood cells, chronic atrial fibrillation on Xarelto, permanent pacemaker, mitral valve regurgitation, fibromyalgia, secondary pulmonary hypertension, type 2 diabetes mellitus, vitamin D deficiency, former smoker, who presented to the emergency department on 11/28/2020 with complaints of shortness of breath, leg weakness, and difficulty with ambulation. As mentioned above, patient had 2 units of packed red blood cells transfused on 11/19/2020 for hemoglobin of 7.9. She states that she had been seen by a GI service and there was a discussion about a possibility of endoscopic capsule study for her history of anemia. Patient denied any cough, any fever, no chest pain. She states she is more short of breath with exertion. She states she did take albuterol inhaler at home which did not help her. Patient had a reevaluation on an outpatient basis the pulmonary clinic by Dr. Ascencio, and her PFT showed no evidence of obstructive airway disease, her FEV1 was 84% of predicted, her 6 minute walk did not reveal desaturation, however patient was only were able to walk for 1 minute. Patient has oxygen at home which she uses at bedtime and as needed. Shortness of breath was thought to be secondary to deconditioning, medical debility, and unlikely cardiac in nature secondary to underlying pulmonary hypertension, chronic A. fib and mitral regurgitation. Patient was told to stop her bronchodilators by Dr. Ascencio. Chest x-ray was completed in the emergency department showing no active cardiopulmonary disease. There is a left axillary pacemaker in place. Labs reviewed showing white blood cell, 8.5, hemoglobin of 11.9, INR 1.3, sodium is 136, the rest of the electrolytes and renal profile were unremarkable, troponin was negative at less than 0.012, proBNP was 240, CRP was less than 5, LFTs were within normal limits, COVID 19 was negative. Patient states she was wheezy on admission, she was given IV steroids and breathing treatments, she is on when necessary dose of oral Lasix. Today she states she is breathing easier, less wheezy, lung sounds are clear to auscultation, patient is on room air her pulse ox is 93-97%, she is afebrile. She states she still short of breath with exertion. Her EKG on admission showed paced rhythm. She has had no fever or chills, no edema. No wheezing, no rhonchi Review of Systems All systems: negative Constitutional: Reports weakness, Denies chills, Denies fever Eyes: denies blurred vision, denies pain Ears, nose, mouth and throat: Denies headache, Denies sore throat Cardiovascular: Reports dyspnea on exertion, Denies chest pain, Denies shortness of breath Respiratory: Reports congestion, Reports dyspnea, Reports home oxygen, Reports wheezing, Denies cough Gastrointestinal: Denies abdominal pain, Denies diarrhea, Denies nausea, Denies vomiting Genitourinary: Denies dysuria, Denies hematuria Musculoskeletal: Denies myalgias Integumentary: Denies pruritus, Denies rash Neurological: Denies numbness, Denies weakness Psychiatric: Denies anxiety, Denies depression Endocrine: Denies fatigue, Denies weight change Past Medical History Past Medical History: Atrial Fibrillation, Atrial Flutter, Blood Disorder, Chest Pain / Angina, COPD, Diabetes Mellitus, Hyperlipidemia, Hypertension, Musculoskeletal Disorder, Osteoarthritis (OA), Pneumonia Additional Past Medical History / Comment(s): Home oxygen prn, bronchitis, NIDDM type II, neurpathy L foot, chronic low back pain which pt states has been better since surgery but states she now has difficutly bending-loses balance, past thoracic vertebral fracture with surgery, past L sided sciatica/difficulty lifting L leg- improved by physical therapy, anemia with B12 injections, UTIs, cystitis, occasional R foot edema-uses lasix for this reason. History of Any Multi-Drug Resistant Organisms: None Reported Past Surgical History: Back Surgery, Breast Surgery, Cardiac Ablation, Cholecystectomy, Hysterectomy, Joint Replacement, Orthopedic Surgery, Pacemaker, Tubal Ligation Additional Past Surgical History / Comment(s): Cervical fusion, kyphoplasty/vertebral biopsy T6, R leg fracture with plate, total R knee, L3/L4/L5 surgery in 2019, cystocele, BMA, bilateral cataract removals, R breast biopsy, Past Anesthesia/Blood Transfusion Reactions: No Reported Reaction Additional Past Anesthesia/Blood Transfusion Reaction / Comment(s): Anesthesia "makes my hair fall out". Type of Cardiac Device: Permanent Pacemaker Device Placement Date:: 04/09 Past Psychological History: No Psychological Hx Reported Additional Psychological History / Comment(s): Pt resides alone. She uses a walker. She can drive. She has a glucometer. Smoking Status: Former smoker Past Alcohol Use History: None Reported Additional Past Alcohol Use History / Comment(s): Pt started smoking in 1964 and quit smoking 2016 Past Drug Use History: None Reported - Past Family History Brother(s) Family Medical History: Cancer, Deep Vein Thrombosis (DVT), Myocardial Infarction ([place]) Additional Family Medical History / Comment(s): colon and prostate ca Sister(s) Family Medical History: Cancer Additional Family Medical History / Comment(s): breast and ovarian Mother Family Medical History: COPD Father History Unknown: Yes Additional Family Medical History / Comment(s): Father in a MVA Medications and Allergies Home Medications Medication Instructions Recorded Confirmed Type Rivaroxaban [Xarelto] 20 mg PO DAILY 02/06/17 11/29/20 History Ergocalciferol [Vitamin D2 50,000 unit PO MOWE 07/05/17 11/29/20 History (DRISDOL)] Pravastatin Sodium [Pravachol] 40 mg PO HS 04/30/18 11/29/20 History Flecainide Acetate 100 mg PO BID 08/12/19 11/29/20 History Potassium Chloride [Klor-Con 8] 8 meq PO DAILY 08/12/19 11/29/20 History Ranolazine [Ranexa] 1,000 mg PO BID 08/12/19 11/29/20 History Cyanocobalamin [Vitamin B-12 1,000 mcg SQ Q30D 03/29/20 11/29/20 History Injection] Nitroglycerin Sl Tabs [Nitrostat] 0.4 mg SL Q5M PRN 03/29/20 11/29/20 History oxyCODONE-APAP 7.5-325MG [Percocet 1 tab PO Q8H PRN #12 tab 04/30/20 11/29/20 Rx 7.5-325 mg] Albuterol Nebulized [Ventolin 2.5 mg INHALATION RT-Q6H PRN 11/29/20 11/29/20 History Nebulized] Albuterol Sulfate [Ventolin HFA] 2 puff INHALATION RT-Q6H PRN 11/29/20 11/29/20 History Ciprofloxacin HCl [Cipro] 500 mg PO BID 11/29/20 11/29/20 History Empagliflozin [Jardiance] 10 mg PO DAILY 11/29/20 11/29/20 History Ferrous Sulfate [Iron (65 MG 325 mg PO DAILY 11/29/20 11/29/20 History Elemental)] Furosemide [Lasix] 20 mg PO DAILY PRN 11/29/20 11/29/20 History predniSONE 0 mg PO DIRECTED #10 tab 11/29/20 Rx Allergies Allergy/AdvReac Type Severity Reaction Status Date / Time nickel Allergy Rash/Hives Verified 11/29/20 07:23 Physical Exam Vitals: Vital Signs Temp Pulse Pulse Resp BP BP Pulse Ox 11/29/20 12:45 92 16 11/29/20 12:35 90 16 11/29/20 09:17 92 16 11/29/20 09:04 93 16 93 L 11/29/20 08:00 18 11/29/20 07:00 97.4 F L 82 20 155/73 93 L 11/29/20 02:00 97.7 F 90 18 185/99 97 11/29/20 01:53 97.7 F 90 185/99 97 11/29/20 00:50 98.0 F 77 16 165/85 98 11/28/20 23:24 76 11/28/20 23:20 18 11/28/20 23:08 70 11/28/20 22:48 72 22 152/72 98 11/28/20 22:06 97.8 F 79 22 171/69 97 Intake and Output 11/28/20 11/29/20 11/29/20 22:59 06:59 14:59 Intake Total 75 Balance 75 Intake: Oral 75 Other: Voiding Method Bedside Commode # Voids 2 1 # Bowel Movements 1 Weight 81.647 kg 81.647 kg GENERAL EXAM: Alert, very pleasant, 80-year-old white female, on room air, with a pulse ox of 93-97% comfortable in no apparent distress. HEAD: Normocephalic/atraumatic. EYES: Normal reaction of pupils, equal size. Conjunctiva pink, sclera white. NOSE: Clear with pink turbinates. THROAT: No erythema or exudates. NECK: No masses, no JVD, no thyroid enlargement, no adenopathy. CHEST: No chest wall deformity. Symmetrical expansion. LUNGS: Equal air entry with no crackles, wheeze, rhonchi or dullness. CVS: Regular rate and rhythm, normal S1 and S2, no gallops, no murmurs, no rubs ABDOMEN: Soft, nontender. No hepatosplenomegaly, normal bowel sounds, no guarding or rigidity. EXTREMITIES: No clubbing, no edema, no cyanosis, 2+ pulses and upper and lower extremities. MUSCULOSKELETAL: Muscle strength and tone normal. SPINE: No scoliosis or deformity SKIN: No rashes CENTRAL NERVOUS SYSTEM: Alert and oriented -3. No focal deficits, tone is normal in all 4 extremities. PSYCHIATRIC: Alert and oriented -3. Appropriate affect. Intact judgment and insight. Results - Laboratory Findings CBC and BMP: 11/28/20 22:48 11/28/20 22:48 ABG WBC 8.5 k/uL (3.8-10.6) 11/28/20 22:48 RBC 4.65 m/uL (3.80-5.40) 11/28/20 22:48 Hgb 11.9 gm/dL (11.4-16.0) 11/28/20 22:48 Hct 39.3 % (34.0-46.0) 11/28/20 22:48 MCV 84.4 fL (80.0-100.0) 11/28/20 22:48 MCH 25.7 pg (25.0-35.0) 11/28/20 22:48 MCHC 30.4 g/dL (31.0-37.0) L 11/28/20 22:48 RDW 19.4 % (11.5-15.5) H 11/28/20 22:48 Plt Count 228 k/uL (150-450) 11/28/20 22:48 MPV 6.8 11/28/20 22:48 Neutrophils % 77 % 11/28/20 22:48 Lymphocytes % 14 % 11/28/20 22:48 Monocytes % 5 % 11/28/20 22:48 Eosinophils % 2 % 11/28/20 22:48 Basophils % 0 % 11/28/20 22:48 Neutrophils # 6.5 k/uL (1.3-7.7) 11/28/20 22:48 Lymphocytes # 1.2 k/uL (1.0-4.8) 11/28/20 22:48 Monocytes # 0.4 k/uL (0-1.0) 11/28/20 22:48 Eosinophils # 0.2 k/uL (0-0.7) 11/28/20 22:48 Basophils # 0.0 k/uL (0-0.2) 11/28/20 22:48 Hypochromasia Marked 11/28/20 22:48 Anisocytosis Slight 11/28/20 22:48 Microcytosis Slight 11/28/20 22:48 PT 12.9 sec (9.0-12.0) H 11/28/20 22:48 INR 1.3 (<1.2) H 11/28/20 22:48 APTT 31.2 sec (22.0-30.0) H 11/28/20 22:48 Sodium 136 mmol/L (137-145) L 11/28/20 22:48 Potassium 4.6 mmol/L (3.5-5.1) 11/28/20 22:48 Chloride 103 mmol/L (98-107) 11/28/20 22:48 Carbon Dioxide 27 mmol/L (22-30) 11/28/20 22:48 Anion Gap 6 mmol/L 11/28/20 22:48 BUN 17 mg/dL (7-17) 11/28/20 22:48 Creatinine 0.74 mg/dL (0.52-1.04) 11/28/20 22:48 Est GFR (CKD-EPI)AfAm 90 (>60 ml/min/1.73 sqM) 11/28/20 22:48 Est GFR (CKD-EPI)NonAf 78 (>60 ml/min/1.73 sqM) 11/28/20 22:48 Glucose 153 mg/dL (74-99) H 11/28/20 22:48 POC Glucose (mg/dL) 241 mg/dL (75-99) H 11/29/20 12:03 POC Glu Professor Of Criminal Justice SACHA Emily Doll 11/29/20 12:03 Plasma Lactic Acid Gurpreet 1.1 mmol/L (0.7-2.0) 11/28/20 22:48 Calcium 9.1 mg/dL (8.4-10.2) 11/28/20 22:48 Magnesium 1.8 mg/dL (1.6-2.3) 11/28/20 22:48 Total Bilirubin 0.4 mg/dL (0.2-1.3) 11/28/20 22:48 AST 21 U/L (14-36) 11/28/20 22:48 ALT 13 U/L (4-34) 11/28/20 22:48 Alkaline Phosphatase 102 U/L (38-126) 11/28/20 22:48 Creatine Kinase <20 U/L (30-135) L 11/28/20 22:48 Troponin I <0.012 ng/mL (0.000-0.034) 11/28/20 22:48 C-Reactive Protein <5.0 mg/L (<10.0) 11/28/20 22:48 NT-Pro-B Natriuret Pep 240 pg/mL 11/28/20 22:48 Total Protein 6.7 g/dL (6.3-8.2) 11/28/20 22:48 Albumin 4.1 g/dL (3.5-5.0) 11/28/20 22:48 Urine Color Yellow 11/29/20 00:41 Urine Appearance Clear (Clear) 11/29/20 00:41 Urine pH 6.5 (5.0-8.0) 11/29/20 00:41 Ur Specific [place] 1.021 (1.001-1.035) 11/29/20 00:41 Urine Protein Negative (Negative) 11/29/20 00:41 Urine Glucose (UA) 4+ (Negative) H 11/29/20 00:41 Urine Ketones Negative (Negative) 11/29/20 00:41 Urine Blood Negative (Negative) 11/29/20 00:41 Urine Nitrite Negative (Negative) 11/29/20 00:41 Urine Bilirubin Negative (Negative) 11/29/20 00:41 Urine Urobilinogen <2.0 mg/dL (<2.0) 11/29/20 00:41 Ur Leukocyte Esterase Negative (Negative) 11/29/20 00:41 Coronavirus (PCR) Not Detected (Not Detectd) 11/29/20 01:35 PT/INR, D-dimer PT 12.9 sec (9.0-12.0) H 03/07/21 22:48 INR 1.3 (<1.2) H 11/28/20 22:48 Abnormal lab findings: Abnormal Labs 11/28/20 11/28/20 11/28/20 22:48 22:48 22:48 MCHC 30.4 L RDW 19.4 H PT 12.9 H INR 1.3 H APTT 31.2 H Sodium 136 L Glucose 153 H POC Glucose (mg/dL) Creatine Kinase <20 L Urine Glucose (UA) 11/29/20 11/29/20 11/29/20 00:41 02:58 07:10 MCHC RDW PT INR APTT Sodium Glucose POC Glucose (mg/dL) 176 H 174 H Creatine Kinase Urine Glucose (UA) 4+ H 11/29/20 12:03 MCHC RDW PT INR APTT Sodium Glucose POC Glucose (mg/dL) 241 H Creatine Kinase Urine Glucose (UA) - Diagnostic Findings Chest x-ray: report reviewed, image reviewed Additional studies: EKG reviewed Assessment and Plan Plan: Assessment: #1. Exertional dyspnea, chest x-ray showed no acute process, rule out possibility of cardiac etiology related to history of pulmonary hypertension, chronic A. fib, and history of moderately severe mitral regurgitation. Recent outpatient PFT showed no evidence of obstructive lung disease. Patient was ta lakeisha off the bronchodilators #2. Recent history of blood transfusion with 2 units of packed red blood cell on 11/19/2020 for a hemoglobin of 7.9 #3. Iron deficiency anemia #4. Moderately severe mitral regurgitation #5. Pulmonary hypertension with right-sided pressure of 40 mmHg, secondary to valvular heart disease #6. History of chronic atrial fibrillation, EKG showed paced rhythm on the monitor, patient has permanent pacemaker, on Xarelto for anticoagulation #7. Type 2 diabetes mellitus #8. Physical deconditioning #9. Peripheral vascular disease #10. Vitamin D deficiency #11. Former smoker, for 25 years, in remission, however patient for PFT showed no evidence of obstructive lung disease Plan: Discontinue the IV steroids, discontinue bronchodilators, patient's shortness of breath does not seem to be pulmonary in nature, and most likely related to underlying cardiac history. We'll obtain echocardiogram, and we will ask cardiology to see the patient. I performed a history & physical examination of the patient and discussed their management with my nurse practitioner, Karishma Lowell. I reviewed the nurse practitioner's note and agree with the documented findings and plan of care. Lung sounds are positive for diminished breath sounds. The findings and the impression was discussed with the patient. I attest to the documentation by the nurse practitioner. Time with Patient: Greater than 30
[2020-11-29] MEDS ORDERED: PRAVASTATIN SODIUM 40 MG TAB PO SCH (21:00)
--- NOTE | 2020-11-29 23:21 | P.HPIM ---
History of Present Illness H&P Date: 11/29/20 Chief Complaint: Weakness in the legs History of presenting complaint: This is a very pleasant [address] Yanely Rizo. Chronic stable medical conditions include atrial flutter fibrillation, COPD, diabetes, hypertension, hyperlipidemia, osteoarthritis, urinary incontinence, chronic low back pain. Patient now presents with increasing weakness in the lower extremities. Patient 2 weeks ago was in the hospital he received 2 units of packed red blood cell. A ppetite is fair. No fever no chills. No change in bowel or urine. Just simply felt weak in the legs. She did receive some steroids from the ER. This morning her legs are feeling much better. She did walk to the bathroom with a walker this morning. Which is quite back to her baseline. No chest pain or palpitation. Review of systems: GEN.: Tired EYES: None HEENT: None NECK: None RESPIRATORY: None CARDIOVASCULAR: None GASTROINTESTINAL: None GENITOURINARY: As above MUSCULOSKELETAL: As above LYMPHATICS: None HEMATOLOGICAL: None PSYCHIATRY: None NEUROLOGICAL: Uses a walker Past medical history to include: Atrial flutter fibrillation, COPD, diabetes, hypertension, hyperlipidemia, oste oarthritis, urinary incontinence, chronic low back pain, nonobstructive coronary artery disease Social history: Patient lives alone. Does have a walker. Smoked for 52 years. Stopped in 2017 Physical examination: VITAL SIGNS: Afebrile, 72, 22, 152/72, 98% room air GENERAL: BMI 32.9, laying in bed, comfortable EYES: Pupils equal. Conjunctiva normal. HEENT: External appearance of nose and ears normal, oral cavity grossly normal. NECK: JVD not raised; masses not palpable. HEART: First and second heart sounds are normal; no edema. LUNGS: Respiratory rate increased, decreased breath sounds. ABDOMEN: Soft, nontender, liver spleen not palpable, no masses palpable. PSYCH: Alert and oriented x3; mood and affect normal. MUSCULAR skeletal: Evidence of OA especially in the hands and knees , limited range of lower extremities NEUROLOGICAL: Cranial nerves grossly intact; no facial asymmetry, power and sensation grossly intact. Able to raise both legs to about 60 patient was then witnessed to get out of the bed. She did use a walker and walk around the room. 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 She in fact is better this morning. Encouraged to walk around the room. -COPD in an ex-smoker, currently with the inhalers -Paroxysmal atrial flutter fibrillation, currently in sinus rhythm. On xarelto -Diabetes mellitus type 2, on oral hypoglycemic, follow Accu-Chek -Hyperlipidemia, continue with Pravachol -Essential hypertension, -Primary osteoarthritis, use Tylenol when necessary -Chronic urinary stress incontinence -Chronic gait dysfunction uses a walker -Permanent pacemaker -Normocytic anemia, chronic -Insomnia from medical conditions, use melatonin when necessary Past Medical History Past Medical History: Atrial Fibrillation, Atrial Flutter, Blood Disorder, Chest Pain / Angina, COPD, Diabetes Mellitus, Hyperlipidemia, Hypertension, Musculoskeletal Disorder, Osteoarthritis (OA), Pneumonia Additional Past Medical History / Comment(s): Home oxygen prn, bronchitis, NIDDM type II, neurpathy L foot, chronic low back pain which pt states has been better since surgery but states she now has difficutly bending-loses balance, past thoracic vertebral fracture with surgery, past L sided sciatica/difficulty lifting L leg- improved by physical therapy, anemia with B12 injections, UTIs, cystitis, occasional R foot edema-uses lasix for this reason. History of Any Multi-Drug Resistant Organisms: None Reported Past Surgical History: Back Surgery, Breast Surgery, Cardiac Ablation, Cholecystectomy, Hysterectomy, Joint Replacement, Orthopedic Surgery, Pacemaker, Tubal Ligation Additional Past Surgical History / Comment(s): Cervical fusion, kyphoplasty/vertebral biopsy T6, R leg fracture with plate, total R knee, L3/L4/L5 surgery in 2019, cystocele, BMA, bilateral cataract removals, R breast biopsy, Past Anesthesia/Blood Transfusion Reactions: No Reported Reaction Additional Past Anesthesia/Blood Transfusion Reaction / Comment(s): Anesthesia "makes my hair fall out". Type of Cardiac Device: Permanent Pacemaker Device Placement Date:: 04/09 Past Psychological History: No Psychological Hx Reported Additional Psychological History / Comment(s): Pt resides alone. She uses a walker. She can drive. She has a glucometer. Smoking Status: Former smoker Past Alcohol Use History: None Reported Additional Past Alcohol Use History / Comment(s): Pt started smoking in 1964 and quit smoking 2016 Past Drug Use History: None Reported - Past Family History Brother(s) Family Medical History: Cancer, Deep Vein Thrombosis (DVT), Myocardial Infarction (MS) Additional Family Medical History / Comment(s): colon and prostate ca Sister(s) Family Medical History: Cancer Additional Family Medical History / Comment(s): breast and ovarian Mother Family Medical History: COPD Father History Unknown: Yes Additional Family Medical History / Comment(s): Father in a MVA Medications and Allergies Home Medications Medication Instructions Recorded Confirmed Type Rivaroxaban [Xarelto] 20 mg PO DAILY 02/06/17 11/29/20 History Ergocalciferol [Vitamin D2 50,000 unit PO MOWE 07/05/17 11/29/20 History (DRISDOL)] Pravastatin Sodium [Pravachol] 40 mg PO HS 04/30/18 11/29/20 History Flecainide Acetate 100 mg PO BID 08/12/19 11/29/20 History Potassium Chloride [Klor-Con 8] 8 meq PO DAILY 08/12/19 11/29/20 History Ranolazine [Ranexa] 1,000 mg PO BID 08/12/19 11/29/20 History Cyanocobalamin [Vitamin B-12 1,000 mcg SQ Q30D 03/29/20 11/29/20 History Injection] Nitroglycerin Sl Tabs [Nitrostat] 0.4 mg SL Q5M PRN 03/29/20 11/29/20 History oxyCODONE-APAP 7.5-325MG [Percocet 1 tab PO Q8H PRN #12 tab 04/30/20 11/29/20 Rx 7.5-325 mg] Albuterol Nebulized [Ventolin 2.5 mg INHALATION RT-Q6H PRN 11/29/20 11/29/20 History Nebulized] Albuterol Sulfate [Ventolin HFA] 2 puff INHALATION RT-Q6H PRN 11/29/20 11/29/20 History Ciprofloxacin HCl [Cipro] 500 mg PO BID 11/29/20 11/29/20 History Empagliflozin [Jardiance] 10 mg PO DAILY 11/29/20 11/29/20 History Ferrous Sulfate [Iron (65 MG 325 mg PO DAILY 11/29/20 11/29/20 History Elemental)] Furosemide [Lasix] 20 mg PO DAILY PRN 11/29/20 11/29/20 History predniSONE 0 mg PO DIRECTED #10 tab 11/29/20 Rx Allergies Allergy/AdvReac Type Severity Reaction Status Date / Time nickel Allergy Rash/Hives Verified 11/29/20 07:23 Physical Exam Vitals: Vital Signs Temp Pulse Pulse Resp BP BP Pulse Ox 11/29/20 09:17 92 16 11/29/20 09:04 93 16 93 L 11/29/20 08:00 18 11/29/20 07:00 97.4 F L 82 20 155/73 93 L 11/29/20 02:00 97.7 F 90 18 185/99 97 11/29/20 01:53 97.7 F 90 185/99 97 11/29/20 00:50 98.0 F 77 16 165/85 98 11/28/20 23:24 76 11/28/20 23:20 18 11/28/20 23:08 70 11/28/20 22:48 72 22 152/72 98 11/28/20 22:06 97.8 F 79 22 171/69 97 Intake and Output 11/28/20 11/29/20 11/29/20 22:59 06:59 14:59 Intake Total 75 Balance 75 Intake: Oral 75 Other: Voiding Method Bedside Commode # Voids 2 1 # Bowel Movements 1 Weight 81.647 kg 81.647 kg Results CBC & Chem 7: 11/28/20 22:48 11/28/20 22:48 Labs: Abnormal Lab Results - Last 24 Hours (Table) 11/28/20 11/28/20 11/28/20 Range/Units 22:48 22:48 22:48 MCHC 30.4 L (31.0-37.0) g/dL RDW 19.4 H (11.5-15.5) % PT 12.9 H (9.0-12.0) sec INR 1.3 H (<1.2) APTT 31.2 H (22.0-30.0) sec Sodium 136 L (137-145) mmol/L Glucose 153 H (74-99) mg/dL POC Glucose (mg/dL) (75-99) mg/dL Creatine Kinase <20 L (30-135) U/L Urine Glucose (UA) (Negative) 11/29/20 11/29/20 11/29/20 Range/Units 00:41 02:58 07:10 MCHC (31.0-37.0) g/dL RDW (11.5-15.5) % PT (9.0-12.0) sec INR (<1.2) APTT (22.0-30.0) sec Sodium (137-145) mmol/L Glucose (74-99) mg/dL POC Glucose (mg/dL) 176 H 174 H (75-99) mg/dL Creatine Kinase (30-135) U/L Urine Glucose (UA) 4+ H (Negative) Thrombosis Risk Factor Assmnt - Choose All That Apply Any of the Below Risk Factors Present?: Yes Each Factor Represents 1 point: Abnormal pulmonary function (COPD) Each Risk Factor Represents 3 Points: Age 75 years or older Other congenital or acquired thrombophilia - If yes, enter type in comment: No Thrombosis Risk Factor Assessment Total Risk Factor Score: 4 Thrombosis Risk Factor Assessment Level: Moderate Risk
--- NOTE | 2020-11-29 23:25 | P.DS ---
Providers Date of admission: 11/29/20 00:51 Expected date of discharge: 11/29/20 Attending physician: Jefferson Lees Consults: 11/29/20 07:48 Consult Physician Routine Consulting Provider: Romel Ellison Consult Reason/Comments: sob Do you want consulting provider notified?: Yes 11/29/20 12:24 Consult Physician Routine Consulting Provider: Saundra Aviles Consult Reason/Comments: shortness of breath Do you want consulting provider notified?: Yes Primary care physician: Darrel Rizo [facility] Course: Chief Complaint: Weakness in the legs History of presenting complaint: This is a very pleasant [address] Yanely Rizo. Chronic stable medical conditions include atrial flutter fibrillation, COPD, diabetes, hypertension, hyperlipidemia, osteoarthritis, urinary incontinence, chronic low back pain. Patient now presents with increasing weakness in the lower extremities. Patient 2 weeks ago was in the hospital he received 2 units of packed red blood cell. Appetite is fair. No fever no chills. No change in bowel or urine. Just simply felt weak in the legs. She did receive some steroids from the ER. This morning her legs are feeling much better. She did walk to the bathroom with a walker this morning. Which is quite back to her baseline. No chest pain or palpitation. Admitted with lower extremity weakness. Finding difficulties get up. Did cc some steroids. Creatinine improved. Patient back to her baseline. Did talk to the patient. She came to go home. She'll follow up with pulmonary and cartilage as an outpatient. Consultation: Dr. Ellison from pulmonary Past medical history to include: Atrial flutter fibrillation, COPD, diabetes, hypertension, hyperlipidemia, osteoarthritis, urinary incontinence, chronic low back pain, nonobstructive coronary artery disease Social history: Patient lives alone. Does have a walker. Smoked for 52 years. Stopped in 2017 Physical examination: VITAL SIGNS: Afebrile, 92, 16, 155/73, 93% room air GENERAL: BMI 32.9, sitting at the edge of the bed, comfortable EYES: Pupils equal. Conjunctiva normal. HEENT: External appearance of nose and ears normal, oral cavity grossly normal. NECK: JVD not raised; masses not palpable. HEART: First and second heart sounds are normal; no edema. LUNGS: Respiratory rate increased, decreased breath sounds. ABDOMEN: Soft, nontender, liver spleen not palpable, no masses palpable. PSYCH: Alert and oriented x3; mood and affect normal. MUSCULAR skeletal: Evidence of OA especially in the hands and knees , limited range of lower extremities NEUROLOGICAL: Cranial nerves grossly intact; no facial asymmetry, power and sensation grossly intact. Able to raise both legs to about 60 patient was then witnessed to get out of the bed. She did use a walker and walk around the room. 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 She in fact is better this morning. Encouraged to walk around the room. Patient is back to baseline with a walker. -COPD in an ex-smoker, currently with the inhalers -Paroxysmal atrial flutter fibrillation, currently in sinus rhythm. On xarelto -Diabetes mellitus type 2, on oral hypoglycemic, follow Accu-Chek -Hyperlipidemia, continue with Pravachol -Essential hypertension, -Primary osteoarthritis, use Tylenol when necessary -Chronic urinary stress incontinence -Chronic gait dysfunction uses a walker -Permanent pacemaker -Normocytic anemia, chronic -Insomnia from medical conditions, use melatonin when necessary Disposition: Home Plan - Discharge Summary Discharge Rx Participant: No New Discharge Prescriptions: New predniSONE 0 mg PO DIRECTED #10 tab Continue Rivaroxaban [Xarelto] 20 mg PO DAILY Ergocalciferol [Vitamin D2 (DRISDOL)] 50,000 unit PO MOWE Pravastatin Sodium [Pravachol] 40 mg PO HS Flecainide Acetate 100 mg PO BID Potassium Chloride [Klor-Con 8] 8 meq PO DAILY Ranolazine [Ranexa] 1,000 mg PO BID Nitroglycerin Sl Tabs [Nitrostat] 0.4 mg SL Q5M PRN PRN Reason: Chest Pain Cyanocobalamin [Vitamin B-12 Injection] 1,000 mcg SQ Q30D oxyCODONE-APAP 7.5-325MG [Percocet 7.5-325 mg] 1 tab PO Q8H PRN #12 tab PRN Reason: Pain Empagliflozin [Jardiance] 10 mg PO DAILY Albuterol Sulfate [Ventolin HFA] 2 puff INHALATION RT-Q6H PRN PRN Reason: Shortness Of Breath Albuterol Nebulized [Ventolin Nebulized] 2.5 mg INHALATION RT-Q6H PRN PRN Reason: Shortness Of Breath Furosemide [Lasix] 20 mg PO DAILY PRN PRN Reason: Edema Ferrous Sulfate [Iron (65 MG Elemental)] 325 mg PO DAILY No Action Ciprofloxacin HCl [Cipro] 500 mg PO BID Discharge Medication List Rivaroxaban [Xarelto] 20 mg PO DAILY 02/06/17 [History] Ergocalciferol [Vitamin D2 (DRISDOL)] 50,000 unit PO MOWE 07/05/17 [History] Pravastatin Sodium [Pravachol] 40 mg PO HS 04/30/18 [History] Flecainide Acetate 100 mg PO BID 08/12/19 [History] Potassium Chloride [Klor-Con 8] 8 meq PO DAILY 08/12/19 [History] Ranolazine [Ranexa] 1,000 mg PO BID 08/12/19 [History] Cyanocobalamin [Vitamin B-12 Injection] 1,000 mcg SQ Q30D 03/29/20 [History] Nitroglycerin Sl Tabs [Nitrostat] 0.4 mg SL Q5M PRN 03/29/20 [History] oxyCODONE-APAP 7.5-325MG [Percocet 7.5-325 mg] 1 tab PO Q8H PRN #12 tab 04/30/20 [Rx] Albuterol Nebulized [Ventolin Nebulized] 2.5 mg INHALATION RT-Q6H PRN 11/29/20 [History] Albuterol Sulfate [Ventolin HFA] 2 puff INHALATION RT-Q6H PRN 11/29/20 [History] Ciprofloxacin HCl [Cipro] 500 mg PO BID 11/29/20 [History] Empagliflozin [Jardiance] 10 mg PO DAILY 11/29/20 [History] Ferrous Sulfate [Iron (65 MG Elemental)] 325 mg PO DAILY 11/29/20 [History] Furosemide [Lasix] 20 mg PO DAILY PRN 11/29/20 [History] predniSONE 0 mg PO DIRECTED #10 tab 11/29/20 [Rx] Follow up Appointment(s)/Referral(s): Jerzy Weber MD [STAFF PHYSICIAN] - 12/03/20 9:30 am Darrel Rizo DO [Primary Care Provider] - 1-2 days Patient Instructions/Handouts: Urinary Tract Infection in Women (DC), Weakness (GEN) Discharge Disposition: HOME SELF-CARE
--- NOTE | 2020-11-30 08:01 | ECHOF ---
Referral Reason:shortness of breath, Hx of mitral regur MEASUREMENTS -------- HEIGHT: 157.5 cm WEIGHT: 81.6 kg BP: 152/72 RVIDd: 2.9 cm (< 3.3) IVSd: 1.7 cm (0.6 - 1.1) LVIDd: 3.6 cm (3.9 - 5.3) LVPWd: 1.5 cm (0.6 - 1.1) IVSs: 1.7 cm LVIDs: 2.0 cm LVPWs: 2.0 cm LAESV Index (A-L): 34.24 ml/m Ao Diam: 2.2 cm (2.0 - 3.7) AV Cusp: 1.5 cm (1.5 - 2.6) LA Diam: 4.1 cm (2.7 - 3.8) MV EXCURSION: 16.312 mm (> 18.000) MV EF SLOPE: 107 mm/s (70 - 150) EPSS: 0.2 cm AV maxP.29 mmHg AV meanP.27 mmHg RAP: 5.00 mmHg RVSP: 33.51 mmHg FINDINGS -------- Sinus rhythm. This was a technically adequate study. The left ventricular size is normal. There is moderate concentric left ventricular hypertrophy. O verall left ventricular systolic function is normal with, an EF between 55 - 60 %. The right ventricle is normal in size. LA is moderately dilated 34-39 ml/m2 The right atrial size is normal. Interatrial and interventricular septum intact. There is mild aortic valve sclerosis. Trace amount of aortic regurgitation. There is mild aortic stenosis present. Peak/mean gradient across the Aortic Valve is 21.29mmHg / 10.27mmHg. Mild mitral annular calcification present. Mild mitral regurgitation is present. The tricuspid valve appears structurally normal. Mild tricuspid regurgitation present. Right vent ricular systolic pressure is normal at < 35 mmHg. The right ventricular systolic pressure, as measu red by Doppler, is 33.51mmHg. There is no pulmonic regurgitation present. The aortic root size is normal. Normal inferior vena cava with normal inspiratory collapse consistent with estimated right atrial pre ssure of 5 mmHg. There is no pericardial effusion. CONCLUSIONS -------- 1. There is moderate concentric left ventricular hypertrophy. 2. Overall left ventricular systolic function is normal with, an EF between 55 - 60 %. 3. LA is moderately dilated 34-39 ml/m2 4. Trace amount of aortic regurgitation. 5. There is mild aortic stenosis present. 6. Peak/mean gradient across the Aortic Valve is 21.29mmHg / 10.27mmHg. 7. Mild mitral regurgitation is present. 8. Mild tricuspid regurgitation present. MAINTENANCE DISPATCHER: Betty Aguilar RDCS
[2020-11-30] MEDS ORDERED: FERROUS SULFATE 325 MG TAB PO SCH (09:00)
== END 2020-11-29 15:35 | disposition home or self-care (01) ==
LOC: EC 22:03 → 6NMEDSUR 11-29 00:51
PROVIDERS: ADMIT Hospitalist; ATTEND Hospitalist
DX: R53.1 Weakness (principal); G72.89 Other specified myopathies; J44.1 Chronic obstructive pulmonary disease with (acute) exacerbation; I48.20 Chronic atrial fibrillation, unspecified; I48.92 Unspecified atrial flutter; E11.51 Type 2 diabetes mellitus with diabetic peripheral angiopathy without gangrene; E11.40 Type 2 diabetes mellitus with diabetic neuropathy, unspecified; E78.5 Hyperlipidemia, unspecified; I10 Essential (primary) hypertension; M19.91 Primary osteoarthritis, unspecified site; N39.3 Stress incontinence (female) (male); R26.9 Unspecified abnormalities of gait and mobility; G89.29 Other chronic pain; M54.5 Low back pain; I25.10 Atherosclerotic heart disease of native coronary artery without angina pectoris; G47.00 Insomnia, unspecified; D50.9 Iron deficiency anemia, unspecified; E55.9 Vitamin D deficiency, unspecified; I27.29 Other secondary pulmonary hypertension; I34.0 Nonrheumatic mitral (valve) insufficiency; M79.7 Fibromyalgia; Z87.01 Personal history of pneumonia (recurrent); Z99.81 Dependence on supplemental oxygen; Z87.09 Personal history of other diseases of the respiratory system; Z87.440 Personal history of urinary (tract) infections; Z90.49 Acquired absence of other specified parts of digestive tract; Z90.710 Acquired absence of both cervix and uterus; Z95.0 Presence of cardiac pacemaker; Z98.1 Arthrodesis status; Z87.891 Personal history of nicotine dependence; Z79.899 Other long term (current) drug therapy; Z79.01 Long term (current) use of anticoagulants; Z79.84 Long term (current) use of oral hypoglycemic drugs; Z91.048 Other nonmedicinal substance allergy status; Z79.891 Long term (current) use of opiate analgesic; Z20.822 Contact with and (suspected) exposure to COVID-19; Z82.49 Family history of ischemic heart disease and other diseases of the circulatory system; Z82.5 Family history of asthma and other chronic lower respiratory diseases; Z80.0 Family history of malignant neoplasm of digestive organs; Z80.42 Family history of malignant neoplasm of prostate; Z80.3 Family history of malignant neoplasm of breast; Z80.41 Family history of malignant neoplasm of ovary
CPT/HCPCS: 96376; 96372; 96374; 99285; 36415; 94640 ×3; 94760; 93005; 93306; 83880; 80053; 82607; 82550; 83605; 83735; 84484; 85025; 85610; 85730; 86140; 81003; 87635; 71046; G0378; J3420; J2930

== ENCOUNTER → 2020-12-02 | Day surgery (SDC) | payer MEDICARE ==
[2020-11-30 12:11] VITALS: BMI 32.9
[~2020-12-02] MED LIST changes: -DENOSUMAB 60 MG/ML 1 ML SYRINGE SQ ONE; +SIMETHICONE 40 MG/0.6 ML DROPS 2,000 MG/30 ML BOTTLE PO ONE
[2020-12-02 07:02] VITALS: BP 163/83; PULSE 76; RESP 16; TEMP 96.6
== END ==
LOC: ORWHC2ENDO 06:35
PROVIDERS: ATTEND Internal Medicine
DX: D64.9 Anemia, unspecified (principal)
CPT/HCPCS: 91110

== ENCOUNTER 2020-12-09 16:16 | Emergency (ER) | payer MEDICARE ==
[2020-12-09 16:22] VITALS: RESP 18
--- NOTE | 2020-12-09 18:12 | XR ---
EXAMINATION TYPE: XR chest 2V DATE OF EXAM: 12/09/2020 COMPARISON: 11/28/2020 HISTORY: Short of breath TECHNIQUE: FINDINGS: There is no heart failure nor confluent pneumonic infiltrate. There is left axillary pacema ker. Heart is probably enlarged. Thoracic aorta is atheromatous. There is mid thoracic vertebroplasty . There is 30% compression deformity of mid thoracic vertebra. IMPRESSION: No active cardiopulmonary disease. Borderline cardiomegaly. No change.
[2020-12-09 19:14] LABS: Anisocytosis Slight; Basophils % (A) 0 %; Eosinophils # (A) 0.1 k/uL (0-0.7); Eosinophils % (A) 2 %; HCT 37.8 % (34.0-46.0); HGB 11.9 gm/dL (11.4-16.0); Hypochromasia Slight; Lymphocytes # (A) 0.7 k/uL (1.0-4.8); Lymphocytes % (A) 9 %; MCH 26.1 pg (25.0-35.0); MCHC 31.5 g/dL (31.0-37.0); MCV 82.7 fL (80.0-100.0); Mean Platelet Volume 7.3; Microcytosis Slight; Monocytes # (A) 0.4 k/uL (0-1.0); Monocytes % (A) 5 %; Neutrophils # (A) 5.9 k/uL (1.3-7.7); Neutrophils % (A) 83 %; Platelet Count 188 k/uL (150-450); RBC 4.57 m/uL (3.80-5.40); WBC 7.1 k/uL (3.8-10.6)
[2020-12-09 19:25] LABS: Albumin 4.2 g/dL (3.5-5.0); Magnesium 1.8 mg/dL (1.6-2.3); Total Bilirubin 0.5 mg/dL (0.2-1.3); Total Protein 7.3 g/dL (6.3-8.2)
[2020-12-09 19:34] LABS: D-Dimer 0.49 mg/L FEU (<0.60); INR 1.7 (<1.2); Partial Thromboplastin Time 39.1 sec (22.0-30.0); Prothrombin Time 16.8 sec (9.0-12.0)
[2020-12-09 20:04] VITALS: BP 170/74; PULSE 76; TEMP 99.2
[2020-12-09] MEDS ORDERED: ACETAMINOPHEN TAB 325 MG TAB PO STA (20:25)
--- NOTE | 2020-12-09 20:29 | ED ---
General Adult HPI - General Chief complaint: Shortness of Breath Stated complaint: SOB/weakness Time Seen by Provider: 12/09/20 18:36 Source: patient Mode of arrival: ambulatory Limitations: no limitations - History of Present Illness Initial comments: 80yo female presenting for cc of dyspnea, cough, body aches. Patient states that she has had shortness of breath and cough for the past 2 days. Patient states she has also had body aches and generalized weakness. She denies any chest pain. Deep inspiration leg swelling. Patient denies any neck stiffness ear pain or throat pain. Patient denies any difficulty lying flat. Patient denies any bright red stools or dark stools. Patient has no additional complaints upon arrival she appears nontoxic she states she has no known exposure to Covid 19 and believes she probably has 'bronchitis'. Patient states she had an outpatient UA done 2 days ago that was WNL. - Related Data Home Medications Medication Instructions Recorded Confirmed Rivaroxaban [Xarelto] 20 mg PO DAILY 02/06/17 12/09/20 Ergocalciferol [Vitamin D2 50,000 unit PO MOWE 07/05/17 12/09/20 (DRISDOL)] Pravastatin Sodium [Pravachol] 40 mg PO HS 04/30/18 12/09/20 Flecainide Acetate 100 mg PO BID 08/12/19 12/09/20 Potassium Chloride [Klor-Con 8] 8 meq PO DAILY 08/12/19 12/09/20 Ranolazine [Ranexa] 1,000 mg PO BID 08/12/19 12/09/20 Cyanocobalamin [Vitamin B-12 1,000 mcg SQ Q30D 03/29/20 12/09/20 Injection] Nitroglycerin Sl Tabs [Nitrostat] 0.4 mg SL Q5M PRN 03/29/20 12/09/20 Empagliflozin [Jardiance] 10 mg PO DAILY 11/29/20 12/09/20 Ferrous Sulfate [Iron (65 MG 325 mg PO DAILY 11/29/20 12/09/20 Elemental)] Metoprolol Tartrate [Lopressor] 50 mg PO BID 11/30/20 12/09/20 Benazepril [Lotensin] 5 mg PO DAILY 12/09/20 12/09/20 Furosemide [Lasix] 20 mg PO DAILY 12/09/20 12/09/20 Nitrofurantoin Monohyd/M-Cryst 100 mg PO DAILY 12/09/20 12/09/20 [Macrobid] Previous Rx's Medication Instructions Recorded oxyCODONE-APAP 7.5-325MG [Percocet 1 tab PO Q8H PRN #12 tab 04/30/20 7.5-325 mg] Albuterol Sulfate [Proair Hfa] 1 - 2 puff INHALATION Q6HR PRN 30 12/09/20 Days #1 inhaler Allergies Allergy/AdvReac Type Severity Reaction Status Date / Time nickel Allergy Rash/Hives Verified 12/09/20 20:21 Review of Systems ROS Statement: Those systems with pertinent positive or pertinent negative responses have been documented in the HPI. ROS Other: All systems not noted in ROS Statement are negative. Past Medical History Past Medical History: Atrial Fibrillation, Atrial Flutter, Blood Disorder, Chest Pain / Angina, Diabetes Mellitus, Hyperlipidemia, Hypertension, Musculoskeletal Disorder, Osteoarthritis (OA), Pneumonia Additional Past Medical History / Comment(s): NIDDM type II, neuropathy L foot, chronic low back pain , past thoracic vertebral fracture with surgery, past L sided sciatica/difficulty lifting L leg, iron deficieancy anemia , hx blood transfusion Oct 2020., UTIs, cystitis,- states bladder infections affect her balance., occasional R foot edema, History of Any Multi-Drug Resistant Organisms: None Reported Past Surgical History: Back Surgery, Breast Surgery, Cardiac Ablation, Cholecystectomy, Hysterectomy, Joint Replacement, Orthopedic Surgery, Pacemaker, Tubal Ligation Additional Past Surgical History / Comment(s): Cervical fusion, kyphoplas ty/vertebral biopsy T6, R leg & hip fracture with plate, total R knee, L3/L4/L5 surgery in 2019, cystocele, BMA, bilateral cataract removals, R breast biopsy, pacemaker ([employer]) Past Anesthesia/Blood Transfusion Reactions: No Reported Reaction Additional Past Anesthesia/Blood Transfusion Reaction / Comment(s): Anesthesia "makes my hair fall out". Type of Cardiac Device: Permanent Pacemaker Device Placement Date:: 04/09 Past Psychological History: No Psychological Hx Reported Smoking Status: Former smoker Past Alcohol Use History: Rare Past Drug Use History: None Reported - Past Family History Brother(s) Family Medical History: Cancer, Deep Vein Thrombosis (DVT), Myocardial Infarction ([place]) Additional Family Medical History / Comment(s): colon and prostate ca Sister(s) Family Medical History: Cancer Additional Family Medical History / Comment(s): breast and ovarian Mother Family Medical History: COPD Father History Unknown: Yes Additional Family Medical History / Comment(s): Father in a MVA General Exam - General Exam Comments Initial Comments: General: The patient is awake and alert, in no distress Eye: +3 mm pupils are equal, round and reactive to light, extra-ocular movements are intact. No nystagmus. There is normal conjunctiva bilaterally. No signs of icterus. Ears, nose, mouth and throat: There are moist mucous membranes and no oral lesions. Neck: The neck is supple, there is no tenderness or JVD. Cardiovascular: There is a regular rate and rhythm. No murmur, rub or gallop is appreciated. Respiratory: Lungs are clear to auscultation, respirations are non-labored, breath sounds are equal. No wheezes, stridor, rales, or rhonchi. No retractions no abdominal breathing, dry cough noted Gastrointestinal: Soft, non-distended, non-tender abdomen without masses or organomegaly noted. There is no rebound or guarding present. Musculoskeletal: Normal ROM, no tenderness. Strength 5/5 of the UE and LE b/l. Sensation intact. Radial and DP pulses equal bilaterally 2+. Neurological: A&O x 3. CN II-XII intact grossly, There are no obvious motor or sensory deficits. Coordination appears grossly intact. Speech is normal. Skin: Skin is warm and dry and no rashes or lesions are noted. No calf pain or LE edema. Psychiatric: Cooperative, appropriate mood & affect, normal judgment. Limitations: no limitations Course Vital Signs 12/09/20 12/09/20 12/09/20 16:18 19:09 20:03 Temperature 97.8 F 99.2 F Pulse Rate 62 76 Respiratory 18 18 18 Rate Blood Pressure 123/67 170/74 O2 Sat by Pulse 96 96 Oximetry Medical Decision Making - Medical Decision Making Labs stable. Dimer (-). COvid +. EKG no acute changes. Troponin (-). Lungs clear. Dry cough with obvious URI symptoms. Patient oxygenating well on RA and will be discharged with strict return parameters and pcp f/u. pt staes he does have a pulse ox at home that she window trimmer monitor her oxygen levels. She is to return for levels >/=92% or for increasing dyspnea. Patient case discussed with Dr. Mayer who is agreeable to this care plan. - Lab Data Result diagrams: 12/09/20 18:59 12/09/20 18:59 Lab Results 12/09/20 12/09/20 12/09/20 Range/Units 18:59 18:59 18:59 WBC 7.1 (3.8-10.6) k/uL RBC 4.57 (3.80-5.40) m/uL Hgb 11.9 (11.4-16.0) gm/dL Hct 37.8 (34.0-46.0) % MCV 82.7 (80.0-100.0) fL MCH 26.1 (25.0-35.0) pg MCHC 31.5 (31.0-37.0) g/dL RDW 19.0 H (11.5-15.5) % Plt Count 188 (150-450) k/uL MPV 7.3 Neutrophils % 83 % Lymphocytes % 9 % Monocytes % 5 % Eosinophils % 2 % Basophils % 0 % Neutrophils # 5.9 (1.3-7.7) k/uL Lymphocytes # 0.7 L (1.0-4.8) k/uL Monocytes # 0.4 (0-1.0) k/uL Eosinophils # 0.1 (0-0.7) k/uL Basophils # 0.0 (0-0.2) k/uL Hypochromasia Slight Anisocytosis Slight Microcytosis Slight PT 16.8 H (9.0-12.0) sec INR 1.7 H (<1.2) APTT 39.1 H (22.0-30.0) sec D-Dimer 0.49 (<0.60) mg/L FEU Sodium 134 L (137-145) mmol/L Potassium 4.0 (3.5-5.1) mmol/L Chloride 99 (98-107) mmol/L Carbon Dioxide 28 (22-30) mmol/L Anion Gap 7 mmol/L BUN 14 (7-17) mg/dL Creatinine 0.80 (0.52-1.04) mg/dL Est GFR (CKD-EPI)AfAm 81 (>60 ml/min/1.73 sqM) Est GFR (CKD-EPI)NonAf 71 (>60 ml/min/1.73 sqM) Glucose 171 H (74-99) mg/dL Plasma Lactic Acid Gurpreet (0.7-2.0) mmol/L Calcium 9.0 (8.4-10.2) mg/dL Magnesium 1.8 (1.6-2.3) mg/dL Total Bilirubin 0.5 (0.2-1.3) mg/dL AST 31 (14-36) U/L ALT 18 (4-34) U/L Alkaline Phosphatase 108 (38-126) U/L Troponin I (0.000-0.034) ng/mL Total Protein 7.3 (6.3-8.2) g/dL Albumin 4.2 (3.5-5.0) g/dL Coronavirus (PCR) (Not Detectd) 12/09/20 12/09/20 12/09/20 Range/Units 18:59 18:59 19:40 WBC (3.8-10.6) k/uL RBC (3.80-5.40) m/uL Hgb (11.4-16.0) gm/dL Hct (34.0-46.0) % MCV (80.0-100.0) fL MCH (25.0-35.0) pg MCHC (31.0-37.0) g/dL RDW (11.5-15.5) % Plt Count (150-450) k/uL MPV Neutrophils % % Lymphocytes % % Monocytes % % Eosinophils % % Basophils % % Neutrophils # (1.3-7.7) k/uL Lymphocytes # (1.0-4.8) k/uL Monocytes # (0-1.0) k/uL Eosinophils # (0-0.7) k/uL Basophils # (0-0.2) k/uL Hypochromasia Anisocytosis Microcytosis PT (9.0-12.0) sec INR (<1.2) APTT (22.0-30.0) sec D-Dimer (<0.60) mg/L FEU Sodium (137-145) mmol/L Potassium (3.5-5.1) mmol/L Chloride (98-107) mmol/L Carbon Dioxide (22-30) mmol/L Anion Gap mmol/L BUN (7-17) mg/dL Creatinine (0.52-1.04) mg/dL Est GFR (CKD-EPI)AfAm (>60 ml/min/1.73 sqM) Est GFR (CKD-EPI)NonAf (>60 ml/min/1.73 sqM) Glucose (74-99) mg/dL Plasma Lactic Acid Gurpreet 0.9 (0.7-2.0) mmol/L Calcium (8.4-10.2) mg/dL Magnesium (1.6-2.3) mg/dL Total Bilirubin (0.2-1.3) mg/dL AST (14-36) U/L ALT (4-34) U/L Alkaline Phosphatase (38-126) U/L Troponin I <0.012 (0.000-0.034) ng/mL Total Protein (6.3-8.2) g/dL Albumin (3.5-5.0) g/dL Coronavirus (PCR) Detected A (Not Detectd) Disposition Clinical Impression: COVID-19, Dyspnea, Body aches Disposition: HOME SELF-CARE Condition: Good Instructions (If sedation given, give patient instructions): Coronavirus Disease 2019 (COVID-19) Additional Instructions: Please use medication as discussed. Please follow-up with family doctor in the next 2 days, MONITOR OXYGEN AT HOME BY BUYING PULSE OXIMETER DISCUSSED, if <92% and OR you feel increased shortness of breath please return to ER. Please return to emergency room if the symptoms increase or worsen or for any other concerns. Prescriptions: Albuterol Sulfate [Proair Hfa] 1 - 2 puff INHALATION Q6HR PRN 30 Days #1 inhaler PRN Reason: Wheezing Is patient prescribed a controlled substance at d/c from ED?: No Referrals: Darrel Rizo DO [Primary Care Provider] - 1-2 days Time of Disposition: 20:28
== END 2020-12-09 20:43 | disposition home or self-care (01) ==
LOC: EC 16:16
DX: U07.1 COVID-19 (principal); I10 Essential (primary) hypertension; I48.91 Unspecified atrial fibrillation; E78.5 Hyperlipidemia, unspecified; I48.92 Unspecified atrial flutter; I20.9 Angina pectoris, unspecified; E11.40 Type 2 diabetes mellitus with diabetic neuropathy, unspecified; Z79.01 Long term (current) use of anticoagulants; Z79.899 Other long term (current) drug therapy; Z79.84 Long term (current) use of oral hypoglycemic drugs; Z91.048 Other nonmedicinal substance allergy status; Z96.60 Presence of unspecified orthopedic joint implant; Z87.891 Personal history of nicotine dependence
CPT/HCPCS: 36415; 71046; 80053; 83605; 83735; 84484; 85025; 85379; 85610; 85730; 87635; 93005; 99285

== ENCOUNTER → 2021-06-16 | Outpatient (CLI) | payer MEDICARE ==
[~2021-06-16] MED LIST changes: +DENOSUMAB 60 MG/ML 1 ML SYRINGE SQ NR; -SIMETHICONE 40 MG/0.6 ML DROPS 2,000 MG/30 ML BOTTLE PO ONE
[2021-06-16 10:47] VITALS: BP 148/84; PULSE 101; RESP 16; TEMP 98
== END | disposition home or self-care (01) ==
LOC: PROCWHC3 10:35
PROVIDERS: ATTEND Family Medicine
DX: M81.0 Age-related osteoporosis without current pathological fracture (principal)
CPT/HCPCS: 96372; J0897

== ENCOUNTER 2021-06-21 13:33 | Emergency (ER) | payer MEDICARE ==
[2021-06-21 13:44] VITALS: RESP 20
--- NOTE | 2021-06-21 13:48 | ED ---
Fall HPI - General Chief Complaint: Fall Stated Complaint: Fall Time Seen by Provider: 06/21/21 13:33 Source: patient Mode of arrival: ambulatory - History of Present Illness Initial Comments: 81-year-old female with a prior history of left hip surgery about a year ago who states she was walking with her cane when she lost her balance on a curb sidewalk and fell. She complains of midshaft left femur pain she was brought in by EMS. She was given ketamine with some improvement he is now 3/10 severity. No other complaints of any injury to head neck or back or other extremities. MD Complaint: fall - Related Data Home Medications Medication Instructions Recorded Confirmed Rivaroxaban [Xarelto] 20 mg PO DAILY 02/06/17 06/16/21 Ergocalciferol [Vitamin D2 50,000 unit PO MOWE 07/05/17 06/16/21 (DRISDOL)] Pravastatin Sodium [Pravachol] 40 mg PO HS 04/30/18 06/16/21 Flecainide Acetate 100 mg PO BID 08/12/19 06/16/21 Potassium Chloride [Klor-Con 8 ER] 8 meq PO DAILY 08/12/19 06/16/21 Ranolazine [Ranexa] 1,000 mg PO BID 08/12/19 06/16/21 Cyanocobalamin [Vitamin B-12 1,000 mcg SQ Q30D 03/29/20 06/16/21 Injection] Nitroglycerin Sl Tabs [Nitrostat] 0.4 mg SL Q5M PRN 03/29/20 06/16/21 Empagliflozin [Jardiance] 10 mg PO DAILY 11/29/20 06/16/21 Ferrous Sulfate [Iron (65 MG 325 mg PO DAILY 11/29/20 06/16/21 Elemental)] Metoprolol Tartrate [Lopressor] 50 mg PO BID 11/30/20 06/16/21 Benazepril [Lotensin] 5 mg PO DAILY 12/09/20 06/16/21 Furosemide [Lasix] 20 mg PO DAILY 12/09/20 06/16/21 Nitrofurantoin Monohyd/M-Cryst 100 mg PO DAILY 12/09/20 06/16/21 [Macrobid] Previous Rx's Medication Instructions Recorded oxyCODONE-APAP 7.5-325MG [Percocet 1 tab PO Q8H PRN #12 tab 04/30/20 7.5-325 mg] Albuterol Sulfate [Proair Hfa] 1 - 2 puff INHALATION Q6HR PRN 30 12/09/20 Days #1 inhaler Allergies Allergy/AdvReac Type Severity Reaction Status Date / Time nickel Allergy Rash/Hives Verified 06/21/21 13:44 Review of Systems ROS Statement: Those systems with pertinent positive or pertinent negative responses have been documented in the HPI. ROS Other: All systems not noted in ROS Statement are negative. Past Medical History Past Medical History: Atrial Fibrillation, Atrial Flutter, Blood Disorder, Chest Pain / Angina, Diabetes Mellitus, Hyperlipidemia, Hypertension, Musculoskeletal Disorder, Osteoarthritis (OA), Pneumonia Additional Past Medical History / Comment(s): NIDDM type II, neuropathy L foot, chronic low back pain , past thoracic vertebral fracture with surgery, past L sided sciatica/difficulty lifting L leg, iron deficieancy anemia , hx blood t ransfusion Oct 2020., UTIs, cystitis,- states bladder infections affect her balance., occasional R foot edema, History of Any Multi-Drug Resistant Organisms: None Reported Past Surgical History: Back Surgery, Breast Surgery, Cardiac Ablation, Cholecy stectomy, Hysterectomy, Joint Replacement, Orthopedic Surgery, Pacemaker, Tubal Ligation Additional Past Surgical History / Comment(s): Cervical fusion, kyphoplasty/vertebral biopsy T6, R leg & hip fracture with plate, total R knee, L3/L4/L5 surgery in 2019, cystocele, BMA, bilateral cataract removals, R breast biopsy, pacemaker ([employer]) Past Anesthesia/Blood Transfusion Reactions: No Reported Reaction Additional Past Anesthesia/Blood Transfusion Reaction / Comment(s): Anesthesia "makes my hair fall out". Type of Cardiac Device: Permanent Pacemaker Device Placement Date:: 04/09 Past Psychological History: No Psychological Hx Reported Smoking Status: Former smoker Past Alcohol Use History: Rare Past Drug Use History: None Reported - Past Family History Brother(s) Family Medical History: Cancer, Deep Vein Thrombosis (DVT), Myocardial Infarction ([place]) Additional Family Medical History / Comment(s): colon and prostate ca Sister(s) Family Medical History: Cancer Additional Family Medical History / Comment(s): breast and ovarian Mother Family Medical History: COPD Father History Unknown: Yes Additional Family Medical History / Comment(s): Father in a MVA General Exam - General Exam Comments Initial Comments: This is a well-developed well-nourished awake alert oriented 3 female Limitations: no limitations General appearance: alert, anxious, in distress (Mild distress) Head exam: Present: atraumatic, normocephalic, normal inspection Eye exam: Present: normal appearance, PERRL, EOMI. Absent: scleral icterus, conjunctival injection, periorbital swelling ENT exam: Present: normal exam, mucous membranes moist Neck exam: Present: normal inspection. Absent: tenderness, meningismus, lymphadenopathy Respiratory exam: Present: normal lung sounds bilaterally. Absent: respiratory distress, wheezes, rales, rhonchi, stridor Cardiovascular Exam: Present: regular rate, normal rhythm, normal heart sounds. Absent: systolic murmur, diastolic murmur, rubs, gallop, clicks GI/Abdominal exam: Present: soft, normal bowel sounds. Absent: distended, tenderness, guarding, rebound, rigid Extremities exam: Present: normal inspection, tenderness (Tenderness palpation over the mid to distal left femur no pain above or below this area. No definitive palpable defects. No neurovascular deficits.), normal capillary refi ll. Absent: full ROM, pedal edema, joint swelling, calf tenderness Back exam: Present: normal inspection Neurological exam: Present: alert, oriented X3, CN II-XII intact Psychiatric exam: Present: normal affect, normal mood Skin exam: Present: warm, dry, intact, normal color. Absent: rash Course Vital Signs 06/21/21 13:39 Temperature 98.6 F Pulse Rate 71 Respiratory 20 Rate Blood Pressure 151/52 O2 Sat by Pulse 97 Oximetry - Reevaluation(s) Reevaluation #1: 06/21/21 15:59 The case was discussed with the transfer team at [facility] Dr. Cunningham has agreed to set the patient Medical Decision Making - Medical Decision Making I did discuss the findings with orthopedics Dr. Mills on-call success transfer to orthopedic trauma center and did discuss case with Dr. Clark he was agreed to set the patient transfer to [facility]. I did discuss this with the patient and her son who was present. - Lab Data Result diagrams: 06/21/21 15:15 06/21/21 15:15 Lab Results 06/21/21 06/21/21 06/21/21 Range/Units 15:15 15:15 15:15 WBC 10.7 H (3.8-10.6) k/uL RBC 3.19 L (3.80-5.40) m/uL Hgb 8.6 L (11.4-16.0) gm/dL Hct 27.6 L (34.0-46.0) % MCV 86.4 (80.0-100.0) fL MCH 27.0 (25.0-35.0) pg MCHC 31.2 (31.0-37.0) g/dL RDW 14.1 (11.5-15.5) % Plt Count 213 (150-450) k/uL MPV 7.4 Neutrophils % 84 % Lymphocytes % 10 % Monocytes % 5 % Eosinophils % 1 % Basophils % 0 % Neutrophils # 9.0 H (1.3-7.7) k/uL Lymphocytes # 1.0 (1.0-4.8) k/uL Monocytes # 0.5 (0-1.0) k/uL Eosinophils # 0.1 (0-0.7) k/uL Basophils # 0.0 (0-0.2) k/uL Hypochromasia Marked Poikilocytosis Slight PT 17.3 H (9.0-12.0) sec INR 1.7 H (<1.2) APTT 37.7 H (22.0-30.0) sec Sodium 134 L (137-145) mmol/L Potassium 4.1 (3.5-5.1) mmol/L Chloride 104 (98-107) mmol/L Carbon Dioxide 23 (22-30) mmol/L Anion Gap 7 mmol/L BUN 11 (7-17) mg/dL Creatinine 0.53 (0.52-1.04) mg/dL Est GFR (CKD-EPI)AfAm >90 (>60 ml/min/1.73 sqM) Est GFR (CKD-EPI)NonAf >90 (>60 ml/min/1.73 sqM) Glucose 125 H (74-99) mg/dL Calcium 7.8 L (8.4-10.2) mg/dL Total Bilirubin 0.4 (0.2-1.3) mg/dL AST 20 (14-36) U/L ALT 8 (4-34) U/L Alkaline Phosphatase 120 (38-126) U/L Creatine Kinase 37 (30-135) U/L Total Protein 6.2 L (6.3-8.2) g/dL Albumin 3.4 L (3.5-5.0) g/dL - Radiology Data Radiology results: report reviewed (Imaging reviewed spinal fracture this left femur), image reviewed Disposition Clinical Impression: Fall, Fracture of distal end of left femur Disposition: OTHER INSTITUTION NOT DEFINED Condition: Stable Referrals: Darrel Rizo DO [Primary Care Provider] - 1-2 days - Out of Hospital Transfer - Req. Specs Out of Hospital Transfer - Requested Specifics: Other Emergency Center
--- NOTE | 2021-06-21 14:29 | XR ---
EXAMINATION TYPE: XR pelvis AP view DATE OF EXAM: 06/21/2021 CLINICAL HISTORY: pain TECHNIQUE: Single view the pelvis is submitted. FINDINGS: No evidence for fracture, dislocation or bony lesion. Joint spaces are moderately narrowe d. Dynamic compression screws and intramedullary panchito left hip. SI joints appear symmetric. IMPRESSION: 1. No acute fracture or dislocation seen. ICD 10 NO FRACTURE, INITIAL EVALUATION
--- NOTE | 2021-06-21 14:30 | XR ---
EXAMINATION TYPE: XR femur LT DATE OF EXAM: 06/21/2021 CLINICAL HISTORY: pain TECHNIQUE: Two views of the left femur are obtained. COMPARISON: None. FINDINGS: Displaced oblique fracture distal left femoral diaphysis with displacement of approximately 1.2 cm. No evidence for intra-articular extension. Soft tissue edema. Intramedullary panchito proximal le ft femur. IMPRESSION: Displaced oblique fracture distal left femoral diaphysis with displacement of approximately 1.2 cm.
[2021-06-21] MEDS ORDERED: HYDROmorphone 1 MG/ML 1 ML SYRINGE IVP STA (14:41)
[2021-06-21 15:35] LABS: Basophils % (A) 0 %; Eosinophils # (A) 0.1 k/uL (0-0.7); Eosinophils % (A) 1 %; HCT 27.6 % (34.0-46.0); HGB 8.6 gm/dL (11.4-16.0); Hypochromasia Marked; Lymphocytes % (A) 10 %; MCHC 31.2 g/dL (31.0-37.0); MCV 86.4 fL (80.0-100.0); Mean Platelet Volume 7.4; Monocytes # (A) 0.5 k/uL (0-1.0); Monocytes % (A) 5 %; Neutrophils % (A) 84 %; Platelet Count 213 k/uL (150-450); Poikilocytosis Slight; RBC 3.19 m/uL (3.80-5.40); RDW 14.1 % (11.5-15.5); WBC 10.7 k/uL (3.8-10.6)
[2021-06-21 15:43] LABS: INR 1.7 (<1.2); Partial Thromboplastin Time 37.7 sec (22.0-30.0); Prothrombin Time 17.3 sec (9.0-12.0)
[2021-06-21 15:53] LABS: ALT 8 U/L (4-34); AST 20 U/L (14-36); African American GFR (CKD) >90 (>60 ml/min/1.73 sqM); Albumin 3.4 g/dL (3.5-5.0); Alkaline Phosphatase 120 U/L (38-126); Anion Gap 7 mmol/L; Blood Urea Nitrogen 11 mg/dL (7-17); Calcium 7.8 mg/dL (8.4-10.2); Carbon Dioxide 23 mmol/L (22-30); Chloride 104 mmol/L (98-107); Creatine Kinase 37 U/L (30-135); Glucose 125 mg/dL (74-99); Non-African American GFR(CKD) >90 (>60 ml/min/1.73 sqM); Potassium 4.1 mmol/L (3.5-5.1); Sodium 134 mmol/L (137-145); Total Bilirubin 0.4 mg/dL (0.2-1.3); Total Protein 6.2 g/dL (6.3-8.2)
[2021-06-21 17:03] VITALS: BP 148/60; PULSE 72; TEMP 98.4
== END 2021-06-21 17:02 | disposition other institution (70) ==
LOC: EC 13:33
DX: S72.492A Other fracture of lower end of left femur, initial encounter for closed fracture (principal); E11.36 Type 2 diabetes mellitus with diabetic cataract; E78.5 Hyperlipidemia, unspecified; I10 Essential (primary) hypertension; I48.91 Unspecified atrial fibrillation; M19.90 Unspecified osteoarthritis, unspecified site; Z79.899 Other long term (current) drug therapy; Z87.891 Personal history of nicotine dependence; Z95.0 Presence of cardiac pacemaker; Z91.09 Other allergy status, other than to drugs and biological substances; Z79.01 Long term (current) use of anticoagulants; W10.1XXA Fall (on)(from) sidewalk curb, initial encounter; Y93.01 Activity, walking, marching and hiking; Y92.480 Sidewalk as the place of occurrence of the external cause
CPT/HCPCS: 36415; 80053; 82550; 85025; 85610; 85730; 72170; 73552; 99285; 96374; L1830 ×2; J1170

== ENCOUNTER 2022-01-23 09:18 | Emergency (ER) | payer MEDICARE ==
[2022-01-23 10:23] LABS: Basophils % (A) 0 %; Eosinophils # (A) 0.2 k/uL (0-0.7); Eosinophils % (A) 2 %; HCT 40.2 % (34.0-46.0); HGB 12.8 gm/dL (11.4-16.0); Lymphocytes # (A) 1.1 k/uL (1.0-4.8); Lymphocytes % (A) 12 %; MCH 30.4 pg (25.0-35.0); MCHC 31.8 g/dL (31.0-37.0); MCV 95.5 fL (80.0-100.0); Monocytes # (A) 0.3 k/uL (0-1.0); Monocytes % (A) 4 %; Neutrophils % (A) 81 %; Platelet Count 157 k/uL (150-450); RBC 4.22 m/uL (3.80-5.40); WBC 8.7 k/uL (3.8-10.6)
[2022-01-23 10:27] LABS: Appearance,Urine Clear (Clear); Bilirubin,Urine Negative (Negative); Blood,Urine Negative (Negative); Color,Urine Yellow; Glucose,Urine (UA) Negative (Negative); Ketones,Urine Negative (Negative); Leukocyte Esterase,Urine Trace (Negative); Nitrite,Urine Negative (Negative); PH, Urine 7.5 (5.0-8.0); Protein,Urine Trace (Negative); RBC,Urine 3 /hpf (0-5); Specific Gravity,Urine 1.022 (1.001-1.035); Squamous Epithelial Cell,Urine 3 /hpf (0-4); Urobilinogen,Urine <2.0 mg/dL (<2.0); WBC,Urine 6 /hpf (0-5)
--- NOTE | 2022-01-23 10:31 | ED ---
General Adult HPI - General Chief complaint: Weakness Stated complaint: weakness Time Seen by Provider: 01/23/22 09:21 Source: patient, EMS Mode of arrival: EMS Limitations: no limitations - History of Present Illness Initial comments: Dictation was produced using [employer] dictation software. please excuse any grammatical, word or spelling errors. Chief Complaint: 81-year-old female presents emergency Department with confusion and generalized weakness. History of Present Illness: Patient 81-year-old female presents emergency depart ment for 1-2 days of generalized weakness, lower extremity weakness and confusion. Son is at the bedside reports that spent ongoing for the last 2 days is typical when patient has UTI. She is allegedly prescribed antibiotics for urinary tract infection that she has not obtained yet. He does not know exactly what medications are waiting for her at her local pharmacy. Patient denies any fever. Son reports the patient seems a little confused at the bedside. Patient denies any numbness and paresthesias to the arms or legs. The ROS documented in this emergency department record has been reviewed and confirmed by me. Those systems with pertinent positive or negative responses have been documented in the HPI. All other systems are other negative and/or noncontributory. PHYSICAL EXAM: General Impression: Alert and oriented x3, not in acute distress HEENT: Normocephalic atraumatic, extra-ocular movements intact, pupils equal and reactive to light bilaterally, mucous membranes moist. Cardiovascular: Heart regular rate and rhythm Chest: Able to complete full sentences, no retractions, no tachypnea Abdomen: abdomen soft, non-tender, non-distended, no organomegaly Musculoskeletal: Pulses present and equal in all extremities, no peripheral edema Motor: no focal deficits noted Neurological: CN II-XII grossly intact, no focal motor or sensory deficits noted Skin: Intact with no visualized rashes Psych: Normal affect and mood ED course: 81-year-old female with multiple comorbidities and alleged recent urinary tract infection since the emergency department for confusion and gen eralized weakness. Vital signs upon arrival are within acceptable limits. EKG is nonacute. Laboratory evaluation obtained. CBC, coag panel, metabolic panel is unremarkable. Urinalysis shows 6 white blood cells however patient not have any urinary symptoms at this time. For panel are PCR is negative. Patient observed in emergency department for approximately 4 hours. She is reevaluated bedside at 1:20 PM. Patient is agreeable for discharge. She still does feel slightly weak especially with her activities of daily living. She does have a son who can help take care of her. EKG interpretation: Ventricular rate 70, electronic pacemaker,. Interval 333, QS 117, QTc 445. No HI prolongation, no QTC prolongation, no ST or T-wave changes noted. EKG compared to 12/09/2020 showing no changes. Overall, this EKG is unremarkable - Related Data Home Medications Medication Instructions Recorded Confirmed Rivaroxaban [Xarelto] 20 mg PO DAILY 02/06/17 01/23/22 Pravastatin Sodium [Pravachol] 40 mg PO HS 04/30/18 01/23/22 Flecainide Acetate 100 mg PO BID 08/12/19 01/23/22 Potassium Chloride [Klor-Con 8 ER] 8 meq PO DAILY PRN 08/12/19 01/23/22 Ranolazine [Ranexa] 1,000 mg PO Q12H 08/12/19 01/23/22 Cyanocobalamin [Vitamin B-12 1,000 mcg SQ Q30D 03/29/20 01/23/22 Injection] Nitroglycerin Sl Tabs [Nitrostat] 0.4 mg SL Q5M PRN 03/29/20 01/23/22 Furosemide [Lasix] 20 mg PO DAILY PRN 12/09/20 01/23/22 Benazepril [Lotensin] 5 mg PO DAILY 01/23/22 01/23/22 Denosumab [Prolia] 60 mg SQ Q180D 01/23/22 01/23/22 Estradiol Cream [Estrace Cream 1 gm VAGINAL MOTUWE 01/23/22 01/23/22 0.01%] Metoprolol Succinate [Kapspargo 50 mg PO DAILY 01/23/22 01/23/22 Sprinkle] Previous Rx's Medication Instructions Recorded oxyCODONE-APAP 7.5-325MG [Percocet 1 tab PO Q8H PRN #12 tab 04/30/20 7.5-325 mg] Allergies Allergy/AdvReac Type Severity Reaction Status Date / Time nickel Allergy Rash/Hives Verified 01/23/22 11:00 Review of Systems ROS Statement: Those systems with pertinent positive or pertinent negative responses have been documented in the HPI. ROS Other: All systems not noted in ROS Statement are negative. Past Medical History Past Medical History: Atrial Fibrillation, Atrial Flutter, Blood Disorder, Chest Pain / Angina, Diabetes Mellitus, Hyperlipidemia, Hypertension, Musculoskeletal Disorder, Osteoarthritis (OA), Pneumonia Additional Past Medical History / Comment(s): NIDDM type II, neuropathy L foot, chronic low back pain , past thoracic vertebral fracture with surgery, past L sided sciatica/difficulty lifting L leg, iron deficieancy anemia , hx blood transfusion Oct 2020., UTIs, cystitis,- states bladder infections affect her balance., occasional R foot edema, History of Any Multi-Drug Resistant Organisms: None Reported Past Surgical History: Back Surgery, Breast Surgery, Cardiac Ablation, Cholecystectomy, Hysterectomy, Joint Replacement, Orthopedic Surgery, Pacemaker, Tubal Ligation Additional Past Surgical History / Comment(s): Cervical fusion, kyphoplasty/vertebral biopsy T6, R leg & hip fracture with plate, total R knee, L3/L4/L5 surgery in 2019, cystocele, BMA, bilateral cataract removals, R breast biopsy, pacemaker ([employer]) Past Anesthesia/Blood Transfusion Reactions: No Reported Reaction Additional Past Anesthesia/Blood Transfusion Reaction / Comment(s): Anesthesia "makes my hair fall out". Type of Cardiac Device: Permanent Pacemaker Device Placement Date:: 04/09 Past Psychological History: No Psychological Hx Reported Smoking Status: Former smoker Past Alcohol Use History: Rare Past Drug Use History: None Reported - Past Family History Brother(s) Family Medical History: Cancer, Deep Vein Thrombosis (DVT), Myocardial Infarctio n ([place]) Additional Family Medical History / Comment(s): colon and prostate ca Sister(s) Family Medical History: Cancer Additional Family Medical History / Comment(s): breast and ovarian Mother Family Medical History: COPD Father History Unknown: Yes Additional Family Medical History / Comment(s): Father in a MVA General Exam Limitations: no limitations Course Vital Signs 01/23/22 01/23/22 09:22 12:04 Temperature 97.7 F 98.3 F Pulse Rate 70 72 Respiratory 18 14 Rate Blood Pressure 184/84 153/83 O2 Sat by Pulse 97 97 Oximetry Medical Decision Making - Lab Data Result diagrams: 01/23/22 10:07 01/23/22 10:07 Lab Results 01/23/22 01/23/22 01/23/22 Range/Units 10:07 10:07 10:07 WBC 8.7 (3.8-10.6) k/uL RBC 4.22 (3.80-5.40) m/uL Hgb 12.8 (11.4-16.0) gm/dL Hct 40.2 (34.0-46.0) % MCV 95.5 (80.0-100.0) fL MCH 30.4 (25.0-35.0) pg MCHC 31.8 (31.0-37.0) g/dL RDW 13.0 (11.5-15.5) % Plt Count 157 (150-450) k/uL MPV 7.0 Neutrophils % 81 % Lymphocytes % 12 % Monocytes % 4 % Eosinophils % 2 % Basophils % 0 % Neutrophils # 7.0 (1.3-7.7) k/uL Lymphocytes # 1.1 (1.0-4.8) k/uL Monocytes # 0.3 (0-1.0) k/uL Eosinophils # 0.2 (0-0.7) k/uL Basophils # 0.0 (0-0.2) k/uL PT 14.6 H (9.0-12.0) sec INR 1.4 H (<1.2) APTT 35.0 H (22.0-30.0) sec Sodium (137-145) mmol/L Potassium (3.5-5.1) mmol/L Chloride (98-107) mmol/L Carbon Dioxide (22-30) mmol/L Anion Gap mmol/L BUN (7-17) mg/dL Creatinine (0.52-1.04) mg/dL Est GFR (CKD-EPI)AfAm (>60 ml/min/1.73 sqM) Est GFR (CKD-EPI)NonAf (>60 ml/min/1.73 sqM) Glucose (74-99) mg/dL Plasma Lactic Acid Gurpreet (0.7-2.0) mmol/L Calcium (8.4-10.2) mg/dL Magnesium (1.6-2.3) mg/dL Urine Color Yellow Urine Appearance Clear (Clear) Urine pH 7.5 (5.0-8.0) Ur Specific [place] 1.022 (1.001-1.035) Urine Protein Trace H (Negative) Urine Glucose (UA) Negative (Negative) Urine Ketones Negative (Negative) Urine Blood Negative (Negative) Urine Nitrite Negative (Negative) Urine Bilirubin Negative (Negative) Urine Urobilinogen <2.0 (<2.0) mg/dL Ur Leukocyte Esterase Trace H (Negative) Urine RBC 3 (0-5) /hpf Urine WBC 6 H (0-5) /hpf Ur Squamous Epith Cells 3 (0-4) /hpf Influenza Type A (PCR) (Not Detectd) Influenza Type B (PCR) (Not Detectd) RSV (PCR) (Not Detectd) SARS-CoV-2 (PCR) (Not Detectd) 01/23/22 01/23/22 01/23/22 Range/Units 10:07 10:07 12:07 WBC (3.8-10.6) k/uL RBC (3.80-5.40) m/uL Hgb (11.4-16.0) gm/dL Hct (34.0-46.0) % MCV (80.0-100.0) fL MCH (25.0-35.0) pg MCHC (31.0-37.0) g/dL RDW (11.5-15.5) % Plt Count (150-450) k/uL MPV Neutrophils % % Lymphocytes % % Monocytes % % Eosinophils % % Basophils % % Neutrophils # (1.3-7.7) k/uL Lymphocytes # (1.0-4.8) k/uL Monocytes # (0-1.0) k/uL Eosinophils # (0-0.7) k/uL Basophils # (0-0.2) k/uL PT (9.0-12.0) sec INR (<1.2) APTT (22.0-30.0) sec Sodium 137 (137-145) mmol/L Potassium 4.3 (3.5-5.1) mmol/L Chloride 102 (98-107) mmol/L Carbon Dioxide 28 (22-30) mmol/L Anion Gap 7 mmol/L BUN 17 (7-17) mg/dL Creatinine 0.69 (0.52-1.04) mg/dL Est GFR (CKD-EPI)AfAm >90 (>60 ml/min/1.73 sqM) Est GFR (CKD-EPI)NonAf 83 (>60 ml/min/1.73 sqM) Glucose 122 H (74-99) mg/dL Plasma Lactic Acid Gurpreet 0.9 (0.7-2.0) mmol/L Calcium 8.7 (8.4-10.2) mg/dL Magnesium 1.7 (1.6-2.3) mg/dL Urine Color Urine Appearance (Clear) Urine pH (5.0-8.0) Ur Specific [place] (1.001-1.035) Urine Protein (Negative) Urine Glucose (UA) (Negative) Urine Ketones (Negative) Urine Blood (Negative) Urine Nitrite (Negative) Urine Bilirubin (Negative) Urine Urobilinogen (<2.0) mg/dL Ur Leukocyte Esterase (Negative) Urine RBC (0-5) /hpf Urine WBC (0-5) /hpf Ur Squamous Epith Cells (0-4) /hpf Influenza Type A (PCR) Not Detected (Not Detectd) Influenza Type B (PCR) Not Detected (Not Detectd) RSV (PCR) Not Detected (Not Detectd) SARS-CoV-2 (PCR) Not Detected (Not Detectd) Disposition Clinical Impression: Weakness Disposition: HOME SELF-CARE Condition: Fair Instructions (If sedation given, give patient instructions): Weakness (ED) Is patient prescribed a controlled substance at d/c from ED?: No Referrals: Darrel Rizo DO [Primary Care Provider] - 1-2 days
[2022-01-23 10:32] LABS: INR 1.4 (<1.2); Prothrombin Time 14.6 sec (9.0-12.0)
[2022-01-23 11:33] LABS: African American GFR (CKD) >90 (>60 ml/min/1.73 sqM); Anion Gap 7 mmol/L; Blood Urea Nitrogen 17 mg/dL (7-17); Calcium 8.7 mg/dL (8.4-10.2); Carbon Dioxide 28 mmol/L (22-30); Chloride 102 mmol/L (98-107); Glucose 122 mg/dL (74-99); Magnesium 1.7 mg/dL (1.6-2.3); Non-African American GFR(CKD) 83 (>60 ml/min/1.73 sqM); Potassium 4.3 mmol/L (3.5-5.1); Sodium 137 mmol/L (137-145)
[2022-01-23 12:07] VITALS: BP 153/83; PULSE 72; RESP 14; TEMP 98.3
== END 2022-01-23 14:10 | disposition home or self-care (01) ==
LOC: EC 09:18
DX: R53.1 Weakness (principal); I10 Essential (primary) hypertension; Z87.891 Personal history of nicotine dependence; Z20.822 Contact with and (suspected) exposure to COVID-19; Z82.49 Family history of ischemic heart disease and other diseases of the circulatory system; Z91.040 Latex allergy status
CPT/HCPCS: 36415; 80048; 81001; 83605; 83735; 85025; 85610; 85730; 87636; 93005; 99285

== ENCOUNTER 2022-02-21 11:59 | Emergency (ER) | payer MEDICARE ==
[2022-02-21 12:12] VITALS: TEMP 98.2
[2022-02-21 12:51] LABS: Basophils # (A) 0.1 k/uL (0-0.2); Basophils % (A) 1 %; Eosinophils # (A) 0.1 k/uL (0-0.7); Eosinophils % (A) 1 %; HCT 42.7 % (34.0-46.0); HGB 13.4 gm/dL (11.4-16.0); Lymphocytes # (A) 1.3 k/uL (1.0-4.8); Lymphocytes % (A) 11 %; MCH 30.4 pg (25.0-35.0); MCHC 31.5 g/dL (31.0-37.0); MCV 96.6 fL (80.0-100.0); Mean Platelet Volume 7.1; Monocytes # (A) 0.6 k/uL (0-1.0); Monocytes % (A) 5 %; Neutrophils # (A) 9.3 k/uL (1.3-7.7); Neutrophils % (A) 81 %; Platelet Count 206 k/uL (150-450); RBC 4.42 m/uL (3.80-5.40); RDW 13.2 % (11.5-15.5); WBC 11.5 k/uL (3.8-10.6)
--- NOTE | 2022-02-21 12:57 | ED ---
General Adult HPI - General Chief complaint: Weakness Stated complaint: weakness Time Seen by Provider: 02/21/22 12:10 Source: patient, EMS Mode of arrival: EMS Limitations: physical limitation - History of Present Illness Initial comments: Dictation was produced using [id number] dictation software. please excuse any grammatical, word or spelling errors. Chief Complaint: 81-year-old female presents to the emergency department for weakness History of Present Illness: 81-year-old female presents to the emergency department for weakness. Patient states that she was at home by herself. She presented to the emergency room 2 weeks ago for the same complaint. Patient states that today she went to the dentist. When she got home she felt like she is having trouble walking. She states she has a history of chronic back pain that has been on image. Patient currently being treated for urinary tract infection. She states that she has chronic white blood cells in her urine that are interpreted as UTIs. She does not know what antibiotic medication she is currently on. Denies any urinary symptoms. Patient denies any cough, shortness of breath. The ROS documented in this emergency department record has been reviewed and confirmed by me. Those systems with pertinent positive or negative responses have been documented in the HPI. All other systems are other negative and/or noncontributory. PHYSICAL EXAM: General Impression: Alert and oriented x3, not in acute distress HEENT: Normocephalic atraumatic, extra-ocular movements intact, pupils equal and reactive to light bilaterally, mucous membranes moist. Cardiovascular: Heart regular rate and rhythm Chest: Able to complete full sentences, no retractions, no tachypnea Abdomen: abdomen soft, non-tender, non-distended, no organomegaly Musculoskeletal: Pulses present and equal in all extremities, no peripheral edema Motor: no focal deficits noted Neurological: CN II-XII grossly intact, no focal motor or sensory deficits noted Skin: Intact with no visualized rashes Psych: Normal affect and mood ED course: 81-year-old female represents to the emergency department for bilateral lower extremity weakness. She requested CT imaging of her lumbar spine. Vital signs as upon arrival are within acceptable limits. Laboratory evaluation obtained. CBC unremarkable. Metabolic panel is negative. Urinalysis is negative for urinary tract infection. CT of the lumbar spine shows no acute processes. There is however chronic compression fractures with posterior retropulsion into the anterior spinal canal. Patient reevaluated at bedside at 2:15 PM and found to be in stable medical condition. Patient does not have any high-risk features P she doesn't have any saddle anesthesia, fevers or bowel/bladder issues. Patient is told to follow-up with her spinal surgeon as soon as possible for further care and evaluation. Return precautions discussed. Patient is agreeable to disposition. EKG interpretation: Ventricular rate 81, DE interval 216, QS 137, QTC 452. No DE prolongation, no QTC prolongation, no ST or T-wave changes noted. EKG compared to 01/23/2022 showing no changes. Overall, this EKG is unremarkable - Related Data Home Medications Medication Instructions Recorded Confirmed Rivaroxaban [Xarelto] 20 mg PO DAILY 02/06/17 02/21/22 Pravastatin Sodium [Pravachol] 40 mg PO HS 04/30/18 02/21/22 Flecainide Acetate 100 mg PO BID 08/12/19 02/21/22 Potassium Chloride [Klor-Con 8 ER] 8 meq PO DAILY PRN 08/12/19 02/21/22 Ranolazine [Ranexa] 1,000 mg PO Q12H 08/12/19 02/21/22 Cyanocobalamin [Vitamin B-12 1,000 mcg SQ Q30D 03/29/20 02/21/22 Injection] Nitroglycerin Sl Tabs [Nitrostat] 0.4 mg SL Q5M PRN 03/29/20 02/21/22 Furosemide [Lasix] 20 mg PO DAILY PRN 12/09/20 02/21/22 Benazepril [Lotensin] 5 mg PO DAILY 01/23/22 02/21/22 Denosumab [Prolia] 60 mg SQ Q180D 01/23/22 02/21/22 Estradiol Cream [Estrace Cream 1 gm VAGINAL MOTUWE 01/23/22 02/21/22 0.01%] Doxycycline Hyclate 100 mg PO BID 02/21/22 02/21/22 Metoprolol Succinate (ER) [Toprol 50 mg PO DAILY 02/21/22 02/21/22 Xl] Previous Rx's Medication Instructions Recorded oxyCODONE-APAP 7.5-325MG [Percocet 1 tab PO Q8H PRN #12 tab 04/30/20 7.5-325 mg] Allergies Allergy/AdvReac Type Severity Reaction Status Date / Time nickel Allergy Rash/Hives Verified 02/21/22 14:14 Review of Systems ROS Statement: Those systems with pertinent positive or pertinent negative responses have been documented in the HPI. ROS Other: All systems not noted in ROS Statement are negative. Past Medical History Past Medical History: Atrial Fibrillation, Atrial Flutter, Blood Disorder, Chest Pain / Angina, Diabetes Mellitus, Hyperlipidemia, Hypertension, Musculoskeletal Disorder, Osteoarthritis (OA), Pneumonia Additional Past Medical History / Comment(s): NIDDM type II, neuropathy L foot, chronic low back pain , past thoracic vertebral fracture with surgery, past L sided sciatica/difficulty lifting L leg, iron deficieancy anemia , hx blood transfusion Oct 2020., UTIs, cystitis,- states bladder infections affect her balance., occasional R foot edema, History of Any Multi-Drug Resistant Organisms: None Reported Past Surgical History: Back Surgery, Breast Surgery, Cardiac Ablation, Cholecystectomy, Hysterectomy, Joint Replacement, Orthopedic Surgery, Pacemaker, Tubal Ligation Additional Past Surgical History / Comment(s): Cervical fusion, kyphoplasty/vertebral biopsy T6, R leg & hip fracture with plate, total R knee, L3/L4/L5 surgery in 2019, cystocele, BMA, bilateral cataract removals, R breast biopsy, pacemaker ([employer]) Past Anesthesia/Blood Transfusion Reactions: No Reported Reaction Additional Past Anesthesia/Blood Transfusion Reaction / Comment(s): Anesthesia "makes my hair fall out". Type of Cardiac Device: Permanent Pacemaker Device Placement Date:: 04/09 Past Psychological History: No Psychological Hx Reported Smoking Status: Former smoker Past Alcohol Use History: Rare Past Drug Use History: None Reported - Past Family History Brother(s) Family Medical History: Cancer, Deep Vein Thrombosis (DVT), Myocardial Infarction ([place]) Additional Family Medical History / Comment(s): colon and prostate ca Sister(s) Family Medical History: Cancer Additional Family Medical History / Comment(s): breast and ovarian Mother Family Medical History: COPD Father History Unknown: Yes Additional Family Medical History / Comment(s): Father in a MVA General Exam Limitations: physical limitation Course Vital Signs 02/21/22 12:09 Temperature 98.2 F Pulse Rate 66 Respiratory 18 Rate Blood Pressure 153/88 O2 Sat by Pulse 97 Oximetry Medical Decision Making - Lab Data Result diagrams: 02/21/22 12:30 02/21/22 12:30 Lab Results 02/21/22 02/21/22 02/21/22 Range/Units 12:30 12:30 12:30 WBC 11.5 H (3.8-10.6) k/uL RBC 4.42 (3.80-5.40) m/uL Hgb 13.4 (11.4-16.0) gm/dL Hct 42.7 (34.0-46.0) % MCV 96.6 (80.0-100.0) fL MCH 30.4 (25.0-35.0) pg MCHC 31.5 (31.0-37.0) g/dL RDW 13.2 (11.5-15.5) % Plt Count 206 (150-450) k/uL MPV 7.1 Neutrophils % 81 % Lymphocytes % 11 % Monocytes % 5 % Eosinophils % 1 % Basophils % 1 % Neutrophils # 9.3 H (1.3-7.7) k/uL Lymphocytes # 1.3 (1.0-4.8) k/uL Monocytes # 0.6 (0-1.0) k/uL Eosinophils # 0.1 (0-0.7) k/uL Basophils # 0.1 (0-0.2) k/uL Sodium 138 (137-145) mmol/L Potassium 4.8 (3.5-5.1) mmol/L Chloride 103 (98-107) mmol/L Carbon Dioxide 28 (22-30) mmol/L Anion Gap 7 mmol/L BUN 21 H (7-17) mg/dL Creatinine 0.84 (0.52-1.04) mg/dL Est GFR (CKD-EPI)AfAm 76 (>60 ml/min/1.73 sqM) Est GFR (CKD-EPI)NonAf 66 (>60 ml/min/1.73 sqM) Glucose 122 H (74-99) mg/dL Plasma Lactic Acid Gurpreet (0.7-2.0) mmol/L Calcium 9.1 (8.4-10.2) mg/dL Magnesium 1.7 (1.6-2.3) mg/dL Total Bilirubin 0.6 (0.2-1.3) mg/dL AST 21 (14-36) U/L ALT 19 (4-34) U/L Alkaline Phosphatase 88 (38-126) U/L Troponin I (0.000-0.034) ng/mL Total Protein 6.8 (6.3-8.2) g/dL Albumin 4.0 (3.5-5.0) g/dL Urine Color Yellow Urine Appearance Clear (Clear) Urine pH 5.5 (5.0-8.0) Ur Specific [place] 1.022 (1.001-1.035) Urine Protein Trace H (Negative) Urine Glucose (UA) Negative (Negative) Urine Ketones Negative (Negative) Urine Blood Negative (Negative) Urine Nitrite Negative (Negative) Urine Bilirubin Negative (Negative) Urine Urobilinogen <2.0 (<2.0) mg/dL Ur Leukocyte Esterase Negative (Negative) 02/21/22 02/21/22 Range/Units 12:30 12:30 WBC (3.8-10.6) k/uL RBC (3.80-5.40) m/uL Hgb (11.4-16.0) gm/dL Hct (34.0-46.0) % MCV (80.0-100.0) fL MCH (25.0-35.0) pg MCHC (31.0-37.0) g/dL RDW (11.5-15.5) % Plt Count (150-450) k/uL MPV Neutrophils % % Lymphocytes % % Monocytes % % Eosinophils % % Basophils % % Neutrophils # (1.3-7.7) k/uL Lymphocytes # (1.0-4.8) k/uL Monocytes # (0-1.0) k/uL Eosinophils # (0-0.7) k/uL Basophils # (0-0.2) k/uL Sodium (137-145) mmol/L Potassium (3.5-5.1) mmol/L Chloride (98-107) mmol/L Carbon Dioxide (22-30) mmol/L Anion Gap mmol/L BUN (7-17) mg/dL Creatinine (0.52-1.04) mg/dL Est GFR (CKD-EPI)AfAm (>60 ml/min/1.73 sqM) Est GFR (CKD-EPI)NonAf (>60 ml/min/1.73 sqM) Glucose (74-99) mg/dL Plasma Lactic Acid Gurpreet 0.9 (0.7-2.0) mmol/L Calcium (8.4-10.2) mg/dL Magnesium (1.6-2.3) mg/dL Total Bilirubin (0.2-1.3) mg/dL AST (14-36) U/L ALT (4-34) U/L Alkaline Phosphatase (38-126) U/L Troponin I <0.012 (0.000-0.034) ng/mL Total Protein (6.3-8.2) g/dL Albumin (3.5-5.0) g/dL Urine Color Urine Appearance (Clear) Urine pH (5.0-8.0) Ur Specific [place] (1.001-1.035) Urine Protein (Negative) Urine Glucose (UA) (Negative) Urine Ketones (Negative) Urine Blood (Negative) Urine Nitrite (Negative) Urine Bilirubin (Negative) Urine Urobilinogen (<2.0) mg/dL Ur Leukocyte Esterase (Negative) Disposition Clinical Impression: Weakness Disposition: HOME SELF-CARE Condition: Fair Instructions (If sedation given, give patient instructions): Back Pain (ED) Is patient prescribed a controlled substance at d/c from ED?: No Referrals: Darrel Rizo DO [Primary Care Provider] - 1-2 days
[2022-02-21 13:09] LABS: Calcium 9.1 mg/dL (8.4-10.2); Magnesium 1.7 mg/dL (1.6-2.3); Potassium 4.8 mmol/L (3.5-5.1); Total Bilirubin 0.6 mg/dL (0.2-1.3); Total Protein 6.8 g/dL (6.3-8.2)
--- NOTE | 2022-02-21 13:27 | CT ---
EXAMINATION TYPE: CT lumbar spine wo con DATE OF EXAM: 02/21/2022 1:13 PM COMPARISON: CT lumbar spine May 02, 2018 HISTORY: legs give out, inability to walk CT DLP: 1370.6 mGycm Automated exposure control for dose reduction was used. Unenhanced CT of the lumbar spine was performed. Bone and soft tissue window settings are submitted as well as coronal and sagittal reconstructions. There are 5 lumbar type vertebra redemonstrated. There are now right-sided posterior interpedicular r od and screw running L3-L5 levels. The right L3 screw position is less than desired and appears to tr ansverse the superior vertebral body margin with some adjacent vacuum disc phenomenon in the L2-L3 di sc space. There is artificial disc material at the L3-L4 and L4-L5 levels. Linear density in the infe rior L4 vertebra is present at site of mild to moderate height loss with predominantly sclerosis. Naomy pect artificial disc extending into L4 vertebra after impression type fracture. There is moderate to severe height loss with sclerosis in the L1 vertebra. There is reversal of normal lumbar lordosis iveth tered at L1 level with effacement of the anterior spinal canal due to slightly retropulsed L1 vertebr a. There is additional spinal canal stenosis at the L4 vertebra due to slight posterior retropulsion at site of compression type fracture or height loss. Severe disc space narrowing lumbosacral junction redemonstrated. Multilevel spinous process hypertrophy again seen. Review of axial images shows multilevel vertebral facet degenerative changes. Osseous structures are demineralized. Mild/moderate calcified plaque of the aorta extends into branch vessels. IMPRESSION: Demineralized osseous structures. Interval surgical change mid to lower lumbar spine. Mod erate to severe chronic compression type fracture at L1 level with posterior retropulsion into the an terior spinal canal. Age-indeterminate but suspected more subacute or chronic mild to moderate fractu re deformity involving the L4 vertebra with more prominent spinal canal effacement or stenosis at thi s level due to posterior retropulsion. Additional findings as noted above.
[2022-02-21 14:08] LABS: Appearance,Urine Clear (Clear); Bilirubin,Urine Negative (Negative); Blood,Urine Negative (Negative); Color,Urine Yellow; Glucose,Urine (UA) Negative (Negative); Ketones,Urine Negative (Negative); Leukocyte Esterase,Urine Negative (Negative); Nitrite,Urine Negative (Negative); PH, Urine 5.5 (5.0-8.0); Protein,Urine Trace (Negative); Specific Gravity,Urine 1.022 (1.001-1.035); Urobilinogen,Urine <2.0 mg/dL (<2.0)
[2022-02-21 15:07] VITALS: BP 151/85; PULSE 67; RESP 16
== END 2022-02-21 15:06 | disposition home or self-care (01) ==
LOC: EC 11:59
DX: R53.1 Weakness (principal); E11.36 Type 2 diabetes mellitus with diabetic cataract; E11.40 Type 2 diabetes mellitus with diabetic neuropathy, unspecified; I10 Essential (primary) hypertension; I48.91 Unspecified atrial fibrillation; I48.92 Unspecified atrial flutter; E78.5 Hyperlipidemia, unspecified; M19.90 Unspecified osteoarthritis, unspecified site; Z87.891 Personal history of nicotine dependence; Z79.01 Long term (current) use of anticoagulants; Z79.899 Other long term (current) drug therapy; Z95.0 Presence of cardiac pacemaker
CPT/HCPCS: 36415; 72131; 80053; 81003; 83605; 83735; 84484; 85025; 93005; 99285

== ENCOUNTER → 2022-04-13 | Outpatient (CLI) | payer MEDICARE ==
[2022-04-13 15:18] VITALS: BP 156/88; PULSE 76; RESP 17; TEMP 98.9
--- NOTE | 2022-04-13 16:03 | P.GSHP ---
History of Present Illness H&P Date: 04/13/22 Chief Complaint: invasive ductal carcinoma left breast Sherly is an 81 year old white female seen in consultation for Dr. Rizo regarding a biopsy proven left bresat invasive ductal carcinoma. She underwent a bilateral mammogram in 6921. This revealed an irregular 2 cm mass with spiculated margins seen in the central aspect of the left breast. No lesions of concern were reported in the right breast. An ultrasound of the left breast was recommended. Adjacent to the patient described there was a 7 mm nodule posteriorly which was potentially a satellite nodule as well as in the anterior nodule measuring 9.3 mm. Findings were felt to reflect malignancy. She then underwent an ultrasound of the left breast [place] [address]. This revealed an irregular mass in the left breast at 8:00 as well as a round mass in the left breast at 7:00 core biopsy was recommended. [place] [address]. Left breast site #1 revealed invasive poorly differentiated ductal carcinoma grade 3 second site revealed invasive poorly differentiated ductal carcinoma grade 3. These were triple negative. The patient had not felt anything of concern in either breast. She has had a right breast core biopsy in the remote past which was benign. This was done about one year ago. She gets her mammograms annually. She has had a right breast biopsy in the past which was benign. Caffiene: 1 cup/day nicotine: stopped 5 years ago, used to smoke 1 PPD/10 years hormones: BCP: 5 years estrogen/progesterone: none Family History: sister: breast, ovarian brother: prostate, colon cancer Hormonal History: menarche: 14 , breast fed: no, age at first : 28 menopause: 50 Surgical history: gallbladder tubaligation right knee bilateral femur fractures hip left side Vertebrae in back fractured cardiac ablation Medical History: HTN high cholesterol (heart pills) Xeralto pacemaker/ AFIB diabetic in the past Social History: nicotine: former alcohol: none drugs: none - Constitutional Constitutional: Denies chills, Denies fever - EENT Eyes: denies blurred vision, denies pain Ears: deny: decreased hearing, tinnitus Ears, nose, mouth and throat: Denies headache, Denies sore throat - Breasts Breasts: bilateral: as per HPI - Cardiovascular Cardiovascular: Reports as per HPI - Respiratory Respiratory: Denies cough, Denies 7 - Gastrointestinal Gastrointestinal: Reports diarrhea - Genitourinary (Female) Comment: nerve stimulator to regulate her bladder/ spastic bladder - Menstruation Menstruation: Reports postmenopausal - Musculoskeletal Musculoskeletal: Denies myalgias - Integumentary Integumentary: Denies pruritus, Denies rash - Neurological Neurological: Reports as per HPI, Reports weakness - Psychiatric Psychiatric: Denies anxiety, Denies depression - Endocrine Endocrine: Denies fatigue, Denies weight change - Hematologic/Lymphatic Comment: Xeralto Hematologic/Lymphatic: Reports as per HPI - Allergic/Immunologic Allergic/Immunologic: Reports as per HPI Past Medical History Past Medical History: Atrial Fibrillation, Atrial Flutter, Blood Disorder, Chest Pain / Angina, Diabetes Mellitus, Hyperlipidemia, Hypertension, Musculoskeletal Disorder, Osteoarthritis (OA), Pneumonia Additional Past Medical History / Comment(s): NIDDM type II, neuropathy L foot, chronic low back pain , past thoracic vertebral fracture with surgery, past L sided sciatica/difficulty lifting L leg, iron deficieancy anemia , hx blood transfusion Oct 2020., UTIs, cystitis,- states bladder infections affect her balance., occasional R foot edema, History of Any Multi-Drug Resistant Organisms: None Reported Past Surgical History: Back Surgery, Breast Surgery, Cardiac Ablation, Cholecystectomy, Hysterectomy, Joint Replacement, Orthopedic Surgery, Pacemaker, Tubal Ligation Additional Past Surgical History / Comment(s): Cervical fusion, kyphoplasty/vertebral biopsy T6, R leg & hip fracture with plate, total R knee, L3/L4/L5 surgery in 2019, cystocele, BMA, bilateral cataract removals, R breast biopsy, pacemaker (Medtr[employer]) Past Anesthesia/Blood Transfusion Reactions: No Reported Reaction Additional Past Anesthesia/Blood Transfusion Reaction / Comment(s): Anesthesia "makes my hair fall out". Type of Cardiac Device: Permanent Pacemaker Device Placement Date:: 04/09 Past Psychological History: No Psychological Hx Reported Additional Psychological History / Comment(s): Pt resides alone. She uses a walker. Smoking Status: Former smoker Past Alcohol Use History: Rare Additional Past Alcohol Use History / Comment(s): Pt started smoking in 1964 and quit smoking 2016 Past Drug Use History: None Reported - Past Family History Brother(s) Family Medical History: Cancer, Deep Vein Thrombosis (DVT), Myocardial Infarction ([place]) Additional Family Medical History / Comment(s): colon and prostate ca Sister(s) Family Medical History: Cancer Additional Family Medical History / Comment(s): breast and ovarian Mother Family Medical History: COPD Father History Unknown: Yes Additional Family Medical History / Comment(s): Father in a MVA Medications and Allergies Home Medications Medication Instructions Recorded Confirmed Type Rivaroxaban [Xarelto] 20 mg PO DAILY 02/06/17 04/13/22 History Pravastatin Sodium [Pravachol] 40 mg PO HS 04/30/18 04/13/22 History Flecainide Acetate [Tambocor] 100 mg PO BID 08/12/19 04/13/22 History Potassium Chloride [Klor-Con 8 ER] 8 meq PO DAILY PRN 08/12/19 04/13/22 History Ranolazine [Ranexa] 1,000 mg PO Q12H 08/12/19 04/13/22 History Cyanocobalamin [Vitamin B-12 1,000 mcg SQ Q30D 03/29/20 04/13/22 History Injection] Nitroglycerin Sl Tabs [Nitrostat] 0.4 mg SL Q5M PRN 03/29/20 04/13/22 History oxyCODONE-APAP 7.5-325MG [Percocet 1 tab PO Q8H PRN #12 tab 04/30/20 04/13/22 Rx 7.5-325 mg] Furosemide [Lasix] 20 mg PO DAILY PRN 12/09/20 04/13/22 History Benazepril [Lotensin] 5 mg PO DAILY 01/23/22 04/13/22 History Denosumab [Prolia] 60 mg SQ Q180D 01/23/22 04/13/22 History Estradiol Cream [Estrace Cream 1 gm VAGINAL MOTUWE 01/23/22 04/13/22 History 0.01%] Metoprolol Succinate (ER) [Toprol 50 mg PO DAILY 02/21/22 04/13/22 History Xl] Ferrous Sulfate [Feosol] 325 mg PO DAILY 04/13/22 04/13/22 History Allergies Allergy/AdvReac Type Severity Reaction Status Date / Time nickel Allergy Rash/Hives Verified 04/13/22 15:09 Surgical - Exam Vital Signs Temp Pulse Resp BP Pulse Ox 98.9 F 76 17 156/88 97 04/13/22 15:16 04/13/22 15:16 04/13/22 15:16 04/13/22 15:16 04/13/22 15:16 BMI: 34.8 - General no distress - Eyes normal ocular movement - Neck trachea midline - Respiratory normal respiratory effort - Cardiovascular Heart Sounds: normal: S1, S2 - Abdomen Abdomen: soft - Integumentary normal turgor - Neurologic no disoriented, no combative - Musculoskeletal in wheel chair - Psychiatric oriented to time Breast Exam: 46DD inspection: The lateral grade 3 ptosis Right breast: Multiple positional exam fibrocystic changes no dominant masses or nodules of concern Right axilla: No adenopathy of concern Left breast: Multiple positional exam at the 8 to 9 o'clock position there is fullness noted Left axilla: No adenopathy of concern Results Mammogram reviewed with Dr. Ross Assessment and Plan Assessment: Impression: HTN high cholesterol (heart pills) Xeralto pacemaker/ AFIB diabetic in the past Invasive ductal carcinoma tripple (-), left breast Plan: Presentation of case at tumor board Cardiac and medical clearance for surgery Patient to be seen by medical oncology Patient to be seen by radiation oncology Cc: Dr. Rizo
== END | disposition home or self-care (01) ==
LOC: WWCWWP 14:58
PROVIDERS: ATTEND Surgery
DX: Z53.9 Procedure and treatment not carried out, unspecified reason (principal)

== ENCOUNTER → 2022-05-26 | Outpatient (CLI) | payer MEDICARE ==
[2022-05-26 09:55] VITALS: BP 115/77; PULSE 64; RESP 17; TEMP 98.1
--- NOTE | 2022-05-26 09:56 | P.PN ---
Subjective Progress Note Date: 05/26/22 Principal diagnosis: [id number] History of Present Illness H&P Date: 04/13/22 Chief Complaint: invasive ductal carcinoma left breast Sherly is an 81 year old white female seen in consultation for Dr. Rizo regarding a biopsy proven left bresat invasive ductal carcinoma. She underwent a bilateral mammogram in 6921. This revealed an irregular 2 cm mass with spiculated margins seen in the central aspect of the left breast. No lesions of concern were reported in the right breast. An ultrasound of the left breast was recommended. Adjacent to the patient described there was a 7 mm nodule posteriorly which was potentially a satellite nodule as well as in the anterior nodule measuring 9.3 mm. Findings were felt to reflect malignancy. She then underwent an ultrasound of the left breast [place] [id number]. This revealed an irregular mass in the left breast at 8:00 as well as a round mass in the left breast at 7:00 core biopsy was recommended. [place] [address]. Left breast site #1 revealed invasive poorly differentiated ductal carcinoma grade 3 second site revealed invasive poorly differentiated ductal carcinoma grade 3. These were triple negative. The patient had not felt anything of concern in either breast. She has had a right breast core biopsy in the remote past which was benign. This was done about one year ago. She gets her mammograms annually. She has had a right breast biopsy in the past which was benign. Note Dr. Darwin Tovar reviewed 04-17-22 and did not recommend jordy- adjuvant therapy secondary to co -morbid medical conditions Case presented at tumor board on 05-16-22; patient declined genetic testing although it was offered; Going to follow with Dr. Kimbrough from radiation oncology. We have discussed at tumor board the fact that she has a pacemaker in place and radiation therapy may be more challenging however we will get his recommendation. Caffiene: 1 cup/day nicotine: stopped 5 years ago, used to smoke 1 PPD/10 years hormones: BCP: 5 years estrogen/progesterone: none Family History: sister: breast, ovarian brother: prostate, colon cancer Hormonal History: menarche: 14 , breast fed: no, age at first : 28 menopause: 50 Surgical history: gallbladder tubaligation right knee bilateral femur fractures hip left side Vertebrae in back fractured cardiac ablation Medical History: HTN high cholesterol (heart pills) Xeralto pacemaker/ AFIB diabetic in the past Social History: nicotine: former alcohol: none drugs: none - Constitutional Constitutional: Denies chills, Denies fever - EENT Eyes: denies blurred vision, denies pain Ears: deny: decreased hearing, tinnitus Ears, nose, mouth and throat: Denies headache, Denies sore throat - Breasts Breasts: bilateral: as per HPI - Cardiovascular Cardiovascular: Reports as per HPI - Respiratory Respiratory: Denies cough, Denies 7 - Gastrointestinal Gastrointestinal: Reports diarrhea - Genitourinary (Female) Comment: nerve stimulator to regulate her bladder/ spastic bladder - Menstruation Menstruation: Reports postmenopausal - Musculoskeletal Musculoskeletal: Denies myalgias - Integumentary Integumentary: Denies pruritus, Denies rash - Neurological Neurological: Reports as per HPI, Reports weakness - Psychiatric Psychiatric: Denies anxiety, Denies depression - Endocrine Endocrine: Denies fatigue, Denies weight change - Hematologic/Lymphatic Comment: Xeralto Hematologic/Lymphatic: Reports as per HPI - Allergic/Immunologic Allergic/Immunologic: Reports as per HPI Past Medical History Past Medical History: Atrial Fibrillation, Atrial Flutter, Blood Disorder, Chest Pain / Angina, Diabetes Mellitus, Hyperlipidemia, Hypertension, Musculoskeletal Disorder, Osteoarthritis (OA), Pneumonia Additional Past Medical History / Comment(s): NIDDM type II, neuropathy L foot, chronic low back pain , past thoracic vertebral fracture with surgery, past L sided sciatica/difficulty lifting L leg, iron deficieancy anemia , hx blood transfusion Oct 2020., UTIs, cystitis,- states bladder infections affect her balance., occasional R foot edema, History of Any Multi-Drug Resistant Organisms: None Reported Past Surgical History: Back Surgery, Breast Surgery, Cardiac Ablation, Cholecystectomy, Hysterectomy, Joint Replacement, Orthopedic Surgery, Pacemaker, Tubal Ligation Additional Past Surgical History / Comment(s): Cervical fusion, kyphoplasty/vertebral biopsy T6, R leg & hip fracture with plate, total R knee, L3/L4/L5 surgery in 2019, cystocele, BMA, bilateral cataract removals, R breast biopsy, pacemaker ([employer]) Past Anesthesia/Blood Transfusion Reactions: No Reported Reaction Additional Past Anesthesia/Blood Transfusion Reaction / Comment(s): Anesthesia "makes my hair fall out". Type of Cardiac Device: Permanent Pacemaker Device Placement Date:: 04/09 Past Psychological History: No Psychological Hx Reported Additional Psychological History / Comment(s): Pt resides alone. She uses a walker. Smoking Status: Former smoker Past Alcohol Use History: Rare Additional Past Alcohol Use History / Comment(s): Pt started smoking in 1964 and quit smoking 2016 Past Drug Use History: None Reported - Past Family History Brother(s) Family Medical History: Cancer, Deep Vein Thrombosis (DVT), Myocardial Infarction ([place]) Additional Family Medical History / Comment(s): colon and prostate ca Sister(s) Family Medical History: Cancer Additional Family Medical History / Comment(s): breast and ovarian Mother Family Medical History: COPD Father History Unknown: Yes Additional Family Medical History / Comment(s): Father in a MVA Medications and Allergies Home Medications Medication Instructions Recorded Confirmed Type Rivaroxaban [Xarelto] 20 mg PO DAILY 02/06/17 04/13/22 History Pravastatin Sodium [Pravachol] 40 mg PO HS 04/30/18 04/13/22 History Flecainide Acetate [Tambocor] 100 mg PO BID 08/12/19 04/13/22 History Potassium Chloride [Klor-Con 8 ER] 8 meq PO DAILY PRN 08/12/19 04/13/22 History Ranolazine [Ranexa] 1,000 mg PO Q12H 08/12/19 04/13/22 History Cyanocobalamin [Vitamin B-12 1,000 mcg SQ Q30D 03/29/20 04/13/22 History Injection] Nitroglycerin Sl Tabs [Nitrostat] 0.4 mg SL Q5M PRN 03/29/20 04/13/22 History oxyCODONE-APAP 7.5-325MG [Percocet 1 tab PO Q8H PRN #12 tab 04/30/20 04/13/22 Rx 7.5-325 mg] Furosemide [Lasix] 20 mg PO DAILY PRN 12/09/20 04/13/22 History Benazepril [Lotensin] 5 mg PO DAILY 01/23/22 04/13/22 History Denosumab [Prolia] 60 mg SQ Q180D 01/23/22 04/13/22 History Estradiol Cream [Estrace Cream 1 gm VAGINAL MOTUWE 01/23/22 04/13/22 History 0.01%] Metoprolol Succinate (ER) [Toprol 50 mg PO DAILY 02/21/22 04/13/22 History Xl] Ferrous Sulfate [Feosol] 325 mg PO DAILY 04/13/22 04/13/22 History Allergies Allergy/AdvReac Type Severity Reaction Status Date / Time nickel Allergy Rash/Hives Verified 04/13/22 15:09 Objective - Constitutional General appearance: Present: cooperative - EENT Eyes: Present: EOMI - Neck Neck: Present: normal ROM - Respiratory Respiratory: bilateral: CTA - Cardiovascular Heart sounds: normal: S1, S2 - Integumentary Integumentary: Present: normal turgor - Psychiatric Psychiatric: Present: A&O x's 3, appropriate affect, intact judgment & insight - Additional findings Additional findings: Breast exam: BRA: 46DD Inspection: Bilateral grade 3 ptosis Right breast: Multiple positional exam fibrocystic changes no dominant masses or nodules of concern Right axilla: No adenopathy of concern Left breast: Multi-positional exam at the 8 to 9 o'clock position there is fullness noted Left axilla: No adenopathy of concern Assessment and Plan Assessment: Impression: HTN high cholesterol (heart pills) Xeralto pacemaker/ AFIB diabetic in the past stage I left breast cancer two sites Plan: 1. presented case at tumor board 2. genetic testing declined 3. medical and cardiac clearance 4. needle localization of two sites left breast lumpectomy, possible onco plastic tissue transfer, sentinel node injection, sentinel node biopsy, possible axillary node dissection CC: Dr. Burgos
== END | disposition home or self-care (01) ==
LOC: WWCWWP 09:27
PROVIDERS: ATTEND Surgery
DX: Z53.9 Procedure and treatment not carried out, unspecified reason (principal)

== ENCOUNTER 2022-06-01 08:20 | Day surgery (SDC) | payer MEDICARE ==
[2022-05-31 08:19] VITALS: BMI 35.9
[~2022-06-01 08:20] MED LIST changes: -DENOSUMAB 60 MG/ML 1 ML SYRINGE SQ NR; +DEXAMETHASONE SOD PHOSPHATE 4 MG/ML 1 ML VIAL IV ONE; +HEPARIN SODIUM,PORCINE/PF 5,000 UNIT/0.5 ML SYRINGE SQ PRN; +LACTATED RINGERS 1,000 ML IV SCH; +LIDOCAINE 1% (10MG/ML) FOR IV START INTRADERMA PRN; +MIDAZOLAM 2 MG/2 ML VIAL IV PRN; +ONDANSETRON 4 MG/2 ML VIAL IVP ONE; +Pre Op ABX Message 1 EACH MISC MISCELLANE ONE
[2022-06-01 08:57] LABS: Glucose,Whole Blood 105 mg/dL (70-110)
[2022-06-01] MEDS ORDERED: ALPRAZolam 0.25 MG TAB PO ONE (09:05)
[2022-06-01] MEDS ORDERED: LIDOCAINE 1% INJ 10MG/ML (20 ML MDV) SQ ONE (09:49)
[2022-06-01] MEDS ORDERED: DEXAMETHASONE SOD PHOSPHATE 4 MG/ML 1 ML VIAL IVP ONE (10:49)
--- NOTE | 2022-06-01 12:15 | P.NAPBC ---
NAPBC Queries - NAPBC Queries Was patient's case review presented at [facility] tumor board? If no, comment.: Yes Was patient's pathology reviewed at [facility]? If no, comment.: Yes Was breast conservation surgery offered? If no, comment.: Yes Was sentinel node biopsy offered? If no, comment.: Yes Was diagnosis confirmed by percutaneous core biopsy? If no, comment.: Yes Is patient mastectomy patient?: No Was a preop referral to reconstructive surgeon offered?: No Clinical Stage: two sites ([id number]) both sites
[2022-06-01] MEDS ORDERED: SUCCINYLCHOLINE CHLORIDE 200 MG/10 ML VIAL IV ONE (12:47)
[2022-06-01] MEDS ORDERED: PHENYLEPHRINE-0.9% NACL SYG 1,000 MCG/10 ML SYRINGE ONE (12:47)
[2022-06-01] MEDS ORDERED: fentaNYL (PF) 50 MCG/ML 2 ML AMP ONE (12:47)
[2022-06-01] MEDS ORDERED: LIDOCAINE 2% INJ 20 MG/ML (2 ML VIAL) ONE (12:47)
[2022-06-01] MEDS ORDERED: PROPOFOL 10 MG/ML 20 ML VIAL IV ONE (12:47)
[2022-06-01] MEDS ORDERED: SODIUM CHLORIDE 0.9% 100 ML IV ONE (12:52)
--- NOTE | 2022-06-01 14:33 | NM ---
EXAMINATION TYPE: NM sentinel node injection DATE OF EXAM: 06/01/2022 COMPARISON: 03/29/2022 HISTORY: 82-year-old female biopsy-proven left breast cancer here for surgery today. TECHNIQUE AND FINDINGS: The procedure of sentinel lymph node injection was explained to the patient. The benefits, alternatives, and risks were discussed. An informed consent was then obtained. Overlying skin is cleaned with sterile alcohol. Following this, 492 uCi Tc99m Tilmanocept was inject ed in the upper outer aspect of the left nipple intradermally. The patient tolerated the procedure well without any immediate complication. The patient was kept in the radiology department for short stay after the procedure and then taken to surgery for surgical p rocedure what is presumed intraoperative gamma probe will be used for sentinel lymph node detection. IMPRESSION: Left breast radiotracer injection for sentinel node localization as above.
--- NOTE | 2022-06-01 15:00 | P.OP ---
Date of Procedure: 06/01/22 Preoperative Diagnosis: Invasive ductal carcinoma left breast Postoperative Diagnosis: Same Procedure(s) Performed: Needle localization lumpectomy, hyperplastic tissue transfer 73 cm, sentinel node biopsy Anesthesia: RENZO Surgeon: Shannon Arreola Estimated Blood Loss (ml): 20 IV fluids (ml): 700 Pathology: other (breast tissue. sentinal node) Condition: stable Disposition: same day Indications for Procedure: Biopsy-proven invasive ductal carcinoma left breast Operative Findings: Fibrofatty breast tissue Description of Procedure: The patient was first seen in the radiology department. Needle localization bracketing of the area of cancer was performed. The periareolar area was injected with radioactive tracer. The patient was brought to the operative suite. Following induction of anest hesia the axilla was interrogated. Radioactivity was noted to be present. The left breast and axilla were prepped and draped in a sterile fashion. Incision was made over the area of greatest radioactivity in the axilla. This was carried down to the axillary tissue. The tissue was grasped using an Allis clamp. The tissue was removed using the Harmonic scalpel to maintain hemostasis. The 10 second count was performed on the lymph node and this was 99,927. The background count was 16. The axilla was well irrigated. The deep tissues were closed using 3-0 Vicryl suture. This is followed by closure of the subcutaneous tissue with 3-0 Vicryl suture and closure of the skin with 4-0 Monocryl. The area of the breast was approached. A vertical incision was made and carried down to the area between the 2 needles. The tumor was palpable and widely excised around the tumor. Anteriorly skin was taken posteriorly dissection was on the pectoralis muscle. The specimen was removed. The cavity was 7 x 4 cm. The cavity was well irrigated. After assured that hemostasis was attained Surgicel and powder form was placed. Titanium clips were placed. A medial flap 4 x 6 cm was performed, a lateral flap 3 x 7 cm was performed. The flaps were brought together and secured using Vicryl suture. The specimen had been painted and radiograph was performed showing the area of concern had been removed. The subcutaneous tissue was closed with 3-0 Vicryl suture. The skin was closed using 4-0 Monocryl suture. Nylon suture was placed on the skin. Steri-Strips are placed in the axilla. The patient tolerated the procedure in stable condition. All instrument sponge counts were correct at the end of the case.
--- NOTE | 2022-06-01 15:01 | P.DS ---
Providers Attending physician: Shannon Arreola Primary care physician: Darrel Rizo Plan - Discharge Summary New Discharge Prescriptions: No Action Rivaroxaban [Xarelto] 20 mg PO DAILY Pravastatin Sodium [Pravachol] 40 mg PO QAM Flecainide Acetate [Tambocor] 100 mg PO BID Potassium Chloride [Klor-Con 8 ER] 8 meq PO DAILY PRN PRN Reason: w/lasix Ranolazine [Ranexa] 1,000 mg PO Q12H Cyanocobalamin [Vitamin B-12 Injection] 1,000 mcg SQ Q30D oxyCODONE-APAP 7.5-325MG [Percocet 7.5-325 mg] 1 tab PO Q8H PRN #12 tab PRN Reason: Pain Furosemide [Lasix] 40 mg PO DAILY PRN PRN Reason: Edema Vitamin D(Dose Unknown) 1 tab PO MOTH Ferrous Sulfate [Feosol] 325 mg PO DAILY Metoprolol Tartrate [Lopressor] 50 mg PO QAM Discharge Medication List Rivaroxaban [Xarelto] 20 mg PO DAILY 02/06/17 [History] Pravastatin Sodium [Pravachol] 40 mg PO QAM 04/30/18 [History] Flecainide Acetate [Tambocor] 100 mg PO BID 08/12/19 [History] Potassium Chloride [Klor-Con 8 ER] 8 meq PO DAILY PRN 08/12/19 [History] Ranolazine [Ranexa] 1,000 mg PO Q12H 08/12/19 [History] Cyanocobalamin [Vitamin B-12 Injection] 1,000 mcg SQ Q30D 03/29/20 [History] oxyCODONE-APAP 7.5-325MG [Percocet 7.5-325 mg] 1 tab PO Q8H PRN #12 tab 04/30/20 [Rx] Furosemide [Lasix] 40 mg PO DAILY PRN 12/09/20 [History] Ferrous Sulfate [Feosol] 325 mg PO DAILY 04/13/22 [History] Metoprolol Tartrate [Lopressor] 50 mg PO QAM 05/31/22 [History] Vitamin D(Dose Unknown) 1 tab PO MOTH 05/31/22 [History] Follow up Appointment(s)/Referral(s): [facility], [NON-STAFF] - 1-2 Days Shannon Arreola MD [STAFF PHYSICIAN] - 1 Week Activity/Diet/Wound Care/Special Instructions: Wear bra at all times Do not drive until seen by Dr. Marquez May shower after 48 hours Discharge Disposition: HOME WITH HOME HEALTH SERVICES
[2022-06-01] MEDS: HYDROmorphone 0.5 MG/0.5 ML SYRINGE IVP PRN ×2 (15:11→15:43)
[2022-06-01 15:41] VITALS: TEMP 97.2
[2022-06-01 16:22] VITALS: RESP 18
[2022-06-01 17:17] VITALS: BP 166/68; PULSE 61
--- NOTE | 2022-06-06 14:20 | MM ---
Risk Values: Ly 5 year model risk: 4.6%. NCI Lifetime model risk: 6.6%. Prior Study Comparison: 12/04/2016 Bilateral Screening Mammogram, [facility]. 12/01/2019 Bilateral Screening Mammogram, [facility]. 12/08/2019 Right Diagnostic Mammogram, [facility]. Pathology Description: Approach: CC FB Needle Type: 7 cm Kopan The procedure of needle localization with wire placement and than surgical excision was explained to the patient. Benefits, alternatives, and risks were discussed. An informed consent was then obtained. The brachial approach was utilized from an inferior approach. The shortest pathway for procedure was chosen. Shortest pathway was inferior approach. The overlying skin was prepped and draped in usual sterile fashion. Lidocaine was used as anesthetic into the skin and subcutaneous tissue up to the level of area of concern. Two 7 cm Kopans needles were used. There were placed via an inferior approach under mammographic guidance. Subsequent 90 degrees mammogram show the needle to be in satisfactory position relative to the targeted area. At this point, wires were placed and the needle was withdrawn. The wires were fixed to patient's skin. Images were marked for surgeon. The patient tolerated the procedure well without any immediate complication. The patient was kept in the radiology department for short stay after the procedure and then taken to surgery for surgical excision. Targeted mass, clips, and both wires are identified in specimen mammogram. The patient was kept in hospital for short stay after the procedure and then discharged home in stable condition. Impression: Successful, uncomplicated bracketed needle localization with wire placement and surgical excision of biopsy-proven left breast cancer; full pathology results to follow. Pathology Results: Result: Malignant, Invasive ductal carcinoma. A. LEFT BREAST SENTINEL NODE, BIOPSY: Lymph node negative for metastasis. CK7 and RAINER immunoperoxidase stains are confirmatory (control appropriate). B. LEFT AXILLARY TISSUE: One lymph node with partial fat replacement, negative for metastasis. C. LEFT BREAST, LUMPECTOMY: Multifocal invasive poorly differentiated ductal carcinoma (Grade 3) and high grade DCIS, margins negative. See Surgical Pathology Cancer Case Summary. Pathology Description: Approach: CC FB Needle Type: 7 cm Kopan Overall Assessment: Malignant Management: Surgical Consultation of the left breast. Diagnostic Mammogram of the left breast in 6 months. Electronically signed and approved by: Molly Ross M.D. Radiologist
== END 2022-06-01 17:17 | disposition home health service (06) ==
LOC: OR 08:20
PROVIDERS: ATTEND Surgery
DX: D05.12 Intraductal carcinoma in situ of left breast (principal); E11.69 Type 2 diabetes mellitus with other specified complication; E78.5 Hyperlipidemia, unspecified; I10 Essential (primary) hypertension; E78.00 Pure hypercholesterolemia, unspecified; I48.91 Unspecified atrial fibrillation; Z87.891 Personal history of nicotine dependence; Z78.0 Asymptomatic menopausal state; Z98.51 Tubal ligation status; Z79.01 Long term (current) use of anticoagulants; Z95.0 Presence of cardiac pacemaker; M19.90 Unspecified osteoarthritis, unspecified site; E11.40 Type 2 diabetes mellitus with diabetic neuropathy, unspecified; D50.9 Iron deficiency anemia, unspecified; G89.29 Other chronic pain; M54.50 Low back pain, unspecified; Z90.49 Acquired absence of other specified parts of digestive tract; Z80.0 Family history of malignant neoplasm of digestive organs; Z80.42 Family history of malignant neoplasm of prostate; Z82.49 Family history of ischemic heart disease and other diseases of the circulatory system; Z80.3 Family history of malignant neoplasm of breast; Z80.41 Family history of malignant neoplasm of ovary; Z83.6 Family history of other diseases of the respiratory system; Z79.899 Other long term (current) drug therapy; Z91.09 Other allergy status, other than to drugs and biological substances; K21.9 Gastro-esophageal reflux disease without esophagitis; M81.0 Age-related osteoporosis without current pathological fracture; Z88.8 Allergy status to other drugs, medicaments and biological substances; I48.92 Unspecified atrial flutter
CPT/HCPCS: 19301; 14301; 14302; 38525; 38900; 76098; 19281; 19282; 38792; C1819; A9520; J0330; J1100; J2405; J2001 ×2; J3010; J2370; J2704; J1170; J1644; 88307; 88341; 88342

== ENCOUNTER 2022-06-05 08:17 | Inpatient (IN) | payer MEDICARE ==
--- NOTE | 2022-06-05 09:00 | ED ---
General Adult HPI - General Chief complaint: Weakness Stated complaint: SOB,vomiting Time Seen by Provider: 06/05/22 08:25 Source: patient, RN notes reviewed, old records reviewed Mode of arrival: ambulatory Limitations: no limitations - History of Present Illness Initial comments: This is an 82-year-old female presents emergency room with a past medical history significant for recently diagnosed breast cancer. Patient states she recently had a lumpectomy on the left breast. Patient also has a pacemaker placed. Patient comes in today because she has been feeling weak and having a difficult time standing as of yesterday. Patient woke up and felt dizzy and lightheaded. Patient states she also has been short of breath for the last couple of days. Patient denies any fever chills per patient denies any chest pain or palpitations. Patient denies any headache patient denies any numbness or focal weakness. Patient denies abdominal pain patient denies nausea vomiting diarrhea. Patient states the left breast is not more painful than normal. Patient states recently she had a nurse at the house and was told it look like it was healing fine. Patient denies any leg swelling or calf tenderness. Patient states she does have a history of anemia in the past which she needed blood transfusions. - Related Data Home Medications Medication Instructions Recorded Confirmed Rivaroxaban [Xarelto] 20 mg PO DAILY@0700 02/06/17 06/05/22 Pravastatin Sodium [Pravachol] 40 mg PO DAILY@0700 04/30/18 06/05/22 Flecainide Acetate [Tambocor] 100 mg PO BID@0700,1800 08/12/19 06/05/22 Potassium Chloride [Klor-Con 8 ER] 8 meq PO DAILY PRN 08/12/19 06/05/22 Ranolazine [Ranexa] 1,000 mg PO BID@0700,1800 08/12/19 06/05/22 Cyanocobalamin [Vitamin B-12 1,000 mcg SQ Q30D 03/29/20 06/05/22 Injection] Furosemide [Lasix] 40 mg PO DAILY PRN 12/09/20 06/05/22 Ferrous Sulfate [Feosol] 325 mg PO DAILY@0700 04/13/22 06/05/22 Benazepril [Lotensin] 5 mg PO DAILY@0706/05/22 06/05/22 Denosumab [Prolia] 60 mg SQ Q180D 06/05/22 06/05/22 Ergocalciferol [Vitamin D2 (1250 1,250 mcg PO MOTH 06/05/22 06/05/22 Mcg = 06305 Iu)] Estradiol Cream [Estrace Cream 1 gm VAGINAL MOTUWE@2100 06/05/22 06/05/22 0.01%] Metoprolol Succinate (ER) [Toprol 50 mg PO DAILY@0700 06/05/22 06/05/22 Xl] Nitroglycerin Sl Tabs [Nitrostat] 0.4 mg SL Q5M PRN 06/05/22 06/05/22 Triamcinolone 0.1% Cream [Kenalog 1 applic TOPICAL BID PRN 06/05/22 06/05/22 0.1% Cream] metroNIDAZOLE 0.75% VAGINAL 1 applicator VAGINAL MOWEFR@2100 06/05/22 06/05/22 [Metrogel Vaginal] Previous Rx's Medication Instructions Recorded oxyCODONE-APAP 7.5-325MG [Percocet 1 tab PO Q8H PRN #12 tab 04/30/20 7.5-325 mg] Allergies Allergy/AdvReac Type Severity Reaction Status Date / Time nickel Allergy Rash/Hives Verified 06/05/22 10:11 Review of Systems ROS Statement: Those systems with pertinent positive or pertinent negative responses have been documented in the HPI. ROS Other: All systems not noted in ROS Statement are negative. Past Medical History Past Medical History: Atrial Fibrillation, Atrial Flutter, Diabetes Mellitus, GI Bleed, Hyperlipidemia, Hypertension, Osteoarthritis (OA), Pneumonia Additional Past Medical History / Comment(s): diet control diabetic-no rx, Spastic bladder, History of Any Multi-Drug Resistant Organisms: None Reported Past Surgical History: Appendectomy, Back Surgery, Breast Surgery, Cardiac Ablation, Cholecystectomy, Hysterectomy, Joint Replacement, Orthopedic Surgery, Pacemaker, Tubal Ligation Additional Past Surgical History / Comment(s): Cervical fusion, kyphoplasty/vertebral biopsy T6, R leg & hip fracture with plate, total R knee, bilateral cataract removals, R breast biopsy, pacemaker (Medtronic)."medtronic device for spastic bladder" Past Anesthesia/Blood Transfusion Reactions: No Reported Reaction Additional Past Anesthesia/Blood Transfusion Reaction / Comment(s): Anesthesia "makes my hair fall out". Type of Cardiac Device: Permanent Pacemaker Device Placement Date:: 04/09 Past Psychological History: No Psychological Hx Reported Smoking Status: Former smoker Past Alcohol Use History: None Reported Past Drug Use History: None Reported - Past Family History Mother Family Medical History: COPD Father History Unknown: Yes Additional Family Medical History / Comment(s): Father in a MVA General Exam - General Exam Comments Initial Comments: GENERAL: Patient is well-developed and well-nourished. Patient is nontoxic and well- hydrated and is in mild distress. ENT: Neck is soft and supple. No significant lymphadenopathy is noted. Oropharynx is clear. Moist mucous membranes. Neck has full range of motion without eliciting any pain. EYES: The sclera were anicteric and conjunctiva were pink and moist. Extraocular movements were intact and pupils were equal round and reactive to light. Eyelids were unremarkable. PULMONARY: Unlabored respirations. Good breath sounds bilaterally. No audible rales rhonchi or wheezing was noted. CARDIOVASCULAR: Heart rate is bradycardic at 50 beats a minute. ABDOMEN: Soft and nontender with normal bowel sounds. SKIN: Skin is clear with no lesions or rashes and otherwise unremarkable. Left breast is a ecchymotic there is no signs of infection. NEUROLOGIC: Patient is alert and oriented x3. Cranial nerves II through XII are grossly intact. Motor and sensory are also intact. Normal speech, volume and content. Symmetrical smile. MUSCULOSKELETAL: Normal extremities with adequate strength and full range of motion. LYMPHATICS: No significant lymphadenopathy is noted PSYCHIATRIC: Normal psychiatric evaluation. Limitations: no limitations Course Vital Signs 06/05/22 06/05/22 08:28 09:08 Temperature 97.4 F L Pulse Rate 53 L 53 L Respiratory 22 18 Rate Blood Pressure 81/42 113/66 O2 Sat by Pulse 97 100 Oximetry Medical Decision Making - Medical Decision Making EKG shows a paced rhythm at 54 bpm QRS is 127 QT is 483 QTC is 470. Patient seems to have a malfunctioning pacemaker Chest x-ray shows possible pneumonia patient was started on antibiotics immediately. Pacemaker was interrogated and it showed that the pacemaker was not functioning normally I spoke with the [facility] agreed to admit the patient admitted the patient wrote admitting orders. - Lab Data Result diagrams: 06/05/22 09:00 06/05/22 09:00 Lab Results 09/09/1406/05/22 06/05/22 Range/Units 09:00 09:00 09:00 WBC 22.6 H (3.8-10.6) k/uL RBC 3.50 L (3.80-5.40) m/uL Hgb 10.8 L (11.4-16.0) gm/dL Hct 33.5 L (34.0-46.0) % MCV 95.7 (80.0-100.0) fL MCH 30.9 (25.0-35.0) pg MCHC 32.3 (31.0-37.0) g/dL RDW 12.8 (11.5-15.5) % Plt Count 254 (150-450) k/uL MPV 7.9 Neutrophils % 86 % Lymphocytes % 8 % Monocytes % 5 % Eosinophils % 0 % Basophils % 0 % Neutrophils # 19.5 H (1.3-7.7) k/uL Lymphocytes # 1.7 (1.0-4.8) k/uL Monocytes # 1.1 H (0-1.0) k/uL Eosinophils # 0.1 (0-0.7) k/uL Basophils # 0.1 (0-0.2) k/uL PT 20.5 H (9.0-12.0) sec INR 2.0 H (<1.2) APTT 45.6 H (22.0-30.0) sec D-Dimer 0.39 (<0.60) mg/L FEU Sodium 131 L (137-145) mmol/L Potassium 5.4 H (3.5-5.1) mmol/L Chloride 97 L (98-107) mmol/L Carbon Dioxide 19 L (22-30) mmol/L Anion Gap 15 mmol/L BUN 34 H (7-17) mg/dL Creatinine 1.62 H (0.52-1.04) mg/dL Est GFR (CKD-EPI)AfAm 34 (>60 ml/min/1.73 sqM) Est GFR (CKD-EPI)NonAf 30 (>60 ml/min/1.73 sqM) Glucose 196 H (74-99) mg/dL Calcium 8.6 (8.4-10.2) mg/dL Total Bilirubin 0.6 (0.2-1.3) mg/dL AST 21 (14-36) U/L ALT 16 (4-34) U/L Alkaline Phosphatase 97 (38-126) U/L Troponin I (0.000-0.034) ng/mL Total Protein 6.5 (6.3-8.2) g/dL Albumin 3.9 (3.5-5.0) g/dL Urine Color Urine Appearance (Clear) Urine pH (5.0-8.0) Ur Specific [place] (1.001-1.035) Urine Protein (Negative) Urine Glucose (UA) (Negative) Urine Ketones (Negative) Urine Blood (Negative) Urine Nitrite (Negative) Urine Bilirubin (Negative) Urine Urobilinogen (<2.0) mg/dL Ur Leukocyte Esterase (Negative) Urine WBC (0-5) /hpf Ur Squamous Epith Cells (0-4) /hpf Amorphous Sediment (None) /hpf Urine Bacteria (None) /hpf Hyaline Casts (0-2) /lpf Urine Mucus (None) /hpf Urine Opiates Screen (NotDetected) Ur Oxycodone Screen (NotDetected) Urine Methadone Screen (NotDetected) Ur Propoxyphene Screen (NotDetected) Ur Barbiturates Screen (NotDetected) U Tricyclic Antidepress (NotDetected) Ur Phencyclidine Scrn (NotDetected) Ur Amphetamines Screen (NotDetected) U Methamphetamines Scrn (NotDetected) U Benzodiazepines Scrn (NotDetected) Urine Cocaine Screen (NotDetected) U Marijuana (THC) Screen (NotDetected) 06/05/22 06/05/22 06/05/22 Range/Units 09:00 10:01 10:01 WBC (3.8-10.6) k/uL RBC (3.80-5.40) m/uL Hgb (11.4-16.0) gm/dL Hct (34.0-46.0) % MCV (80.0-100.0) fL MCH (25.0-35.0) pg MCHC (31.0-37.0) g/dL RDW (11.5-15.5) % Plt Count (150-450) k/uL MPV Neutrophils % % Lymphocytes % % Monocytes % % Eosinophils % % Basophils % % Neutrophils # (1.3-7.7) k/uL Lymphocytes # (1.0-4.8) k/uL Monocytes # (0-1.0) k/uL Eosinophils # (0-0.7) k/uL Basophils # (0-0.2) k/uL PT (9.0-12.0) sec INR (<1.2) APTT (22.0-30.0) sec D-Dimer (<0.60) mg/L FEU Sodium (137-145) mmol/L Potassium (3.5-5.1) mmol/L Chloride (98-107) mmol/L Carbon Dioxide (22-30) mmol/L Anion Gap mmol/L BUN (7-17) mg/dL Creatinine (0.52-1.04) mg/dL Est GFR (CKD-EPI)AfAm (>60 ml/min/1.73 sqM) Est GFR (CKD-EPI)NonAf (>60 ml/min/1.73 sqM) Glucose (74-99) mg/dL Calcium (8.4-10.2) mg/dL Total Bilirubin (0.2-1.3) mg/dL AST (14-36) U/L ALT (4-34) U/L Alkaline Phosphatase (38-126) U/L Troponin I <0.012 (0.000-0.034) ng/mL Total Protein (6.3-8.2) g/dL Albumin (3.5-5.0) g/dL Urine Color Yellow Urine Appearance Cloudy H (Clear) Urine pH 5.5 (5.0-8.0) Ur Specific [place] 1.024 (1.001-1.035) Urine Protein 1+ H (Negative) Urine Glucose (UA) Negative (Negative) Urine Ketones Negative (Negative) Urine Blood Negative (Negative) Urine Nitrite Negative (Negative) Urine Bilirubin Negative (Negative) Urine Urobilinogen <2.0 (<2.0) mg/dL Ur Leukocyte Esterase Negative (Negative) Urine WBC 1 (0-5) /hpf Ur Squamous Epith Cells 1 (0-4) /hpf Amorphous Sediment Many H (None) /hpf Urine Bacteria Rare H (None) /hpf Hyaline Casts 3 H (0-2) /lpf Urine Mucus Rare H (None) /hpf Urine Opiates Screen Not Detected (NotDetected) Ur Oxycodone Screen Detected H (NotDetected) Urine Methadone Screen Not Detected (NotDetected) Ur Propoxyphene Screen Not Detected (NotDetected) Ur Barbiturates Screen Not Detected (NotDetected) U Tricyclic Antidepress Detected H (NotDetected) Ur Phencyclidine Scrn Not Detected (NotDetected) Ur Amphetamines Screen Not Detected (NotDetected) U Methamphetamines Scrn Not Detected (NotDetected) U Benzodiazepines Scrn Detected H (NotDetected) Urine Cocaine Screen Not Detected (NotDetected) U Marijuana (THC) Screen Not Detected (NotDetected) Disposition Clinical Impression: Pneumonia, Pacemaker malfunction, Lightheaded Disposition: ADMITTED IP TO THIS [facility] Referrals: Darrel Rizo DO [Primary Care Provider] - 1-2 days Time of Disposition: 12:07
[2022-06-05 09:24] LABS: Basophils # (A) 0.1 k/uL (0-0.2); Basophils % (A) 0 %; Eosinophils # (A) 0.1 k/uL (0-0.7); Eosinophils % (A) 0 %; HCT 33.5 % (34.0-46.0); HGB 10.8 gm/dL (11.4-16.0); Lymphocytes # (A) 1.7 k/uL (1.0-4.8); Lymphocytes % (A) 8 %; MCH 30.9 pg (25.0-35.0); MCHC 32.3 g/dL (31.0-37.0); MCV 95.7 fL (80.0-100.0); Mean Platelet Volume 7.9; Monocytes # (A) 1.1 k/uL (0-1.0); Monocytes % (A) 5 %; Neutrophils # (A) 19.5 k/uL (1.3-7.7); Neutrophils % (A) 86 %; Platelet Count 254 k/uL (150-450); RDW 12.8 % (11.5-15.5); WBC 22.6 k/uL (3.8-10.6)
--- NOTE | 2022-06-05 09:40 | XR ---
EXAMINATION TYPE: XR chest 2V DATE OF EXAM: 06/05/2022 COMPARISON: NONE TECHNIQUE: PA and lateral views submitted. HISTORY: Shortness of breath FINDINGS: Degenerative changes of the spine with evidence of previous vertebral plasty. Cardiac device seen in the diffuse interstitial pattern. Diffuse osteopenia arthropathy of the shoulders. Limited inspiratio n with no pneumothorax. Subsegmental changes right lung base. Surgical clips in the abdomen. IMPRESSION: 1. Coarsened interstitium with right basilar infiltrates. Related for chronic interstitial lung disea se or interstitial pneumonitis. 2. Atelectasis versus early infiltrate right lung base
[2022-06-05 09:42] LABS: Albumin 3.9 g/dL (3.5-5.0); Calcium 8.6 mg/dL (8.4-10.2); Partial Thromboplastin Time 45.6 sec (22.0-30.0); Potassium 5.4 mmol/L (3.5-5.1); Prothrombin Time 20.5 sec (9.0-12.0); Total Bilirubin 0.6 mg/dL (0.2-1.3); Total Protein 6.5 g/dL (6.3-8.2)
[2022-06-05] MEDS ORDERED: cefTRIAXone IN SWFI 1,000 MG/10 ML SYRINGE IVP STA (10:14)
[2022-06-05 10:28] LABS: Amphetamine Screen,Urine Not Detected (NotDetected); Benzodiazepines Screen,Urine Detected (NotDetected); Cocaine Screen,Urine Not Detected (NotDetected); Opiate Screen,Urine Not Detected (NotDetected); Phencyclidine Screen,Urine Not Detected (NotDetected); Tricyclic Antidepressant,Urine Detected (NotDetected); Urn Cannabinoid Scrn Not Detected (NotDetected)
[2022-06-05 10:29] LABS: Barbiturate Screen,Urine Not Detected (NotDetected); Methadone Screen, Urine Not Detected (NotDetected); Oxycodone Screen, Urine Detected (NotDetected)
[2022-06-05 11:27] LABS: Amorphous Sediment,Urine Many /hpf; Appearance,Urine Cloudy (Clear); Bacteria,Urine Rare /hpf; Bilirubin,Urine Negative (Negative); Blood,Urine Negative (Negative); Color,Urine Yellow; Glucose,Urine (UA) Negative (Negative); Hyaline Casts,Urine 3 /lpf (0-2); Ketones,Urine Negative (Negative); Leukocyte Esterase,Urine Negative (Negative); Mucus,Urine Rare /hpf; Nitrite,Urine Negative (Negative); PH, Urine 5.5 (5.0-8.0); Protein,Urine 1+ (Negative); Specific Gravity,Urine 1.024 (1.001-1.035); Squamous Epithelial Cell,Urine 1 /hpf (0-4); Urobilinogen,Urine <2.0 mg/dL (<2.0); WBC,Urine 1 /hpf (0-5)
[2022-06-05] MEDS ORDERED: AZITHROMYCIN 500 MG in SODIUM CHLORIDE 0.9% 250 ML IVPB STA (12:24)
[2022-06-05] MEDS ORDERED: PNEUMONIA PROTOCOL UTILIZED 1 EACH MISC PO PRN (12:24)
[2022-06-05] MEDS: RANOLAZINE 500 MG TAB.ER.12H PO SCH (18:07)
[2022-06-05] MEDS: FLECAINIDE 50 MG TAB PO SCH (18:08)
[2022-06-05 20:19] LABS: Glucose,Whole Blood 189 mg/dL (70-110)
[2022-06-05] MEDS ORDERED: oxyCODONE-APAP 5-325MG 1 EACH TAB PO STA (20:30)
[2022-06-05] MEDS: IPRATROPIUM-ALBUTEROL 3 ML NEB INHALATION PRN (20:57)
[2022-06-05] MEDS ORDERED: MELATONIN 5 MG TABLET PO SCH (21:00)
[2022-06-05] MEDS ORDERED: DEXTROSE 50% SYRINGE 50 ML IVP PRN ×2 (22:36)
--- NOTE | 2022-06-05 22:56 | P.HPIM ---
History of Present Illness H&P Date: 06/05/22 Chief Complaint: Weakness Patient is a 82-year-old female with a known history of atrial flutter/fibrillation on anticoagulation with Xarelto, hypertension, hyperlipidemia, diabetes type 2-diet controlled, osteoarthritis and history of permanent pacemaker placement and prior history of smoking presents to ER with complaints of generalized weakness and difficulty standing up and walking also. Patient has been having symptoms for the past 2 days. Also complains of cough with green sputum production. Patient states that she is also confused and has been hallucinating. Denies any fever or chills. No nausea vomiting or abdominal pain or diarrhea. No complaints of chest pain. Patient does have generalized weakness and denies any focal weakness.Denied any leg swelling or calf tenderness. Patient was recently diagnosed with breast cancer and had lumpectomy of the left breast. Patient does take Lasix 40 mg daily and is also on flecainide, metoprolol and Xarelto. Chest x-ray showed coarse interstitial mid right basilar infiltrates. Related for chronic interstitial lung disease or interstitial pneumonitis. Atelectasis versus early infiltrate right lung base. Laboratory pressure WBC 22.6 hemoglobin 10.8 and platelets 254 INR 2.0 D-dimer is 0.39 Sodium 131 potassium 5.4 chloride 97 bicarb is 19 BUN 34 and creatinine 1.62. Blood sugar is 196. Urinalysis is cloudy with 1+ protein and many bacteria and 1 WBC 7 and leukoesterase negative. UDS positive for oxycodone and tricyclic antidepressants and benzodiazepines. Review of Systems Constitutional: Patient denies any fever or chills . Generalized weakness. Abdomen: Patient denied any nausea or vomiting or abd. pain Cardiovascular: Patient denies any chest pain or short of breath no palpitations. Respiratory: Patient does have cough with green sputum production and shortness of breath Neurologic: Patient denied any numbness or tingling headache. Musculoskeletal: Patient denies any complaints of joint swelling or deformity. Skin: Negative Psychiatric: Negative Endocrine: No heat or cold intolerance. No recent weight gain. Genitourinary: No dysuria or hematuria. All other 14 point ROS negative except the above Past Medical History Past Medical History: Atrial Fibrillation, Atrial Flutter, Diabetes Mellitus, GI Bleed, Hyperlipidemia, Hypertension, Osteoarthritis (OA), Pneumonia Additional Past Medical History / Comment(s): diet control diabetic-no rx, Spastic bladder, History of Any Multi-Drug Resistant Organisms: None Reported Past Surgical History: Appendectomy, Back Surgery, Breast Surgery, Cardiac Ablation, Cholecystectomy, Hysterectomy, Joint Replacement, Orthopedic Surgery, Pacemaker, Tubal Ligation Additional Past Surgical History / Comment(s): Cervical fusion, kyphoplasty/vertebral biopsy T6, R leg & hip fracture with plate, total R knee, bilateral cataract removals, R breast biopsy, pacemaker (Medtronic)."medtronic device for spastic bladder" Past Anesthesia/Blood Transfusion Reactions: No Reported Reaction Additional Past Anesthesia/Blood Transfusion Reaction / Comment(s): Anesthesia "makes my hair fall out". Type of Cardiac Device: Permanent Pacemaker Device Placement Date:: 04/09 Past Psychological History: No Psychological Hx Reported Smoking Status: Former smoker Past Alcohol Use History: None Reported Past Drug Use History: None Reported - Past Family History Mother Family Medical History: COPD Father History Unknown: Yes Additional Family Medical History / Comment(s): Father in a MVA Medications and Allergies Home Medications Medication Instructions Recorded Confirmed Type Rivaroxaban [Xarelto] 20 mg PO DAILY@0700 02/06/17 06/05/22 History Pravastatin Sodium [Pravachol] 40 mg PO DAILY@0700 04/30/18 06/05/22 History Flecainide Acetate [Tambocor] 100 mg PO BID@0700,1800 08/12/19 06/05/22 History Potassium Chloride [Klor-Con 8 ER] 8 meq PO DAILY PRN 08/12/19 06/05/22 History Ranolazine [Ranexa] 1,000 mg PO BID@0700,1800 08/12/19 06/05/22 History Cyanocobalamin [Vitamin B-12 1,000 mcg SQ Q30D 03/29/20 06/05/22 History Injection] oxyCODONE-APAP 7.5-325MG [Percocet 1 tab PO Q8H PRN #12 tab 04/30/20 06/05/22 Rx 7.5-325 mg] Furosemide [Lasix] 40 mg PO DAILY PRN 12/09/20 06/05/22 History Ferrous Sulfate [Feosol] 325 mg PO DAILY@0700 04/13/22 06/05/22 History Benazepril [Lotensin] 5 mg PO DAILY@0700 06/05/22 06/05/22 History Denosumab [Prolia] 60 mg SQ Q180D 06/05/22 06/05/22 History Ergocalciferol [Vitamin D2 (1250 1,250 mcg PO MOTH 06/05/22 06/05/22 History Mcg = 15792 Iu)] Estradiol Cream [Estrace Cream 1 gm VAGINAL MOTUWE@209906/05/22 06/05/22 History 0.01%] Metoprolol Succinate (ER) [Toprol 50 mg PO DAILY@0700 06/05/22 06/05/22 History Xl] Nitroglycerin Sl Tabs [Nitrostat] 0.4 mg SL Q5M PRN 06/05/22 06/05/22 History Triamcinolone 0.1% Cream [Kenalog 1 applic TOPICAL BID PRN 06/05/22 06/05/22 History 0.1% Cream] metroNIDAZOLE 0.75% VAGINAL 1 applicator VAGINAL MOWEFR@209906/05/22 06/05/22 History [Metrogel Vaginal] Allergies Allergy/AdvReac Type Severity Reaction Status Date / Time nickel Allergy Rash/Hives Verified 06/05/22 10:11 Physical Exam Vitals: Vital Signs Temp Pulse Resp BP Pulse Ox 06/05/22 13:14 72 22 115/63 97 06/05/22 09:08 53 L 18 113/66 100 06/05/22 08:28 97.4 F L 53 L 22 81/42 97 Intake and Output 06/04/22 06/05/22 06/05/22 22:59 06:59 14:59 Other: Weight 87.997 kg PHYSICAL EXAMINATION: Patient is lying in the bed comfortably, no acute distress, awake alert and oriented.. HEENT: Normocephalic. Neck is supple. Pupils reactive. Nostrils clear. Oral cavity is moist. Neck reveals no JVD, carotid bruits, or thyromegaly. CHEST EXAMINATION: Trachea is central. Symmetrical expansion. Bibasilar diminished sounds. No wheezing coarse sounds.. CARDIAC: Normal S1, S2 with no gallops. No murmurs ABDOMEN: Soft. Bowel sounds present. Nontender. No organomegaly. No abdominal bruits. Extremities: reveal no edema. No clubbing or cyanosis Neurologically awake, alert, oriented x3 with well-coordinated movements. No focal deficits noted Skin: No rash or skin lesions. Psychiatric: Coperative. Nonsuicidal, Musculoskeletal: No joint swelling or deformity. Normal range of motion. Results CBC & Chem 7: 06/06/22 07:41 06/06/22 07:41 Labs: Abnormal Lab Results - Last 24 Hours (Table) 06/05/22 06/05/22 06/05/22 Range/Units 09:00 09:00 09:00 WBC 22.6 H (3.8-10.6) k/uL RBC 3.50 L (3.80-5.40) m/uL Hgb 10.8 L (11.4-16.0) gm/dL Hct 33.5 L (34.0-46.0) % Neutrophils # 19.5 H (1.3-7.7) k/uL Monocytes # 1.1 H (0-1.0) k/uL PT 20.5 H (9.0-12.0) sec INR 2.0 H (<1.2) APTT 45.6 H (22.0-30.0) sec Sodium 131 L (137-145) mmol/L Potassium 5.4 H (3.5-5.1) mmol/L Chloride 97 L (98-107) mmol/L Carbon Dioxide 19 L (22-30) mmol/L BUN 34 H (7-17) mg/dL Creatinine 1.62 H (0.52-1.04) mg/dL Glucose 196 H (74-99) mg/dL Urine Appearance (Clear) Urine Protein (Negative) Amorphous Sediment (None) /hpf Urine Bacteria (None) /hpf Hyaline Casts (0-2) /lpf Urine Mucus (None) /hpf Ur Oxycodone Screen (NotDetected) U Tricyclic Antidepress (NotDetected) U Benzodiazepines Scrn (NotDetected) 06/05/22 06/05/22 Range/Units 10:01 10:01 WBC (3.8-10.6) k/uL RBC (3.80-5.40) m/uL Hgb (11.4-16.0) gm/dL Hct (34.0-46.0) % Neutrophils # (1.3-7.7) k/uL Monocytes # (0-1.0) k/uL PT (9.0-12.0) sec INR (<1.2) APTT (22.0-30.0) sec Sodium (137-145) mmol/L Potassium (3.5-5.1) mmol/L Chloride (98-107) mmol/L Carbon Dioxide (22-30) mmol/L BUN (7-17) mg/dL Creatinine (0.52-1.04) mg/dL Glucose (74-99) mg/dL Urine Appearance Cloudy H (Clear) Urine Protein 1+ H (Negative) Amorphous Sediment Many H (None) /hpf Urine Bacteria Rare H (None) /hpf Hyaline Casts 3 H (0-2) /lpf Urine Mucus Rare H (None) /hpf Ur Oxycodone Screen Detected H (NotDetected) U Tricyclic Antidepress Detected H (NotDetected) U Benzodiazepines Scrn Detected H (NotDetected) Assessment and Plan Assessment: Right lower lobe pneumonia with early infiltrate on chest x-ray Generalized weakness, cough with green sputum production Pacemaker malfunction status post interrogation. Recently diagnosed of breast cancer status postlumpectomy on the left side. Chronic atrial fibrillation on anticoagulation with Xarelto. Coagulopathy with INR 2.0 Diet-controlled diabetes type 2 with mild hyperglycemia Osteoarthritis Normocytic anemia with hemoglobin 10.8 Hypovolemic hyponatremia Acute kidney injury likely prerenal Mild hyperkalemia secondary acute kidney injury EKG showed electronic atrial pacer. With heart rate 54. GI and DVT prophylaxis patient is already on Xarelto Plan: Patient will be continued gentle IV hydration with normal saline Pulse per hour and was started on antibiotic of ceftriaxone azithromycin. Sputum culture will be sent for gram stain and culture. Metoprolol will be held
[2022-06-06 06:06] LABS: Glucose,Whole Blood 135 mg/dL (70-110)
[2022-06-06] MEDS: FLECAINIDE 50 MG TAB PO SCH ×2 (06:34→17:16)
[2022-06-06] MEDS: RANOLAZINE 500 MG TAB.ER.12H PO SCH ×2 (06:34→17:16)
[2022-06-06] MEDS: INSULIN ASPART (NovoLOG) 100 UNIT/ML VIAL SQ SCH ×3 (06:37→17:16)
[2022-06-06] MEDS ORDERED: RIVAROXABAN 20 MG TAB PO SCH (07:00)
[2022-06-06] MEDS ORDERED: PRAVASTATIN SODIUM 40 MG TAB PO SCH (07:00)
[2022-06-06] MEDS ORDERED: METOPROLOL SUCCINATE (ER) 50 MG TAB.ER.24H PO SCH (07:00)
[2022-06-06] MEDS: SODIUM CHLORIDE 0.9% 1,000 ML IV SCH ×2 (07:03→17:38)
[2022-06-06] MEDS: IPRATROPIUM-ALBUTEROL 3 ML NEB INHALATION PRN ×4 (07:52→20:27)
[2022-06-06 08:50] LABS: Basophils % (A) 0 %; Eosinophils # (A) 0.3 k/uL (0-0.7); Eosinophils % (A) 3 %; HCT 28.9 % (34.0-46.0); HGB 9.5 gm/dL (11.4-16.0); Lymphocytes # (A) 1.2 k/uL (1.0-4.8); Lymphocytes % (A) 9 %; MCH 31.9 pg (25.0-35.0); MCHC 32.9 g/dL (31.0-37.0); Mean Platelet Volume 7.7; Monocytes # (A) 0.6 k/uL (0-1.0); Monocytes % (A) 5 %; Neutrophils # (A) 10.6 k/uL (1.3-7.7); Neutrophils % (A) 82 %; Platelet Count 235 k/uL (150-450); RBC 2.98 m/uL (3.80-5.40); RDW 13.1 % (11.5-15.5); WBC 12.9 k/uL (3.8-10.6)
[2022-06-06 08:56] LABS: Calcium 8.1 mg/dL (8.4-10.2); Potassium 4.7 mmol/L (3.5-5.1)
[2022-06-06] MEDS ORDERED: AZITHROMYCIN 500 MG TAB PO SCH (09:00)
--- NOTE | 2022-06-06 09:10 | XR ---
EXAMINATION TYPE: XR chest 2V DATE OF EXAM: 06/06/2022 COMPARISON: 06/05/2020 TECHNIQUE: PA and lateral views submitted. HISTORY: Pneumonia FINDINGS: Evidence of previous vertebroplasty seen with multilevel degenerative disc disease. Diffuse osteopeni a with arthropathy of the shoulders. There is a double lead cardiac device is stable in position rela tive to the prior exam. Proximal lead overlying right atrium and distal lead overlying right ventricl e. Surgical clips right upper quadrant. Bilateral subsegmental areas of consolidation. Underlying COPD o r chronic interstitial lung disease suspected. Lucency in the lateral view overlying the sternum is i ndeterminate and should be correlated clinically and not well-seen on the frontal view. May be superf icial to the patient and soft tissue related correlate clinically. Stable right hemidiaphragm elevati on. IMPRESSION: 1. Basilar atelectasis or early infiltrates stable.
[2022-06-06] MEDS ORDERED: FAMOTIDINE 20 MG TAB PO SCH (09:30)
--- NOTE | 2022-06-06 09:52 | P.CRDCN ---
History of Present Illness History of present illness: HISTORY OF PRESENTING ILLNESS This is a pleasant 82-year-old female past medical history significant for resent diagnosis of left breast cancer s/p left lumpectomy on 06/01/2022, longstanding persistent atrial fibrillation on Xarelto, permanent pacemaker implantation, hypertension, coronary artery disease, type 2 diabetes, hyperlipidemia, former tobacco dependence. She follows in the office with Dr. Weber. We have been asked to see in consultation for pacemaker malfunction. She presents to the ER with complaints of generalized weakness, some shortness of breath. Patient states that she's progressively getting weak in the bilateral legs. She denies any chest pain, palpitations, lightheadedness, dizziness, syncope or near syncope. She denies any loss of consciousness. She endorses being told she has a bladder infection and pneumonia. Patient's EKG was abnormal in the ER, possible concern for pacemaker malfunction and cardiology was consulted. Device was interrogated which revealed possible loss of capture RV lead. [employer] evaluated patient in the ER and increased threshold on the device. DIAGNOSTICS * EKG reveals Paced rhythm, with multiple pacer spikes noted. * Device interrogation revealed potential loss of capture of the RV lead. * Telemetry tracings indicate AV paced on the monitor HR 60s * Cardiac catheterization 05/10 revealed 50% stenosis in the proximal D1, 40% stenosis distal circumflex, 30% proximal RCA * Echocardiogram 11/2020 revealed a normal EF, mild aortic stenosis, peak 21 mmHg, mean 10 mmHg, mild MR, mild TR * Chest xray bilateral subsegmental areas of consolidation. Coarsened interstitium with right basilar infiltrates. Proximal lead overlying the right atrium and distally overlying the right ventricle. * Laboratory reviewed, WBC 22.6, hemoglobin 10.8, platelets 294, d-dimer negative, sodium 131, potassium 5.4, P1 34, serum creatinine 1.6, troponin negative * Current home cardiac medications include Lasix 40mg daily PRN, benazepril 5mg daily, metoprolol succinate 50mg daily, Ranexa 1,000mg BID, Xarelto 20mg daily REVIEW OF SYSTEMS At the time of my exam: CONSTITUTIONAL: Denies fever or chills. +fatigue, bilateral leg weakness. CARDIOVASCULAR: Denies chest pain, shortness of breath, orthopnea, PND or palpitations. RESPIRATORY: Denies cough. GASTROINTESTINAL: Denies abdominal pain, diarrhea, constipation, nausea or vomiting. MUSCULOSKELETAL: Denies myalgias. NEUROLOGIC: Denies numbness, tingling, headacbe or weakness. ENDOCRINE: Denies fatigue, weight change, polydipsia or polyurina. GENITOURINARY: Denies burning, hematuria or urgency with micturation. HEMATOLOGIC: Denies history of anemia or bleeding. PHYSICAL EXAMINATION Blood pressure and 128/60, heart rate 71, afebrile, saturation 100% on 4 L nasal cannula CONSTITUTIONAL: No apparent distress. HEENT: Head is normocephalic. Pupils are equal, round. Sclerae anicteric. Mucous membranes of the mouth are moist. No JVD. No carotid bruit. CHEST EXAMINATION: Lungs are clear to auscultation. No chest wall tenderness is noted on palpation or with deep breathing. HEART EXAMINATION: Regular rate and rhythm. S1, S2 heard. Systolic murmur at the base ABDOMEN: Soft, nontender. Positive bowel sounds. EXTREMITIES: 2+ peripheral pulses, no lower extremity edema and no calf tenderness. NEUROLOGIC EXAMINATION: Patient is awake, alert and oriented x3. ASSESSMENT Pacemaker malfunction with possible loss of capture of RV lead Generalized weakness, difficulty ambulating Symptoms of productive cough Recent diagnosis of left breast cancer status post left lumpectomy on 06/01/2022 Long-standing persistent atrial fibrillation on Xarelto Primary pacemaker implantation Hypertension Mild nonobstructive coronary artery disease Type 2 diabetes Hyperlipidemia Former tobacco use PLAN Device was interrogated which revealed possible loss of capture RV lead. [employer] Rep evaluated patient in the ER and increased threshold on the device. Will continue to monitor on telemetry Rest of management per primary Further recommendations based on clinical course Nurse practitioner note has been reviewed by physician. Signing provider agrees with the documented findings, assessment, and plan of care. Past Medical History Past Medical History: Atrial Fibrillation, Atrial Flutter, Diabetes Mellitus, GI Bleed, Hyperlipidemia, Hypertension, Osteoarthritis (OA), Pneumonia Additional Past Medical History / Comment(s): diet control diabetic-no rx, Spastic bladder, History of Any Multi-Drug Resistant Organisms: None Reported Past Surgical History: Appendectomy, Back Surgery, Breast Surgery, Cardiac Ablation, Cholecystectomy, Hysterectomy, Joint Replacement, Orthopedic Surgery, Pacemaker, Tubal Ligation Additional Past Surgical History / Comment(s): Cervical fusion, kyphoplasty/vertebral biopsy T6, R leg & hip fracture with plate, total R knee, bilateral cataract removals, R breast biopsy, pacemaker ([employer])."[employer] device for spastic bladder" Past Anesthesia/Blood Transfusion Reactions: No Reported Reaction Additional Past Anesthesia/Blood Transfusion Reaction / Comment(s): Anesthesia "makes my hair fall out". Type of Cardiac Device: Permanent Pacemaker Device Placement Date:: 04/09 Past Psychological History: No Psychological Hx Reported Smoking Status: Former smoker Past Alcohol Use History: None Reported Past Drug Use History: None Reported - Past Family History Mother Family Medical History: COPD Father History Unknown: Yes Additional Family Medical History / Comment(s): Father in a MVA Medications and Allergies Home Medications Medication Instructions Recorded Confirmed Type Rivaroxaban [Xarelto] 20 mg PO DAILY@0700 02/06/17 06/05/22 History Pravastatin Sodium [Pravachol] 40 mg PO DAILY@0700 04/30/18 06/05/22 History Flecainide Acetate [Tambocor] 100 mg PO BID@0700,1800 08/12/19 06/05/22 History Potassium Chloride [Klor-Con 8 ER] 8 meq PO DAILY PRN 08/12/19 06/05/22 History Ranolazine [Ranexa] 1,000 mg PO BID@0700,1800 08/12/19 06/05/22 History Cyanocobalamin [Vitamin B-12 1,000 mcg SQ Q30D 03/29/20 06/05/22 History Injection] oxyCODONE-APAP 7.5-325MG [Percocet 1 tab PO Q8H PRN #12 tab 04/30/20 06/05/22 Rx 7.5-325 mg] Furosemide [Lasix] 40 mg PO DAILY PRN 12/09/20 06/05/22 History Ferrous Sulfate [Feosol] 325 mg PO DAILY@0700 04/13/22 06/05/22 History Benazepril [Lotensin] 5 mg PO DAILY@0700 06/05/22 06/05/22 History Denosumab [Prolia] 60 mg SQ Q180D 06/05/22 06/05/22 History Ergocalciferol [Vitamin D2 (1250 1,250 mcg PO MOTH 06/05/22 06/05/22 History Mcg = 07629 Iu)] Estradiol Cream [Estrace Cream 1 gm VAGINAL MOTUWE@209906/05/22 06/05/22 History 0.01%] Metoprolol Succinate (ER) [Toprol 50 mg PO DAILY@0700 06/05/22 06/05/22 History Xl] Nitroglycerin Sl Tabs [Nitrostat] 0.4 mg SL Q5M PRN 06/05/22 06/05/22 History Triamcinolone 0.1% Cream [Kenalog 1 applic TOPICAL BID PRN 06/05/22 06/05/22 History 0.1% Cream] metroNIDAZOLE 0.75% VAGINAL 1 applicator VAGINAL MOWEFR@209906/05/22 06/05/22 History [Metrogel Vaginal] Allergies Allergy/AdvReac Type Severity Reaction Status Date / Time nickel Allergy Rash/Hives Verified 06/05/22 10:11 Physical Exam Vitals: Vital Signs Temp Pulse Resp BP Pulse Ox 06/05/22 09:08 53 L 18 113/66 100 06/05/22 08:28 97.4 F L 53 L 22 81/42 97 Intake and Output 06/04/22 06/05/22 06/05/22 22:59 06:59 14:59 Other: Weight 87.997 kg Results 06/06/22 07:41 06/06/22 07:41 Cardiac Enzymes 06/05/22 06/05/22 Range/Units 09:00 09:00 AST 21 (14-36) U/L Troponin I <0.012 (0.000-0.034) ng/mL Coagulation 06/05/22 Range/Units 09:00 PT 20.5 H (9.0-12.0) sec APTT 45.6 H (22.0-30.0) sec CBC 06/05/22 Range/Units 09:00 WBC 22.6 H (3.8-10.6) k/uL RBC 3.50 L (3.80-5.40) m/uL Hgb 10.8 L (11.4-16.0) gm/dL Hct 33.5 L (34.0-46.0) % Plt Count 254 (150-450) k/uL Comprehensive Metabolic Panel 06/05/22 Range/Units 09:00 Sodium 131 L (137-145) mmol/L Potassium 5.4 H (3.5-5.1) mmol/L Chloride 97 L (98-107) mmol/L Carbon Dioxide 19 L (22-30) mmol/L BUN 34 H (7-17) mg/dL Creatinine 1.62 H (0.52-1.04) mg/dL Glucose 196 H (74-99) mg/dL Calcium 8.6 (8.4-10.2) mg/dL AST 21 (14-36) U/L ALT 16 (4-34) U/L Alkaline Phosphatase 97 (38-126) U/L Total Protein 6.5 (6.3-8.2) g/dL Albumin 3.9 (3.5-5.0) g/dL Current Medications Generic Name Dose Route Start Last Admin Trade Name Freq PRN Reason Stop Dose Admin Azithromycin 500 mg 06/06/22 09:00 Azithromycin 500 Mg Tab PO 06/07/22 09:01 DAILY YIN Protocol Ceftriaxone Sodium 2 gm/ 50 mls @ 100 mls/hr 06/06/22 09:00 Sodium Chloride IVPB 06/09/22 09:29 Q24HR YIN Protocol Azithromycin 500 mg/ Sodium 250 mls @ 250 mls/hr 06/05/22 12:24 Chloride IVPB 06/05/22 13:23 ONCE STA Protocol Miscellaneous Information 1 each 06/05/22 12:24 Pneumonia Protocol Utilized 1 Each Misc PO ONCE PRN Per Protocol Intake and Output 06/04/22 06/05/22 06/05/22 22:59 06:59 14:59 Other: Weight 87.997 kg Patient Weight 06/06/22 06:59 Weight 87.997 kg 06/05/22 09:00 06/05/22 09:00
[2022-06-06 12:31] LABS: Glucose,Whole Blood 139 mg/dL (70-110)
--- NOTE | 2022-06-06 15:42 | P.PN ---
Subjective Progress Note Date: 06/06/22 Patient is a 82-year-old female with a known history of atrial flutter/fibrillation on anticoagulation with Xarelto, hypertension, hyperlipidemia, diabetes type 2-diet controlled, osteoarthritis and history of permanent pacemaker placement and prior history of smoking presents to ER with complaints of generalized weakness and difficulty standing up and walking also. Patient has been having symptoms for the past 2 days. Also complains of cough with green sputum production. Patient states that she is also confused and has been hallucinating. Denies any fever or chills. No nausea vomiting or abdomi nal pain or diarrhea. No complaints of chest pain. Patient does have generalized weakness and denies any focal weakness.Denied any leg swelling or calf tenderness. Patient was recently diagnosed with breast cancer and had lumpectomy of the left breast. Patient does take Lasix 40 mg daily and is also on flecainide, metoprolol and Xarelto. Chest x-ray showed coarse interstitial mid right basilar infiltrates. Related for chronic interstitial lung disease or interstitial pneumonitis. Atelectasis versus early infiltrate right lung base. Laboratory pressure WBC 22.6 hemoglobin 10.8 and platelets 254 INR 2.0 D-dimer is 0.39 Sodium 131 potassium 5.4 chloride 97 bicarb is 19 BUN 34 and creatinine 1.62. Blood sugar is 196. Urinalysis is cloudy with 1+ protein and many bacteria and 1 WBC 7 and l eukoesterase negative. UDS positive for oxycodone and tricyclic antidepressants and benzodiazepines. 06/06/2022 Patient is evaluated today resting in bed. She does seem anxious on assessment, she is continuing with productive cough. Left breast is evaluated there is evidence for hematoma and surgery will be consulted. Xarelto will be placed on hold. Patients pacemaker has been adjusted by [employer], heart rate has improved now in the 60-70s. Patient continues on oral azithromycin for one more dose. She is also receiving IV ceftriaxone, bronchodilators. White count has improved to 12.9, hgb 9.5 today. Sodium has improved to 132, BUN 33, creatinine 1.24. IV fluids will be continued and labs rechecked in the morning. PT/OT recommended subacute rehab on discharge. Review of Systems Constitutional:Reports fatigue and generalized weakness. denied any fever. Cardio vascular: denied any chest pain, palpitations Gastrointestinal: denied any nausea, vomiting, diarrhea Pulmonary: Reports mild shortness of breath with exertion and productive cough Neurologic denied any new focal deficits All inpatient medications were reviewed and appropriate changes in these medications as dictated in the interval history and assessment and plan. PHYSICAL EXAMINATION: GENERAL: The patient is alert and oriented x3, not in any acute distress. Well developed, well nourished. HEENT: Pupils are round and equally reacting to light. EOMI. No scleral icterus. No conjunctival pallor. Normocephalic, atraumatic. No pharyngeal erythema. No thyromegaly. CARDIOVASCULAR: S1 and S2 present. No murmurs, rubs, or gallops. PULMONARY: Chest is clear to auscultation, no wheezing or crackles. ABDOMEN: Soft, nontender, nondistended, normoactive bowel sounds. No palpable organomegaly. MUSCULOSKELETAL: No joint swelling or deformity. EXTREMITIES: No cyanosis, clubbing, or pedal edema. NEUROLOGICAL: Gross neurological examination did not reveal any focal deficits. SKIN: No rashes. Patient has significant bruising to left breast it is hard to palpate and color is red/purple. She does have some excoriation under left breast area. Assessment and Plan Assessment Right lower lobe pneumonia with early infiltrate on chest x-ray Generalized weakness, cough with green sputum production Pacemaker malfunction, threshold has been adjusted by [employer] Recently diagnosed of breast cancer status postlumpectomy on the left side. Possible hematoma to left breast secondary to above Chronic atrial fibrillation on anticoagulation with Xarelto. Coagulopathy with INR 2.0 Diet-controlled diabetes type 2 with mild hyperglycemia Osteoarthritis Normocytic anemia with hemoglobin 9.5 (10.8) Hypovolemic hyponatremia improving Acute kidney injury likely prerenal Mild hyperkalemia secondary acute kidney injury, improving EKG showed electronic atrial pacer. With heart rate 54. DVT Prophylaxis, xarelto has been placed on hold pending surgical evaluation GI prophylaxis: pepcid Plan: Patient will be continued gentle IV hydration with normal saline Sputum culture for graim stain and culture currently pending Continues on IV ceftraixone, PO azithromycin Hold Xarelto, Surgery on consultation for possible hematoma Nystatin powder to breast/axilla Repeat labs in AM PT/OT recommending subacute rehab when stable The impression and plan of care has been dictated by Nurse Daniel Gaviria as directed. Dr. Naresh MD I have performed a history and physical examination and medical decision making of this patient, discussed the same with the dictator, and agree with the dict ators assessment and plan as written, documented as a scribe. Based on total visit time, I have performed more than 50% of this visit. Objective - Vital Signs Vital signs: Vital Signs Temp 97.9 F 06/06/22 12:00 Pulse 73 06/06/22 12:00 Resp 18 06/06/22 12:00 BP 135/78 06/06/22 12:00 Pulse Ox 99 06/06/22 12:00 FiO2 Intake & Output 06/05/22 06/06/22 06/06/22 18:59 06:59 18:59 Intake Total 250 150 Balance 250 150 Weight 87.997 kg Intake: IV 10 Invasive Line 1 10 Oral 240 150 Other: Voiding Method Bedpan Bedpan # Voids 1 - Labs CBC & Chem 7: 06/06/22 07:41 06/06/22 07:41 Labs: Abnormal Lab Results - Last 24 Hours (Table) 06/05/22 06/06/22 06/06/22 Range/Units 20:17 06:04 07:41 WBC 12.9 H (3.8-10.6) k/uL RBC 2.98 L (3.80-5.40) m/uL Hgb 9.5 L (11.4-16.0) gm/dL Hct 28.9 L (34.0-46.0) % Neutrophils # 10.6 H (1.3-7.7) k/uL Sodium (137-145) mmol/L BUN (7-17) mg/dL Creatinine (0.52-1.04) mg/dL Glucose (74-99) mg/dL POC Glucose (mg/dL) 189 H 135 H (70-110) mg/dL Calcium (8.4-10.2) mg/dL 06/06/22 06/06/22 Range/Units 07:41 11:41 WBC (3.8-10.6) k/uL RBC (3.80-5.40) m/uL Hgb (11.4-16.0) gm/dL Hct (34.0-46.0) % Neutrophils # (1.3-7.7) k/uL Sodium 132 L (137-145) mmol/L BUN 33 H (7-17) mg/dL Creatinine 1.24 H (0.52-1.04) mg/dL Glucose 141 H (74-99) mg/dL POC Glucose (mg/dL) 139 H (70-110) mg/dL Calcium 8.1 L (8.4-10.2) mg/dL Microbiology - Last 24 Hours (Table) 06/05/22 11:59 Blood Culture - Preliminary Blood No Growth after 24 hours
[2022-06-06 16:20] LABS: Glucose,Whole Blood 194 mg/dL (70-110)
[2022-06-06 20:04] LABS: Glucose,Whole Blood 141 mg/dL (70-110)
[2022-06-06 22:00] VITALS: BP 163/67; PULSE 69; RESP 30; TEMP 99.2
--- NOTE | 2022-06-07 16:22 | P.DS ---
Providers Date of admission: 06/05/22 12:24 Attending physician: Eulogio Morales Consults: 06/05/22 12:24 Consult Physician Routine Consulting Provider: [facility] Consult Reason/Comments: Pacemaker malfunction, lightheaded Do you want consulting provider notified?: Yes 06/06/22 15:34 Consult Physician Routine Consulting Provider: Shannon Arreola Consult Reason/Comments: left breast hematoma Do you want consulting provider notified?: Yes Primary care physician: Darrel Rizo [facility] Course: Diagnosis Right lower lobe pneumonia with early infiltrate on chest x-ray Generalized weakness, cough with green sputum production Pacemaker malfunction, threshold has been adjusted by [employer] Recently diagnosed of breast cancer status postlumpectomy on the left side. Possible hematoma to left breast secondary to above Chronic atrial fibrillation on anticoagulation with Xarelto. Coagulopathy with INR 2.0 Diet-controlled diabetes type 2 with mild hyperglycemia Osteoarthritis Normocytic anemia with hemoglobin 9.5 (10.8) Hypovolemic hyponatremia improving Acute kidney injury likely prerenal Mild hyperkalemia secondary acute kidney injury, improving EKG showed electronic atrial pacer. With heart rate 54. DVT Prophylaxis, xarelto has been placed on hold pending surgical evaluation GI prophylaxis: pepcid No Code Patient on 06/06/20222034 after experiencing respiratory distress with altered mental status and witnessed seizure like activity. Code status at that time was do not resuscitate. Patient was not evaluated on 06/07/2022 as she had during the evening. She was evaluated prior that day by attending. Hospital Course Patient is an 82 year old female with history of atrial fibrillation anticoagulated with xarelto, hypertension, hyperlipidemia, diabetes, and also history of permanent pacemaker. She presents to the with generalized weakness unable to ambulate and also cough with green sputum. She was found to have early infiltrate right lower lobe. She was started on IV ceftriaxone and PO azithromycin, bronchodilators. She also reports that she has been feeling confused and hallucinating. D-Dimer was negative at 0.39. On admission sodium 131 potassium 5.4, creatinine 1.62 she was gently hydrated and sodium improved to 132, potassium 4.7, creatinine 1.24. Patients mentation had also improved. She was recently diagnosed with breast cancer and is post lumpectomy on left side found to have significant bruising and possible hematoma to left breast. Her xarelto was placed on hold and surgeon was consulted for evaluation. Patient also found to have pacemaker malfunction in the EC and pacer was interogated by [employer] and threshholds were adjusted. Cardiology was following patient. Per medical record, provider instructional design manager was notified of change in condition including patient becoming restless, anxious, with increasing respiratory rate 30s and altered mental status. Patient was an A-Team on 06/06/2022 at 2024 for altered mental status, respiratory distress. Patient was given a breathing treatment and began having seizure like activity witnessed by staff lasting less than 1 minute, and patients oxygen saturation had dropped and patient was felt to be guppy breathing. Patient was placed on NRB with 15L Hiflo cannula. Provider gave instructions to keep patient comfortable. Patients heart rate had dropped from 90 to 40s with weak pulse and BP was unable to be obtained. Patient's family was notified by staff and felt that patient was actively passing, patients code status is do not resuscitate. Patient was then witnessed to have another episode of seizure like activity and heart beat was unable to be detected. Patient on 06/06/2022 at 2034. The impression and plan of care has been dictated by Suzanna Mcgee Nurse Practitioner as directed. Dr. Naresh MD I have performed a history and physical examination and medical decision making of this patient, discussed the same with the dictator, and agree with the dictators assessment and plan as written, documented as a scribe. Based on total visit time, I have performed more than 50% of this visit. Plan - Discharge Summary Discharge Rx Participant: No New Discharge Prescriptions: No Action Rivaroxaban [Xarelto] 20 mg PO DAILY@0700 Pravastatin Sodium [Pravachol] 40 mg PO DAILY@0700 Flecainide Acetate [Tambocor] 100 mg PO BID@0700,1800 Potassium Chloride [Klor-Con 8 ER] 8 meq PO DAILY PRN PRN Reason: w/lasix Ranolazine [Ranexa] 1,000 mg PO BID@0700,1800 Cyanocobalamin [Vitamin B-12 Injection] 1,000 mcg SQ Q30D oxyCODONE-APAP 7.5-325MG [Percocet 7.5-325 mg] 1 tab PO Q8H PRN #12 tab PRN Reason: Pain Furosemide [Lasix] 40 mg PO DAILY PRN PRN Reason: Edema metroNIDAZOLE 0.75% VAGINAL [Metrogel Vaginal] 1 applicator VAGINAL MOWEFR@2100 Estradiol Cream [Estrace Cream 0.01%] 1 gm VAGINAL MOTUWE@2100 Denosumab [Prolia] 60 mg SQ Q180D Ergocalciferol [Vitamin D2 (1250 Mcg = 44474 Iu)] 1,250 mcg PO MOTH Ferrous Sulfate [Feosol] 325 mg PO DAILY@0700 Triamcinolone 0.1% Cream [Kenalog 0.1% Cream] 1 applic TOPICAL BID PRN PRN Reason: Rash Nitroglycerin Sl Tabs [Nitrostat] 0.4 mg SL Q5M PRN PRN Reason: Chest Pain Metoprolol Succinate (ER) [Toprol Xl] 50 mg PO DAILY@0700 Benazepril [Lotensin] 5 mg PO DAILY@0700 Discharge Medication List Rivaroxaban [Xarelto] 20 mg PO DAILY@0700 02/06/17 [History] Pravastatin Sodium [Pravachol] 40 mg PO DAILY@0704/30/18 [History] Flecainide Acetate [Tambocor] 100 mg PO BID@0700,1800 08/12/19 [History] Potassium Chloride [Klor-Con 8 ER] 8 meq PO DAILY PRN 08/12/19 [History] Ranolazine [Ranexa] 1,000 mg PO BID@0700,1800 08/12/19 [History] Cyanocobalamin [Vitamin B-12 Injection] 1,000 mcg SQ Q30D 03/29/20 [History] oxyCODONE-APAP 7.5-325MG [Percocet 7.5-325 mg] 1 tab PO Q8H PRN #12 tab 04/30/20 [Rx] Furosemide [Lasix] 40 mg PO DAILY PRN 12/09/20 [History] Ferrous Sulfate [Feosol] 325 mg PO DAILY@0704/13/22 [History] Benazepril [Lotensin] 5 mg PO DAILY@0700 06/05/22 [History] Denosumab [Prolia] 60 mg SQ Q180D 06/05/22 [History] Ergocalciferol [Vitamin D2 (1250 Mcg = 21968 Iu)] 1,250 mcg PO MOTH 06/05/22 [History] Estradiol Cream [Estrace Cream 0.01%] 1 gm VAGINAL MOTUWE@209906/05/22 [History] Metoprolol Succinate (ER) [Toprol Xl] 50 mg PO DAILY@0700 06/05/22 [History] Nitroglycerin Sl Tabs [Nitrostat] 0.4 mg SL Q5M PRN 06/05/22 [History] Triamcinolone 0.1% Cream [Kenalog 0.1% Cream] 1 applic TOPICAL BID PRN 06/05/22 [History] metroNIDAZOLE 0.75% VAGINAL [Metrogel Vaginal] 1 applicator VAGINAL MOWEFR@209906/05/22 [History] Follow up Appointment(s)/Referral(s): Darrel Rizo DO [Primary Care Provider] - 1-2 days Discharge Disposition: - Preliminary Cause of Preliminary Cause of : pneumonia
--- NOTE | 2022-06-13 13:04 | CDI ---
Documentation Clarification Form Date: 06/13/2022 12:22:40 PM From: Mallory Bobo RN, CCDS Email: [email or web address] Admit Date: 06/05/2022 12:24:00 PM Patient Name: Sherly Zayas Visit Number: [id number] Discharge Date: 06/06/2022 10:00:00 PM ATTENTION: The Clinical Documentation Specialists (CDI) and [facility] Coding Staff appreciate your assistance in clarifying documentation. Please respond to the clarification below the line at the bottom and electronically sign. The CDI & [facility] Coding staff will review the response and follow-up if needed. Please note: Queries are made part of the Legal Health Record. If you have any questions, please contact the author of this message via ITS. Dr. Swati Infante Your patient had respiratory distress, a seizure and . Based on this information and the findings below, is there an additional diagnosis that is clinically appropriate for this patient? Patient history/risk factors: atrial fibrillation anticoagulated with xarelto, hypertension, hyperlipidemia, diabetes and permanent pacemaker. Presents to the EC with generalized weakness, unable to ambulate and cough with green sputum. She was found to have early infiltrate right lower lobe. Started on IV ceftriaxone and PO azithromycin, bronchodilators. Also found to have pacemaker malfunction in the EC and pacer was interrogated by [employer] and thresholds were adjusted. Clinical Indicators: 06/07 Discharge summary: provider salesperson surgical appliances was notified of change in condition including patient becoming restless, anxious, with increasing respiratory rate in the 30s and altered mental status. A-Team called on 06/06/2022 at 2024 for altered mental status, respiratory distress. Patient was given a breathing treatment and began having seizure like activity witnessed by staff lasting less than 1 minute. Patients oxygen saturation had dropped and patient was felt to be guppy breathing. Placed on NRB with 15L Hiflo cannula. 06/06 RR 30, short of breath, labored, accessory muscle use. POX 92% 06/06 A Team: SOB, respiratory distress and altered mental status Treatment: NRB with 15L hiflo cannula, Duoneb treatment, Suctioned. Is there an additional diagnosis that is clinically appropriate for this patient? [ x ] Acute hypoxic respiratory failure [ ] Other, please specify [ ] Unable to determine MTDD
--- NOTE | 2022-06-13 13:22 | CDI ---
Documentation Clarification Form Date: 06/13/2022 01:05:44 PM From: Mallory Bobo RN, CCDS Email: [email or web address] Admit Date: 06/05/2022 12:24:00 PM Patient Name: Sherly Zayas Visit Number: [id number] Discharge Date: 06/06/2022 10:00:00 PM ATTENTION: The Clinical Documentation Specialists (CDI) and [facility] Coding Staff appreciate your assistance in clarifying documentation. Please respond to the clarification below the line at the bottom and electronically sign. The CDI & [facility] Coding staff will review the response and follow-up if needed. Please note: Queries are made part of the Legal Health Record. If you have any questions, please contact the author of this message via ITS. Dr. Swati Infante Acute kidney injury is documented in the H&P, progress notes and discharge summary. Additional clarification regarding the type is requested. History/Risk factors: atrial fibrillation anticoagulated with xarelto, hypertension, hyperlipidemia, diabetes and permanent pacemaker. Presents to the EC with generalized weakness, unable to ambulate and cough with green sputum. She was found to have early infiltrate right lower lobe. Started on IV ceftriaxone and PO azithromycin, bronchodilators. Also found to have pacemaker malfunction in the EC and pacer was interrogated by [employer] and thresholds were adjusted. Clinical Indicators: 06/05 Labs: BUN 34, Cr 1.62, GFR 30. Urine showed amorphous sediment, bacteria, hyaline casts and mucus and was cloudy. 06/06 Labs: BUN 33, Cr 1.24, GFR 41 06/05 H&P: "Acute kidney injury likely prerenal mild hyperkalemia secondary acute kidney." 06/05 Urinalysis: cloudy, amorphous sediment, bacteria, hyaline casts and mucus. Treatment: Monitor labs, IVF's 0.9 NS @75/hr Please clarify the type of acute renal failure, if known: [x ] Acute Renal Failure with Acute Tubular Necrosis [ ] Unable to determine [ ] Other, please specify MTDD
--- NOTE | 2022-06-13 13:52 | CDI ---
Documentation Clarification Form Date: 06/13/2022 01:38:18 PM From: Mallory Bobo RN, CCDS Email: [email or web address] Admit Date: 06/05/2022 12:24:00 PM Patient Name: Sherly Zayas Visit Number: [id number] Discharge Date: 06/06/2022 10:00:00 PM ATTENTION: The Clinical Documentation Specialists (CDI) and [facility] Coding Staff appreciate your assistance in clarifying documentation. Please respond to the clarification below the line at the bottom and electronically sign. The CDI & [facility] Coding staff will review the response and follow-up if needed. Please note: Queries are made part of the Legal Health Record. If you have any questions, please contact the author of this message via ITS. Dr. Infante Your patient had altered mental status. Based on this information and the findings below, is there an additional diagnosis that is clinically appropriate for this patient? Patient history/risk factors: atrial fibrillation anticoagulated with xarelto, hypertension, hyperlipidemia, diabetes and permanent pacemaker. Presents to the EC with generalized weakness, unable to ambulate and cough with green sputum. She was found to have early infiltrate right lower lobe. Started on IV ceftriaxone and PO azithromycin, bronchodilators. Also found to have pacemaker malfunction in the EC and pacer was interrogated by [employer] and thresholds were adjusted. Clinical Indicators: provider prevention specialist was notified of change in condition including patient becoming restless, anxious, with increasing respiratory rate in the 30s and altered mental status. A-Team called on 06/06/2022 at 2024 for altered mental status, respiratory distress. Patient was given a breathing treatment and began having seizure like activity witnessed by staff lasting less than 1 minute. Patients oxygen saturation had dropped and patient was felt to be guppy breathing. Placed on NRB with 15L Hiflo cannula. Treatment: supplemental oxygen, breathing treatments, order to be kept comfortable Is there an additional diagnosis that is clinically appropriate for this patient? [x ] Metabolic encephalopathy [ ] Hypoxic encephalopathy [ ] Other, please specify [ ] Unable to determine MTDD
== END 2022-06-06 22:00 | disposition expired | DRG 193 ==
LOC: EC 08:17 → 3SCARD 12:24
PROVIDERS: ADMIT Internal Medicine; ATTEND Internal Medicine
DX: J18.9 Pneumonia, unspecified organism (principal); G93.41 Metabolic encephalopathy; J96.01 Acute respiratory failure with hypoxia; N17.0 Acute kidney failure with tubular necrosis; D68.9 Coagulation defect, unspecified; I48.11 Longstanding persistent atrial fibrillation; T82.119A Breakdown (mechanical) of unspecified cardiac electronic device, initial encounter; E87.1 Hypo-osmolality and hyponatremia; I48.92 Unspecified atrial flutter; L76.32 Postprocedural hematoma of skin and subcutaneous tissue following other procedure; Z66 Do not resuscitate; C50.912 Malignant neoplasm of unspecified site of left female breast; Z79.01 Long term (current) use of anticoagulants; M19.90 Unspecified osteoarthritis, unspecified site; E11.65 Type 2 diabetes mellitus with hyperglycemia; D64.9 Anemia, unspecified; E86.1 Hypovolemia; E87.5 Hyperkalemia; I25.10 Atherosclerotic heart disease of native coronary artery without angina pectoris; I10 Essential (primary) hypertension; E78.5 Hyperlipidemia, unspecified; R56.9 Unspecified convulsions; Z45.018 Encounter for adjustment and management of other part of cardiac pacemaker; Z91.048 Other nonmedicinal substance allergy status; Z87.891 Personal history of nicotine dependence; Z79.899 Other long term (current) drug therapy; Z85.3 Personal history of malignant neoplasm of breast; Z90.710 Acquired absence of both cervix and uterus; Z98.42 Cataract extraction status, left eye; Z98.41 Cataract extraction status, right eye; Z98.51 Tubal ligation status; Y71.2 Prosthetic and other implants, materials and accessory cardiovascular devices associated with adverse incidents; Y84.8 Other medical procedures as the cause of abnormal reaction of the patient, or of later complication, without mention of misadventure at the time of the procedure
CPT/HCPCS: 36415; 71046; 80048; 80053; 80306; 81001; 83036; 84484; 85025; 85379; 85610; 85730; 87040; 93005; 94640; 96365; 96375; 99285